=== PATIENT | female | born 1950 | race African-American/Black ===

== ENCOUNTER 2018-09-16 18:19 | Inpatient (IN) | payer MEDICAID ==
[~2018-09-16] VITALS: Ht 160 cm; Wt 99.8 kg
--- NOTE | 2018-09-16 18:30 | NUR ---
ED Nurse Note: pt walked in c/o sob x 1 day, pt reports she has hx asthma and it worsen yesterday. noted audible wheezing, ERMD notified regarding pt's condition, RT contacted. noted o2sat 94
[2018-09-16] MEDS ORDERED: ATENOLOL25 MG ORAL (18:34)
[2018-09-16] MEDS ORDERED: OXYBUTYNIN CHLO10 MG PO (18:34)
[2018-09-16] MEDS ORDERED: FOLIC ACID1 MG ORAL (18:34)
[2018-09-16] MEDS ORDERED: BANOPHEN25 M1 PO (18:34)
[2018-09-16] MEDS ORDERED: OYSCO-500500 M1 PO (18:34)
[2018-09-16] MEDS ORDERED: ADALAT10 MG ORAL (18:34)
[2018-09-16] MEDS ORDERED: HYDROCHLOROTHIA50 MG ORAL (18:34)
[2018-09-16] MEDS ORDERED: TREXALL5 MG PO (18:34)
[2018-09-16] MEDS ORDERED: PHENYTOIN SODI100 MG ORAL (18:34)
[2018-09-16] MEDS ORDERED: BENAZEPRIL HCL20 MG ORAL (18:34)
[2018-09-16] MEDS ORDERED: VENTOLIN HFA18 GM INH (18:34)
[2018-09-16] MEDS ORDERED: Albuterol/Ipratropium 3ml neb HHN ONE ×2 (18:45)
--- NOTE | 2018-09-16 19:00 | NUR ---
ED Nurse Note: Rt at the bedside, giving breathing tx. pt o2sat 98%.
[2018-09-16 19:08] VITALS: BP 128/59
[2018-09-16 19:09] LABS: ANION GAP 9 mmol/L (5-15); BLOOD UREA NITROGEN 14 mg/dL (7-18); CALCIUM 9.7 MG/DL (8.5-10.1); CARBON DIOXIDE 29 MMOL/L (21-32); CHLORIDE 98 MMOL/L (98-107); CREATININE 0.8 MG/DL (0.55-1.30); POTASSIUM 3.9 MMOL/L (3.5-5.1); SODIUM 136 MMOL/L (136-145)
[2018-09-16 19:16] LABS: BASOPHILS % (AUTO) 0.9 % (0.0-2.0); EOSINOPHILS % (AUTO) 5.4 % (0.0-3.0); HEMATOCRIT 41.3 % (37.0-47.0); HEMOGLOBIN 14.2 G/DL (12.0-16.0); MEAN CORPUSCULAR VOLUME 86 FL (80-99); MONOCYTES % (AUTO) 6.2 % (1.0-10.0); NEUTROPHILS % (AUTO) 65.5 % (45.0-75.0); PLATELET COUNT 332 K/UL (150-450); RED BLOOD COUNT 4.78 M/UL (4.20-5.40); RED CELL DISTRIBUTION WIDTH 13.1 % (11.6-14.8); WHITE BLOOD COUNT 17.4 K/UL (4.8-10.8)
[2018-09-16 19:22] LABS: ALANINE AMINOTRANSFERASE 33 U/L (12-78); ALBUMIN 3.4 G/DL (3.4-5.0); ALBUMIN/GLOBULIN RATIO 0.7 (1.0-2.7); ALKALINE PHOSPHATASE 165 U/L (46-116); ASPARTATE AMINO TRANSFERASE 33 U/L (15-37); BILIRUBIN,TOTAL 0.1 MG/DL (0.2-1.0); CKMB 1.7 NG/ML (0.0-3.6); CREATINE KINASE 254 U/L (26-308)
--- NOTE | 2018-09-16 19:22 | NUR ---
ED Nurse Note: report given to MELANIE Oleary and endorsed care, pt on residential monitor, vss, safety precautions in place. iv intact and patent.
--- NOTE | 2018-09-16 19:31 | Diagnostic Imaging Report ---
EXAM: XR Chest, 1 View CLINICAL HISTORY: SOB TECHNIQUE: Frontal view of the chest. COMPARISON: No relevant prior studies available. FINDINGS: Lungs: Accentuation of pulmonary markings. No confluent consolidation. Pleural space: Unremarkable. No pneumothorax. Heart: Unremarkable. No cardiomegaly. Mediastinum: Unremarkable. Bones/joints: No acute fracture. IMPRESSION: Accentuation of pulmonary markings. No confluent consolidation.
--- NOTE | 2018-09-16 19:33 | NUR ---
ED Nurse Note: urine collected; sent down to lab.
[2018-09-16 19:45] LABS: APPEARANCE,URINE CLEAR; BILIRUBIN, URINE NEGATIVE (NEGATIVE); COLOR,URINE PALE YELLOW; GLUCOSE, URINE (UA) NEGATIVE (NEGATIVE); KETONES,URINE NEGATIVE (NEGATIVE); LEUKOCYTE ESTERASE ,URINE NEGATIVE (NEGATIVE); NITRITE,URINE NEGATIVE (NEGATIVE); PH,URINE 6.5 (4.5-8.0); PROTEIN,URINE NEGATIVE (NEGATIVE); UROBILINOGEN,URINE NORMAL MG/DL (0.0-1.0)
[2018-09-16] MEDS ORDERED: Solu-MEDROL 125mg Inj IVP ONE (22:00)
--- NOTE | 2018-09-16 22:15 | NUR ---
TRANSFER TO FLOOR: Patient transferred to [facility] as ordered, per md adelia. Report given to skye felipe. patient in stable condition. ambulated from gurney to bed with cane. belongings list completed with receiving rn.
--- NOTE | 2018-09-16 22:15 | NUR ---
NURSE NOTES: Received pt from ED via gurney. Pt transferred to bed and unit without any incident. Family members are at bedside. Pt is A/O x4. [place] pt to unit, room, and hospital policies. Report received from Jared Oleary RN. Belongings list checked and accounted. monitor and storage bin tender is in placed, IV site intact, asymptomatic and patent. Bed is in the lowest position and locked. Call light within reach. No signs/symptoms of acute distress noted at this time. Will contact Dr. Morgan for admission orders.
--- NOTE | 2018-09-16 22:50 | NUR ---
NURSE NOTES: Contacted Dr. Morgan for admission orders. Awaiting call back.
--- NOTE | 2018-09-16 23:00 | Emergency Room Report ---
History of Present Illness General Chief Complaint: Dyspnea/Respdistress Source: Patient Present Illness HPI Patient is a 68-year-old female presented after increased difficulty with breathing. Patient reports of increased cough and trouble breathing. She had been previously followed by Dr. Rouse. She had been taking inhalers without any improvement. Patient reports having increased cough. She had not noticed increased swelling to her legs. She denies any fever but states that she has been having some increased cough with clear white sputum Allergies: Coded Allergies: No Known Allergies (Unverified , 09/16/18) Patient History Past Medical History: see triage record Reviewed Nursing Documentation: PMH: Agreed; PSxH: Agreed Nursing Documentation-PMH Hx Asthma: Yes Review of Systems All Other Systems: negative except mentioned in HPI Physical Exam Vital Signs Date Time Temp Pulse Resp B/P (MAP) Pulse Ox O2 Delivery O2 Flow Rate FiO2 09/16/18 18:24 100.6 101 16 168/83 (111) 95 Room Air 09/16/18 18:49 2.0 28 Sp02 EP Interpretation: reviewed, normal General Appearance: normal inspection, well appearing, no apparent distress, alert, GCS 15, obese Head: atraumatic ENT: normal ENT inspection, hearing grossly normal, normal voice Neck: normal inspection, full range of motion, supple, no bony tend Respiratory: normal inspection, no respiratory distress, no retraction, wheezing Cardiovascular #1: regular rate, rhythm Gastrointestinal: normal inspection, normal bowel sounds, non tender, soft, no guarding, no hernia Genitourinary: no CVA tenderness Musculoskeletal: normal inspection, back normal, normal range of motion Neurologic: normal inspection, alert, oriented x3, responsive, motor strength/ tone normal, speech normal Psychiatric: normal inspection, judgement/insight normal, mood/affect normal Skin: normal inspection, normal color, no rash Medical Decision Making Diagnostic Impression: Primary Impression: Respiratory distress Additional Impression: COPD exacerbation ER Course Patient present for shortness of breath. Differential diagnosis include was not limited to pneumonia, asthma exacerbation, deep venous thrombosis, pulmonary embolism among others. Because of complexity of patient's case laboratory testing and imaging studies were ordered. Patient was noted to have a normal BNP on laboratory testing. Patient had been given IV Lasix due to frothy sputum. Chest x-ray 1 view read by radiology showed increased pulmonary markings as well as normal cardiac size. Patient started on breathing treatments as well as IV fluids. Patient was noted to have some improvement after breathing treatments but continued to have difficulty with breathing. She was given IV Solu-Medrol. Dr. Mohinder Morgan was contacted for inpatient management due to covering physician for Dr. Rouse Labs Test 09/16/18 18:28 09/16/18 19:21 White Blood Count 17.4 K/UL (4.8-10.8) Red Blood Count 4.78 M/UL (4.20-5.40) Hemoglobin 14.2 G/DL (12.0-16.0) Hematocrit 41.3 % (37.0-47.0) Mean Corpuscular Volume 86 FL (80-99) Mean Corpuscular Hemoglobin 29.7 PG (27.0-31.0) Mean Corpuscular Hemoglobin Concent 34.5 G/DL (32.0-36.0) Red Cell Distribution Width 13.1 % (11.6-14.8) Platelet Count 332 K/UL (150-450) Mean Platelet Volume 6.5 FL (6.5-10.1) Neutrophils (%) (Auto) 65.5 % (45.0-75.0) Lymphocytes (%) (Auto) 22.0 % (20.0-45.0) Monocytes (%) (Auto) 6.2 % (1.0-10.0) Eosinophils (%) (Auto) 5.4 % (0.0-3.0) Basophils (%) (Auto) 0.9 % (0.0-2.0) Sodium Level 136 MMOL/L (136-145) Potassium Level 3.9 MMOL/L (3.5-5.1) Chloride Level 98 MMOL/L (98-107) Carbon Dioxide Level 29 MMOL/L (21-32) Anion Gap 9 mmol/L (5-15) Blood Urea Nitrogen 14 mg/dL (7-18) Creatinine 0.8 MG/DL (0.55-1.30) Estimat Glomerular Filtration Rate > 60 mL/min (>60) Glucose Level 141 MG/DL (74-106) Calcium Level 9.7 MG/DL (8.5-10.1) Total Bilirubin 0.1 MG/DL (0.2-1.0) Aspartate Amino Transf (AST/SGOT) 33 U/L (15-37) Alanine Aminotransferase (ALT/SGPT) 33 U/L (12-78) Alkaline Phosphatase 165 U/L (46-116) Total Creatine Kinase 254 U/L (26-308) Creatine Kinase MB 1.7 NG/ML (0.0-3.6) Creatine Kinase MB Relative Index 0.6 Troponin I 0.000 ng/mL (0.000-0.056) Pro-B-Type Natriuretic Peptide 11 pg/mL (0-125) Total Protein 8.1 G/DL (6.4-8.2) Albumin 3.4 G/DL (3.4-5.0) Globulin 4.7 g/dL Albumin/Globulin Ratio 0.7 (1.0-2.7) Lipase 105 U/L (73-393) Urine Color Pale yellow Urine Appearance Clear Urine pH 6.5 (4.5-8.0) Urine Specific [place] 1.005 (1.005-1.035) Urine Protein Negative (NEGATIVE) Urine Glucose (UA) Negative (NEGATIVE) Urine Ketones Negative (NEGATIVE) Urine Blood Negative (NEGATIVE) Urine Nitrite Negative (NEGATIVE) Urine Bilirubin Negative (NEGATIVE) Urine Urobilinogen Normal MG/DL (0.0-1.0) Urine Leukocyte Esterase Negative (NEGATIVE) Last Vital Signs Date Time Temp Pulse Resp B/P (MAP) Pulse Ox O2 Delivery O2 Flow Rate FiO2 09/16/18 22:15 98.9 96 22 128/59 98 Room Air 2.0 28 Status: improved Disposition: ADMITTED INPATIENT Condition: Stable Referrals: NON PHYSICIAN (PCP) Jesus Willams MD Sep 16, 2018 23:00
[2018-09-17] VITALS: BP 145/63
--- NOTE | 2018-09-17 01:02 | NUR ---
NURSE NOTES: Second attempt at contacting Dr. Morgan for admission orders. Awaiting call back.
--- NOTE | 2018-09-17 02:25 | NUR ---
NURSE NOTES: Received admission orders from Dr. Morgan. Will note and carry out.
[2018-09-17] MEDS: Albuterol/Ipratropium 3ml neb HHN SCH ×6 (02:37→22:33)
[2018-09-17 04:00] VITALS: BP 110/56
[2018-09-17] MEDS: Solu-MEDROL 125mg Inj IVP SCH ×3 (05:19→21:32)
[2018-09-17 07:22] LABS: BASOPHILS % (AUTO) 0.3 % (0.0-2.0); EOSINOPHILS % (AUTO) 2.9 % (0.0-3.0); HEMATOCRIT 40.4 % (37.0-47.0); HEMOGLOBIN 13.8 G/DL (12.0-16.0); LYMPHOCYTES % (AUTO) 16.1 % (20.0-45.0); MEAN CORPUSCULAR VOLUME 90 FL (80-99); MONOCYTES % (AUTO) 4.2 % (1.0-10.0); NEUTROPHILS % (AUTO) 76.5 % (45.0-75.0); PLATELET COUNT 342 K/UL (150-450); RED BLOOD COUNT 4.51 M/UL (4.20-5.40); RED CELL DISTRIBUTION WIDTH 13.7 % (11.6-14.8); WHITE BLOOD COUNT 16.9 K/UL (4.8-10.8)
--- NOTE | 2018-09-17 07:30 | NUR ---
NURSE NOTES: Received report from MELANIE Holley. Patient in bed resting, no active s/s cardiac, respiratory distress noticed at this time, denies pain at this time. Patient on 2L via NC, ST with HR 101, AOx4. IV on right wrist 20G, asymptomatic, patent, intact. Endorsed need of clarification for frequency of azithromycin, will call MD. Bed in lowest positions, side rails upx3, call light within reach, side rails padded. Will continue to monitor.
--- NOTE | 2018-09-17 07:32 | NUR ---
NURSE NOTES: Called Dr. Morgan regarding frequency of Azithromycin. Awaiting for callback. Will continue to monitor.
--- NOTE | 2018-09-17 07:39 | NUR ---
HAND-OFF: Report given to MELANIE Dasilva.
[2018-09-17 07:53] LABS: ALANINE AMINOTRANSFERASE 33 U/L (12-78); ALBUMIN 3.4 G/DL (3.4-5.0); ALBUMIN/GLOBULIN RATIO 0.7 (1.0-2.7); ALKALINE PHOSPHATASE 164 U/L (46-116); ANION GAP 10 mmol/L (5-15); ASPARTATE AMINO TRANSFERASE 21 U/L (15-37); BILIRUBIN,TOTAL 0.3 MG/DL (0.2-1.0); BLOOD UREA NITROGEN 13 mg/dL (7-18); CALCIUM 9.7 MG/DL (8.5-10.1); CARBON DIOXIDE 28 MMOL/L (21-32); CHLORIDE 98 MMOL/L (98-107); CREATININE 0.7 MG/DL (0.55-1.30); POTASSIUM 3.6 MMOL/L (3.5-5.1); SODIUM 136 MMOL/L (136-145)
[2018-09-17 08:00] VITALS: BP 158/74
[2018-09-17] MEDS: Phenytoin 100mg cap ORAL SCH ×3 (08:58→21:33)
[2018-09-17] MEDS: Tums 500mg ORAL SCH (08:58)
[2018-09-17] MEDS: Oxybutynin 5mg tab ORAL SCH ×3 (08:59→17:11)
[2018-09-17] MEDS: Benazepril 10mg tab ORAL SCH (08:59)
[2018-09-17] MEDS ORDERED: Azithromycin 500 MG in D5W 275 ML IVPB SCH (09:00)
--- NOTE | 2018-09-17 09:27 | Consultation ---
History of Present Illness General Date patient seen: Sep 17, 2018 Time patient seen: 11:52 Chief Complaint: Dyspnea/Respdistress Present Illness HPI pt walked in c/o sob x 1 day, pt reports she has hx asthma and it worsen yesterday She has a history of asthma vs COPD, former heavy tobacco use, HTN, seizure disorder, obesity with 3 days of increased shortness of breath, cough, wheezing. No fevers. She endorses chest pain as well. Allergies: Coded Allergies: No Known Allergies (Unverified , 09/16/18) Medication History Scheduled Albuterol Sulfate (Ventolin Hfa), 2 PUFFS INH EVERY 4 HOURS, (Reported) Atenolol* (Tenormin*), 25 MG ORAL DAILY, (Reported) Benazepril Hcl* (Benazepril Hcl*), 20 MG ORAL DAILY, (Reported) Calcium Carbonate (Oysco-500), 500 MG PO DAILY, (Reported) Diphenhydramine Hcl (Banophen), 25 MG PO DAILY, (Reported) Folic Acid* (Folic Acid*), 1 MG ORAL DAILY, (Reported) Hydrochlorothiazide* (Hydrochlorothiazide*), 50 MG ORAL DAILY, (Reported) Methotrexate Sodium (Trexall), 2.5 MG PO ONCE A WEEK, (Reported) Nifedipine (Nifedipine*), 90 MG ORAL DAILY, (Reported) Oxybutynin Chloride (Oxybutynin Chloride Er), 10 MG PO BID, (Reported) Phenytoin Sodium Extended* (Phenytoin Sodium Extended*), 200 MG ORAL THREE TIMES A DAY, (Reported) Patient History Healthcare decision maker Resuscitation status Full Code Advanced Directive on File Review of Systems Constitutional: Reports: no symptoms Eye: Reports: no symptoms ENT: Reports: no symptoms Respiratory: Reports: shortness of breath, wheezing Cardiovascular: Reports: chest pain Gastrointestinal: Reports: no symptoms Genitourinary: Reports: no symptoms Musculoskeletal: Reports: no symptoms Skin: Reports: no symptoms Psychiatric: Reports: no symptoms Neurological: Reports: no symptoms Endocrine: Reports: no symptoms Hematologic/Lymphatic: Reports: no symptoms Physical Exam General Appearance: no apparent distress, alert Lines, tubes and drains: peripheral HEENT: normocephalic, atraumatic Neck: non-tender, normal alignment Respiratory/Chest: chest wall non-tender, lungs clear Cardiovascular/Chest: normal peripheral pulses, normal rate, regular rhythm Abdomen: normal bowel sounds, non tender, soft Extremities: normal range of motion, non-tender, normal inspection, no calf tenderness Skin Exam: normal pigmentation, warm/dry 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, no motor/sensory deficits Last 24 Hour Vital Signs Date Time Temp Pulse Resp B/P (MAP) Pulse Ox O2 Delivery O2 Flow Rate FiO2 09/17/18 08:59 158/74 09/17/18 08:59 105 158/74 09/17/18 08:00 98.9 105 20 158/74 (102) 96 09/17/18 07:37 104 20 98 Nasal Cannula 2.0 28 09/17/18 07:21 101 20 96 Nasal Cannula 2.0 28 09/17/18 04:00 101 09/17/18 04:00 98.4 102 20 110/56 (74) 96 09/17/18 02:47 101 20 92 Nasal Cannula 2.0 28 09/17/18 02:37 105 20 94 Nasal Cannula 2.0 28 09/17/18 00:00 98.2 100 22 145/63 (90) 100 09/17/18 00:00 102 09/16/18 22:25 Nasal Cannula 2.0 09/16/18 22:15 98.9 96 22 128/59 98 Room Air 2.0 28 09/16/18 19:08 98.9 96 22 128/59 98 09/16/18 19:08 96 22 Room Air 09/16/18 19:02 96 20 99 Nasal Cannula 2.0 28 09/16/18 18:52 92 16 96 Nasal Cannula 2.0 28 09/16/18 18:49 92 15 96 Nasal Cannula 2.0 28 09/16/18 18:24 100.6 101 16 168/83 (111) 95 Room Air Intake and Output 09/16/18 09/17/18 18:59 06:59 Intake Total 10 ml Output Total 300 ml Balance -290 ml IV Total 10 ml Output Urine Total 300 ml # Voids 2 Laboratory Tests Test 09/16/18 18:28 09/16/18 19:21 09/17/18 05:10 White Blood Count 17.4 K/UL (4.8-10.8) H 16.9 K/UL (4.8-10.8) H Red Blood Count 4.78 M/UL (4.20-5.40) 4.51 M/UL (4.20-5.40) Hemoglobin 14.2 G/DL (12.0-16.0) 13.8 G/DL (12.0-16.0) Hematocrit 41.3 % (37.0-47.0) 40.4 % (37.0-47.0) Mean Corpuscular Volume 86 FL (80-99) 90 FL (80-99) Mean Corpuscular Hemoglobin 29.7 PG (27.0-31.0) 30.6 PG (27.0-31.0) Mean Corpuscular Hemoglobin Concent 34.5 G/DL (32.0-36.0) 34.1 G/DL (32.0-36.0) Red Cell Distribution Width 13.1 % (11.6-14.8) 13.7 % (11.6-14.8) Platelet Count 332 K/UL (150-450) 342 K/UL (150-450) Mean Platelet Volume 6.5 FL (6.5-10.1) 7.1 FL (6.5-10.1) Neutrophils (%) (Auto) 65.5 % (45.0-75.0) 76.5 % (45.0-75.0) H Lymphocytes (%) (Auto) 22.0 % (20.0-45.0) 16.1 % (20.0-45.0) L Monocytes (%) (Auto) 6.2 % (1.0-10.0) 4.2 % (1.0-10.0) Eosinophils (%) (Auto) 5.4 % (0.0-3.0) H 2.9 % (0.0-3.0) Basophils (%) (Auto) 0.9 % (0.0-2.0) 0.3 % (0.0-2.0) Sodium Level 136 MMOL/L (136-145) 136 MMOL/L (136-145) Potassium Level 3.9 MMOL/L (3.5-5.1) 3.6 MMOL/L (3.5-5.1) Chloride Level 98 MMOL/L (98-107) 98 MMOL/L (98-107) Carbon Dioxide Level 29 MMOL/L (21-32) 28 MMOL/L (21-32) Anion Gap 9 mmol/L (5-15) 10 mmol/L (5-15) Blood Urea Nitrogen 14 mg/dL (7-18) 13 mg/dL (7-18) Creatinine 0.8 MG/DL (0.55-1.30) 0.7 MG/DL (0.55-1.30) Estimat Glomerular Filtration Rate > 60 mL/min (>60) > 60 mL/min (>60) Glucose Level 141 MG/DL (74-106) H 136 MG/DL (74-106) H Calcium Level 9.7 MG/DL (8.5-10.1) 9.7 MG/DL (8.5-10.1) Total Bilirubin 0.1 MG/DL (0.2-1.0) L 0.3 MG/DL (0.2-1.0) Aspartate Amino Transf (AST/SGOT) 33 U/L (15-37) 21 U/L (15-37) Alanine Aminotransferase (ALT/SGPT) 33 U/L (12-78) 33 U/L (12-78) Alkaline Phosphatase 165 U/L (46-116) H 164 U/L (46-116) H Total Creatine Kinase 254 U/L (26-308) Creatine Kinase MB 1.7 NG/ML (0.0-3.6) Creatine Kinase MB Relative Index 0.6 Troponin I 0.000 ng/mL (0.000-0.056) Pro-B-Type Natriuretic Peptide 11 pg/mL (0-125) Total Protein 8.1 G/DL (6.4-8.2) 8.0 G/DL (6.4-8.2) Albumin 3.4 G/DL (3.4-5.0) 3.4 G/DL (3.4-5.0) Globulin 4.7 g/dL 4.6 g/dL Albumin/Globulin Ratio 0.7 (1.0-2.7) L 0.7 (1.0-2.7) L Lipase 105 U/L (73-393) Urine Color Pale yellow Urine Appearance Clear Urine pH 6.5 (4.5-8.0) Urine Specific [place] 1.005 (1.005-1.035) Urine Protein Negative (NEGATIVE) Urine Glucose (UA) Negative (NEGATIVE) Urine Ketones Negative (NEGATIVE) Urine Blood Negative (NEGATIVE) Urine Nitrite Negative (NEGATIVE) Urine Bilirubin Negative (NEGATIVE) Urine Urobilinogen Normal MG/DL (0.0-1.0) Urine Leukocyte Esterase Negative (NEGATIVE) Height (Feet): 5 Height (Inches): 3.00 Weight (Pounds): 214 Medications Current Medications Medications (Trade) Dose Ordered Sig/Jessica Route PRN Reason Start Time Stop Time Status Last Admin Dose Admin Acetaminophen (Tylenol) 650 mg Q6H PRN ORAL Mild Pain/Temp > 100.5 09/17/18 02:45 10/17/18 02:44 Albuterol/ Ipratropium (Albuterol/ Ipratropium) 3 ml Q4HRT HHN 09/17/18 03:00 09/22/18 02:59 09/17/18 07:20 Azithromycin 500 mg/Dextrose 275 ml @ 275 mls/hr Q8HR IVPB 09/17/18 09:00 09/19/18 06:59 UNV Benazepril HCl (Lotensin) 20 mg DAILY ORAL 09/17/18 09:00 10/17/18 08:59 09/17/18 08:59 Calcium Carbonate (Tums) 500 mg DAILY ORAL 09/17/18 09:00 10/17/18 08:59 09/17/18 08:58 Diphenhydramine HCl (Benadryl) 25 mg DAILY ORAL 09/17/18 09:00 10/17/18 08:59 09/17/18 08:58 Folic Acid (Folate) 1 mg DAILY ORAL 09/17/18 09:00 10/17/18 08:59 09/17/18 08:58 Methylprednisolone Sodium Succinate (Solu-MEDROL) 60 mg EVERY 6 HOURS IVP 09/17/18 06:00 10/17/18 05:59 09/17/18 05:19 Nifedipine (Procardia XL) 90 mg DAILY ORAL 09/17/18 09:00 10/17/18 08:59 09/17/18 08:59 Oxybutynin Chloride (Ditropan) 5 mg QID ORAL 09/17/18 09:00 10/17/18 08:59 09/17/18 08:59 Phenytoin (Dilantin) 200 mg THREE TIMES A DAY ORAL 09/17/18 09:00 10/17/18 08:59 09/17/18 08:58 Assessment/Plan Status: stable Assessment/Plan: Assessment/Plan Assessment/Plan: Problem List: 1. Respiratory insufficiency 2. Acute COPD exacerbation 3. Leukocytosis 4. Possible community acquired pneumonia 5. Seizure disorder 6. Obesity 7. HTN Plan: -ceftriaxone/azithro -solumedrol 125 in ED, cont 60q 12 for now -duonebs -monitor volumes -check TTE -Outpatient stress test Hari Vivas MD Sep 17, 2018 09:27
[2018-09-17 12:00] VITALS: BP 124/59
--- NOTE | 2018-09-17 13:57 | Consultation ---
History of Present Illness General Date patient seen: Sep 17, 2018 Chief Complaint: Dyspnea/Respdistress Referring physician: Dr. Mohinder Morgan Reason for Consultation: COPD exacerbation Present Illness HPI 68 y/o female w/ asthma vs COPD, former heavy tobacco use, HTN, seizure disorder , obesity with 3 days of increased shortness of breath, cough, wheezing. No fevers. No sick contacts. Seen in hospital and given steroids and azithromycin has been started. Main issue is wheezing. Noted leukocytosis on admission but no obvious infiltrate on CXR. Uses albuterol prn. Allergies: Coded Allergies: No Known Allergies (Unverified , 09/16/18) Medication History Scheduled Albuterol Sulfate (Ventolin Hfa), 2 PUFFS INH EVERY 4 HOURS, (Reported) Atenolol* (Tenormin*), 25 MG ORAL DAILY, (Reported) Benazepril Hcl* (Benazepril Hcl*), 20 MG ORAL DAILY, (Reported) Calcium Carbonate (Oysco-500), 500 MG PO DAILY, (Reported) Diphenhydramine Hcl (Banophen), 25 MG PO DAILY, (Reported) Folic Acid* (Folic Acid*), 1 MG ORAL DAILY, (Reported) Hydrochlorothiazide* (Hydrochlorothiazide*), 50 MG ORAL DAILY, (Reported) Methotrexate Sodium (Trexall), 2.5 MG PO ONCE A WEEK, (Reported) Nifedipine (Nifedipine*), 90 MG ORAL DAILY, (Reported) Oxybutynin Chloride (Oxybutynin Chloride Er), 10 MG PO BID, (Reported) Phenytoin Sodium Extended* (Phenytoin Sodium Extended*), 200 MG ORAL THREE TIMES A DAY, (Reported) Patient History History Provided By: Patient Healthcare decision maker Resuscitation status Full Code Advanced Directive on File Past Medical/Surgical History Past Medical/Surgical History: (1) COPD exacerbation Review of Systems Constitutional: Reports: other - hot flashes Eye: Reports: no symptoms ENT: Reports: no symptoms Respiratory: Reports: cough, shortness of breath, wheezing, sputum Cardiovascular: Reports: edema Gastrointestinal: Reports: no symptoms Genitourinary: Reports: no symptoms Musculoskeletal: Reports: no symptoms Neurological: Reports: no symptoms Physical Exam General Appearance: WD/WN, no apparent distress, alert HEENT: EOMI, supple, no JVD Neck: non-tender, normal alignment, supple, normal inspection Respiratory/Chest: crackles/rales, expiratory wheezing Cardiovascular/Chest: normal rate, regular rhythm Abdomen: normal bowel sounds, non tender, soft Extremities: trace edema Skin Exam: normal pigmentation 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 Last 24 Hour Vital Signs Date Time Temp Pulse Resp B/P (MAP) Pulse Ox O2 Delivery O2 Flow Rate FiO2 09/17/18 10:55 100 20 99 Nasal Cannula 2.0 28 09/17/18 10:44 99 20 96 Nasal Cannula 2.0 28 09/17/18 09:00 Nasal Cannula 2.0 09/17/18 08:59 158/74 09/17/18 08:59 105 158/74 09/17/18 08:00 98 09/17/18 08:00 98.9 105 20 158/74 (102) 96 09/17/18 07:37 104 20 98 Nasal Cannula 2.0 28 09/17/18 07:21 101 20 96 Nasal Cannula 2.0 28 09/17/18 04:00 101 09/17/18 04:00 98.4 102 20 110/56 (74) 96 09/17/18 02:47 101 20 92 Nasal Cannula 2.0 28 09/17/18 02:37 105 20 94 Nasal Cannula 2.0 28 09/17/18 00:00 98.2 100 22 145/63 (90) 100 09/17/18 00:00 102 09/16/18 22:25 Nasal Cannula 2.0 09/16/18 22:15 98.9 96 22 128/59 98 Room Air 2.0 28 09/16/18 19:08 98.9 96 22 128/59 98 09/16/18 19:08 96 22 Room Air 09/16/18 19:02 96 20 99 Nasal Cannula 2.0 28 09/16/18 18:52 92 16 96 Nasal Cannula 2.0 28 09/16/18 18:49 92 15 96 Nasal Cannula 2.0 28 09/16/18 18:24 100.6 101 16 168/83 (111) 95 Room Air Intake and Output 09/16/18 09/17/18 19:00 07:00 Intake Total 10 ml Output Total 300 ml Balance -290 ml IV Total 10 ml Output Urine Total 300 ml # Voids 2 Laboratory Tests Test 09/16/18 18:28 09/16/18 19:21 09/17/18 05:10 White Blood Count 17.4 K/UL (4.8-10.8) H 16.9 K/UL (4.8-10.8) H Red Blood Count 4.78 M/UL (4.20-5.40) 4.51 M/UL (4.20-5.40) Hemoglobin 14.2 G/DL (12.0-16.0) 13.8 G/DL (12.0-16.0) Hematocrit 41.3 % (37.0-47.0) 40.4 % (37.0-47.0) Mean Corpuscular Volume 86 FL (80-99) 90 FL (80-99) Mean Corpuscular Hemoglobin 29.7 PG (27.0-31.0) 30.6 PG (27.0-31.0) Mean Corpuscular Hemoglobin Concent 34.5 G/DL (32.0-36.0) 34.1 G/DL (32.0-36.0) Red Cell Distribution Width 13.1 % (11.6-14.8) 13.7 % (11.6-14.8) Platelet Count 332 K/UL (150-450) 342 K/UL (150-450) Mean Platelet Volume 6.5 FL (6.5-10.1) 7.1 FL (6.5-10.1) Neutrophils (%) (Auto) 65.5 % (45.0-75.0) 76.5 % (45.0-75.0) H Lymphocytes (%) (Auto) 22.0 % (20.0-45.0) 16.1 % (20.0-45.0) L Monocytes (%) (Auto) 6.2 % (1.0-10.0) 4.2 % (1.0-10.0) Eosinophils (%) (Auto) 5.4 % (0.0-3.0) H 2.9 % (0.0-3.0) Basophils (%) (Auto) 0.9 % (0.0-2.0) 0.3 % (0.0-2.0) Sodium Level 136 MMOL/L (136-145) 136 MMOL/L (136-145) Potassium Level 3.9 MMOL/L (3.5-5.1) 3.6 MMOL/L (3.5-5.1) Chloride Level 98 MMOL/L (98-107) 98 MMOL/L (98-107) Carbon Dioxide Level 29 MMOL/L (21-32) 28 MMOL/L (21-32) Anion Gap 9 mmol/L (5-15) 10 mmol/L (5-15) Blood Urea Nitrogen 14 mg/dL (7-18) 13 mg/dL (7-18) Creatinine 0.8 MG/DL (0.55-1.30) 0.7 MG/DL (0.55-1.30) Estimat Glomerular Filtration Rate > 60 mL/min (>60) > 60 mL/min (>60) Glucose Level 141 MG/DL (74-106) H 136 MG/DL (74-106) H Calcium Level 9.7 MG/DL (8.5-10.1) 9.7 MG/DL (8.5-10.1) Total Bilirubin 0.1 MG/DL (0.2-1.0) L 0.3 MG/DL (0.2-1.0) Aspartate Amino Transf (AST/SGOT) 33 U/L (15-37) 21 U/L (15-37) Alanine Aminotransferase (ALT/SGPT) 33 U/L (12-78) 33 U/L (12-78) Alkaline Phosphatase 165 U/L (46-116) H 164 U/L (46-116) H Total Creatine Kinase 254 U/L (26-308) Creatine Kinase MB 1.7 NG/ML (0.0-3.6) Creatine Kinase MB Relative Index 0.6 Troponin I 0.000 ng/mL (0.000-0.056) Pro-B-Type Natriuretic Peptide 11 pg/mL (0-125) Total Protein 8.1 G/DL (6.4-8.2) 8.0 G/DL (6.4-8.2) Albumin 3.4 G/DL (3.4-5.0) 3.4 G/DL (3.4-5.0) Globulin 4.7 g/dL 4.6 g/dL Albumin/Globulin Ratio 0.7 (1.0-2.7) L 0.7 (1.0-2.7) L Lipase 105 U/L (73-393) Urine Color Pale yellow Urine Appearance Clear Urine pH 6.5 (4.5-8.0) Urine Specific [place] 1.005 (1.005-1.035) Urine Protein Negative (NEGATIVE) Urine Glucose (UA) Negative (NEGATIVE) Urine Ketones Negative (NEGATIVE) Urine Blood Negative (NEGATIVE) Urine Nitrite Negative (NEGATIVE) Urine Bilirubin Negative (NEGATIVE) Urine Urobilinogen Normal MG/DL (0.0-1.0) Urine Leukocyte Esterase Negative (NEGATIVE) Height (Feet): 5 Height (Inches): 3.00 Weight (Pounds): 214 Medications Current Medications Medications (Trade) Dose Ordered Sig/Jessica Route PRN Reason Start Time Stop Time Status Last Admin Dose Admin Acetaminophen (Tylenol) 650 mg Q6H PRN ORAL Mild Pain/Temp > 100.5 09/17/18 02:45 10/17/18 02:44 Albuterol/ Ipratropium (Albuterol/ Ipratropium) 3 ml Q4HRT HHN 09/17/18 03:00 09/22/18 02:59 09/17/18 10:44 Azithromycin 500 mg/Dextrose 275 ml @ 275 mls/hr ONCE IV 09/17/18 14:00 09/17/18 16:00 Azithromycin 500 mg/Dextrose 275 ml @ 275 mls/hr Q24H IV 09/18/18 14:00 09/25/18 13:59 Benazepril HCl (Lotensin) 20 mg DAILY ORAL 09/17/18 09:00 10/17/18 08:59 09/17/18 08:59 Calcium Carbonate (Tums) 500 mg DAILY ORAL 09/17/18 09:00 10/17/18 08:59 09/17/18 08:58 Diphenhydramine HCl (Benadryl) 25 mg DAILY ORAL 09/17/18 09:00 10/17/18 08:59 09/17/18 08:58 Folic Acid (Folate) 1 mg DAILY ORAL 09/17/18 09:00 10/17/18 08:59 09/17/18 08:58 Methylprednisolone Sodium Succinate (Solu-MEDROL) 60 mg EVERY 6 HOURS IVP 09/17/18 06:00 10/17/18 05:59 09/17/18 12:06 Nifedipine (Procardia XL) 90 mg DAILY ORAL 09/17/18 09:00 10/17/18 08:59 09/17/18 08:59 Oxybutynin Chloride (Ditropan) 5 mg QID ORAL 09/17/18 09:00 10/17/18 08:59 09/17/18 12:06 Phenytoin (Dilantin) 200 mg THREE TIMES A DAY ORAL 09/17/18 09:00 10/17/18 08:59 09/17/18 08:58 Assessment/Plan Assessment/Plan: Problem List: 1. Respiratory insufficiency 2. Acute COPD exacerbation 3. Leukocytosis 4. Possible community acquired pneumonia 5. Seizure disorder 6. Obesity 7. HTN Plan: -ceftriaxone/azithro -solumedrol 125 in ED, cont 60q 12 for now -duonebs -monitor volumes -check TTE Yang Ramos MD Sep 17, 2018 13:57
[2018-09-17] MEDS ORDERED: Azithromycin 500mg/D5W 275ml IV SCH ×2 (14:00)
[2018-09-17 16:00] VITALS: BP 120/63
[2018-09-17] MEDS: cefTRIAXone 1 GM in D5W 55 ML IVPB SCH (16:11)
--- NOTE | 2018-09-17 18:51 | History & Physical ---
History of Present Illness General Date patient seen: Sep 17, 2018 Reason for Hospitalization: Dyspnea/Respdistress Present Illness HPI This is a 68 year old female with past medical history of COPD, former heavy tobacco use, HTN, seizure disorder, obesity with 4-5 days of days of increased shortness of breath and productive cough Denies fevers or chills no nausea or emesis S/p solumedrol in the ED Allergies: Coded Allergies: No Known Allergies (Unverified , 09/16/18) Medication History Scheduled Albuterol Sulfate (Ventolin Hfa), 2 PUFFS INH EVERY 4 HOURS, (Reported) Atenolol* (Tenormin*), 25 MG ORAL DAILY, (Reported) Benazepril Hcl* (Benazepril Hcl*), 20 MG ORAL DAILY, (Reported) Calcium Carbonate (Oysco-500), 500 MG PO DAILY, (Reported) Diphenhydramine Hcl (Banophen), 25 MG PO DAILY, (Reported) Folic Acid* (Folic Acid*), 1 MG ORAL DAILY, (Reported) Hydrochlorothiazide* (Hydrochlorothiazide*), 50 MG ORAL DAILY, (Reported) Methotrexate Sodium (Trexall), 2.5 MG PO ONCE A WEEK, (Reported) Nifedipine (Nifedipine*), 90 MG ORAL DAILY, (Reported) Oxybutynin Chloride (Oxybutynin Chloride Er), 10 MG PO BID, (Reported) Phenytoin Sodium Extended* (Phenytoin Sodium Extended*), 200 MG ORAL THREE TIMES A DAY, (Reported) Patient History History Provided By: Patient Healthcare decision maker Resuscitation status Full Code Advanced Directive on File Review of Systems Review of Symptoms General ROS: no weight loss or fever Psychological ROS: no depression or mood changes, no memory loss Ophthalmic ROS: no visual changes or eye irritation ENT ROS: no nasal congestion, hearing loss, dizziness Allergy and Immunology ROS: no allergic symptoms or urticaria Hematological and Lymphatic ROS: no swollen glands, unusual bleeding or bruising Endocrine ROS: no polyuria, polydipsia, weight changes, temperature intolerance Respiratory ROS: + SOB, + wheezing Cardiovascular ROS: no chest pain or dyspnea on exertion Gastrointestinal ROS: denies abdominal pain, bright red blood in stool. Musculoskeletal ROS: no myalgias or arthralgias Neurological ROS: no TIA or stroke symptoms Dermatological ROS: no new or changing skin lesions, rashes or pruritis Physical Exam Physical Exam General appearance: alert, cooperative, no distress, appears stated age Head: Normocephalic, without obvious abnormality, atraumatic Eyes: conjunctivae/corneas clear. PERRL, EOM's intact. Fundi benign Throat: Lips, mucosa, and tongue normal. Teeth and gums normal Neck: supple, symmetrical, trachea midline, no adenopathy, thyroid: not enlarged, symmetric, no tenderness/mass/nodules, no carotid bruit and no JVD Lungs: + wheezing bilaterally Heart: regular rate and rhythm, S1, S2 normal, no murmur, click, rub or gallop Abdomen: soft, non-tender. Bowel sounds normal. No masses, no organomegaly Extremities: extremities normal, atraumatic, no cyanosis or edema Pulses: 2+ and symmetric Skin: Skin color, texture, turgor normal. No rashes or lesions Neurologic: Grossly normal Last 24 Hour Vital Signs Date Time Temp Pulse Resp B/P (MAP) Pulse Ox O2 Delivery O2 Flow Rate FiO2 09/17/18 16:00 110 09/17/18 16:00 98.2 115 20 120/63 (82) 93 09/17/18 15:10 99 20 100 Nasal Cannula 2.0 28 09/17/18 14:59 98 20 97 Nasal Cannula 2.0 28 09/17/18 12:00 98.0 100 18 124/59 (80) 100 09/17/18 12:00 100 09/17/18 10:55 100 20 99 Nasal Cannula 2.0 09/17/18 10:44 99 20 96 Nasal Cannula 2.0 09/17/18 09:00 Nasal Cannula 2.0 09/17/18 08:59 158/74 09/17/18 08:59 105 158/74 09/17/18 08:00 98 09/17/18 08:00 98.9 105 20 158/74 (102) 96 09/17/18 07:37 104 20 98 Nasal Cannula 2.0 09/17/18 07:21 101 20 96 Nasal Cannula 2.0 28 09/17/18 04:00 101 09/17/18 04:00 98.4 102 20 110/56 (74) 96 09/17/18 02:47 101 20 92 Nasal Cannula 2.0 09/17/18 02:37 105 20 94 Nasal Cannula 2.0 28 09/17/18 00:00 98.2 100 22 145/63 (90) 100 09/17/18 00:00 102 09/16/18 22:25 Nasal Cannula 2.0 09/16/18 22:15 98.9 96 22 128/59 98 Room Air 2.0 28 09/16/18 19:08 98.9 96 22 128/59 98 09/16/18 19:08 96 22 Room Air 09/16/18 19:02 96 20 99 Nasal Cannula 2.0 28 09/16/18 18:52 92 16 96 Nasal Cannula 2.0 28 09/16/18 18:49 92 15 96 Nasal Cannula 2.0 28 Intake and Output 09/16/18 09/17/18 19:00 07:00 Intake Total 10 ml Output Total 300 ml Balance -290 ml IV Total 10 ml Output Urine Total 300 ml # Voids 2 Laboratory Tests Test 09/16/18 19:21 09/17/18 05:10 Urine Color Pale yellow Urine Appearance Clear Urine pH 6.5 (4.5-8.0) Urine Specific [place] 1.005 (1.005-1.035) Urine Protein Negative (NEGATIVE) Urine Glucose (UA) Negative (NEGATIVE) Urine Ketones Negative (NEGATIVE) Urine Blood Negative (NEGATIVE) Urine Nitrite Negative (NEGATIVE) Urine Bilirubin Negative (NEGATIVE) Urine Urobilinogen Normal MG/DL (0.0-1.0) Urine Leukocyte Esterase Negative (NEGATIVE) White Blood Count 16.9 K/UL (4.8-10.8) H Red Blood Count 4.51 M/UL (4.20-5.40) Hemoglobin 13.8 G/DL (12.0-16.0) Hematocrit 40.4 % (37.0-47.0) Mean Corpuscular Volume 90 FL (80-99) Mean Corpuscular Hemoglobin 30.6 PG (27.0-31.0) Mean Corpuscular Hemoglobin Concent 34.1 G/DL (32.0-36.0) Red Cell Distribution Width 13.7 % (11.6-14.8) Platelet Count 342 K/UL (150-450) Mean Platelet Volume 7.1 FL (6.5-10.1) Neutrophils (%) (Auto) 76.5 % (45.0-75.0) H Lymphocytes (%) (Auto) 16.1 % (20.0-45.0) L Monocytes (%) (Auto) 4.2 % (1.0-10.0) Eosinophils (%) (Auto) 2.9 % (0.0-3.0) Basophils (%) (Auto) 0.3 % (0.0-2.0) Sodium Level 136 MMOL/L (136-145) Potassium Level 3.6 MMOL/L (3.5-5.1) Chloride Level 98 MMOL/L (98-107) Carbon Dioxide Level 28 MMOL/L (21-32) Anion Gap 10 mmol/L (5-15) Blood Urea Nitrogen 13 mg/dL (7-18) Creatinine 0.7 MG/DL (0.55-1.30) Estimat Glomerular Filtration Rate > 60 mL/min (>60) Glucose Level 136 MG/DL (74-106) H Calcium Level 9.7 MG/DL (8.5-10.1) Total Bilirubin 0.3 MG/DL (0.2-1.0) Aspartate Amino Transf (AST/SGOT) 21 U/L (15-37) Alanine Aminotransferase (ALT/SGPT) 33 U/L (12-78) Alkaline Phosphatase 164 U/L (46-116) H Total Protein 8.0 G/DL (6.4-8.2) Albumin 3.4 G/DL (3.4-5.0) Globulin 4.6 g/dL Albumin/Globulin Ratio 0.7 (1.0-2.7) L Height (Feet): 5 Height (Inches): 3.00 Weight (Pounds): 214 Medications Current Medications Medications (Trade) Dose Ordered Sig/Jessica Route PRN Reason Start Time Stop Time Status Last Admin Dose Admin Acetaminophen (Tylenol) 650 mg Q6H PRN ORAL Mild Pain/Temp > 100.5 09/17/18 02:45 10/17/18 02:44 Albuterol/ Ipratropium (Albuterol/ Ipratropium) 3 ml Q4HRT HHN 09/17/18 03:00 09/22/18 02:59 09/17/18 14:59 Azithromycin 500 mg/Dextrose 275 ml @ 275 mls/hr Q24H IV 09/18/18 14:00 09/25/18 13:59 Benazepril HCl (Lotensin) 20 mg DAILY ORAL 09/17/18 09:00 10/17/18 08:59 09/17/18 08:59 Calcium Carbonate (Tums) 500 mg DAILY ORAL 09/17/18 09:00 10/17/18 08:59 09/17/18 08:58 Ceftriaxone Sodium 1 gm/ Dextrose 55 ml @ 110 mls/hr Q24H IVPB 09/17/18 15:00 09/24/18 14:59 09/17/18 16:11 Diphenhydramine HCl (Benadryl) 25 mg DAILY ORAL 09/17/18 09:00 10/17/18 08:59 09/17/18 08:58 Folic Acid (Folate) 1 mg DAILY ORAL 09/17/18 09:00 10/17/18 08:59 09/17/18 08:58 Methylprednisolone Sodium Succinate (Solu-MEDROL) 60 mg Q12HR IVP 09/17/18 21:00 10/17/18 05:59 Nifedipine (Procardia XL) 90 mg DAILY ORAL 09/17/18 09:00 10/17/18 08:59 09/17/18 08:59 Oxybutynin Chloride (Ditropan) 5 mg QID ORAL 09/17/18 09:00 10/17/18 08:59 09/17/18 17:11 Phenytoin (Dilantin) 200 mg Q12HR ORAL 09/17/18 21:00 10/17/18 20:59 Assessment/Plan Problem List: (1) COPD exacerbation ICD Codes: J44.1 - Chronic obstructive pulmonary disease with (acute) exacerbation SNOMED: 277132674 (2) Respiratory distress ICD Codes: R06.03 - Acute respiratory distress SNOMED: 552027664 Assessment/Plan: #COPD exacerbation #possible bronchitis #seizure d/o # tobacco use #obesity #HTN admit to tele [facility] pulm consult cardiology consult azithro and ceftriaxone D1 solumedrol 60 daily TTE resume home meds supplemental O2 bowel regimen Fullcode MIPS Hospital declaration INPATIENT level of care is warranted for this patient because patient is a 89 year old with who presents with suspicion of . I have a high level of concern because . Patient is at high risk for . Plan of care/treatment include . Patient care is expected to be greater than 2 midnights. OBSERVATION level of care is warranted for this patient. Patient is a 89 year old with who presents with . Patient will be admitted for 1 midnight, but if additional night(s) is/are necessary, patient will be converted to inpatient status for the entire hospitalization Disposition: Once the patient is stable to leave the hospital, I anticipate the patient will likely be discharged to the following environment: Estimated discharge date: I spent 70 minutes on this patient's case, and minutes was dedicated to counseling and/or care coordination. MIPS (Merit-based Incentive Payment System) Applicable CPT: 60168, 50689 CHECK ALL THAT ARE MET: Measure #5 (CHF): All ages. Prescribe KAUSHAL/ARB upon discharge for patients with left ventricular systolic dysfunction. If not, the reason is clearly documented in the medical chart. Measure #8 (CHF): All ages. Prescribe a beta reji upon discharge for patients with left ventricular systolic dysfunction. If not, the reason is clearly documented in the medical chart. Measure #47 Advance care plan or surrogate decision maker documented in the medical record. Measure #130 The provider has documented, updated, or reviewed the patients current medication list and has documented it in the patients note. Measure #374 (All): Send report to referring provider. Measure #407(Sepsis due to MSSA bacteremia): Age 18+ Patient treated with a beta-lactam antibiotic (Nafcillin, Oxacillin or Cefazolin) as definitive therapy. MEDICAL COMPLEXITY High complexity medical decision making (need 2/3 categories) Problem - need 4 points Acute/new problem with new plan for workup (4 points, 1 max) Acute/new problem without additional workup (3 points, 1 max) Unstable chronic problem actively being managed (2 point each, 2 max) Stable chronic problem actively being managed (1 point each, 2 max) Self-limited/transient process (constipation, muscle ache, etc) (1 point each , 2 max) Data - need 4 points Reviewed labs/imaging studies (1 points, 2 max) Independent review of imaging (EKG, xrays, etc) (2 points, 2 max) Discussed case with consult/other MD/RN (2 points, 2 max) High Risk - qualify if have one of the following: Severe exacerbation of acute problem, acute mental status change, IV narcotics , monitoring drug levels (vancomycin, INR, tacrolimus etc) Mohinder Morgan M.D. Sep 17, 2018 18:51
--- NOTE | 2018-09-17 19:20 | NUR ---
NURSE NOTES: Per Dr. Tellez change oxybutynin to daily at night, change Keppra to BID order noted, entered, carried out. Addendum: 09/17/18 at 1930 by REBECCA MATTHEWS RN Patient not on keppra but on phenytoin, and frequency changed to BID per Dr. Ramos.
--- NOTE | 2018-09-17 19:29 | NUR ---
HAND-OFF: Report given to MELANIE Holley.
--- NOTE | 2018-09-17 19:58 | NUR ---
NURSE NOTES: Received pt and report from MELANIE Dasilva. Observe pt resting in bed with family member at bedside. nuclear monitoring technician is in placed, IV site intact, asymptomatic and patent. Bed in the lowest position and locked. Call light within reach. No signs/symptoms of acute distress noted at this time. Will continue plan of care.
[2018-09-17 20:00] VITALS: BP 126/66
[2018-09-18] VITALS: BP 133/86
[2018-09-18] MEDS: Albuterol/Ipratropium 3ml neb HHN SCH ×6 (03:25→23:31)
[2018-09-18 04:00] VITALS: BP 135/77
[2018-09-18 06:58] LABS: HEMATOCRIT 36.6 % (37.0-47.0); HEMOGLOBIN 12.5 G/DL (12.0-16.0); MEAN CORPUSCULAR VOLUME 90 FL (80-99); PLATELET COUNT 318 K/UL (150-450); RED BLOOD COUNT 4.09 M/UL (4.20-5.40); RED CELL DISTRIBUTION WIDTH 13.4 % (11.6-14.8)
[2018-09-18 07:13] LABS: WHITE BLOOD COUNT 22.5 K/UL (4.8-10.8)
[2018-09-18 07:25] LABS: ALANINE AMINOTRANSFERASE 35 U/L (12-78); ALBUMIN/GLOBULIN RATIO 0.7 (1.0-2.7); ALKALINE PHOSPHATASE 138 U/L (46-116); ANION GAP 5 mmol/L (5-15); ASPARTATE AMINO TRANSFERASE 23 U/L (15-37); BILIRUBIN,TOTAL 0.3 MG/DL (0.2-1.0); BLOOD UREA NITROGEN 9 mg/dL (7-18); CARBON DIOXIDE 32 MMOL/L (21-32); CHLORIDE 103 MMOL/L (98-107); CREATININE 0.5 MG/DL (0.55-1.30); POTASSIUM 4.1 MMOL/L (3.5-5.1); SODIUM 140 MMOL/L (136-145)
--- NOTE | 2018-09-18 07:40 | NUR ---
HAND-OFF: Report given to MELANIE Dasilva.
--- NOTE | 2018-09-18 07:40 | NUR ---
NURSE NOTES: Received report from MELANIE Holley. Patient in bed resting, no active s/s cardiac, respiratory distress noticed at this time. Patient on 2L oxygen via NC, ST with HR 108, AOX4. IV on right FA 22G, asymptomatic, patent, intact. Bed in lowest position, side rails upx3, call light within reach. Will continue to monitor.
--- NOTE | 2018-09-18 07:52 | NUR ---
NURSE NOTES: Paged Dr. Morgan regarding WBC level 22.5 with no fever, already on abx. Awaiting for callback. Will continue to monitor.
[2018-09-18 08:00] VITALS: BP 137/69
[2018-09-18] MEDS: Solu-MEDROL 125mg Inj IVP SCH ×2 (09:12→21:18)
[2018-09-18] MEDS: Tums 500mg ORAL SCH (09:12)
[2018-09-18] MEDS: Phenytoin 100mg cap ORAL SCH ×2 (09:13→21:18)
[2018-09-18] MEDS: Benazepril 10mg tab ORAL SCH (09:14)
--- NOTE | 2018-09-18 09:44 | NUR ---
NURSE NOTES: Dr. Morgan at the nursing station made aware level of WBC, per Dr. Morgan, WBC may affected by medication, steroid, no order given at this time. Clarified with Dr. Morgan regarding Keppra, made aware patient not on Keppra but on phenytoin BID. Per Dr. Morgan phenytoin BID is the right order.
--- NOTE | 2018-09-18 09:45 | Internal Med Progress Note ---
Subjective Date of Service: Sep 18, 2018 Physician Name Mohinder Morgan Attending Physician Mohinder Morgan M.D. Current Medications Medications (Trade) Dose Ordered Sig/Jessica Route PRN Reason Start Time Stop Time Status Last Admin Dose Admin Acetaminophen (Tylenol) 650 mg Q6H PRN ORAL Mild Pain/Temp > 100.5 09/17/18 02:45 10/17/18 02:44 Albuterol/ Ipratropium (Albuterol/ Ipratropium) 3 ml Q4HRT HHN 09/17/18 03:00 09/22/18 02:59 09/18/18 07:46 Azithromycin 500 mg/Dextrose 275 ml @ 275 mls/hr Q24H IV 09/18/18 14:00 09/25/18 13:59 Benazepril HCl (Lotensin) 20 mg DAILY ORAL 09/17/18 09:00 10/17/18 08:59 09/18/18 09:14 Calcium Carbonate (Tums) 500 mg DAILY ORAL 09/17/18 09:00 10/17/18 08:59 09/18/18 09:12 Ceftriaxone Sodium 1 gm/ Dextrose 55 ml @ 110 mls/hr Q24H IVPB 09/17/18 15:00 09/24/18 14:59 09/17/18 16:11 Diphenhydramine HCl (Benadryl) 25 mg DAILY ORAL 09/17/18 09:00 10/17/18 08:59 09/18/18 09:13 Folic Acid (Folate) 1 mg DAILY ORAL 09/17/18 09:00 10/17/18 08:59 09/18/18 09:12 Methylprednisolone Sodium Succinate (Solu-MEDROL) 60 mg Q12HR IVP 09/17/18 21:00 10/17/18 05:59 09/18/18 09:12 Nifedipine (Procardia XL) 90 mg DAILY ORAL 09/17/18 09:00 10/17/18 08:59 09/18/18 09:14 Oxybutynin Chloride (Ditropan) 5 mg BEDTIME ORAL 09/18/18 21:00 10/17/18 08:59 Phenytoin (Dilantin) 200 mg Q12HR ORAL 09/17/18 21:00 10/17/18 20:59 09/18/18 09:13 Allergies: Coded Allergies: No Known Allergies (Unverified , 09/16/18) Constitutional: Denies: no symptoms, chills, diaphoresis, fever, malaise, weakness, other Cardiovascular: Denies: no symptoms, chest pain, edema, irregular heart rate, lightheadedness, palpitations, syncope, other Respiratory: Reports: shortness of breath, SOB with excertion Subjective breathing slightly improved continues to have significant cough no fevers or chills tolerating antibiotics Objective Last Vital Signs Date Time Temp Pulse Resp B/P (MAP) Pulse Ox O2 Delivery O2 Flow Rate FiO2 09/18/18 09:14 137/69 09/18/18 09:14 105 09/18/18 09:00 Nasal Cannula 2.0 09/18/18 08:00 98.8 20 97 09/18/18 07:52 32 General Appearance: WD/WN, no apparent distress EENT: PERRL/EOMI Neck: non-tender Cardiovascular: normal peripheral pulses, normal rate Respiratory/Chest: rhonchi - bilaterally Abdomen: normal bowel sounds, non tender, no organomegaly Edema: trace edema Neurologic: abnormal gait, alert, oriented x 3 Skin: no diaphoresis Laboratory Tests Test 09/18/18 06:30 White Blood Count 22.5 K/UL (4.8-10.8) *H Red Blood Count 4.09 M/UL (4.20-5.40) L Hemoglobin 12.5 G/DL (12.0-16.0) Hematocrit 36.6 % (37.0-47.0) L Mean Corpuscular Volume 90 FL (80-99) Mean Corpuscular Hemoglobin 30.5 PG (27.0-31.0) Mean Corpuscular Hemoglobin Concent 34.0 G/DL (32.0-36.0) Red Cell Distribution Width 13.4 % (11.6-14.8) Platelet Count 318 K/UL (150-450) Mean Platelet Volume 6.7 FL (6.5-10.1) Neutrophils (%) (Auto) % (45.0-75.0) Lymphocytes (%) (Auto) % (20.0-45.0) Monocytes (%) (Auto) % (1.0-10.0) Eosinophils (%) (Auto) % (0.0-3.0) Basophils (%) (Auto) % (0.0-2.0) Differential Total Cells Counted 100 Neutrophils % (Manual) 69 % (45-75) Lymphocytes % (Manual) 22 % (20-45) Monocytes % (Manual) 9 % (1-10) Eosinophils % (Manual) 0 % (0-3) Basophils % (Manual) 0 % (0-2) Band Neutrophils 0 % (0-8) Platelet Estimate Adequate Platelet Morphology Normal Hypochromasia 1+ Sodium Level 140 MMOL/L (136-145) Potassium Level 4.1 MMOL/L (3.5-5.1) Chloride Level 103 MMOL/L (98-107) Carbon Dioxide Level 32 MMOL/L (21-32) Anion Gap 5 mmol/L (5-15) Blood Urea Nitrogen 9 mg/dL (7-18) Creatinine 0.5 MG/DL (0.55-1.30) L Estimat Glomerular Filtration Rate > 60 mL/min (>60) Glucose Level 120 MG/DL (74-106) H Calcium Level 9.0 MG/DL (8.5-10.1) Total Bilirubin 0.3 MG/DL (0.2-1.0) Aspartate Amino Transf (AST/SGOT) 23 U/L (15-37) Alanine Aminotransferase (ALT/SGPT) 35 U/L (12-78) Alkaline Phosphatase 138 U/L (46-116) H Total Protein 7.3 G/DL (6.4-8.2) Albumin 3.0 G/DL (3.4-5.0) L Globulin 4.3 g/dL Albumin/Globulin Ratio 0.7 (1.0-2.7) L Microbiology Date/Time Source Procedure Growth Status 09/16/18 18:20 Arm Right Blood Culture - Preliminary NO GROWTH AFTER 24 HOURS Resulted 09/16/18 18:05 Arm Left Blood Culture - Preliminary NO GROWTH AFTER 24 HOURS Resulted Intake and Output 09/17/18 09/18/18 18:59 06:59 Intake Total 980 ml 350 ml Output Total 900 ml 450 ml Balance 80 ml -100 ml Intake Oral 980 ml 350 ml Output Urine Total 900 ml 450 ml # Voids 2 Assessment/Plan Problem List: (1) COPD exacerbation (2) Respiratory distress Assessment/Plan #COPD exacerbation #possible bronchitis #seizure d/o # tobacco use #obesity #HTN [facility] pulm consult cardiology consult azithro and ceftriaxone D2 solumedrol 60 IV daily TTE resume home meds continue phenytoin continue oxybutinin supplemental O2 bowel regimen Fullcode Mohinder Morgan M.D. Sep 18, 2018 09:45
--- NOTE | 2018-09-18 10:03 | NUR ---
NURSE NOTES: Per Dr. Morgan docusate 100mg PO BID, Miralax 17gm PO daily. Order noted, entered, carried out. Will continue to monitor.
--- NOTE | 2018-09-18 10:12 | NUR ---
*-* NO INSURANCE INFORMATION IN THE BAR UNABLE TO SEND CLINICALS OR REVIEWS *-*
[2018-09-18 12:00] VITALS: BP 121/81
--- NOTE | 2018-09-18 12:15 | Cardiac Electrophysiology PN ---
Assessment/Plan Assessment/Plan 1. Sinus tach due to respiratory failure and PNA. No Atrial fib EF 60% 2. HTN On Procardia 90 and Benazepril 20 daily 3. Respiratory insufficiency due to COPD exacerbation On Solumedrol, ceftriaxone/azithro 4. Possible community acquired pneumonia 5. Seizure disorder 6. Obesity DW RN Subjective Subjective Remains in sinus tach 110-120s. No CP but still SOB and coughing on Abx Objective Last 24 Hour Vital Signs Date Time Temp Pulse Resp B/P (MAP) Pulse Ox O2 Delivery O2 Flow Rate FiO2 09/18/18 11:08 101 16 98 Nasal Cannula 3.0 32 09/18/18 10:58 103 20 98 Nasal Cannula 2.0 28 09/18/18 09:14 137/69 09/18/18 09:14 105 137/69 09/18/18 09:00 Nasal Cannula 2.0 09/18/18 08:00 107 09/18/18 08:00 98.8 105 20 137/69 (91) 97 09/18/18 07:52 103 16 98 Nasal Cannula 3.0 32 09/18/18 07:43 96 Nasal Cannula 2.0 28 09/18/18 07:43 108 18 96 Nasal Cannula 2.0 28 09/18/18 04:00 108 09/18/18 04:00 97.5 106 20 135/77 (96) 96 09/18/18 03:35 106 20 98 Nasal Cannula 3.0 32 09/18/18 03:25 104 20 97 Nasal Cannula 3.0 32 09/18/18 00:00 114 09/18/18 00:00 97.7 112 18 133/86 (102) 98 09/17/18 22:42 120 20 97 Venturi Mask 6.0 30 09/17/18 22:32 115 22 93 Nasal Cannula 2.0 28 09/17/18 21:00 Nasal Cannula 2.0 09/17/18 20:00 110 09/17/18 20:00 98.6 101 18 126/66 (86) 96 09/17/18 19:52 118 20 97 Nasal Cannula 2.0 28 09/17/18 19:42 113 18 96 Nasal Cannula 2.0 28 09/17/18 19:42 96 Nasal Cannula 2.0 28 09/17/18 16:00 110 09/17/18 16:00 98.2 115 20 120/63 (82) 93 09/17/18 15:10 99 20 100 Nasal Cannula 2.0 28 09/17/18 14:59 98 20 97 Nasal Cannula 2.0 28 Intake and Output 09/17/18 09/18/18 18:59 06:59 Intake Total 980 ml 350 ml Output Total 900 ml 450 ml Balance 80 ml -100 ml Intake Oral 980 ml 350 ml Output Urine Total 900 ml 450 ml # Voids 2 Laboratory Tests Test 09/18/18 06:30 White Blood Count 22.5 K/UL (4.8-10.8) *H Red Blood Count 4.09 M/UL (4.20-5.40) L Hemoglobin 12.5 G/DL (12.0-16.0) Hematocrit 36.6 % (37.0-47.0) L Mean Corpuscular Volume 90 FL (80-99) Mean Corpuscular Hemoglobin 30.5 PG (27.0-31.0) Mean Corpuscular Hemoglobin Concent 34.0 G/DL (32.0-36.0) Red Cell Distribution Width 13.4 % (11.6-14.8) Platelet Count 318 K/UL (150-450) Mean Platelet Volume 6.7 FL (6.5-10.1) Neutrophils (%) (Auto) % (45.0-75.0) Lymphocytes (%) (Auto) % (20.0-45.0) Monocytes (%) (Auto) % (1.0-10.0) Eosinophils (%) (Auto) % (0.0-3.0) Basophils (%) (Auto) % (0.0-2.0) Differential Total Cells Counted 100 Neutrophils % (Manual) 69 % (45-75) Lymphocytes % (Manual) 22 % (20-45) Monocytes % (Manual) 9 % (1-10) Eosinophils % (Manual) 0 % (0-3) Basophils % (Manual) 0 % (0-2) Band Neutrophils 0 % (0-8) Platelet Estimate Adequate Platelet Morphology Normal Hypochromasia 1+ Sodium Level 140 MMOL/L (136-145) Potassium Level 4.1 MMOL/L (3.5-5.1) Chloride Level 103 MMOL/L (98-107) Carbon Dioxide Level 32 MMOL/L (21-32) Anion Gap 5 mmol/L (5-15) Blood Urea Nitrogen 9 mg/dL (7-18) Creatinine 0.5 MG/DL (0.55-1.30) L Estimat Glomerular Filtration Rate > 60 mL/min (>60) Glucose Level 120 MG/DL (74-106) H Calcium Level 9.0 MG/DL (8.5-10.1) Total Bilirubin 0.3 MG/DL (0.2-1.0) Aspartate Amino Transf (AST/SGOT) 23 U/L (15-37) Alanine Aminotransferase (ALT/SGPT) 35 U/L (12-78) Alkaline Phosphatase 138 U/L (46-116) H Total Protein 7.3 G/DL (6.4-8.2) Albumin 3.0 G/DL (3.4-5.0) L Globulin 4.3 g/dL Albumin/Globulin Ratio 0.7 (1.0-2.7) L Microbiology Date/Time Source Procedure Growth Status 09/16/18 18:20 Arm Right Blood Culture - Preliminary NO GROWTH AFTER 24 HOURS Resulted 09/16/18 18:05 Arm Left Blood Culture - Preliminary NO GROWTH AFTER 24 HOURS Resulted Objective General Appearance: WD/WN, no apparent distress, alert HEENT: EOMI, supple, no JVD Respiratory/Chest: crackles/rales, expiratory wheezing Cardiovascular/Chest: normal tachy rate, regular rhythm no G/R/M Abdomen: normal bowel sounds, non tender, soft Extremities: trace edema 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
--- NOTE | 2018-09-18 13:06 | Pulmonology Progress Note ---
Assessment/Plan Assessment/Plan Problem List: 1. Respiratory insufficiency 2. Acute COPD exacerbation 3. Leukocytosis 4. Possible community acquired pneumonia 5. Seizure disorder 6. Obesity 7. HTN Plan: -ceftriaxone/azithro -solumedrol 125 in ED, cont 60q 12 for now -duonebs -monitor volumes Subjective ROS Limited/Unobtainable: No Interval Events: Still coughing and short of breath. Continues to wheeze. Constitutional: Reports: no symptoms Respiratory: Reports: productive cough, shortness of breath, wheezing Cardiovascular: Reports: no symptoms Gastrointestinal/Abdominal: Reports: constipation Genitourinary: Reports: no symptoms Neurologic: Reports: no symptoms Allergies: Coded Allergies: No Known Allergies (Unverified , 09/16/18) Objective Last 24 Hour Vital Signs Date Time Temp Pulse Resp B/P (MAP) Pulse Ox O2 Delivery O2 Flow Rate FiO2 09/18/18 12:00 98.0 80 20 121/81 (94) 100 09/18/18 11:08 101 16 98 Nasal Cannula 3.0 32 09/18/18 10:58 103 20 98 Nasal Cannula 2.0 28 09/18/18 09:14 137/69 09/18/18 09:14 105 137/69 09/18/18 09:00 Nasal Cannula 2.0 09/18/18 08:00 107 09/18/18 08:00 98.8 105 20 137/69 (91) 97 09/18/18 07:52 103 16 98 Nasal Cannula 3.0 32 09/18/18 07:43 96 Nasal Cannula 2.0 28 09/18/18 07:43 108 18 96 Nasal Cannula 2.0 28 09/18/18 04:00 108 09/18/18 04:00 97.5 106 20 135/77 (96) 96 09/18/18 03:35 106 20 98 Nasal Cannula 3.0 32 09/18/18 03:25 104 20 97 Nasal Cannula 3.0 32 09/18/18 00:00 114 09/18/18 00:00 97.7 112 18 133/86 (102) 98 09/17/18 22:42 120 20 97 Venturi Mask 6.0 30 09/17/18 22:32 115 22 93 Nasal Cannula 2.0 28 09/17/18 21:00 Nasal Cannula 2.0 09/17/18 20:00 110 09/17/18 20:00 98.6 101 18 126/66 (86) 96 09/17/18 19:52 118 20 97 Nasal Cannula 2.0 28 09/17/18 19:42 113 18 96 Nasal Cannula 2.0 28 09/17/18 19:42 96 Nasal Cannula 2.0 28 09/17/18 16:00 110 09/17/18 16:00 98.2 115 20 120/63 (82) 93 09/17/18 15:10 99 20 100 Nasal Cannula 2.0 28 09/17/18 14:59 98 20 97 Nasal Cannula 2.0 28 Intake and Output 09/17/18 09/18/18 19:00 07:00 Intake Total 980 ml 470 ml Output Total 900 ml 450 ml Balance 80 ml 20 ml Intake Oral 980 ml 470 ml Output Urine Total 900 ml 450 ml # Voids 2 General Appearance: no acute distress HEENT: mucous membranes moist Respiratory/Chest: expiratory wheezing Cardiovascular: normal rate, regular rhythm Abdomen: soft, non tender Extremities: no edema 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: 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 Microbiology Date/Time Source Procedure Growth Status 09/16/18 18:20 Arm Right Blood Culture - Preliminary NO GROWTH AFTER 24 HOURS Resulted 09/16/18 18:05 Arm Left Blood Culture - Preliminary NO GROWTH AFTER 24 HOURS Resulted Laboratory Tests 09/18/18 06:30: White Blood Count 22.5*H, Red Blood Count 4.09L, Hemoglobin 12.5, Hematocrit 36.6L, Mean Corpuscular Volume 90, Mean Corpuscular Hemoglobin 30.5, Mean Corpuscular Hemoglobin Concent 34.0, Red Cell Distribution Width 13.4, Platelet Count 318, Mean Platelet Volume 6.7, Neutrophils (%) (Auto) , Lymphocytes (%) ( Auto) , Monocytes (%) (Auto) , Eosinophils (%) (Auto) , Basophils (%) (Auto) , Differential Total Cells Counted 100, Neutrophils % (Manual) 69, Lymphocytes % ( Manual) 22, Monocytes % (Manual) 9, Eosinophils % (Manual) 0, Basophils % ( Manual) 0, Band Neutrophils 0, Platelet Estimate Adequate, Platelet Morphology Normal, Hypochromasia 1+, Sodium Level 140, Potassium Level 4.1, Chloride Level 103, Carbon Dioxide Level 32, Anion Gap 5, Blood Urea Nitrogen 9, Creatinine 0.5L, Estimat Glomerular Filtration Rate > 60, Glucose Level 120H, Calcium Level 9.0, Total Bilirubin 0.3, Aspartate Amino Transf (AST/SGOT) 23, Alanine Aminotransferase (ALT/SGPT) 35, Alkaline Phosphatase 138H, Total Protein 7.3, Albumin 3.0L, Globulin 4.3, Albumin/Globulin Ratio 0.7L Current Medications Medications (Trade) Dose Ordered Sig/Jessica Route PRN Reason Start Time Stop Time Status Last Admin Dose Admin Acetaminophen (Tylenol) 650 mg Q6H PRN ORAL Mild Pain/Temp > 100.5 09/17/18 02:45 10/17/18 02:44 Albuterol/ Ipratropium (Albuterol/ Ipratropium) 3 ml Q4HRT HHN 09/17/18 03:00 09/22/18 02:59 09/18/18 11:00 Azithromycin 500 mg/Dextrose 275 ml @ 275 mls/hr Q24H IV 09/18/18 14:00 09/25/18 13:59 Benazepril HCl (Lotensin) 20 mg DAILY ORAL 09/17/18 09:00 10/17/18 08:59 09/18/18 09:14 Calcium Carbonate (Tums) 500 mg DAILY ORAL 09/17/18 09:00 10/17/18 08:59 09/18/18 09:12 Ceftriaxone Sodium 1 gm/ Dextrose 55 ml @ 110 mls/hr Q24H IVPB 09/17/18 15:00 09/24/18 14:59 09/17/18 16:11 Diphenhydramine HCl (Benadryl) 25 mg DAILY ORAL 09/17/18 09:00 10/17/18 08:59 09/18/18 09:13 Docusate Sodium (Colace) 100 mg TWICE A DAY ORAL 09/18/18 18:00 10/18/18 17:59 Folic Acid (Folate) 1 mg DAILY ORAL 09/17/18 09:00 10/17/18 08:59 09/18/18 09:12 Methylprednisolone Sodium Succinate (Solu-MEDROL) 60 mg Q12HR IVP 09/17/18 21:00 10/17/18 05:59 09/18/18 09:12 Nifedipine (Procardia XL) 90 mg DAILY ORAL 09/17/18 09:00 10/17/18 08:59 09/18/18 09:14 Oxybutynin Chloride (Ditropan) 5 mg BEDTIME ORAL 09/18/18 21:00 10/17/18 08:59 Phenytoin (Dilantin) 200 mg Q12HR ORAL 09/17/18 21:00 10/17/18 20:59 09/18/18 09:13 Polyethylene Glycol (Miralax) 17 gm QHS ORAL 09/18/18 21:00 10/18/18 20:59 Yang Ramos MD Sep 18, 2018 13:06
--- NOTE | 2018-09-18 13:13 | NUR ---
CASE MANAGEMENT: INITIAL REVIEW 68 YO F PRESENTED TO OUR ED FROM HOME CC: DYSPNEA PMHx: ASTHMA. CHF. SI:CHF EXACERBATION. T 100.6 HR 101 RR 16 B/P 168/83 SATS 95% ON RA WBC 17.4 GLU 141 TBILI 0.1 ALP 165 IS: CLARIBEL NEB HHN X1 LASIX IV X1 PATIENT ADMITTED TO TELE 09/16/2018 @ 8693 DCP: PATIENT TO BE DISCHARGED TO HOME ONCE MEDICALLY CLEARED. PLAN OF CARE: duonebs pulm consult cardiology consult azithro and ceftriaxone solumedrol 60 daily Addendum: 09/19/18 at 1356 by Susan Talamantes CM INTERQUAL MET FOR ACUTE
[2018-09-18] MEDS: Docusate 100mg cap ORAL SCH ×2 (13:38→17:17)
[2018-09-18] MEDS: Azithromycin 500 MG in D5W 275 ML IV SCH (14:20)
[2018-09-18] MEDS: cefTRIAXone 1 GM in D5W 55 ML IVPB SCH (15:27)
[2018-09-18 16:00] VITALS: BP 116/65
[2018-09-18] MEDS ORDERED: Docusate 100mg cap ORAL SCH (18:00)
--- NOTE | 2018-09-18 19:30 | NUR ---
NURSE NOTES: Report received from Hae/RN, Patient awake and alert, sitting on bed, no acute distress/SOB noted. IV on right forearm 22 gauge, Saline locked. Bed in low position and locked, Call light within reach. Will continue plan of care.
--- NOTE | 2018-09-18 19:33 | NUR ---
HAND-OFF: Report given to MELANIE Iqbal.
[2018-09-18 20:00] VITALS: BP 140/71
[2018-09-18] MEDS: Oxybutynin 5mg tab ORAL SCH (21:00)
[2018-09-18] MEDS: Miralax 17gm pkt ORAL SCH (21:00)
--- NOTE | 2018-09-18 21:27 | NUR ---
NURSE NOTES: patient refused Oxybutynin and Miralax.
--- NOTE | 2018-09-18 22:15 | NUR ---
HAND-OFF: Report given to Opal/RN, Patient awake and alert, No acute distress noted. Endorsed plan of care.
--- NOTE | 2018-09-18 22:16 | NUR ---
NURSE NOTES: Received pt from MELANIE Iqbal. Pt awake, alert, and talkative. Bed in lowest position. Call light within reach. Will continue to monitor.
[2018-09-19] VITALS (7 sets, daily range): BP systolic 124–139; BP diastolic 49–73
--- NOTE | 2018-09-19 00:34 | NUR ---
NURSE NOTES: Called and left a message with Dr. Morgan regarding pts request for a nasal rinse. Awaiting call back.
[2018-09-19] MEDS: Albuterol/Ipratropium 3ml neb HHN SCH ×6 (03:35→23:20)
[2018-09-19 06:24] LABS: HEMATOCRIT 35.1 % (37.0-47.0); MEAN CORPUSCULAR VOLUME 90 FL (80-99); PLATELET COUNT 327 K/UL (150-450); RED BLOOD COUNT 3.91 M/UL (4.20-5.40); RED CELL DISTRIBUTION WIDTH 13.5 % (11.6-14.8); WHITE BLOOD COUNT 20.3 K/UL (4.8-10.8)
[2018-09-19 06:44] LABS: ALANINE AMINOTRANSFERASE 34 U/L (12-78); ALBUMIN 2.7 G/DL (3.4-5.0); ALBUMIN/GLOBULIN RATIO 0.6 (1.0-2.7); ALKALINE PHOSPHATASE 116 U/L (46-116); ANION GAP 7 mmol/L (5-15); ASPARTATE AMINO TRANSFERASE 20 U/L (15-37); BILIRUBIN,TOTAL 0.2 MG/DL (0.2-1.0); BLOOD UREA NITROGEN 7 mg/dL (7-18); CALCIUM 8.9 MG/DL (8.5-10.1); CARBON DIOXIDE 30 MMOL/L (21-32); CHLORIDE 103 MMOL/L (98-107); CREATININE 0.5 MG/DL (0.55-1.30); POTASSIUM 3.9 MMOL/L (3.5-5.1); SODIUM 140 MMOL/L (136-145)
--- NOTE | 2018-09-19 07:07 | NUR ---
HAND-OFF: Report given to MELANIE Finnegan. Pt stable.
--- NOTE | 2018-09-19 07:18 | NUR ---
NURSE NOTES: Pt received from MELANIE Joseph alert and oriented x4, with no acute s/s of distress noted. IV site asymptomatic and patent on R fa 22g, on saline lock. On 2L NC, no s/s of SOB noted but pt did state that she was waiting for her breathing tx. RN stated that she will follow up with RT for breathing tx, pt verbalized understanding. Bed in lowest position, call light and belongings within reach. monitoring engineer on - SR (96).
[2018-09-19] MEDS: Benazepril 10mg tab ORAL SCH (08:38)
[2018-09-19] MEDS: Docusate 100mg cap ORAL SCH ×2 (08:39→18:02)
[2018-09-19] MEDS: Tums 500mg ORAL SCH (08:39)
[2018-09-19] MEDS: Solu-MEDROL 125mg Inj IVP SCH ×2 (08:40→21:01)
[2018-09-19] MEDS: Phenytoin 100mg cap ORAL SCH ×2 (08:40→21:01)
--- NOTE | 2018-09-19 11:54 | Pulmonology Progress Note ---
Assessment/Plan Assessment/Plan Pulmonary Progress Note Assessment/Plan Problem List: 1. Respiratory insufficiency 2. Acute COPD exacerbation 3. Leukocytosis 4. Possible community acquired pneumonia 5. Seizure disorder 6. Obesity 7. HTN Plan: -ceftriaxone/azithro -solumedrol 125 in ED, cont 60q 12 for now -duonebs -monitor volumes Subjective ROS Limited/Unobtainable: No Interval Events: Still coughing and short of breath. Continues to wheeze. 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 Microbiology Date/Time Source Procedure Growth Status 09/16/18 18:20 Arm Right Blood Culture - Preliminary NO GROWTH AFTER 24 HOURS Resulted 09/16/18 18:05 Arm Left Blood Culture - Preliminary NO GROWTH AFTER 24 HOURS Resulted Laboratory Tests 09/18/18 06:30: White Blood Count 22.5*H, Red Blood Count 4.09L, Hemoglobin 12.5, Hematocrit 36.6L, Mean Corpuscular Volume 90, Mean Corpuscular Hemoglobin 30.5, Mean Corpuscular Hemoglobin Concent 34.0, Red Cell Distribution Width 13.4, Platelet Count 318, Mean Platelet Volume 6.7, Neutrophils (%) (Auto) , Lymphocytes (%) ( Auto) , Monocytes (%) (Auto) , Eosinophils (%) (Auto) , Basophils (%) (Auto) , Differential Total Cells Counted 100, Neutrophils % (Manual) 69, Lymphocytes % ( Manual) 22, Monocytes % (Manual) 9, Eosinophils % (Manual) 0, Basophils % ( Manual) 0, Band Neutrophils 0, Platelet Estimate Adequate, Platelet Morphology Normal, Hypochromasia 1+, Sodium Level 140, Potassium Level 4.1, Chloride Level 103, Carbon Dioxide Level 32, Anion Gap 5, Blood Urea Nitrogen 9, Creatinine 0.5L, Estimat Glomerular Filtration Rate > 60, Glucose Level 120H, Calcium Level 9.0, Total Bilirubin 0.3, Aspartate Amino Transf (AST/SGOT) 23, Alanine Aminotransferase (ALT/SGPT) 35, Alkaline Phosphatase 138H, Total Protein 7.3, Albumin 3.0L, Globulin 4.3, Albumin/Globulin Ratio 0.7L Current Medications Medications (Trade) Dose Ordered Sig/Jessica Route PRN Reason Start Time Stop Time Status Last Admin Dose Admin Acetaminophen (Tylenol) 650 mg Q6H PRN ORAL Mild Pain/Temp > 100.5 09/17/18 02:45 10/17/18 02:44 Albuterol/ Ipratropium (Albuterol/ Ipratropium) 3 ml Q4HRT HHN 09/17/18 03:00 09/22/18 02:59 09/18/18 11:00 Azithromycin 500 mg/Dextrose 275 ml @ 275 mls/hr Q24H IV 09/18/18 14:00 09/25/18 13:59 Benazepril HCl (Lotensin) 20 mg DAILY ORAL 09/17/18 09:00 10/17/18 08:59 09/18/18 09:14 Calcium Carbonate (Tums) 500 mg DAILY ORAL 09/17/18 09:00 10/17/18 08:59 09/18/18 09:12 Ceftriaxone Sodium 1 gm/ Dextrose 55 ml @ 110 mls/hr Q24H IVPB 09/17/18 15:00 09/24/18 14:59 09/17/18 16:11 Diphenhydramine HCl (Benadryl) 25 mg DAILY ORAL 09/17/18 09:00 10/17/18 08:59 09/18/18 09:13 Docusate Sodium (Colace) 100 mg TWICE A DAY ORAL 09/18/18 18:00 10/18/18 17:59 Folic Acid (Folate) 1 mg DAILY ORAL 09/17/18 09:00 10/17/18 08:59 09/18/18 09:12 Methylprednisolone Sodium Succinate (Solu-MEDROL) 60 mg Q12HR IVP 09/17/18 21:00 10/17/18 05:59 09/18/18 09:12 Nifedipine (Procardia XL) 90 mg DAILY ORAL 09/17/18 09:00 10/17/18 08:59 09/18/18 09:14 Oxybutynin Chloride (Ditropan) 5 mg BEDTIME ORAL 09/18/18 21:00 10/17/18 08:59 Phenytoin (Dilantin) 200 mg Q12HR ORAL 09/17/18 21:00 10/17/18 20:59 09/18/18 09:13 Polyethylene Glycol (Miralax) 17 gm QHS ORAL 09/18/18 21:00 10/18/18 20:59 Subjective ROS Limited/Unobtainable: No Allergies: Coded Allergies: No Known Allergies (Unverified , 09/16/18) Objective Last 24 Hour Vital Signs Date Time Temp Pulse Resp B/P (MAP) Pulse Ox O2 Delivery O2 Flow Rate FiO2 09/19/18 11:20 103 20 97 Nasal Cannula 2.0 28 09/19/18 11:10 99 20 96 Nasal Cannula 2.0 28 09/19/18 10:43 98.4 120 22 139/58 (85) 94 09/19/18 09:00 Nasal Cannula 2.0 09/19/18 08:39 110 139/58 09/19/18 08:38 139/58 09/19/18 08:00 98.4 120 22 139/58 (85) 94 09/19/18 08:00 114 09/19/18 07:54 69 20 98 Nasal Cannula 2.0 28 09/19/18 07:50 95 Nasal Cannula 2.0 28 09/19/18 07:48 62 20 95 Room Air 09/19/18 04:00 98.1 100 20 124/49 (74) 98 09/19/18 04:00 106 09/19/18 03:37 99 20 100 Nasal Cannula 2.0 28 09/19/18 03:25 97 20 97 Nasal Cannula 2.0 28 09/19/18 00:00 108 09/19/18 00:00 98.0 112 20 129/73 (91) 97 09/18/18 23:32 111 20 97 Nasal Cannula 2.0 28 09/18/18 23:21 110 20 94 Nasal Cannula 2.0 28 09/18/18 21:00 Nasal Cannula 2.0 09/18/18 20:00 98.2 119 20 140/71 (94) 97 09/18/18 20:00 128 09/18/18 19:41 112 20 98 Nasal Cannula 2.0 28 09/18/18 19:40 95 Nasal Cannula 2.0 28 09/18/18 19:30 111 20 95 Nasal Cannula 2.0 28 09/18/18 16:00 99.9 105 20 116/65 (82) 95 09/18/18 16:00 103 09/18/18 14:56 106 16 98 Nasal Cannula 3.0 32 09/18/18 14:46 107 18 97 Nasal Cannula 2.0 28 09/18/18 12:00 98 09/18/18 12:00 98.0 80 20 121/81 (94) 100 Intake and Output 09/18/18 09/19/18 18:59 06:59 Intake Total 360 ml Balance 360 ml Intake Oral 360 ml # Voids 3 Microbiology Date/Time Source Procedure Growth Status 09/16/18 18:20 Arm Right Blood Culture - Preliminary NO GROWTH AFTER 48 HOURS Resulted 09/16/18 18:05 Arm Left Blood Culture - Preliminary NO GROWTH AFTER 48 HOURS Resulted Laboratory Tests 09/19/18 05:53: White Blood Count 20.3H, Red Blood Count 3.91L, Hemoglobin 12.0, Hematocrit 35.1L, Mean Corpuscular Volume 90, Mean Corpuscular Hemoglobin 30.7, Mean Corpuscular Hemoglobin Concent 34.2, Red Cell Distribution Width 13.5, Platelet Count 327, Mean Platelet Volume 6.6, Neutrophils (%) (Auto) , Lymphocytes (%) ( Auto) , Monocytes (%) (Auto) , Eosinophils (%) (Auto) , Basophils (%) (Auto) , Differential Total Cells Counted 100, Neutrophils % (Manual) 69, Lymphocytes % ( Manual) 23, Monocytes % (Manual) 7, Eosinophils % (Manual) 0, Basophils % ( Manual) 1, Band Neutrophils 0, Platelet Estimate Adequate, Platelet Morphology Normal, Red Blood Cell Morphology Normal, Sodium Level 140, Potassium Level 3.9 , Chloride Level 103, Carbon Dioxide Level 30, Anion Gap 7, Blood Urea Nitrogen 7, Creatinine 0.5L, Estimat Glomerular Filtration Rate > 60, Glucose Level 113H , Calcium Level 8.9, Total Bilirubin 0.2, Aspartate Amino Transf (AST/SGOT) 20, Alanine Aminotransferase (ALT/SGPT) 34, Alkaline Phosphatase 116, Total Protein 7.1, Albumin 2.7L, Globulin 4.4, Albumin/Globulin Ratio 0.6L Current Medications Medications (Trade) Dose Ordered Sig/Jessica Route PRN Reason Start Time Stop Time Status Last Admin Dose Admin Acetaminophen (Tylenol) 650 mg Q6H PRN ORAL Mild Pain/Temp > 100.5 09/17/18 02:45 10/17/18 02:44 Albuterol/ Ipratropium (Albuterol/ Ipratropium) 3 ml Q4HRT HHN 09/17/18 03:00 09/22/18 02:59 09/19/18 11:10 Azithromycin 500 mg/Dextrose 275 ml @ 275 mls/hr Q24H IV 09/18/18 14:00 09/25/18 13:59 09/18/18 14:20 Benazepril HCl (Lotensin) 20 mg DAILY ORAL 09/17/18 09:00 10/17/18 08:59 09/19/18 08:38 Calcium Carbonate (Tums) 500 mg DAILY ORAL 09/17/18 09:00 10/17/18 08:59 09/19/18 08:39 Ceftriaxone Sodium 1 gm/ Dextrose 55 ml @ 110 mls/hr Q24H IVPB 09/17/18 15:00 09/24/18 14:59 09/18/18 15:27 Diphenhydramine HCl (Benadryl) 25 mg DAILY ORAL 09/17/18 09:00 10/17/18 08:59 09/19/18 08:39 Docusate Sodium (Colace) 100 mg TWICE A DAY ORAL 09/18/18 13:15 10/18/18 13:14 09/19/18 08:39 Folic Acid (Folate) 1 mg DAILY ORAL 09/17/18 09:00 10/17/18 08:59 09/19/18 08:40 Methylprednisolone Sodium Succinate (Solu-MEDROL) 60 mg Q12HR IVP 09/17/18 21:00 10/17/18 05:59 09/19/18 08:40 Nifedipine (Procardia XL) 90 mg DAILY ORAL 09/17/18 09:00 10/17/18 08:59 09/19/18 08:39 Oxybutynin Chloride (Ditropan) 5 mg BEDTIME ORAL 09/18/18 21:00 10/17/18 08:59 Phenytoin (Dilantin) 200 mg Q12HR ORAL 09/17/18 21:00 10/17/18 20:59 09/19/18 08:40 Polyethylene Glycol (Miralax) 17 gm QHS ORAL 09/18/18 21:00 10/18/18 20:59 Hari Silva MD Sep 19, 2018 11:54
--- NOTE | 2018-09-19 12:31 | NUR ---
CASE MANAGEMENT:REVIEW 09/19/18 SI: COPD EXACERBATION POSSIBLE BRONCHITIS. OBESITY 98.4 120 22 139/58 97% ON 2L/NC WBC+20.3 IS: IV SOLUMEDROL 60MG Q12 IV AZITHROMYCIN Q24 IV ROCEPHIN Q24 DILANTIN PO Q12 PROCARDIA PO QD DUONEB HHN Q4HR RTC : TELEMETRY STATUS
--- NOTE | 2018-09-19 13:37 | Cardiac Electrophysiology PN ---
Assessment/Plan Assessment/Plan 1. Sinus tach due to respiratory failure and PNA. No Atrial fib EF 60% 2. HTN On Procardia 90 and Benazepril 20 daily 3. COPD exacerbation. On Solumedrol, ceftriaxone/azithro 4. Possible community acquired pneumonia 5. Seizure disorder 6. Obesity DW RN Subjective Subjective No CP but still SOB and coughing on Ab. In SR Objective Last 24 Hour Vital Signs Date Time Temp Pulse Resp B/P (MAP) Pulse Ox O2 Delivery O2 Flow Rate FiO2 09/19/18 12:00 98.5 109 20 127/61 (83) 93 09/19/18 12:00 111 09/19/18 11:20 103 20 97 Nasal Cannula 2.0 28 09/19/18 11:10 99 20 96 Nasal Cannula 2.0 28 09/19/18 10:43 98.4 120 22 139/58 (85) 94 09/19/18 09:00 Nasal Cannula 2.0 09/19/18 08:39 110 139/58 09/19/18 08:38 139/58 09/19/18 08:00 98.4 120 22 139/58 (85) 94 09/19/18 08:00 114 09/19/18 07:54 69 20 98 Nasal Cannula 2.0 28 09/19/18 07:50 95 Nasal Cannula 2.0 28 09/19/18 07:48 62 20 95 Room Air 21 09/19/18 04:00 98.1 100 20 124/49 (74) 98 09/19/18 04:00 106 09/19/18 03:37 99 20 100 Nasal Cannula 2.0 28 09/19/18 03:25 97 20 97 Nasal Cannula 2.0 28 09/19/18 00:00 108 09/19/18 00:00 98.0 112 20 129/73 (91) 97 09/18/18 23:32 111 20 97 Nasal Cannula 2.0 28 09/18/18 23:21 110 20 94 Nasal Cannula 2.0 28 09/18/18 21:00 Nasal Cannula 2.0 09/18/18 20:00 98.2 119 20 140/71 (94) 97 09/18/18 20:00 128 09/18/18 19:41 112 20 98 Nasal Cannula 2.0 28 09/18/18 19:40 95 Nasal Cannula 2.0 28 09/18/18 19:30 111 20 95 Nasal Cannula 2.0 28 09/18/18 16:00 99.9 105 20 116/65 (82) 95 09/18/18 16:00 103 09/18/18 14:56 106 16 98 Nasal Cannula 3.0 32 09/18/18 14:46 107 18 97 Nasal Cannula 2.0 28 Intake and Output 09/18/18 09/19/18 18:59 06:59 Intake Total 360 ml Balance 360 ml Intake Oral 360 ml # Voids 3 Laboratory Tests Test 09/19/18 05:53 White Blood Count 20.3 K/UL (4.8-10.8) H Red Blood Count 3.91 M/UL (4.20-5.40) L Hemoglobin 12.0 G/DL (12.0-16.0) Hematocrit 35.1 % (37.0-47.0) L Mean Corpuscular Volume 90 FL (80-99) Mean Corpuscular Hemoglobin 30.7 PG (27.0-31.0) Mean Corpuscular Hemoglobin Concent 34.2 G/DL (32.0-36.0) Red Cell Distribution Width 13.5 % (11.6-14.8) Platelet Count 327 K/UL (150-450) Mean Platelet Volume 6.6 FL (6.5-10.1) Neutrophils (%) (Auto) % (45.0-75.0) Lymphocytes (%) (Auto) % (20.0-45.0) Monocytes (%) (Auto) % (1.0-10.0) Eosinophils (%) (Auto) % (0.0-3.0) Basophils (%) (Auto) % (0.0-2.0) Differential Total Cells Counted 100 Neutrophils % (Manual) 69 % (45-75) Lymphocytes % (Manual) 23 % (20-45) Monocytes % (Manual) 7 % (1-10) Eosinophils % (Manual) 0 % (0-3) Basophils % (Manual) 1 % (0-2) Band Neutrophils 0 % (0-8) Platelet Estimate Adequate Platelet Morphology Normal Red Blood Cell Morphology Normal Sodium Level 140 MMOL/L (136-145) Potassium Level 3.9 MMOL/L (3.5-5.1) Chloride Level 103 MMOL/L (98-107) Carbon Dioxide Level 30 MMOL/L (21-32) Anion Gap 7 mmol/L (5-15) Blood Urea Nitrogen 7 mg/dL (7-18) Creatinine 0.5 MG/DL (0.55-1.30) L Estimat Glomerular Filtration Rate > 60 mL/min (>60) Glucose Level 113 MG/DL (74-106) H Calcium Level 8.9 MG/DL (8.5-10.1) Total Bilirubin 0.2 MG/DL (0.2-1.0) Aspartate Amino Transf (AST/SGOT) 20 U/L (15-37) Alanine Aminotransferase (ALT/SGPT) 34 U/L (12-78) Alkaline Phosphatase 116 U/L (46-116) Total Protein 7.1 G/DL (6.4-8.2) Albumin 2.7 G/DL (3.4-5.0) L Globulin 4.4 g/dL Albumin/Globulin Ratio 0.6 (1.0-2.7) L Microbiology Date/Time Source Procedure Growth Status 09/16/18 18:20 Arm Right Blood Culture - Preliminary NO GROWTH AFTER 48 HOURS Resulted 09/16/18 18:05 Arm Left Blood Culture - Preliminary NO GROWTH AFTER 48 HOURS Resulted Objective General Appearance: WD/WN, no apparent distress, alert HEENT: EOMI, supple, no JVD Respiratory/Chest: crackles/rales, expiratory wheezing Cardiovascular/Chest: normal tachy rate, regular rhythm no G/R/M Abdomen: normal bowel sounds, non tender, soft Extremities: trace edema 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
--- NOTE | 2018-09-19 13:38 | Cardiology Report ---
APPROVED REPORT EXAM: Two-dimensional and M-mode echocardiogram with Doppler and color Doppler. INDICATION Ejection Fraction M-Mode DIMENSIONS IVSd1.5 (0.7-1.1cm)Left Atrium (MM)3.0 (1.6-4.0cm) LVDd3.5 (3.5-5.6cm)Aortic Root3.1 (2.0-3.7cm) PWd1.4 (0.7-1.1cm)Aortic Cusp Exc.1.8 (1.5-2.0cm) LVDs1.3 (2.5-4.0cm) PWs2.0 cm Normal left ventricular chamber size, systolic function and wall motion. Left ventricular ejection fraction estimated to be 65-70 %. Mild left ventricular hypertrophy. Anterior Echo-free space, may be due to pericardial fat or effusion. All other cardiac chamber sizes are within normal limits. Focal aortic valve sclerosis with adequate cusp excursion. Thickened mitral valve leaflets with normal excursion. Mild mitral annulus and aortic root calcification. Pulmonic valve not well visualized. Normal tricuspid valve structure. IVC is normal in size with physiological collapse. A color flow and spectral Doppler study was performed and revealed: No aortic regurgitation. No mitral regurgitation. Mitral diastolic velocities suggest mild left ventricular diastolic dysfunction (Grade I). Mild tricuspid regurgitation. Tricuspid systolic velocities suggests peak right ventricular systolic pressure of 36 mmHg, consistent with mild pulmonary hypertension. Trace pulmonic regurgitation present.
[2018-09-19] MEDS: Azithromycin 500 MG in D5W 275 ML IV SCH (14:11)
--- NOTE | 2018-09-19 15:00 | NUR ---
*-* INSURANCE *-* ALL CLINICALS AND REVIEWS HAVE BEEN FAXED TO: [employer]# [id number] /PENDING NO HEALTH INFORMATION DIRECTOR ASSIGNED AT THIS TIME. P- [phone] F- [phone]....REVIEW/CLINICAL
--- NOTE | 2018-09-19 15:05 | Cardiology Report ---
APPROVED REPORT EKG Measurement Heart [id number] Normal sinus rhythm Left axis deviation Nonspecific T wave abnormality Abnormal ECG
--- NOTE | 2018-09-19 15:56 | Internal Med Progress Note ---
Subjective Date of Service: Sep 19, 2018 Physician Name Mohinder Morgan Attending Physician Mohinder Morgan M.D. Current Medications Medications (Trade) Dose Ordered Sig/Jessica Route PRN Reason Start Time Stop Time Status Last Admin Dose Admin Acetaminophen (Tylenol) 650 mg Q6H PRN ORAL Mild Pain/Temp > 100.5 09/17/18 02:45 10/17/18 02:44 Albuterol/ Ipratropium (Albuterol/ Ipratropium) 3 ml Q4HRT HHN 09/17/18 03:00 09/22/18 02:59 09/19/18 15:43 Azithromycin 500 mg/Dextrose 275 ml @ 275 mls/hr Q24H IV 09/18/18 14:00 09/25/18 13:59 09/19/18 14:11 Benazepril HCl (Lotensin) 20 mg DAILY ORAL 09/17/18 09:00 10/17/18 08:59 09/19/18 08:38 Calcium Carbonate (Tums) 500 mg DAILY ORAL 09/17/18 09:00 10/17/18 08:59 09/19/18 08:39 Ceftriaxone Sodium 1 gm/ Dextrose 55 ml @ 110 mls/hr Q24H IVPB 09/17/18 15:00 09/24/18 14:59 09/18/18 15:27 Diphenhydramine HCl (Benadryl) 25 mg DAILY ORAL 09/17/18 09:00 10/17/18 08:59 09/19/18 08:39 Docusate Sodium (Colace) 100 mg TWICE A DAY ORAL 09/18/18 13:15 10/18/18 13:14 09/19/18 08:39 Folic Acid (Folate) 1 mg DAILY ORAL 09/17/18 09:00 10/17/18 08:59 09/19/18 08:40 Methylprednisolone Sodium Succinate (Solu-MEDROL) 60 mg Q12HR IVP 09/17/18 21:00 10/17/18 05:59 09/19/18 08:40 Nifedipine (Procardia XL) 90 mg DAILY ORAL 09/17/18 09:00 10/17/18 08:59 09/19/18 08:39 Oxybutynin Chloride (Ditropan) 5 mg BEDTIME ORAL 09/18/18 21:00 10/17/18 08:59 Phenytoin (Dilantin) 200 mg Q12HR ORAL 09/17/18 21:00 10/17/18 20:59 09/19/18 08:40 Polyethylene Glycol (Miralax) 17 gm QHS ORAL 09/18/18 21:00 10/18/18 20:59 Allergies: Coded Allergies: No Known Allergies (Unverified , 09/16/18) Constitutional: Denies: no symptoms, chills, diaphoresis, fever, malaise, weakness, other HEENT: Denies: no symptoms, eye pain, blurred vision, tearing, double vision, ear pain, ear discharge, nose pain, nose congestion, throat pain, throat swelling, mouth pain, mouth swelling, other Cardiovascular: Denies: no symptoms, chest pain, edema, irregular heart rate, lightheadedness, palpitations, syncope, other Respiratory: Reports: shortness of breath; Denies: no symptoms, cough, orthopnea, SOB with excertion, SOB at rest, sputum, stridor, wheezing, other Gastrointestinal/Abdominal: Denies: no symptoms, abdomen distended, abdominal pain, black stools, tarry stools, blood in stool, constipated, diarrhea, difficulty swallowing, nausea, poor appetite, poor fluid intake, rectal bleeding , vomiting, other Genitourinary: Denies: no symptoms, burning, discharge, frequency, flank pain, hematuria, incontinence, pain, urgency, other 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: Denies: no symptoms, anxiety, depressed, emotional problems, headache, numbness, paresthesia, pre-existing deficit, seizure, tingling, tremors, weakness, other Subjective breathing slightly improved continues to have significant cough no fevers or chills tolerating antibiotics Objective Last Vital Signs Date Time Temp Pulse Resp B/P (MAP) Pulse Ox O2 Delivery O2 Flow Rate FiO2 09/19/18 12:00 98.5 109 20 127/61 (83) 93 09/19/18 11:20 Nasal Cannula 2.0 28 General Appearance: WD/WN, no apparent distress, alert EENT: PERRL/EOMI, normal ENT inspection Neck: non-tender Cardiovascular: normal rate, regular rhythm, regularly irregular, no gallop/ murmur Respiratory/Chest: expiratory wheezing Abdomen: normal bowel sounds, non tender, soft Extremities: normal range of motion, normal inspection Edema: mild edema Neurologic: no motor/sensory deficits, alert, oriented x 3, responsive Laboratory Tests Test 09/19/18 05:53 White Blood Count 20.3 K/UL (4.8-10.8) H Red Blood Count 3.91 M/UL (4.20-5.40) L Hemoglobin 12.0 G/DL (12.0-16.0) Hematocrit 35.1 % (37.0-47.0) L Mean Corpuscular Volume 90 FL (80-99) Mean Corpuscular Hemoglobin 30.7 PG (27.0-31.0) Mean Corpuscular Hemoglobin Concent 34.2 G/DL (32.0-36.0) Red Cell Distribution Width 13.5 % (11.6-14.8) Platelet Count 327 K/UL (150-450) Mean Platelet Volume 6.6 FL (6.5-10.1) Neutrophils (%) (Auto) % (45.0-75.0) Lymphocytes (%) (Auto) % (20.0-45.0) Monocytes (%) (Auto) % (1.0-10.0) Eosinophils (%) (Auto) % (0.0-3.0) Basophils (%) (Auto) % (0.0-2.0) Differential Total Cells Counted 100 Neutrophils % (Manual) 69 % (45-75) Lymphocytes % (Manual) 23 % (20-45) Monocytes % (Manual) 7 % (1-10) Eosinophils % (Manual) 0 % (0-3) Basophils % (Manual) 1 % (0-2) Band Neutrophils 0 % (0-8) Platelet Estimate Adequate Platelet Morphology Normal Red Blood Cell Morphology Normal Sodium Level 140 MMOL/L (136-145) Potassium Level 3.9 MMOL/L (3.5-5.1) Chloride Level 103 MMOL/L (98-107) Carbon Dioxide Level 30 MMOL/L (21-32) Anion Gap 7 mmol/L (5-15) Blood Urea Nitrogen 7 mg/dL (7-18) Creatinine 0.5 MG/DL (0.55-1.30) L Estimat Glomerular Filtration Rate > 60 mL/min (>60) Glucose Level 113 MG/DL (74-106) H Calcium Level 8.9 MG/DL (8.5-10.1) Total Bilirubin 0.2 MG/DL (0.2-1.0) Aspartate Amino Transf (AST/SGOT) 20 U/L (15-37) Alanine Aminotransferase (ALT/SGPT) 34 U/L (12-78) Alkaline Phosphatase 116 U/L (46-116) Total Protein 7.1 G/DL (6.4-8.2) Albumin 2.7 G/DL (3.4-5.0) L Globulin 4.4 g/dL Albumin/Globulin Ratio 0.6 (1.0-2.7) L Microbiology Date/Time Source Procedure Growth Status 09/16/18 18:20 Arm Right Blood Culture - Preliminary NO GROWTH AFTER 48 HOURS Resulted 09/16/18 18:05 Arm Left Blood Culture - Preliminary NO GROWTH AFTER 48 HOURS Resulted Intake and Output 09/18/18 09/19/18 18:59 06:59 Intake Total 360 ml Balance 360 ml Intake Oral 360 ml # Voids 3 Assessment/Plan Problem List: (1) COPD exacerbation (2) Respiratory distress Assessment/Plan #COPD exacerbation #possible bronchitis #seizure d/o # tobacco use #obesity #HTN duonebs pulm consult, appreciate recs cardiology consult azithro and ceftriaxone D3 solumedrol 60 IV daily TTE with EF 60% resume home meds procardia 90 daily, benazopril 20mg daily continue phenytoin continue oxybutinin supplemental O2 bowel regimen Fullcode Mohinder Morgan M.D. Sep 19, 2018 15:56
[2018-09-19] MEDS: cefTRIAXone 1 GM in D5W 55 ML IVPB SCH (18:02)
--- NOTE | 2018-09-19 19:35 | NUR ---
HAND-OFF: Report given to MELANIE Gomez.
--- NOTE | 2018-09-19 19:43 | NUR ---
NURSE NOTES: Report received from João Max RN. Pt is sitting up at bedside c/o shortness of breath. RT notified and at bedside to administer scheduled breathing treatment. Pt coached on taking slow, deep breaths and utilizing pursed lip breathing. Pt is AOx4, on 2L O2 via nasal cannula. IV site is R FA #22g and is asymptomatic, patent, and intact. Bed is in lowest position with brake engaged, side rails up x3, and bed alarm on. Call light and side table placed within reach. Will continue to monitor.
[2018-09-19] MEDS: Miralax 17gm pkt ORAL SCH (21:00)
[2018-09-19] MEDS: Oxybutynin 5mg tab ORAL SCH (21:01)
--- NOTE | 2018-09-19 22:18 | NUR ---
NURSE NOTES: Pt requesting cough syrup. Message left for MD Mrogan to request. Awaiting call back for further instructions. Will continue to monitor.
--- NOTE | 2018-09-19 22:53 | NUR ---
NURSE NOTES: Spoke with MD Silva regarding pt request for cough syrup. Per dixon MILTON to order guaifenesin cough syrup 100mg liquid PO Q6HR PRN for coughing. Orders noted and carried out.
[2018-09-19] MEDS: guaiFENesin 100mg/5ml Liq ud ORAL PRN (23:03)
[2018-09-20] VITALS: BP 105/59
[2018-09-20] MEDS: Albuterol/Ipratropium 3ml neb HHN SCH ×6 (03:12→23:47)
[2018-09-20 04:00] VITALS: BP 106/53
--- NOTE | 2018-09-20 06:31 | NUR ---
RD ASSESSMENT & RECOMMENDATIONS SEE CARE ACTIVITY FOR COMPLETE ASSESSMENT DAILY ESTIMATED NEEDS: Needs based on Cardiac, 62kg abw 25-30 kcals/kg 6220-5528 total kcals 1-1.3 g protein/kg 62-80 g total protein 22-30 mL/kg 2364-0852 total fluid mLs NUTRITION DIAGNOSIS: Possible chewing difficulty R/T respiratory insufficiency w/ h/o COPD and h/o seizure as evidenced by pt on mech soft finely chopped texture diet. CURRENT DIET:CARDIAC, mech soft finely chopped PO DIET RECOMMENDATIONS: CARDIAC/ texture as tolerated ADDITIONAL RECOMMENDATIONS: * Standing wt for accurate CBW * Monitor BGs closely while on Solumedrol
[2018-09-20] MEDS: guaiFENesin 100mg/5ml Liq ud ORAL PRN ×3 (07:21→23:55)
--- NOTE | 2018-09-20 07:28 | NUR ---
HAND-OFF: Report given to João Max RN. Pt is resting in bed in stable condition. No acute distress noted. Endorsed plan of care.
--- NOTE | 2018-09-20 07:30 | NUR ---
NURSE NOTES: Pt received from MELANIE Gomez alert and oriented x4 with no acute s/s of distress noted. IV site asymptomatic and patent on R fa 22g. On 2L NC, saturating at 93% with no s/s of resp distress. Pt complaining of coughing with yellow/green tinged sputum, RN administered cough syrup for relief, will continue to monitor.
[2018-09-20 08:00] VITALS: BP 138/67
[2018-09-20 08:34] LABS: HEMATOCRIT 36.8 % (37.0-47.0); HEMOGLOBIN 12.1 G/DL (12.0-16.0); MEAN CORPUSCULAR VOLUME 91 FL (80-99); PLATELET COUNT 349 K/UL (150-450); RED BLOOD COUNT 4.05 M/UL (4.20-5.40); RED CELL DISTRIBUTION WIDTH 13.4 % (11.6-14.8); WHITE BLOOD COUNT 20.1 K/UL (4.8-10.8)
[2018-09-20 08:52] LABS: ALANINE AMINOTRANSFERASE 39 U/L (12-78); ALBUMIN 2.9 G/DL (3.4-5.0); ALBUMIN/GLOBULIN RATIO 0.6 (1.0-2.7); ALKALINE PHOSPHATASE 120 U/L (46-116); ANION GAP 5 mmol/L (5-15); ASPARTATE AMINO TRANSFERASE 22 U/L (15-37); BILIRUBIN,TOTAL 0.2 MG/DL (0.2-1.0); BLOOD UREA NITROGEN 7 mg/dL (7-18); CALCIUM 9.5 MG/DL (8.5-10.1); CARBON DIOXIDE 32 MMOL/L (21-32); CHLORIDE 102 MMOL/L (98-107); CREATININE 0.5 MG/DL (0.55-1.30); SODIUM 139 MMOL/L (136-145)
[2018-09-20] MEDS: Phenytoin 100mg cap ORAL SCH ×2 (09:05→21:00)
[2018-09-20] MEDS: Tums 500mg ORAL SCH (09:05)
[2018-09-20] MEDS: Benazepril 10mg tab ORAL SCH (09:06)
[2018-09-20] MEDS: Docusate 100mg cap ORAL SCH ×2 (09:06→17:06)
[2018-09-20] MEDS: Solu-MEDROL 125mg Inj IVP SCH ×2 (09:07→21:00)
--- NOTE | 2018-09-20 10:46 | Pulmonology Progress Note ---
Assessment/Plan Assessment/Plan Pulmonary Progress Note Assessment/Plan Problem List: 1. Respiratory insufficiency 2. Acute COPD exacerbation 3. Leukocytosis 4. Possible community acquired pneumonia 5. Seizure disorder 6. Obesity 7. HTN Plan: -ceftriaxone/azithro -solumedrol 125 in ED, cont 60q 12 for now -duonebs -monitor volumes Subjective ROS Limited/Unobtainable: No Interval Events: Still coughing and short of breath. Continues to wheeze. 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 Microbiology Date/Time Source Procedure Growth Status 09/16/18 18:20 Arm Right Blood Culture - Preliminary NO GROWTH AFTER 24 HOURS Resulted 09/16/18 18:05 Arm Left Blood Culture - Preliminary NO GROWTH AFTER 24 HOURS Resulted Laboratory Tests 09/18/18 06:30: White Blood Count 22.5*H, Red Blood Count 4.09L, Hemoglobin 12.5, Hematocrit 36.6L, Mean Corpuscular Volume 90, Mean Corpuscular Hemoglobin 30.5, Mean Corpuscular Hemoglobin Concent 34.0, Red Cell Distribution Width 13.4, Platelet Count 318, Mean Platelet Volume 6.7, Neutrophils (%) (Auto) , Lymphocytes (%) ( Auto) , Monocytes (%) (Auto) , Eosinophils (%) (Auto) , Basophils (%) (Auto) , Differential Total Cells Counted 100, Neutrophils % (Manual) 69, Lymphocytes % ( Manual) 22, Monocytes % (Manual) 9, Eosinophils % (Manual) 0, Basophils % ( Manual) 0, Band Neutrophils 0, Platelet Estimate Adequate, Platelet Morphology Normal, Hypochromasia 1+, Sodium Level 140, Potassium Level 4.1, Chloride Level 103, Carbon Dioxide Level 32, Anion Gap 5, Blood Urea Nitrogen 9, Creatinine 0.5L, Estimat Glomerular Filtration Rate > 60, Glucose Level 120H, Calcium Level 9.0, Total Bilirubin 0.3, Aspartate Amino Transf (AST/SGOT) 23, Alanine Aminotransferase (ALT/SGPT) 35, Alkaline Phosphatase 138H, Total Protein 7.3, Albumin 3.0L, Globulin 4.3, Albumin/Globulin Ratio 0.7L Current Medications Medications (Trade) Dose Ordered Sig/Jessica Route PRN Reason Start Time Stop Time Status Last Admin Dose Admin Acetaminophen (Tylenol) 650 mg Q6H PRN ORAL Mild Pain/Temp > 100.5 09/17/18 02:45 10/17/18 02:44 Albuterol/ Ipratropium (Albuterol/ Ipratropium) 3 ml Q4HRT HHN 09/17/18 03:00 09/22/18 02:59 09/18/18 11:00 Azithromycin 500 mg/Dextrose 275 ml @ 275 mls/hr Q24H IV 09/18/18 14:00 09/25/18 13:59 Benazepril HCl (Lotensin) 20 mg DAILY ORAL 09/17/18 09:00 10/17/18 08:59 09/18/18 09:14 Calcium Carbonate (Tums) 500 mg DAILY ORAL 09/17/18 09:00 10/17/18 08:59 09/18/18 09:12 Ceftriaxone Sodium 1 gm/ Dextrose 55 ml @ 110 mls/hr Q24H IVPB 09/17/18 15:00 09/24/18 14:59 09/17/18 16:11 Diphenhydramine HCl (Benadryl) 25 mg DAILY ORAL 09/17/18 09:00 10/17/18 08:59 09/18/18 09:13 Docusate Sodium (Colace) 100 mg TWICE A DAY ORAL 09/18/18 18:00 10/18/18 17:59 Folic Acid (Folate) 1 mg DAILY ORAL 09/17/18 09:00 10/17/18 08:59 09/18/18 09:12 Methylprednisolone Sodium Succinate (Solu-MEDROL) 60 mg Q12HR IVP 09/17/18 21:00 10/17/18 05:59 09/18/18 09:12 Nifedipine (Procardia XL) 90 mg DAILY ORAL 09/17/18 09:00 10/17/18 08:59 09/18/18 09:14 Oxybutynin Chloride (Ditropan) 5 mg BEDTIME ORAL 09/18/18 21:00 10/17/18 08:59 Phenytoin (Dilantin) 200 mg Q12HR ORAL 09/17/18 21:00 10/17/18 20:59 09/18/18 09:13 Polyethylene Glycol (Miralax) 17 gm QHS ORAL 09/18/18 21:00 10/18/18 20:59 Subjective ROS Limited/Unobtainable: No Allergies: Coded Allergies: No Known Allergies (Unverified , 09/16/18) Objective Last 24 Hour Vital Signs Date Time Temp Pulse Resp B/P (MAP) Pulse Ox O2 Delivery O2 Flow Rate FiO2 09/20/18 09:06 138/67 09/20/18 09:06 106 138/67 09/20/18 07:43 107 20 99 Nasal Cannula 3.0 32 09/20/18 07:39 96 Nasal Cannula 3.0 32 09/20/18 07:38 102 20 96 Nasal Cannula 3.0 32 09/20/18 04:00 99.1 102 20 106/53 (70) 100 09/20/18 04:00 98 09/20/18 03:22 100 20 98 Nasal Cannula 3.0 32 09/20/18 03:12 101 20 97 Nasal Cannula 3.0 32 09/20/18 00:00 109 09/20/18 00:00 99.1 105 21 105/59 (74) 100 09/19/18 23:30 107 20 99 Nasal Cannula 3.0 32 09/19/18 23:20 106 20 97 Nasal Cannula 3.0 32 09/19/18 21:00 Nasal Cannula 2.0 09/19/18 20:00 118 09/19/18 20:00 99.0 112 24 128/56 (80) 95 09/19/18 19:59 118 20 99 Nasal Cannula 3.0 32 09/19/18 19:49 116 24 95 Nasal Cannula 3.0 32 09/19/18 19:47 95 Nasal Cannula 3.0 32 09/19/18 16:00 98.5 109 20 127/61 (83) 93 09/19/18 16:00 111 09/19/18 15:55 102 20 98 Nasal Cannula 2.0 28 09/19/18 15:43 98 20 96 Nasal Cannula 2.0 28 09/19/18 12:00 98.5 109 20 127/61 (83) 93 09/19/18 12:00 111 09/19/18 11:20 103 20 97 Nasal Cannula 2.0 28 09/19/18 11:10 99 20 96 Nasal Cannula 2.0 28 Intake and Output 09/19/18 09/20/18 19:00 07:00 Intake Total 360 ml Output Total 700 ml Balance -340 ml Intake Oral 360 ml Output Urine Total 700 ml # Voids 2 1 Laboratory Tests 09/20/18 07:15: White Blood Count 20.1H, Red Blood Count 4.05L, Hemoglobin 12.1, Hematocrit 36.8L, Mean Corpuscular Volume 91, Mean Corpuscular Hemoglobin 29.8, Mean Corpuscular Hemoglobin Concent 32.9, Red Cell Distribution Width 13.4, Platelet Count 349, Mean Platelet Volume 6.6, Neutrophils (%) (Auto) , Lymphocytes (%) ( Auto) , Monocytes (%) (Auto) , Eosinophils (%) (Auto) , Basophils (%) (Auto) , Neutrophils % (Manual) [Pending], Lymphocytes % (Manual) [Pending], Platelet Estimate [Pending], Platelet Morphology [Pending], Sodium Level 139, Potassium Level 4.0, Chloride Level 102, Carbon Dioxide Level 32, Anion Gap 5, Blood Urea Nitrogen 7, Creatinine 0.5L, Estimat Glomerular Filtration Rate > 60, Glucose Level 105, Calcium Level 9.5, Total Bilirubin 0.2, Aspartate Amino Transf (AST/ SGOT) 22, Alanine Aminotransferase (ALT/SGPT) 39, Alkaline Phosphatase 120H, Total Protein 7.7, Albumin 2.9L, Globulin 4.8, Albumin/Globulin Ratio 0.6L Current Medications Medications (Trade) Dose Ordered Sig/Jessica Route PRN Reason Start Time Stop Time Status Last Admin Dose Admin Acetaminophen (Tylenol) 650 mg Q6H PRN ORAL Mild Pain/Temp > 100.5 09/17/18 02:45 10/17/18 02:44 Albuterol/ Ipratropium (Albuterol/ Ipratropium) 3 ml Q4HRT HHN 09/17/18 03:00 09/22/18 02:59 09/20/18 07:36 Azithromycin 500 mg/Dextrose 275 ml @ 275 mls/hr Q24H IV 09/18/18 14:00 09/25/18 13:59 09/19/18 14:11 Benazepril HCl (Lotensin) 20 mg DAILY ORAL 09/17/18 09:00 10/17/18 08:59 09/20/18 09:06 Calcium Carbonate (Tums) 500 mg DAILY ORAL 09/17/18 09:00 10/17/18 08:59 09/20/18 09:05 Ceftriaxone Sodium 1 gm/ Dextrose 55 ml @ 110 mls/hr Q24H IVPB 09/17/18 15:00 09/24/18 14:59 09/19/18 18:02 Diphenhydramine HCl (Benadryl) 25 mg DAILY ORAL 09/17/18 09:00 10/17/18 08:59 09/20/18 09:06 Docusate Sodium (Colace) 100 mg TWICE A DAY ORAL 09/18/18 13:15 10/18/18 13:14 09/20/18 09:06 Folic Acid (Folate) 1 mg DAILY ORAL 09/17/18 09:00 10/17/18 08:59 09/20/18 09:06 Guaifenesin (Robitussin) 100 mg Q6H PRN ORAL For Cough 09/19/18 22:45 10/19/18 22:44 09/20/18 07:21 Methylprednisolone Sodium Succinate (Solu-MEDROL) 60 mg Q12HR IVP 09/17/18 21:00 10/17/18 05:59 09/20/18 09:07 Nifedipine (Procardia XL) 90 mg DAILY ORAL 09/17/18 09:00 10/17/18 08:59 09/20/18 09:06 Oxybutynin Chloride (Ditropan) 5 mg BEDTIME ORAL 09/18/18 21:00 10/17/18 08:59 09/19/18 21:01 Phenytoin (Dilantin) 200 mg Q12HR ORAL 09/17/18 21:00 10/17/18 20:59 09/20/18 09:05 Polyethylene Glycol (Miralax) 17 gm QHS ORAL 09/18/18 21:00 10/18/18 20:59 Hari Silva MD Sep 20, 2018 10:46
--- NOTE | 2018-09-20 11:57 | Cardiac Electrophysiology PN ---
Assessment/Plan Assessment/Plan 1. Sinus tach due to respiratory failure and PNA. No Atrial fib EF 60%. HR still 100s now 2. HTN On Procardia 90 and Benazepril 20 daily 3. COPD exacerbation. On Solumedrol and abx 4. Possible community acquired pneumonia 5. Seizure disorder 6. Obesity DW RN Subjective Subjective No CP but still coughing and wheezing on Ab. In SR Objective Last 24 Hour Vital Signs Date Time Temp Pulse Resp B/P (MAP) Pulse Ox O2 Delivery O2 Flow Rate FiO2 09/20/18 11:11 106 20 99 Nasal Cannula 3.0 32 09/20/18 11:06 104 20 97 Nasal Cannula 3.0 32 09/20/18 09:06 138/67 09/20/18 09:06 106 138/67 09/20/18 09:00 Nasal Cannula 2.0 09/20/18 08:00 98.4 106 20 138/67 (90) 95 09/20/18 08:00 105 09/20/18 07:43 107 20 99 Nasal Cannula 3.0 32 09/20/18 07:39 96 Nasal Cannula 3.0 32 09/20/18 07:38 102 20 96 Nasal Cannula 3.0 32 09/20/18 04:00 99.1 102 20 106/53 (70) 100 09/20/18 04:00 98 09/20/18 03:22 100 20 98 Nasal Cannula 3.0 32 09/20/18 03:12 101 20 97 Nasal Cannula 3.0 32 09/20/18 00:00 109 09/20/18 00:00 99.1 105 21 105/59 (74) 100 09/19/18 23:30 107 20 99 Nasal Cannula 3.0 32 09/19/18 23:20 106 20 97 Nasal Cannula 3.0 32 09/19/18 21:00 Nasal Cannula 2.0 09/19/18 20:00 118 09/19/18 20:00 99.0 112 24 128/56 (80) 95 09/19/18 19:59 118 20 99 Nasal Cannula 3.0 32 09/19/18 19:49 116 24 95 Nasal Cannula 3.0 32 09/19/18 19:47 95 Nasal Cannula 3.0 32 09/19/18 16:00 98.5 109 20 127/61 (83) 93 09/19/18 16:00 111 09/19/18 15:55 102 20 98 Nasal Cannula 2.0 28 09/19/18 15:43 98 20 96 Nasal Cannula 2.0 28 09/19/18 12:00 98.5 109 20 127/61 (83) 93 09/19/18 12:00 111 Intake and Output 09/19/18 09/20/18 19:00 07:00 Intake Total 360 ml Output Total 700 ml Balance -340 ml Intake Oral 360 ml Output Urine Total 700 ml # Voids 2 1 Laboratory Tests Test 09/20/18 07:15 White Blood Count 20.1 K/UL (4.8-10.8) H Red Blood Count 4.05 M/UL (4.20-5.40) L Hemoglobin 12.1 G/DL (12.0-16.0) Hematocrit 36.8 % (37.0-47.0) L Mean Corpuscular Volume 91 FL (80-99) Mean Corpuscular Hemoglobin 29.8 PG (27.0-31.0) Mean Corpuscular Hemoglobin Concent 32.9 G/DL (32.0-36.0) Red Cell Distribution Width 13.4 % (11.6-14.8) Platelet Count 349 K/UL (150-450) Mean Platelet Volume 6.6 FL (6.5-10.1) Neutrophils (%) (Auto) % (45.0-75.0) Lymphocytes (%) (Auto) % (20.0-45.0) Monocytes (%) (Auto) % (1.0-10.0) Eosinophils (%) (Auto) % (0.0-3.0) Basophils (%) (Auto) % (0.0-2.0) Differential Total Cells Counted 100 Neutrophils % (Manual) 67 % (45-75) Lymphocytes % (Manual) 28 % (20-45) Monocytes % (Manual) 2 % (1-10) Eosinophils % (Manual) 3 % (0-3) Basophils % (Manual) 0 % (0-2) Band Neutrophils 0 % (0-8) Platelet Estimate Adequate Platelet Morphology Normal Red Blood Cell Morphology Normal Sodium Level 139 MMOL/L (136-145) Potassium Level 4.0 MMOL/L (3.5-5.1) Chloride Level 102 MMOL/L (98-107) Carbon Dioxide Level 32 MMOL/L (21-32) Anion Gap 5 mmol/L (5-15) Blood Urea Nitrogen 7 mg/dL (7-18) Creatinine 0.5 MG/DL (0.55-1.30) L Estimat Glomerular Filtration Rate > 60 mL/min (>60) Glucose Level 105 MG/DL (74-106) Calcium Level 9.5 MG/DL (8.5-10.1) Total Bilirubin 0.2 MG/DL (0.2-1.0) Aspartate Amino Transf (AST/SGOT) 22 U/L (15-37) Alanine Aminotransferase (ALT/SGPT) 39 U/L (12-78) Alkaline Phosphatase 120 U/L (46-116) H Total Protein 7.7 G/DL (6.4-8.2) Albumin 2.9 G/DL (3.4-5.0) L Globulin 4.8 g/dL Albumin/Globulin Ratio 0.6 (1.0-2.7) L Objective General Appearance: WD/WN, no apparent distress, alert HEENT: EOMI, supple, no JVD Respiratory/Chest: crackles/rales, expiratory wheezing Cardiovascular/Chest: normal tachy rate, regular rhythm no G/R/M Abdomen: normal bowel sounds, non tender, soft Extremities: trace edema 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
--- NOTE | 2018-09-20 11:59 | NUR ---
*-* INSURANCE *-* ALL CLINICALS AND REVIEWS HAVE BEEN FAXED TO: [employer]# [id number] /PENDING NO SANITARIAN INSPECTOR ASSIGNED AT THIS TIME. P- [phone] F- [phone]....REVIEW/CLINICAL
[2018-09-20 12:00] VITALS: BP 108/65
--- NOTE | 2018-09-20 15:24 | NUR ---
CASE MANAGEMENT:REVIEW 09/20/18 SI: COPD EXACERBATION POSSIBLE BRONCHITIS. OBESITY 98.9 107 20 108/65 95% ON 3L/NC IS: IV SOLUMEDROL 60MG Q12 IV AZITHROMYCIN Q24 IV ROCEPHIN Q24 DILANTIN PO Q12 PROCARDIA PO QD DUONEB HHN Q4HR RTC : TELEMETRY STATUS DCP: PATIENT IS FROM HOME
[2018-09-20] MEDS: Azithromycin 500 MG in D5W 275 ML IV SCH (15:33)
[2018-09-20] MEDS: cefTRIAXone 1 GM in D5W 55 ML IVPB SCH (15:34)
[2018-09-20 16:00] VITALS: BP 106/53
[2018-09-20 20:00] VITALS: BP 131/60
[2018-09-20] MEDS: Oxybutynin 5mg tab ORAL SCH (20:59)
[2018-09-20] MEDS: Miralax 17gm pkt ORAL SCH (21:00)
--- NOTE | 2018-09-20 22:16 | Internal Med Progress Note ---
Subjective Physician Name Mohinder Morgan Attending Physician Mohinder Morgan M.D. Current Medications Medications (Trade) Dose Ordered Sig/Jessica Route PRN Reason Start Time Stop Time Status Last Admin Dose Admin Acetaminophen (Tylenol) 650 mg Q6H PRN ORAL Mild Pain/Temp > 100.5 09/17/18 02:45 10/17/18 02:44 Albuterol/ Ipratropium (Albuterol/ Ipratropium) 3 ml Q4HRT HHN 09/17/18 03:00 09/22/18 02:59 09/20/18 19:40 Azithromycin 500 mg/Dextrose 275 ml @ 275 mls/hr Q24H IV 09/18/18 14:00 09/25/18 13:59 09/20/18 15:33 Benazepril HCl (Lotensin) 20 mg DAILY ORAL 09/17/18 09:00 10/17/18 08:59 09/20/18 09:06 Calcium Carbonate (Tums) 500 mg DAILY ORAL 09/17/18 09:00 10/17/18 08:59 09/20/18 09:05 Ceftriaxone Sodium 1 gm/ Dextrose 55 ml @ 110 mls/hr Q24H IVPB 09/17/18 15:00 09/24/18 14:59 09/20/18 15:34 Diphenhydramine HCl (Benadryl) 25 mg DAILY ORAL 09/17/18 09:00 10/17/18 08:59 09/20/18 09:06 Docusate Sodium (Colace) 100 mg TWICE A DAY ORAL 09/18/18 13:15 10/18/18 13:14 09/20/18 17:06 Folic Acid (Folate) 1 mg DAILY ORAL 09/17/18 09:00 10/17/18 08:59 09/20/18 09:06 Guaifenesin (Robitussin) 100 mg Q6H PRN ORAL For Cough 09/19/18 22:45 10/19/18 22:44 09/20/18 17:06 Methylprednisolone Sodium Succinate (Solu-MEDROL) 60 mg Q12HR IVP 09/17/18 21:00 10/17/18 05:59 09/20/18 21:00 Nifedipine (Procardia XL) 90 mg DAILY ORAL 09/17/18 09:00 10/17/18 08:59 09/20/18 09:06 Oxybutynin Chloride (Ditropan) 5 mg BEDTIME ORAL 09/18/18 21:00 10/17/18 08:59 09/20/18 20:59 Phenytoin (Dilantin) 200 mg Q12HR ORAL 09/17/18 21:00 10/17/18 20:59 09/20/18 21:00 Polyethylene Glycol (Miralax) 17 gm QHS ORAL 09/18/18 21:00 10/18/18 20:59 09/20/18 21:00 Allergies: Coded Allergies: No Known Allergies (Unverified , 09/16/18) Subjective breathing slightly improved continues to have significant cough some chest heaviness no fevers or chills tolerating antibiotics Objective Last Vital Signs Date Time Temp Pulse Resp B/P (MAP) Pulse Ox O2 Delivery O2 Flow Rate FiO2 09/20/18 21:00 Nasal Cannula 2.0 09/20/18 20:00 98.1 116 18 131/60 (83) 98 09/20/18 19:50 32 Laboratory Tests Test 09/20/18 07:15 White Blood Count 20.1 K/UL (4.8-10.8) H Red Blood Count 4.05 M/UL (4.20-5.40) L Hemoglobin 12.1 G/DL (12.0-16.0) Hematocrit 36.8 % (37.0-47.0) L Mean Corpuscular Volume 91 FL (80-99) Mean Corpuscular Hemoglobin 29.8 PG (27.0-31.0) Mean Corpuscular Hemoglobin Concent 32.9 G/DL (32.0-36.0) Red Cell Distribution Width 13.4 % (11.6-14.8) Platelet Count 349 K/UL (150-450) Mean Platelet Volume 6.6 FL (6.5-10.1) Neutrophils (%) (Auto) % (45.0-75.0) Lymphocytes (%) (Auto) % (20.0-45.0) Monocytes (%) (Auto) % (1.0-10.0) Eosinophils (%) (Auto) % (0.0-3.0) Basophils (%) (Auto) % (0.0-2.0) Differential Total Cells Counted 100 Neutrophils % (Manual) 67 % (45-75) Lymphocytes % (Manual) 28 % (20-45) Monocytes % (Manual) 2 % (1-10) Eosinophils % (Manual) 3 % (0-3) Basophils % (Manual) 0 % (0-2) Band Neutrophils 0 % (0-8) Platelet Estimate Adequate Platelet Morphology Normal Red Blood Cell Morphology Normal Sodium Level 139 MMOL/L (136-145) Potassium Level 4.0 MMOL/L (3.5-5.1) Chloride Level 102 MMOL/L (98-107) Carbon Dioxide Level 32 MMOL/L (21-32) Anion Gap 5 mmol/L (5-15) Blood Urea Nitrogen 7 mg/dL (7-18) Creatinine 0.5 MG/DL (0.55-1.30) L Estimat Glomerular Filtration Rate > 60 mL/min (>60) Glucose Level 105 MG/DL (74-106) Calcium Level 9.5 MG/DL (8.5-10.1) Total Bilirubin 0.2 MG/DL (0.2-1.0) Aspartate Amino Transf (AST/SGOT) 22 U/L (15-37) Alanine Aminotransferase (ALT/SGPT) 39 U/L (12-78) Alkaline Phosphatase 120 U/L (46-116) H Total Protein 7.7 G/DL (6.4-8.2) Albumin 2.9 G/DL (3.4-5.0) L Globulin 4.8 g/dL Albumin/Globulin Ratio 0.6 (1.0-2.7) L Intake and Output 09/19/18 09/20/18 19:00 07:00 Intake Total 635 ml 110 ml Output Total 700 ml Balance -65 ml 110 ml Intake Oral 360 ml IV Total 275 ml 110 ml Output Urine Total 700 ml # Voids 2 1 Assessment/Plan Problem List: (1) COPD exacerbation (2) Respiratory distress Assessment/Plan #COPD exacerbation #possible bronchitis #seizure d/o # tobacco use #obesity #HTN duonebs pulm consult, appreciate recs cardiology consult azithro and ceftriaxone D3 solumedrol 60 IV daily TTE with EF 60% resume home meds procardia 90 daily, benazopril 20mg daily stress test per cardiology continue phenytoin continue oxybutinin supplemental O2 bowel regimen Fullcode Mohinder Morgan M.D. Sep 20, 2018 22:16
--- NOTE | 2018-09-20 22:30 | NUR ---
HAND-OFF: Report given to MELANIE Chavez. No acute s/s of distress noted.
--- NOTE | 2018-09-20 22:45 | NUR ---
NURSE NOTES: Received report from MELANIE Finnegan. Patient is awake sitting on the bed resting comfortably. No signs of acute distress noted; denies pain at this time. On 2L nasal cannula. AOx4; able to make needs known. Ambulates with minimal assist. Checked IV site; patent and flushed. No erythema, bleeding, or infiltration noted. Bedside commode easily accessible. Bed at lowest position, brakes on, siderails up x3. Call light within reach. Will continue to monitor.
[2018-09-21] VITALS: BP 127/68
[2018-09-21] MEDS: Albuterol/Ipratropium 3ml neb HHN SCH ×6 (03:32→23:34)
[2018-09-21 04:00] VITALS: BP 119/57
[2018-09-21 07:05] LABS: BASOPHILS % (AUTO) 0.5 % (0.0-2.0); HEMATOCRIT 33.8 % (37.0-47.0); HEMOGLOBIN 11.4 G/DL (12.0-16.0); LYMPHOCYTES % (AUTO) 27.1 % (20.0-45.0); MEAN CORPUSCULAR VOLUME 90 FL (80-99); MONOCYTES % (AUTO) 6.8 % (1.0-10.0); NEUTROPHILS % (AUTO) 61.6 % (45.0-75.0); PLATELET COUNT 341 K/UL (150-450); RED BLOOD COUNT 3.76 M/UL (4.20-5.40); RED CELL DISTRIBUTION WIDTH 13.1 % (11.6-14.8); WHITE BLOOD COUNT 17.1 K/UL (4.8-10.8)
[2018-09-21 07:46] VITALS: BP 127/61
--- NOTE | 2018-09-21 07:54 | NUR ---
HAND-OFF: Report given to MELANIE Adorno. Patient is on the bedside commode. On 2L nasal cannula. In stable condition.
[2018-09-21] MEDS: guaiFENesin 100mg/5ml Liq ud ORAL PRN ×2 (08:14→20:43)
[2018-09-21] MEDS: Tums 500mg ORAL SCH (08:14)
[2018-09-21] MEDS: Benazepril 10mg tab ORAL SCH (08:15)
[2018-09-21] MEDS: Phenytoin 100mg cap ORAL SCH ×2 (08:15→20:44)
[2018-09-21] MEDS: Solu-MEDROL 125mg Inj IVP SCH ×2 (08:15→20:43)
[2018-09-21] MEDS: Docusate 100mg cap ORAL SCH ×2 (08:16→17:51)
--- NOTE | 2018-09-21 10:15 | Cardiac Electrophysiology PN ---
Assessment/Plan Assessment/Plan 1. Sinus tach due to respiratory failure and PNA. No Atrial fib. EF 60%. 2. HTN On Procardia 90 and Benazepril 20 daily 3. COPD exacerbation and PNA. On Solumedrol and abx 4. Seizure disorder 5. Obesity DW RN Subjective Subjective No CP or SOB. Still coughing. In SR Objective Last 24 Hour Vital Signs Date Time Temp Pulse Resp B/P (MAP) Pulse Ox O2 Delivery O2 Flow Rate FiO2 09/21/18 09:49 Nasal Cannula 2.0 09/21/18 08:15 127/61 09/21/18 08:15 97 127/61 09/21/18 07:46 97.2 97 18 127/61 (83) 97 09/21/18 07:44 92 17 99 Nasal Cannula 3.0 32 09/21/18 07:34 96 Nasal Cannula 3.0 32 09/21/18 07:34 90 18 96 Nasal Cannula 3.0 32 09/21/18 04:00 99 09/21/18 04:00 98.5 102 16 119/57 (77) 96 09/21/18 03:40 104 20 99 Nasal Cannula 3.0 32 09/21/18 03:32 101 22 96 Nasal Cannula 3.0 32 09/21/18 00:00 98.9 105 18 127/68 (87) 96 09/21/18 00:00 106 09/20/18 23:56 106 20 98 Nasal Cannula 3.0 32 09/20/18 23:46 105 22 96 Nasal Cannula 3.0 32 09/20/18 21:00 Nasal Cannula 2.0 09/20/18 20:00 114 09/20/18 20:00 98.1 116 18 131/60 (83) 98 09/20/18 19:50 115 20 97 Nasal Cannula 3.0 32 09/20/18 19:40 110 20 96 Nasal Cannula 3.0 32 09/20/18 19:40 96 Nasal Cannula 3.0 32 09/20/18 16:00 99.1 102 18 106/53 (70) 100 09/20/18 16:00 112 09/20/18 15:13 102 20 98 Nasal Cannula 3.0 32 09/20/18 15:07 105 20 96 Nasal Cannula 3.0 32 09/20/18 12:00 103 09/20/18 12:00 98.9 107 20 108/65 (79) 95 09/20/18 11:11 106 20 99 Nasal Cannula 3.0 32 09/20/18 11:06 104 20 97 Nasal Cannula 3.0 32 Intake and Output 09/20/18 09/21/18 19:00 07:00 Intake Total 745 ml 240 ml Balance 745 ml 240 ml Intake Oral 360 ml 240 ml IV Total 385 ml # Voids 3 2 Laboratory Tests Test 09/21/18 06:10 White Blood Count 17.1 K/UL (4.8-10.8) H Red Blood Count 3.76 M/UL (4.20-5.40) L Hemoglobin 11.4 G/DL (12.0-16.0) L Hematocrit 33.8 % (37.0-47.0) L Mean Corpuscular Volume 90 FL (80-99) Mean Corpuscular Hemoglobin 30.3 PG (27.0-31.0) Mean Corpuscular Hemoglobin Concent 33.8 G/DL (32.0-36.0) Red Cell Distribution Width 13.1 % (11.6-14.8) Platelet Count 341 K/UL (150-450) Mean Platelet Volume 6.6 FL (6.5-10.1) Neutrophils (%) (Auto) 61.6 % (45.0-75.0) Lymphocytes (%) (Auto) 27.1 % (20.0-45.0) Monocytes (%) (Auto) 6.8 % (1.0-10.0) Eosinophils (%) (Auto) 4.0 % (0.0-3.0) H Basophils (%) (Auto) 0.5 % (0.0-2.0) Objective General Appearance: WD/WN, no apparent distress, alert HEENT: EOMI, supple, no JVD Respiratory/Chest: crackles/rales, expiratory wheezing Cardiovascular/Chest: normal tachy rate, regular rhythm no G/R/M Abdomen: normal bowel sounds, non tender, soft Extremities: trace edema Neurologic: duty officer II-XII grossly normal Jeffrey Means MD Sep 21, 2018 10:15
[2018-09-21 12:07] VITALS: BP 104/59
--- NOTE | 2018-09-21 12:37 | NUR ---
CASE MANAGEMENT:REVIEW 09/21/18 SI: COPD EXACERBATION POSSIBLE BRONCHITIS. OBESITY 97.2 103 18 104/59 96% ON 3L/NC WBC+17.1 H/H-11.4/33.8 IS: IV SOLUMEDROL 60MG Q12 IV ROCEPHIN Q24 IV AZITHROMYCIN DUONEB HHN Q4HR RTC : TELEMETRY STATUS DCP: PATIENT IS FROM HOME
--- NOTE | 2018-09-21 13:11 | NUR ---
NURSE NOTES: per patient request: please share patient information ONLY with Rachell Bond
--- NOTE | 2018-09-21 13:46 | Diagnostic Imaging Report ---
Indication: Cough Technique: One view of the chest Comparison: 09/16/2018 Findings: There is increasing interstitial congestion, with increasing cephalization of the vascular markings and possibly some airspace opacities in the bilateral suprahilar regions. The heart is borderline enlarged. The pleural spaces are clear Impression: Evidence of worsening interstitial congestion, over 5 days
--- NOTE | 2018-09-21 14:06 | NUR ---
*-* INSURANCE *-* UPDATED CLINICALS AND REVIEWS HAVE BEEN FAXED TO: [facility]# [id number] /PENDING NO WELDING PANTOGRAPH MACHINE OPERATOR ASSIGNED AT THIS TIME. P- [phone] F- [phone]....REVIEW/CLINICAL
[2018-09-21] MEDS: Azithromycin 500 MG in D5W 275 ML IV SCH (14:28)
--- NOTE | 2018-09-21 14:28 | NUR ---
RADIOLOGY DEPT., CHEST X-RAY DONE.-P.DYE
[2018-09-21] MEDS: cefTRIAXone 1 GM in D5W 55 ML IVPB SCH (15:29)
[2018-09-21 16:00] VITALS: BP 114/65
--- NOTE | 2018-09-21 19:42 | NUR ---
HAND-OFF: Report given to Levy NAVARRO.
--- NOTE | 2018-09-21 19:53 | NUR ---
NURSE NOTES: Received report from MELANIE Adorno. Patient is awake sitting on the edge of the bed; resting comfortably. No signs of acute distress noted; denies pain at this time. On 2L nasal cannula. AOX4; able to make needs known. Ambulates with some supervision. Checked IV site; patent and flushed. No erythema, bleeding, or infiltration noted. Bedside commode easily accessible. Bed at lowest position, brakes on, siderails up x3. Siderails padded following seizure precautions. Call light within reach. Will continue to monitor.
[2018-09-21 20:00] VITALS: BP 142/90
[2018-09-21] MEDS: Oxybutynin 5mg tab ORAL SCH (20:44)
[2018-09-21] MEDS: Miralax 17gm pkt ORAL SCH (20:45)
--- NOTE | 2018-09-21 23:08 | Pulmonology Progress Note ---
Assessment/Plan Assessment/Plan Pulmonary Progress Note Assessment/Plan Problem List: 1. Respiratory insufficiency 2. Acute COPD exacerbation 3. Leukocytosis 4. Possible community acquired pneumonia 5. Seizure disorder 6. Obesity 7. HTN Plan: -ceftriaxone/azithro -solumedrol 125 in ED, cont 60q 12 for now -duonebs -monitor volumes Subjective ROS Limited/Unobtainable: No Interval Events: Still coughing and short of breath. Continues to wheeze. Constitutional: Reports: no symptoms Respiratory: Reports: productive cough, shortness of breath, wheezing Cardiovascular: Reports: no symptoms Gastrointestinal/Abdominal: Reports: constipation Genitourinary: Reports: no symptoms Neurologic: Reports: no symptoms Allergies: Coded Allergies: No Known Allergies (Unverified , 09/16/18) Objective Vital Signs Noted General Appearance: no acute distress HEENT: mucous membranes moist Respiratory/Chest: expiratory wheezing Cardiovascular: normal rate, regular rhythm Abdomen: soft, non tender Extremities: no edema 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: manager adobe II-XII grossly normal Microbiology Date/Time Source Procedure Growth Status 09/16/18 18:20 Arm Right Blood Culture - Preliminary NO GROWTH AFTER 24 HOURS Resulted 09/16/18 18:05 Arm Left Blood Culture - Preliminary NO GROWTH AFTER 24 HOURS Resulted Laboratory Tests 09/18/18 06:30: White Blood Count 22.5*H, Red Blood Count 4.09L, Hemoglobin 12.5, Hematocrit 36.6L, Mean Corpuscular Volume 90, Mean Corpuscular Hemoglobin 30.5, Mean Corpuscular Hemoglobin Concent 34.0, Red Cell Distribution Width 13.4, Platelet Count 318, Mean Platelet Volume 6.7, Neutrophils (%) (Auto) , Lymphocytes (%) ( Auto) , Monocytes (%) (Auto) , Eosinophils (%) (Auto) , Basophils (%) (Auto) , Differential Total Cells Counted 100, Neutrophils % (Manual) 69, Lymphocytes % ( Manual) 22, Monocytes % (Manual) 9, Eosinophils % (Manual) 0, Basophils % ( Manual) 0, Band Neutrophils 0, Platelet Estimate Adequate, Platelet Morphology Normal, Hypochromasia 1+, Sodium Level 140, Potassium Level 4.1, Chloride Level 103, Carbon Dioxide Level 32, Anion Gap 5, Blood Urea Nitrogen 9, Creatinine 0.5L, Estimat Glomerular Filtration Rate > 60, Glucose Level 120H, Calcium Level 9.0, Total Bilirubin 0.3, Aspartate Amino Transf (AST/SGOT) 23, Alanine Aminotransferase (ALT/SGPT) 35, Alkaline Phosphatase 138H, Total Protein 7.3, Albumin 3.0L, Globulin 4.3, Albumin/Globulin Ratio 0.7L Current Medications Medications (Trade) Dose Ordered Sig/Jessica Route PRN Reason Start Time Stop Time Status Last Admin Dose Admin Acetaminophen (Tylenol) 650 mg Q6H PRN ORAL Mild Pain/Temp > 100.5 09/17/18 02:45 10/17/18 02:44 Albuterol/ Ipratropium (Albuterol/ Ipratropium) 3 ml Q4HRT HHN 09/17/18 03:00 09/22/18 02:59 09/18/18 11:00 Azithromycin 500 mg/Dextrose 275 ml @ 275 mls/hr Q24H IV 09/18/18 14:00 09/25/18 13:59 Benazepril HCl (Lotensin) 20 mg DAILY ORAL 09/17/18 09:00 10/17/18 08:59 09/18/18 09:14 Calcium Carbonate (Tums) 500 mg DAILY ORAL 09/17/18 09:00 10/17/18 08:59 09/18/18 09:12 Ceftriaxone Sodium 1 gm/ Dextrose 55 ml @ 110 mls/hr Q24H IVPB 09/17/18 15:00 09/24/18 14:59 09/17/18 16:11 Diphenhydramine HCl (Benadryl) 25 mg DAILY ORAL 09/17/18 09:00 10/17/18 08:59 09/18/18 09:13 Docusate Sodium (Colace) 100 mg TWICE A DAY ORAL 09/18/18 18:00 10/18/18 17:59 Folic Acid (Folate) 1 mg DAILY ORAL 09/17/18 09:00 10/17/18 08:59 09/18/18 09:12 Methylprednisolone Sodium Succinate (Solu-MEDROL) 60 mg Q12HR IVP 09/17/18 21:00 10/17/18 05:59 09/18/18 09:12 Nifedipine (Procardia XL) 90 mg DAILY ORAL 09/17/18 09:00 10/17/18 08:59 09/18/18 09:14 Oxybutynin Chloride (Ditropan) 5 mg BEDTIME ORAL 09/18/18 21:00 10/17/18 08:59 Phenytoin (Dilantin) 200 mg Q12HR ORAL 09/17/18 21:00 10/17/18 20:59 09/18/18 09:13 Polyethylene Glycol (Miralax) 17 gm QHS ORAL 09/18/18 21:00 10/18/18 20:59 Subjective ROS Limited/Unobtainable: No Allergies: Coded Allergies: No Known Allergies (Unverified , 09/16/18) Objective Last 24 Hour Vital Signs Date Time Temp Pulse Resp B/P (MAP) Pulse Ox O2 Delivery O2 Flow Rate FiO2 09/21/18 20:00 118 09/21/18 20:00 103 20 98 Nasal Cannula 3.0 32 09/21/18 19:48 102 20 96 Nasal Cannula 3.0 32 09/21/18 19:47 96 Nasal Cannula 3.0 32 09/21/18 19:46 102 20 96 Nasal Cannula 3.0 32 09/21/18 16:08 96 22 98 Nasal Cannula 3.0 32 09/21/18 16:00 100 09/21/18 16:00 97.9 97 18 114/65 (81) 100 09/21/18 15:54 97 19 96 Nasal Cannula 3.0 32 09/21/18 12:07 97.2 103 18 104/59 (74) 96 09/21/18 12:00 94 09/21/18 11:29 97 20 98 Nasal Cannula 3.0 32 09/21/18 11:14 95 21 95 Nasal Cannula 3.0 32 09/21/18 09:49 Nasal Cannula 2.0 09/21/18 08:15 127/61 09/21/18 08:15 97 127/61 09/21/18 08:00 95 09/21/18 07:46 97.2 97 18 127/61 (83) 97 09/21/18 07:44 92 17 99 Nasal Cannula 3.0 32 09/21/18 07:34 96 Nasal Cannula 3.0 32 09/21/18 07:34 90 18 96 Nasal Cannula 3.0 32 09/21/18 04:00 99 09/21/18 04:00 98.5 102 16 119/57 (77) 96 09/21/18 03:40 104 20 99 Nasal Cannula 3.0 32 09/21/18 03:32 101 22 96 Nasal Cannula 3.0 32 09/21/18 00:00 98.9 105 18 127/68 (87) 96 09/21/18 00:00 106 09/20/18 23:56 106 20 98 Nasal Cannula 3.0 32 09/20/18 23:46 105 22 96 Nasal Cannula 3.0 32 Intake and Output 09/20/18 09/21/18 19:00 07:00 Intake Total 745 ml 240 ml Balance 745 ml 240 ml Intake Oral 360 ml 240 ml IV Total 385 ml # Voids 3 2 Laboratory Tests 09/21/18 06:10: White Blood Count 17.1H, Red Blood Count 3.76L, Hemoglobin 11.4L, Hematocrit 33.8L, Mean Corpuscular Volume 90, Mean Corpuscular Hemoglobin 30.3, Mean Corpuscular Hemoglobin Concent 33.8, Red Cell Distribution Width 13.1, Platelet Count 341, Mean Platelet Volume 6.6, Neutrophils (%) (Auto) 61.6, Lymphocytes (% ) (Auto) 27.1, Monocytes (%) (Auto) 6.8, Eosinophils (%) (Auto) 4.0H, Basophils (%) (Auto) 0.5 Current Medications Medications (Trade) Dose Ordered Sig/Jessica Route PRN Reason Start Time Stop Time Status Last Admin Dose Admin Acetaminophen (Tylenol) 650 mg Q6H PRN ORAL Mild Pain/Temp > 100.5 09/17/18 02:45 10/17/18 02:44 Albuterol/ Ipratropium (Albuterol/ Ipratropium) 3 ml Q4HRT HHN 09/17/18 03:00 09/22/18 02:59 09/21/18 19:47 Azithromycin 500 mg/Dextrose 275 ml @ 275 mls/hr Q24H IV 09/18/18 14:00 09/25/18 13:59 09/21/18 14:28 Benazepril HCl (Lotensin) 20 mg DAILY ORAL 09/17/18 09:00 10/17/18 08:59 09/21/18 08:15 Calcium Carbonate (Tums) 500 mg DAILY ORAL 09/17/18 09:00 10/17/18 08:59 09/21/18 08:14 Ceftriaxone Sodium 1 gm/ Dextrose 55 ml @ 110 mls/hr Q24H IVPB 09/17/18 15:00 09/24/18 14:59 09/21/18 15:29 Diphenhydramine HCl (Benadryl) 25 mg DAILY ORAL 09/17/18 09:00 10/17/18 08:59 09/21/18 08:15 Docusate Sodium (Colace) 100 mg TWICE A DAY ORAL 09/18/18 13:15 10/18/18 13:14 09/21/18 17:51 Folic Acid (Folate) 1 mg DAILY ORAL 09/17/18 09:00 10/17/18 08:59 09/21/18 08:16 Guaifenesin (Robitussin) 100 mg Q6H PRN ORAL For Cough 09/19/18 22:45 10/19/18 22:44 09/21/18 20:43 Methylprednisolone Sodium Succinate (Solu-MEDROL) 60 mg Q12HR IVP 09/17/18 21:00 10/17/18 05:59 09/21/18 20:43 Nifedipine (Procardia XL) 90 mg DAILY ORAL 09/17/18 09:00 10/17/18 08:59 09/21/18 08:15 Oxybutynin Chloride (Ditropan) 5 mg BEDTIME ORAL 09/18/18 21:00 10/17/18 08:59 09/21/18 20:44 Phenytoin (Dilantin) 200 mg Q12HR ORAL 09/17/18 21:00 10/17/18 20:59 09/21/18 20:44 Polyethylene Glycol (Miralax) 17 gm QHS ORAL 09/18/18 21:00 10/18/18 20:59 09/20/18 21:00 Hari Silva MD Sep 21, 2018 23:07
[2018-09-22] VITALS: BP 139/56
[2018-09-22] MEDS: Albuterol/Ipratropium 3ml neb HHN SCH ×5 (03:15→19:43)
[2018-09-22 04:00] VITALS: BP 115/69
--- NOTE | 2018-09-22 04:21 | NUR ---
NURSE NOTES: Patient is asleep lying semi-johnson's; resting comfortably. No signs of acute distress or pain noted at this time.
--- NOTE | 2018-09-22 06:39 | NUR ---
NURSE NOTES: Called Dr. Silva for a chest percussion order per RT request to loosen up the patient's mucus. Received new order. Noted and carried out.
--- NOTE | 2018-09-22 07:34 | NUR ---
HAND-OFF: Report given to MELANIE Adorno. Patient is sitting on the edge of the bed; resting comfortably. In stable condition.
--- NOTE | 2018-09-22 07:43 | NUR ---
Received report from MELANIE Lockett. Patient is awake sitting on the edge of the bed; resting comfortably. No signs of acute distress noted; denies pain at this time. On 2L via n/c. AOX4; able to make needs known. Ambulates with some supervision. IV intact and patent.Bed at lowest position, brakes on, side rails up x3. Side rails padded per protocol. Call light and frequent used objects are within reach. Will continue to monitor.
[2018-09-22 08:00] VITALS: BP_SYST 101; BP_SYST 118; BP_DIAS 65; BP_DIAS 69
[2018-09-22 08:06] LABS: BASOPHILS % (AUTO) 0.6 % (0.0-2.0); EOSINOPHILS % (AUTO) 4.2 % (0.0-3.0); HEMATOCRIT 34.9 % (37.0-47.0); HEMOGLOBIN 11.7 G/DL (12.0-16.0); LYMPHOCYTES % (AUTO) 27.7 % (20.0-45.0); MEAN CORPUSCULAR VOLUME 90 FL (80-99); MONOCYTES % (AUTO) 5.9 % (1.0-10.0); NEUTROPHILS % (AUTO) 61.6 % (45.0-75.0); PLATELET COUNT 385 K/UL (150-450); RED BLOOD COUNT 3.88 M/UL (4.20-5.40); WHITE BLOOD COUNT 16.9 K/UL (4.8-10.8)
[2018-09-22] MEDS: Tums 500mg ORAL SCH (09:11)
[2018-09-22] MEDS: Phenytoin 100mg cap ORAL SCH ×2 (09:11→21:25)
[2018-09-22] MEDS: Solu-MEDROL 125mg Inj IVP SCH ×2 (09:11→21:25)
[2018-09-22] MEDS: Benazepril 10mg tab ORAL SCH (09:12)
[2018-09-22] MEDS: Docusate 100mg cap ORAL SCH ×2 (09:12→17:31)
[2018-09-22] MEDS: guaiFENesin 100mg/5ml Liq ud ORAL PRN ×3 (09:20→21:37)
--- NOTE | 2018-09-22 10:24 | NUR ---
*-* INSURANCE *-* UPDATED CLINICALS HAVE BEEN FAXED TO: [facility]# [id number] /PENDING NO WHITESMITH ASSIGNED AT THIS TIME. P- [phone] F- [phone]....REVIEW/CLINICAL
--- NOTE | 2018-09-22 11:56 | Cardiac Electrophysiology PN ---
Assessment/Plan Assessment/Plan 1. Sinus tach due to respiratory failure and PNA. No Atrial fib. EF 60%. 2. HTN On Procardia 90 and Benazepril 20 daily 3. COPD and PNA. On Solumedrol and abx 4. Seizure disorder 5. Obesity DW RN Subjective Subjective Still coughing with productive sputum. In SR Objective Last 24 Hour Vital Signs Date Time Temp Pulse Resp B/P (MAP) Pulse Ox O2 Delivery O2 Flow Rate FiO2 09/22/18 11:25 97 20 98 Nasal Cannula 3.0 32 09/22/18 11:18 96 20 98 Nasal Cannula 3.0 32 09/22/18 09:30 Nasal Cannula 2.0 Nasal Cannula 2.0 09/22/18 09:12 118/65 09/22/18 09:11 92 118/65 09/22/18 08:00 98.3 92 22 118/65 (82) 97 09/22/18 08:00 92 09/22/18 07:40 96 20 98 Nasal Cannula 3.0 32 09/22/18 07:33 96 Nasal Cannula 3.0 32 09/22/18 07:33 86 20 99 Nasal Cannula 3.0 32 09/22/18 04:00 97.4 91 18 115/69 (84) 100 09/22/18 04:00 99 09/22/18 03:24 Nasal Cannula 3.0 32 09/22/18 03:23 Nasal Cannula 3.0 32 09/22/18 00:00 99.2 74 18 139/56 (83) 98 09/22/18 00:00 108 09/21/18 23:39 104 20 98 Nasal Cannula 3.0 32 09/21/18 23:34 99 20 99 Nasal Cannula 3.0 32 09/21/18 21:00 Nasal Cannula 2.0 09/21/18 20:00 118 09/21/18 20:00 99.0 109 18 142/90 (107) 98 09/21/18 20:00 103 20 98 Nasal Cannula 3.0 32 09/21/18 19:48 102 20 96 Nasal Cannula 3.0 32 09/21/18 19:47 96 Nasal Cannula 3.0 32 09/21/18 19:46 102 20 96 Nasal Cannula 3.0 32 09/21/18 16:08 96 22 98 Nasal Cannula 3.0 32 09/21/18 16:00 100 09/21/18 16:00 97.9 97 18 114/65 (81) 100 09/21/18 15:54 97 19 96 Nasal Cannula 3.0 32 09/21/18 12:07 97.2 103 18 104/59 (74) 96 09/21/18 12:00 94 Intake and Output 09/21/18 09/22/18 19:00 07:00 Intake Total 740 ml 240 ml Output Total 1400 ml Balance -660 ml 240 ml Intake Oral 740 ml Other 240 ml Output Urine Total 1400 ml # Voids 3 Laboratory Tests Test 09/22/18 07:12 White Blood Count 16.9 K/UL (4.8-10.8) H Red Blood Count 3.88 M/UL (4.20-5.40) L Hemoglobin 11.7 G/DL (12.0-16.0) L Hematocrit 34.9 % (37.0-47.0) L Mean Corpuscular Volume 90 FL (80-99) Mean Corpuscular Hemoglobin 30.2 PG (27.0-31.0) Mean Corpuscular Hemoglobin Concent 33.6 G/DL (32.0-36.0) Red Cell Distribution Width 13.0 % (11.6-14.8) Platelet Count 385 K/UL (150-450) Mean Platelet Volume 6.4 FL (6.5-10.1) L Neutrophils (%) (Auto) 61.6 % (45.0-75.0) Lymphocytes (%) (Auto) 27.7 % (20.0-45.0) Monocytes (%) (Auto) 5.9 % (1.0-10.0) Eosinophils (%) (Auto) 4.2 % (0.0-3.0) H Basophils (%) (Auto) 0.6 % (0.0-2.0) Objective General Appearance: WD/WN HEENT: EOMI, supple, no JVD Respiratory/Chest: crackles/rales, expiratory wheezing Cardiovascular/Chest: normal tachy rate, regular rhythm no G/R/M Abdomen: normal bowel sounds, non tender, soft Extremities: trace edema Neurologic: aluminum container tester II-XII grossly normal Jeffrey Means MD Sep 22, 2018 11:56
[2018-09-22 12:00] VITALS: BP 121/66
--- NOTE | 2018-09-22 12:28 | NUR ---
CASE MANAGEMENT:REVIEW 09/22/18 SI: COPD EXACERBATION POSSIBLE BRONCHITIS. OBESITY 98.3 92 22 118/97 98% ON 2L/NC IS: IV SOLUMEDROL 60MG Q12 IV ROCEPHIN Q24 IV AZITHROMYCIN DUONEB HHN Q4HR RTC DILANTIN Q12 : TELEMETRY STATUS DCP: PATIENT IS FROM HOME
--- NOTE | 2018-09-22 13:15 | Pulmonology Progress Note ---
Assessment/Plan Assessment/Plan Pulmonary Progress Note Assessment/Plan Problem List: 1. Respiratory insufficiency 2. Acute COPD exacerbation 3. Leukocytosis 4. Possible community acquired pneumonia 5. Seizure disorder 6. Obesity 7. HTN Plan: -ceftriaxone/azithro -solumedrol 125 in ED, cont 60q 12 for now -duonebs -monitor volumes Subjective ROS Limited/Unobtainable: No Interval Events: Still coughing and short of breath. Continues to wheeze. 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 Microbiology Date/Time Source Procedure Growth Status 09/16/18 18:20 Arm Right Blood Culture - Preliminary NO GROWTH AFTER 24 HOURS Resulted 09/16/18 18:05 Arm Left Blood Culture - Preliminary NO GROWTH AFTER 24 HOURS Resulted Laboratory Tests 09/18/18 06:30: White Blood Count 22.5*H, Red Blood Count 4.09L, Hemoglobin 12.5, Hematocrit 36.6L, Mean Corpuscular Volume 90, Mean Corpuscular Hemoglobin 30.5, Mean Corpuscular Hemoglobin Concent 34.0, Red Cell Distribution Width 13.4, Platelet Count 318, Mean Platelet Volume 6.7, Neutrophils (%) (Auto) , Lymphocytes (%) ( Auto) , Monocytes (%) (Auto) , Eosinophils (%) (Auto) , Basophils (%) (Auto) , Differential Total Cells Counted 100, Neutrophils % (Manual) 69, Lymphocytes % ( Manual) 22, Monocytes % (Manual) 9, Eosinophils % (Manual) 0, Basophils % ( Manual) 0, Band Neutrophils 0, Platelet Estimate Adequate, Platelet Morphology Normal, Hypochromasia 1+, Sodium Level 140, Potassium Level 4.1, Chloride Level 103, Carbon Dioxide Level 32, Anion Gap 5, Blood Urea Nitrogen 9, Creatinine 0.5L, Estimat Glomerular Filtration Rate > 60, Glucose Level 120H, Calcium Level 9.0, Total Bilirubin 0.3, Aspartate Amino Transf (AST/SGOT) 23, Alanine Aminotransferase (ALT/SGPT) 35, Alkaline Phosphatase 138H, Total Protein 7.3, Albumin 3.0L, Globulin 4.3, Albumin/Globulin Ratio 0.7L Current Medications Medications (Trade) Dose Ordered Sig/Jessica Route PRN Reason Start Time Stop Time Status Last Admin Dose Admin Acetaminophen (Tylenol) 650 mg Q6H PRN ORAL Mild Pain/Temp > 100.5 09/17/18 02:45 10/17/18 02:44 Albuterol/ Ipratropium (Albuterol/ Ipratropium) 3 ml Q4HRT HHN 09/17/18 03:00 09/22/18 02:59 09/18/18 11:00 Azithromycin 500 mg/Dextrose 275 ml @ 275 mls/hr Q24H IV 09/18/18 14:00 09/25/18 13:59 Benazepril HCl (Lotensin) 20 mg DAILY ORAL 09/17/18 09:00 10/17/18 08:59 09/18/18 09:14 Calcium Carbonate (Tums) 500 mg DAILY ORAL 09/17/18 09:00 10/17/18 08:59 09/18/18 09:12 Ceftriaxone Sodium 1 gm/ Dextrose 55 ml @ 110 mls/hr Q24H IVPB 09/17/18 15:00 09/24/18 14:59 09/17/18 16:11 Diphenhydramine HCl (Benadryl) 25 mg DAILY ORAL 09/17/18 09:00 10/17/18 08:59 09/18/18 09:13 Docusate Sodium (Colace) 100 mg TWICE A DAY ORAL 09/18/18 18:00 10/18/18 17:59 Folic Acid (Folate) 1 mg DAILY ORAL 09/17/18 09:00 10/17/18 08:59 09/18/18 09:12 Methylprednisolone Sodium Succinate (Solu-MEDROL) 60 mg Q12HR IVP 09/17/18 21:00 10/17/18 05:59 09/18/18 09:12 Nifedipine (Procardia XL) 90 mg DAILY ORAL 09/17/18 09:00 10/17/18 08:59 09/18/18 09:14 Oxybutynin Chloride (Ditropan) 5 mg BEDTIME ORAL 09/18/18 21:00 10/17/18 08:59 Phenytoin (Dilantin) 200 mg Q12HR ORAL 09/17/18 21:00 10/17/18 20:59 09/18/18 09:13 Polyethylene Glycol (Miralax) 17 gm QHS ORAL 09/18/18 21:00 10/18/18 20:59 Subjective ROS Limited/Unobtainable: No Allergies: Coded Allergies: No Known Allergies (Unverified , 09/16/18) Objective Last 24 Hour Vital Signs Date Time Temp Pulse Resp B/P (MAP) Pulse Ox O2 Delivery O2 Flow Rate FiO2 09/22/18 12:00 98.7 95 20 121/66 (84) 96 09/22/18 11:25 97 20 98 Nasal Cannula 3.0 32 09/22/18 11:18 96 20 98 Nasal Cannula 3.0 32 09/22/18 09:30 Nasal Cannula 2.0 Nasal Cannula 2.0 09/22/18 09:12 118/65 09/22/18 09:11 92 118/65 09/22/18 08:00 98.3 92 22 118/65 (82) 97 09/22/18 08:00 92 09/22/18 07:40 96 20 98 Nasal Cannula 3.0 32 09/22/18 07:33 96 Nasal Cannula 3.0 32 09/22/18 07:33 86 20 99 Nasal Cannula 3.0 32 09/22/18 04:00 97.4 91 18 115/69 (84) 100 09/22/18 04:00 99 09/22/18 03:24 Nasal Cannula 3.0 32 09/22/18 03:23 Nasal Cannula 3.0 32 09/22/18 00:00 99.2 74 18 139/56 (83) 98 09/22/18 00:00 108 09/21/18 23:39 104 20 98 Nasal Cannula 3.0 32 09/21/18 23:34 99 20 99 Nasal Cannula 3.0 32 09/21/18 21:00 Nasal Cannula 2.0 09/21/18 20:00 118 09/21/18 20:00 99.0 109 18 142/90 (107) 98 09/21/18 20:00 103 20 98 Nasal Cannula 3.0 32 09/21/18 19:48 102 20 96 Nasal Cannula 3.0 32 09/21/18 19:47 96 Nasal Cannula 3.0 32 09/21/18 19:46 102 20 96 Nasal Cannula 3.0 32 09/21/18 16:08 96 22 98 Nasal Cannula 3.0 32 09/21/18 16:00 100 09/21/18 16:00 97.9 97 18 114/65 (81) 100 09/21/18 15:54 97 19 96 Nasal Cannula 3.0 32 Intake and Output 09/21/18 09/22/18 19:00 07:00 Intake Total 740 ml 240 ml Output Total 1400 ml Balance -660 ml 240 ml Intake Oral 740 ml Other 240 ml Output Urine Total 1400 ml # Voids 3 Laboratory Tests 09/22/18 07:12: White Blood Count 16.9H, Red Blood Count 3.88L, Hemoglobin 11.7L, Hematocrit 34.9L, Mean Corpuscular Volume 90, Mean Corpuscular Hemoglobin 30.2, Mean Corpuscular Hemoglobin Concent 33.6, Red Cell Distribution Width 13.0, Platelet Count 385, Mean Platelet Volume 6.4L, Neutrophils (%) (Auto) 61.6, Lymphocytes ( %) (Auto) 27.7, Monocytes (%) (Auto) 5.9, Eosinophils (%) (Auto) 4.2H, Basophils (%) (Auto) 0.6 Current Medications Medications (Trade) Dose Ordered Sig/Jessica Route PRN Reason Start Time Stop Time Status Last Admin Dose Admin Acetaminophen (Tylenol) 650 mg Q6H PRN ORAL Mild Pain/Temp > 100.5 09/17/18 02:45 10/17/18 02:44 Albuterol/ Ipratropium (Albuterol/ Ipratropium) 3 ml Q4HRT HHN 09/22/18 03:15 09/27/18 03:14 09/22/18 11:16 Azithromycin 500 mg/Dextrose 275 ml @ 275 mls/hr Q24H IV 09/18/18 14:00 09/25/18 13:59 09/21/18 14:28 Benazepril HCl (Lotensin) 20 mg DAILY ORAL 09/17/18 09:00 10/17/18 08:59 09/22/18 09:12 Calcium Carbonate (Tums) 500 mg DAILY ORAL 09/17/18 09:00 10/17/18 08:59 09/22/18 09:11 Ceftriaxone Sodium 1 gm/ Dextrose 55 ml @ 110 mls/hr Q24H IVPB 09/17/18 15:00 09/24/18 14:59 09/21/18 15:29 Diphenhydramine HCl (Benadryl) 25 mg DAILY ORAL 09/17/18 09:00 10/17/18 08:59 09/22/18 09:11 Docusate Sodium (Colace) 100 mg TWICE A DAY ORAL 09/18/18 13:15 10/18/18 13:14 09/22/18 09:12 Folic Acid (Folate) 1 mg DAILY ORAL 09/17/18 09:00 10/17/18 08:59 09/22/18 09:11 Guaifenesin (Robitussin) 100 mg Q6H PRN ORAL For Cough 09/19/18 22:45 10/19/18 22:44 09/22/18 09:20 Methylprednisolone Sodium Succinate (Solu-MEDROL) 60 mg Q12HR IVP 09/17/18 21:00 10/17/18 05:59 09/22/18 09:11 Nifedipine (Procardia XL) 90 mg DAILY ORAL 09/17/18 09:00 10/17/18 08:59 09/22/18 09:11 Oxybutynin Chloride (Ditropan) 5 mg BEDTIME ORAL 09/18/18 21:00 10/17/18 08:59 09/21/18 20:44 Phenytoin (Dilantin) 200 mg Q12HR ORAL 09/17/18 21:00 10/17/18 20:59 09/22/18 09:11 Polyethylene Glycol (Miralax) 17 gm QHS ORAL 09/18/18 21:00 10/18/18 20:59 09/20/18 21:00 Hari Silva MD Sep 22, 2018 13:15
--- NOTE | 2018-09-22 14:12 | NUR ---
SS note Chart reviewed; no Sw needs identified at this time. SW to follow as needed.
[2018-09-22] MEDS: Azithromycin 500 MG in D5W 275 ML IV SCH (14:27)
[2018-09-22 16:00] VITALS: BP 112/63
[2018-09-22] MEDS: cefTRIAXone 1 GM in D5W 55 ML IVPB SCH (16:03)
[2018-09-22] MEDS ORDERED: Tubing IV Secondary IV ONE (16:47)
[2018-09-22] MEDS ORDERED: NS 275ml ONE (16:47)
--- NOTE | 2018-09-22 18:22 | Internal Med Progress Note ---
Subjective Date of Service: Sep 21, 2018 Physician Name Mohinder Morgan Attending Physician Mohinder Morgan M.D. Current Medications Medications (Trade) Dose Ordered Sig/Jessica Route PRN Reason Start Time Stop Time Status Last Admin Dose Admin Acetaminophen (Tylenol) 650 mg Q6H PRN ORAL Mild Pain/Temp > 100.5 09/17/18 02:45 10/17/18 02:44 Albuterol/ Ipratropium (Albuterol/ Ipratropium) 3 ml Q4HRT HHN 09/22/18 03:15 09/27/18 03:14 09/22/18 15:20 Azithromycin 500 mg/Dextrose 275 ml @ 275 mls/hr Q24H IV 09/18/18 14:00 09/25/18 13:59 09/22/18 14:27 Benazepril HCl (Lotensin) 20 mg DAILY ORAL 09/17/18 09:00 10/17/18 08:59 09/22/18 09:12 Calcium Carbonate (Tums) 500 mg DAILY ORAL 09/17/18 09:00 10/17/18 08:59 09/22/18 09:11 Ceftriaxone Sodium 1 gm/ Dextrose 55 ml @ 110 mls/hr Q24H IVPB 09/17/18 15:00 09/24/18 14:59 09/22/18 16:03 Diphenhydramine HCl (Benadryl) 25 mg DAILY ORAL 09/17/18 09:00 10/17/18 08:59 09/22/18 09:11 Docusate Sodium (Colace) 100 mg TWICE A DAY ORAL 09/18/18 13:15 10/18/18 13:14 09/22/18 17:31 Folic Acid (Folate) 1 mg DAILY ORAL 09/17/18 09:00 10/17/18 08:59 09/22/18 09:11 Guaifenesin (Robitussin) 100 mg Q6H PRN ORAL For Cough 09/19/18 22:45 10/19/18 22:44 09/22/18 16:03 Methylprednisolone Sodium Succinate (Solu-MEDROL) 60 mg Q12HR IVP 09/17/18 21:00 10/17/18 05:59 09/22/18 09:11 Nifedipine (Procardia XL) 90 mg DAILY ORAL 09/17/18 09:00 10/17/18 08:59 09/22/18 09:11 Oxybutynin Chloride (Ditropan) 5 mg BEDTIME ORAL 09/18/18 21:00 10/17/18 08:59 09/21/18 20:44 Phenytoin (Dilantin) 200 mg Q12HR ORAL 09/17/18 21:00 10/17/18 20:59 09/22/18 09:11 Polyethylene Glycol (Miralax) 17 gm QHS ORAL 09/18/18 21:00 10/18/18 20:59 09/20/18 21:00 Allergies: Coded Allergies: No Known Allergies (Unverified , 09/16/18) Subjective breathing slightly improved continues to have significant cough some chest heaviness no fevers or chills tolerating antibiotics Objective Last Vital Signs Date Time Temp Pulse Resp B/P (MAP) Pulse Ox O2 Delivery O2 Flow Rate FiO2 09/22/18 16:00 104 09/22/18 16:00 98.6 20 112/63 (79) 97 09/22/18 15:30 Nasal Cannula 3.0 32 Laboratory Tests Test 09/22/18 07:12 White Blood Count 16.9 K/UL (4.8-10.8) H Red Blood Count 3.88 M/UL (4.20-5.40) L Hemoglobin 11.7 G/DL (12.0-16.0) L Hematocrit 34.9 % (37.0-47.0) L Mean Corpuscular Volume 90 FL (80-99) Mean Corpuscular Hemoglobin 30.2 PG (27.0-31.0) Mean Corpuscular Hemoglobin Concent 33.6 G/DL (32.0-36.0) Red Cell Distribution Width 13.0 % (11.6-14.8) Platelet Count 385 K/UL (150-450) Mean Platelet Volume 6.4 FL (6.5-10.1) L Neutrophils (%) (Auto) 61.6 % (45.0-75.0) Lymphocytes (%) (Auto) 27.7 % (20.0-45.0) Monocytes (%) (Auto) 5.9 % (1.0-10.0) Eosinophils (%) (Auto) 4.2 % (0.0-3.0) H Basophils (%) (Auto) 0.6 % (0.0-2.0) Intake and Output 09/21/18 09/22/18 19:00 07:00 Intake Total 740 ml 240 ml Output Total 1400 ml Balance -660 ml 240 ml Intake Oral 740 ml Other 240 ml Output Urine Total 1400 ml # Voids 3 Assessment/Plan Problem List: (1) COPD exacerbation (2) Respiratory distress Assessment/Plan #COPD exacerbation #possible bronchitis #seizure d/o # tobacco use #obesity #HTN duonebs pulm consult, appreciate recs cardiology consult azithro and ceftriaxone D3 solumedrol 60 IV daily TTE with EF 60% resume home meds procardia 90 daily, benazopril 20mg daily stress test per cardiology continue phenytoin continue oxybutinin supplemental O2 bowel regimen [place]acoMohinder Stanton M.D. Sep 22, 2018 18:22
--- NOTE | 2018-09-22 18:25 | Internal Med Progress Note ---
Subjective Date of Service: Sep 22, 2018 Physician Name Mohinder Morgan Attending Physician Mohinder Morgan M.D. Current Medications Medications (Trade) Dose Ordered Sig/Jessica Route PRN Reason Start Time Stop Time Status Last Admin Dose Admin Acetaminophen (Tylenol) 650 mg Q6H PRN ORAL Mild Pain/Temp > 100.5 09/17/18 02:45 10/17/18 02:44 Albuterol/ Ipratropium (Albuterol/ Ipratropium) 3 ml Q4HRT HHN 09/22/18 03:15 09/27/18 03:14 09/22/18 15:20 Azithromycin 500 mg/Dextrose 275 ml @ 275 mls/hr Q24H IV 09/18/18 14:00 09/25/18 13:59 09/22/18 14:27 Benazepril HCl (Lotensin) 20 mg DAILY ORAL 09/17/18 09:00 10/17/18 08:59 09/22/18 09:12 Calcium Carbonate (Tums) 500 mg DAILY ORAL 09/17/18 09:00 10/17/18 08:59 09/22/18 09:11 Ceftriaxone Sodium 1 gm/ Dextrose 55 ml @ 110 mls/hr Q24H IVPB 09/17/18 15:00 09/24/18 14:59 09/22/18 16:03 Diphenhydramine HCl (Benadryl) 25 mg DAILY ORAL 09/17/18 09:00 10/17/18 08:59 09/22/18 09:11 Docusate Sodium (Colace) 100 mg TWICE A DAY ORAL 09/18/18 13:15 10/18/18 13:14 09/22/18 17:31 Folic Acid (Folate) 1 mg DAILY ORAL 09/17/18 09:00 10/17/18 08:59 09/22/18 09:11 Guaifenesin (Robitussin) 100 mg Q6H PRN ORAL For Cough 09/19/18 22:45 10/19/18 22:44 09/22/18 16:03 Methylprednisolone Sodium Succinate (Solu-MEDROL) 60 mg Q12HR IVP 09/17/18 21:00 10/17/18 05:59 09/22/18 09:11 Nifedipine (Procardia XL) 90 mg DAILY ORAL 09/17/18 09:00 10/17/18 08:59 09/22/18 09:11 Oxybutynin Chloride (Ditropan) 5 mg BEDTIME ORAL 09/18/18 21:00 10/17/18 08:59 09/21/18 20:44 Phenytoin (Dilantin) 200 mg Q12HR ORAL 09/17/18 21:00 10/17/18 20:59 09/22/18 09:11 Polyethylene Glycol (Miralax) 17 gm QHS ORAL 09/18/18 21:00 10/18/18 20:59 09/20/18 21:00 Allergies: Coded Allergies: No Known Allergies (Unverified , 09/16/18) Subjective CHEST XRAY REVIEWED Impression: Evidence of worsening interstitial congestion, over 5 days continues to have significant cough some chest heaviness no fevers or chills tolerating antibiotics Objective Last Vital Signs Date Time Temp Pulse Resp B/P (MAP) Pulse Ox O2 Delivery O2 Flow Rate FiO2 09/22/18 16:00 104 09/22/18 16:00 98.6 20 112/63 (79) 97 09/22/18 15:30 Nasal Cannula 3.0 32 Laboratory Tests Test 09/22/18 07:12 White Blood Count 16.9 K/UL (4.8-10.8) H Red Blood Count 3.88 M/UL (4.20-5.40) L Hemoglobin 11.7 G/DL (12.0-16.0) L Hematocrit 34.9 % (37.0-47.0) L Mean Corpuscular Volume 90 FL (80-99) Mean Corpuscular Hemoglobin 30.2 PG (27.0-31.0) Mean Corpuscular Hemoglobin Concent 33.6 G/DL (32.0-36.0) Red Cell Distribution Width 13.0 % (11.6-14.8) Platelet Count 385 K/UL (150-450) Mean Platelet Volume 6.4 FL (6.5-10.1) L Neutrophils (%) (Auto) 61.6 % (45.0-75.0) Lymphocytes (%) (Auto) 27.7 % (20.0-45.0) Monocytes (%) (Auto) 5.9 % (1.0-10.0) Eosinophils (%) (Auto) 4.2 % (0.0-3.0) H Basophils (%) (Auto) 0.6 % (0.0-2.0) Intake and Output 09/21/18 09/22/18 19:00 07:00 Intake Total 740 ml 240 ml Output Total 1400 ml Balance -660 ml 240 ml Intake Oral 740 ml Other 240 ml Output Urine Total 1400 ml # Voids 3 Assessment/Plan Problem List: (1) COPD exacerbation (2) Respiratory distress Assessment/Plan #COPD exacerbation #possible bronchitis #seizure d/o # tobacco use #obesity #HTN duonebs pulm consult, appreciate recs cardiology consult azithro and ceftriaxone D5 solumedrol 60 IV daily TTE with EF 60% resume home meds procardia 90 daily, benazopril 20mg daily stress test per cardiology continue phenytoin continue oxybutinin supplemental O2 bowel regimen [employer] Mohinder Morgan M.D. Sep 22, 2018 18:25
--- NOTE | 2018-09-22 19:30 | NUR ---
NURSE NOTES: Received pt stable. no s/s of acute distress. no c/o pain. bed locked and lowest position. bedside rail up x2. call light within reach. will continue to monitor pt for change in condition.
--- NOTE | 2018-09-22 19:32 | NUR ---
HAND-OFF: Report given to Alessandro NAVARRO.
[2018-09-22 20:00] VITALS: BP 133/68
[2018-09-22] MEDS: Miralax 17gm pkt ORAL SCH (21:00)
[2018-09-22] MEDS: Oxybutynin 5mg tab ORAL SCH (21:25)
[2018-09-23] VITALS: BP 127/66
--- NOTE | 2018-09-23 | NUR ---
NURSE NOTES: pt sleeping, no acute distress noted. will continue to monitor for any change in condition.
[2018-09-23] MEDS: Albuterol/Ipratropium 3ml neb HHN SCH ×7 (01:48→23:43)
[2018-09-23 04:00] VITALS: BP 124/82
--- NOTE | 2018-09-23 04:00 | NUR ---
NURSE NOTES: no change in condition. no s/s of acute distress. will continue to monitor for any change in condition.
--- NOTE | 2018-09-23 06:42 | NUR ---
NURSE NOTES: pt remains stable, no acute distress, no change in condition. IV patent. all needs met during my shift. bed locked and lowest position, bedside rail up x2, call light within reach, will endorse plan of care to incoming nurse.
[2018-09-23 07:11] LABS: BASOPHILS % (AUTO) 0.7 % (0.0-2.0); EOSINOPHILS % (AUTO) 3.9 % (0.0-3.0); HEMATOCRIT 32.8 % (37.0-47.0); HEMOGLOBIN 11.2 G/DL (12.0-16.0); LYMPHOCYTES % (AUTO) 29.1 % (20.0-45.0); MEAN CORPUSCULAR VOLUME 89 FL (80-99); MONOCYTES % (AUTO) 6.1 % (1.0-10.0); NEUTROPHILS % (AUTO) 60.3 % (45.0-75.0); PLATELET COUNT 395 K/UL (150-450); RED BLOOD COUNT 3.68 M/UL (4.20-5.40); RED CELL DISTRIBUTION WIDTH 13.1 % (11.6-14.8); WHITE BLOOD COUNT 17.1 K/UL (4.8-10.8)
--- NOTE | 2018-09-23 07:35 | NUR ---
NURSE NOTES: Received report from Mary NAVARRO. Alert and oriented x4. Awake and sitting in bed. No signs of distress noted. IV on L wrist 22G SL and IV site intact and patent. Bed in lowest position and locked. 2 x side rails up. On 2LPM O2 via NC. Denied SOB. Will continue to monitor with current plan of care.
--- NOTE | 2018-09-23 07:35 | NUR ---
HAND-OFF: Report given to MELANIE Sims.
[2018-09-23 08:00] VITALS: BP 127/77
[2018-09-23] MEDS: Phenytoin 100mg cap ORAL SCH ×2 (08:51→21:37)
[2018-09-23] MEDS: Tums 500mg ORAL SCH (08:51)
[2018-09-23] MEDS: guaiFENesin 100mg/5ml Liq ud ORAL PRN ×2 (08:51→21:36)
[2018-09-23] MEDS: Docusate 100mg cap ORAL SCH ×2 (08:51→17:16)
[2018-09-23] MEDS: Benazepril 10mg tab ORAL SCH (08:52)
[2018-09-23] MEDS: Solu-MEDROL 125mg Inj IVP SCH ×2 (08:52→21:36)
[2018-09-23 12:00] VITALS: BP 130/70
[2018-09-23] MEDS ORDERED: Azithromycin 250mg tab ORAL SCH (14:00)
[2018-09-23] MEDS: cefTRIAXone 1 GM in D5W 55 ML IVPB SCH (14:18)
--- NOTE | 2018-09-23 15:50 | NUR ---
NURSE NOTES: Made Dr. Means aware about cardiology consult.
[2018-09-23 16:00] VITALS: BP 121/73
--- NOTE | 2018-09-23 19:15 | NUR ---
HAND-OFF: Report given to Mary NAVARRO. Pt remains stable. .
--- NOTE | 2018-09-23 19:30 | NUR ---
NURSE NOTES: received pt from MELANIE NORMAN. pt AOx4, no acute distress noted.pt updated on plan of care. verbalized understanding. bed locked and lowest position, side rail upx2, call light and belonging within reach. will continue to monitor for any change in condition.
--- NOTE | 2018-09-23 19:42 | Cardiac Electrophysiology PN ---
Assessment/Plan Assessment/Plan 1. Sinus tach due to PNA. No Atrial fib. EF 60%. 2. HTN On Procardia 90 and Benazepril 20 daily 3. COPD and PNA. On Solumedrol and abx 4. Seizure disorder 5. Obesity DW RN Subjective Subjective Still coughing but in SR Objective Last 24 Hour Vital Signs Date Time Temp Pulse Resp B/P (MAP) Pulse Ox O2 Delivery O2 Flow Rate FiO2 09/23/18 16:00 98.7 91 20 121/73 (89) 97 09/23/18 16:00 87 09/23/18 15:43 96 18 98 Nasal Cannula 3.0 32 09/23/18 15:33 98 18 95 Nasal Cannula 3.0 32 09/23/18 12:00 98.1 84 20 130/70 (90) 98 09/23/18 12:00 86 09/23/18 11:30 98 18 98 Nasal Cannula 3.0 32 09/23/18 11:22 97 18 91 Nasal Cannula 3.0 32 09/23/18 09:00 Nasal Cannula 2.0 Nasal Cannula 2.0 09/23/18 08:52 127/77 09/23/18 08:52 97 127/77 09/23/18 08:26 97 18 100 Nasal Cannula 3.0 32 09/23/18 08:19 99 18 100 Nasal Cannula 3.0 32 09/23/18 08:19 99 Nasal Cannula 3.0 32 09/23/18 08:00 92 09/23/18 08:00 98.3 97 22 127/77 (94) 98 09/23/18 04:01 105 18 100 Nasal Cannula 3.0 32 09/23/18 04:00 97.8 107 18 124/82 (96) 93 09/23/18 04:00 97 09/23/18 03:47 102 18 100 Nasal Cannula 3.0 32 09/23/18 01:54 98 18 98 Nasal Cannula 3.0 32 09/23/18 01:49 97 18 91 Nasal Cannula 3.0 32 09/23/18 00:00 110 09/23/18 00:00 98.4 104 20 127/66 (86) 93 09/22/18 21:00 Nasal Cannula 2.0 Nasal Cannula 2.0 09/22/18 20:02 92 18 96 Nasal Cannula 3.0 32 09/22/18 20:00 98.4 107 20 133/68 (89) 93 09/22/18 20:00 113 09/22/18 19:54 99 Nasal Cannula 3.0 32 09/22/18 19:44 100 18 94 Nasal Cannula 3.0 32 Intake and Output 09/22/18 09/23/18 19:00 07:00 Intake Total 720 ml Balance 720 ml Intake Oral 720 ml # Voids 3 3 Laboratory Tests Test 09/23/18 06:20 White Blood Count 17.1 K/UL (4.8-10.8) H Red Blood Count 3.68 M/UL (4.20-5.40) L Hemoglobin 11.2 G/DL (12.0-16.0) L Hematocrit 32.8 % (37.0-47.0) L Mean Corpuscular Volume 89 FL (80-99) Mean Corpuscular Hemoglobin 30.4 PG (27.0-31.0) Mean Corpuscular Hemoglobin Concent 34.1 G/DL (32.0-36.0) Red Cell Distribution Width 13.1 % (11.6-14.8) Platelet Count 395 K/UL (150-450) Mean Platelet Volume 6.3 FL (6.5-10.1) L Neutrophils (%) (Auto) 60.3 % (45.0-75.0) Lymphocytes (%) (Auto) 29.1 % (20.0-45.0) Monocytes (%) (Auto) 6.1 % (1.0-10.0) Eosinophils (%) (Auto) 3.9 % (0.0-3.0) H Basophils (%) (Auto) 0.7 % (0.0-2.0) Objective General Appearance: WD/WN HEENT: EOMI, supple, no JVD Respiratory/Chest: crackles/rales, expiratory wheezing Cardiovascular/Chest: normal tachy rate, regular rhythm no G/R/M Abdomen: normal bowel sounds, non tender, soft Extremities: trace edema Jeffrey Means MD Sep 23, 2018 19:42
[2018-09-23 20:00] VITALS: BP 129/53
[2018-09-23] MEDS: Miralax 17gm pkt ORAL SCH (21:36)
[2018-09-23] MEDS: Oxybutynin 5mg tab ORAL SCH (21:37)
--- NOTE | 2018-09-23 21:55 | Pulmonology Progress Note ---
Assessment/Plan Assessment/Plan Assessment/Plan Problem List: 1. Respiratory insufficiency 2. Acute COPD exacerbation 3. Leukocytosis 4. Possible community acquired pneumonia 5. Seizure disorder 6. Obesity 7. HTN Plan: -ceftriaxone/azithro -solumedrol 60q 12 and no change for now -duonebs -monitor volumes cxr tuesday supplemental o2 for now Subjective Constitutional: Reports: no symptoms Respiratory: Reports: productive cough, shortness of breath Cardiovascular: Reports: no symptoms Gastrointestinal/Abdominal: Reports: no symptoms Genitourinary: Reports: no symptoms Neurologic: Reports: no symptoms Allergies: Coded Allergies: No Known Allergies (Unverified , 09/16/18) Subjective still with shortness of breathand wheezing no cp nv or bledding toleraitng po no fever minimally oob Objective Last 24 Hour Vital Signs Date Time Temp Pulse Resp B/P (MAP) Pulse Ox O2 Delivery O2 Flow Rate FiO2 09/23/18 20:00 98.2 96 19 129/53 (78) 97 09/23/18 19:51 92 18 97 Nasal Cannula 3.0 32 09/23/18 19:45 92 18 96 Nasal Cannula 3.0 32 09/23/18 19:44 95 Nasal Cannula 3.0 32 09/23/18 16:00 98.7 91 20 121/73 (89) 97 09/23/18 16:00 87 09/23/18 15:43 96 18 98 Nasal Cannula 3.0 32 09/23/18 15:33 98 18 95 Nasal Cannula 3.0 32 09/23/18 12:00 98.1 84 20 130/70 (90) 98 09/23/18 12:00 86 09/23/18 11:30 98 18 98 Nasal Cannula 3.0 32 09/23/18 11:22 97 18 91 Nasal Cannula 3.0 32 09/23/18 09:00 Nasal Cannula 2.0 Nasal Cannula 2.0 09/23/18 08:52 127/77 09/23/18 08:52 97 127/77 09/23/18 08:26 97 18 100 Nasal Cannula 3.0 32 09/23/18 08:19 99 18 100 Nasal Cannula 3.0 32 09/23/18 08:19 99 Nasal Cannula 3.0 32 09/23/18 08:00 92 09/23/18 08:00 98.3 97 22 127/77 (94) 98 09/23/18 04:01 105 18 100 Nasal Cannula 3.0 32 09/23/18 04:00 97.8 107 18 124/82 (96) 93 09/23/18 04:00 97 09/23/18 03:47 102 18 100 Nasal Cannula 3.0 32 09/23/18 01:54 98 18 98 Nasal Cannula 3.0 32 09/23/18 01:49 97 18 91 Nasal Cannula 3.0 32 09/23/18 00:00 110 09/23/18 00:00 98.4 104 20 127/66 (86) 93 Intake and Output 09/22/18 09/23/18 19:00 07:00 Intake Total 720 ml Balance 720 ml Intake Oral 720 ml # Voids 3 3 General Appearance: WD/WN Respiratory/Chest: rhonchi, expiratory wheezing Cardiovascular: normal peripheral pulses, normal rate, regular rhythm Abdomen: normal bowel sounds, no organomegaly Genitourinary: normal external genitalia Extremities: no clubbing Skin: no lesions 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: alert, oriented x 3, responsive Current Medications Medications (Trade) Dose Ordered Sig/Jessica Route PRN Reason Start Time Stop Time Status Last Admin Dose Admin Acetaminophen (Tylenol) 650 mg Q6H PRN ORAL Mild Pain/Temp > 100.5 09/17/18 02:45 10/17/18 02:44 Albuterol/ Ipratropium (Albuterol/ Ipratropium) 3 ml Q4HRT HHN 09/22/18 03:15 09/27/18 03:14 09/23/18 19:43 Azithromycin (Zithromax) 500 mg Q24HRS ORAL 09/23/18 14:00 09/25/18 13:59 09/23/18 14:18 Benazepril HCl (Lotensin) 20 mg DAILY ORAL 09/17/18 09:00 10/17/18 08:59 09/23/18 08:52 Calcium Carbonate (Tums) 500 mg DAILY ORAL 09/17/18 09:00 10/17/18 08:59 09/23/18 08:51 Ceftriaxone Sodium 1 gm/ Dextrose 55 ml @ 110 mls/hr Q24H IVPB 09/17/18 15:00 09/24/18 14:59 09/23/18 14:18 Diphenhydramine HCl (Benadryl) 25 mg DAILY ORAL 09/17/18 09:00 10/17/18 08:59 09/23/18 08:52 Docusate Sodium (Colace) 100 mg TWICE A DAY ORAL 09/18/18 13:15 10/18/18 13:14 09/23/18 17:16 Folic Acid (Folate) 1 mg DAILY ORAL 09/17/18 09:00 10/17/18 08:59 09/23/18 08:52 Guaifenesin (Robitussin) 100 mg Q6H PRN ORAL For Cough 09/19/18 22:45 10/19/18 22:44 09/23/18 21:36 Methylprednisolone Sodium Succinate (Solu-MEDROL) 60 mg Q12HR IVP 09/17/18 21:00 10/17/18 05:59 09/23/18 21:36 Nifedipine (Procardia XL) 90 mg DAILY ORAL 09/17/18 09:00 10/17/18 08:59 09/23/18 08:52 Oxybutynin Chloride (Ditropan) 5 mg BEDTIME ORAL 09/18/18 21:00 10/17/18 08:59 09/23/18 21:37 Phenytoin (Dilantin) 200 mg Q12HR ORAL 09/17/18 21:00 10/17/18 20:59 09/23/18 21:37 Polyethylene Glycol (Miralax) 17 gm QHS ORAL 09/18/18 21:00 10/18/18 20:59 09/23/18 21:36 Laboratory Tests 09/23/18 06:20: White Blood Count 17.1H, Red Blood Count 3.68L, Hemoglobin 11.2L, Hematocrit 32.8L, Mean Corpuscular Volume 89, Mean Corpuscular Hemoglobin 30.4, Mean Corpuscular Hemoglobin Concent 34.1, Red Cell Distribution Width 13.1, Platelet Count 395, Mean Platelet Volume 6.3L, Neutrophils (%) (Auto) 60.3, Lymphocytes ( %) (Auto) 29.1, Monocytes (%) (Auto) 6.1, Eosinophils (%) (Auto) 3.9H, Basophils (%) (Auto) 0.7 Current Medications Medications (Trade) Dose Ordered Sig/Jessica Route PRN Reason Start Time Stop Time Status Last Admin Dose Admin Acetaminophen (Tylenol) 650 mg Q6H PRN ORAL Mild Pain/Temp > 100.5 09/17/18 02:45 10/17/18 02:44 Albuterol/ Ipratropium (Albuterol/ Ipratropium) 3 ml Q4HRT HHN 09/22/18 03:15 09/27/18 03:14 09/23/18 19:43 Azithromycin (Zithromax) 500 mg Q24HRS ORAL 09/23/18 14:00 09/25/18 13:59 09/23/18 14:18 Benazepril HCl (Lotensin) 20 mg DAILY ORAL 09/17/18 09:00 10/17/18 08:59 09/23/18 08:52 Calcium Carbonate (Tums) 500 mg DAILY ORAL 09/17/18 09:00 10/17/18 08:59 09/23/18 08:51 Ceftriaxone Sodium 1 gm/ Dextrose 55 ml @ 110 mls/hr Q24H IVPB 09/17/18 15:00 09/24/18 14:59 09/23/18 14:18 Diphenhydramine HCl (Benadryl) 25 mg DAILY ORAL 09/17/18 09:00 10/17/18 08:59 09/23/18 08:52 Docusate Sodium (Colace) 100 mg TWICE A DAY ORAL 09/18/18 13:15 10/18/18 13:14 09/23/18 17:16 Folic Acid (Folate) 1 mg DAILY ORAL 09/17/18 09:00 10/17/18 08:59 09/23/18 08:52 Guaifenesin (Robitussin) 100 mg Q6H PRN ORAL For Cough 09/19/18 22:45 10/19/18 22:44 09/23/18 21:36 Methylprednisolone Sodium Succinate (Solu-MEDROL) 60 mg Q12HR IVP 09/17/18 21:00 10/17/18 05:59 09/23/18 21:36 Nifedipine (Procardia XL) 90 mg DAILY ORAL 09/17/18 09:00 10/17/18 08:59 09/23/18 08:52 Oxybutynin Chloride (Ditropan) 5 mg BEDTIME ORAL 09/18/18 21:00 10/17/18 08:59 09/23/18 21:37 Phenytoin (Dilantin) 200 mg Q12HR ORAL 09/17/18 21:00 10/17/18 20:59 09/23/18 21:37 Polyethylene Glycol (Miralax) 17 gm QHS ORAL 09/18/18 21:00 10/18/18 20:59 09/23/18 21:36 Yasmine Dickinson DO Sep 23, 2018 21:55
--- NOTE | 2018-09-24 | NUR ---
NURSE NOTES: pt sleeping no change in condition. will continue to monitor for any change in condition.
[2018-09-24] MEDS: Albuterol/Ipratropium 3ml neb HHN SCH ×6 (03:24→23:34)
[2018-09-24 04:00] VITALS: BP 117/48
--- NOTE | 2018-09-24 04:00 | NUR ---
NURSE NOTES: pt sleeping. no acute distress noted. no s/s of pain. will continue to monitor for any change in condition.
--- NOTE | 2018-09-24 04:00 | NUR ---
NURSE NOTES: pt sleeping. no acute distress noted. no s/s of pain. will continue to monitor for any change in condition.
--- NOTE | 2018-09-24 06:36 | NUR ---
NURSE NOTES: Pt remains stable, no change in condition. pt AOx4, no acute distress noted. bed locked and lowest position, side rail upx2, call light and belonging within reach. all needs met during my shift. will endorse plan of care to incoming nurse.
--- NOTE | 2018-09-24 07:19 | NUR ---
HAND-OFF: Report given to MELANIE Sims.
--- NOTE | 2018-09-24 07:20 | NUR ---
NURSE NOTES: Received report from Mary NAVARRO. Alert and oriented x4. Awake and sitting in bed. No signs of distress noted. IV on L wrist 22G SL and IV site intact and patent. Bed in lowest position and locked. Side railsx2 up for safety. On O2 2LPM via NC. O2 saturating with 95%. Denied SOB. Will continue to monitor with current plan of care.
--- NOTE | 2018-09-24 07:33 | Pulmonology Progress Note ---
Assessment/Plan Assessment/Plan Assessment/Plan Problem List: 1. Respiratory insufficiency 2. Acute COPD exacerbation 3. Leukocytosis 4. Possible community acquired pneumonia 5. Seizure disorder 6. Obesity 7. HTN Plan: -ceftriaxone/azithro -solumedrol 60q 12 and no change for today but consider dcrdease to 40 mg q 12 in am if stable and wheezing resolved -duonebs -monitor volumes cxr tuesday supplemental o2 for now Subjective Constitutional: Reports: no symptoms HEENT: Repors: no symptoms Respiratory: Reports: productive cough, sputum, shortness of breath, wheezing Cardiovascular: Reports: no symptoms Genitourinary: Reports: no symptoms Psychiatric: Reports: no symptoms Skin: Reports: no symptoms Allergies: Coded Allergies: No Known Allergies (Unverified , 09/16/18) Subjective not wheezing this am less sob cough noted no cp nv or bledding toleraitng po no fever minimally oob Objective Last 24 Hour Vital Signs Date Time Temp Pulse Resp B/P (MAP) Pulse Ox O2 Delivery O2 Flow Rate FiO2 09/24/18 04:00 83 09/24/18 04:00 98.1 76 18 117/48 (71) 100 09/24/18 03:32 94 20 100 Nasal Cannula 3.0 32 09/24/18 03:20 80 18 94 Nasal Cannula 3.0 32 09/24/18 00:00 92 09/23/18 23:54 93 18 98 Nasal Cannula 3.0 32 09/23/18 23:43 93 18 95 Nasal Cannula 3.0 32 09/23/18 21:00 Nasal Cannula 2.0 Nasal Cannula 2.0 09/23/18 20:00 98.2 96 19 129/53 (78) 97 09/23/18 20:00 93 09/23/18 19:51 92 18 97 Nasal Cannula 3.0 32 09/23/18 19:45 92 18 96 Nasal Cannula 3.0 32 09/23/18 19:44 95 Nasal Cannula 3.0 32 09/23/18 16:00 98.7 91 20 121/73 (89) 97 09/23/18 16:00 87 09/23/18 15:43 96 18 98 Nasal Cannula 3.0 32 09/23/18 15:33 98 18 95 Nasal Cannula 3.0 32 09/23/18 12:00 98.1 84 20 130/70 (90) 98 09/23/18 12:00 86 09/23/18 11:30 98 18 98 Nasal Cannula 3.0 32 09/23/18 11:22 97 18 91 Nasal Cannula 3.0 32 09/23/18 09:00 Nasal Cannula 2.0 Nasal Cannula 2.0 09/23/18 08:52 127/77 09/23/18 08:52 97 127/77 09/23/18 08:26 97 18 100 Nasal Cannula 3.0 32 09/23/18 08:19 99 18 100 Nasal Cannula 3.0 32 09/23/18 08:19 99 Nasal Cannula 3.0 32 09/23/18 08:00 92 09/23/18 08:00 98.3 97 22 127/77 (94) 98 Intake and Output 09/23/18 09/24/18 19:00 07:00 Intake Total 360 ml 600 ml Output Total 250 ml Balance 110 ml 600 ml Intake Oral 360 ml 600 ml Output Urine Total 250 ml # Voids 2 2 General Appearance: WD/WN Respiratory/Chest: rhonchi Cardiovascular: normal rate, regular rhythm, regularly irregular Abdomen: normal bowel sounds, soft, non tender Skin: no rash, no lesions 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: alert, oriented x 3 Current Medications Medications (Trade) Dose Ordered Sig/Jessica Route PRN Reason Start Time Stop Time Status Last Admin Dose Admin Acetaminophen (Tylenol) 650 mg Q6H PRN ORAL Mild Pain/Temp > 100.5 09/17/18 02:45 10/17/18 02:44 Albuterol/ Ipratropium (Albuterol/ Ipratropium) 3 ml Q4HRT HHN 09/22/18 03:15 09/27/18 03:14 09/24/18 03:24 Azithromycin (Zithromax) 500 mg Q24HRS ORAL 09/23/18 14:00 09/25/18 13:59 09/23/18 14:18 Benazepril HCl (Lotensin) 20 mg DAILY ORAL 09/17/18 09:00 10/17/18 08:59 09/23/18 08:52 Calcium Carbonate (Tums) 500 mg DAILY ORAL 09/17/18 09:00 10/17/18 08:59 09/23/18 08:51 Ceftriaxone Sodium 1 gm/ Dextrose 55 ml @ 110 mls/hr Q24H IVPB 09/17/18 15:00 09/24/18 14:59 09/23/18 14:18 Diphenhydramine HCl (Benadryl) 25 mg DAILY ORAL 09/17/18 09:00 10/17/18 08:59 09/23/18 08:52 Docusate Sodium (Colace) 100 mg TWICE A DAY ORAL 09/18/18 13:15 10/18/18 13:14 09/23/18 17:16 Folic Acid (Folate) 1 mg DAILY ORAL 09/17/18 09:00 10/17/18 08:59 09/23/18 08:52 Guaifenesin (Robitussin) 100 mg Q6H PRN ORAL For Cough 09/19/18 22:45 10/19/18 22:44 09/23/18 21:36 Methylprednisolone Sodium Succinate (Solu-MEDROL) 60 mg Q12HR IVP 09/17/18 21:00 10/17/18 05:59 09/23/18 21:36 Nifedipine (Procardia XL) 90 mg DAILY ORAL 09/17/18 09:00 10/17/18 08:59 09/23/18 08:52 Oxybutynin Chloride (Ditropan) 5 mg BEDTIME ORAL 09/18/18 21:00 10/17/18 08:59 09/23/18 21:37 Phenytoin (Dilantin) 200 mg Q12HR ORAL 09/17/18 21:00 10/17/18 20:59 09/23/18 21:37 Polyethylene Glycol (Miralax) 17 gm QHS ORAL 09/18/18 21:00 10/18/18 20:59 09/23/18 21:36 Yasmine Dickinson DO Sep 24, 2018 07:33
[2018-09-24 08:00] VITALS: BP 138/61
[2018-09-24] MEDS: Phenytoin 100mg cap ORAL SCH ×2 (09:00→22:29)
[2018-09-24] MEDS: Benazepril 10mg tab ORAL SCH (09:00)
[2018-09-24] MEDS: Tums 500mg ORAL SCH (09:00)
[2018-09-24] MEDS: Solu-MEDROL 125mg Inj IVP SCH ×2 (09:00→22:29)
[2018-09-24] MEDS: Docusate 100mg cap ORAL SCH ×2 (09:01→17:54)
[2018-09-24] MEDS: guaiFENesin 100mg/5ml Liq ud ORAL PRN ×2 (09:25→22:29)
--- NOTE | 2018-09-24 11:22 | Internal Med Progress Note ---
Subjective Physician Name Mohinder Morgan Attending Physician Mohinder Morgan M.D. Current Medications Medications (Trade) Dose Ordered Sig/Jessica Route PRN Reason Start Time Stop Time Status Last Admin Dose Admin Acetaminophen (Tylenol) 650 mg Q6H PRN ORAL Mild Pain/Temp > 100.5 09/17/18 02:45 10/17/18 02:44 Albuterol/ Ipratropium (Albuterol/ Ipratropium) 3 ml Q4HRT HHN 09/22/18 03:15 09/27/18 03:14 09/24/18 11:15 Azithromycin (Zithromax) 500 mg Q24HRS ORAL 09/23/18 14:00 09/25/18 13:59 09/23/18 14:18 Benazepril HCl (Lotensin) 20 mg DAILY ORAL 09/17/18 09:00 10/17/18 08:59 09/24/18 09:00 Calcium Carbonate (Tums) 500 mg DAILY ORAL 09/17/18 09:00 10/17/18 08:59 09/24/18 09:00 Ceftriaxone Sodium 1 gm/ Dextrose 55 ml @ 110 mls/hr Q24H IVPB 09/17/18 15:00 09/24/18 14:59 09/23/18 14:18 Diphenhydramine HCl (Benadryl) 25 mg DAILY ORAL 09/17/18 09:00 10/17/18 08:59 09/24/18 09:00 Docusate Sodium (Colace) 100 mg TWICE A DAY ORAL 09/18/18 13:15 10/18/18 13:14 09/24/18 09:01 Folic Acid (Folate) 1 mg DAILY ORAL 09/17/18 09:00 10/17/18 08:59 09/24/18 09:00 Guaifenesin (Robitussin) 100 mg Q6H PRN ORAL For Cough 09/19/18 22:45 10/19/18 22:44 09/24/18 09:25 Methylprednisolone Sodium Succinate (Solu-MEDROL) 60 mg Q12HR IVP 09/17/18 21:00 10/17/18 05:59 09/24/18 09:00 Nifedipine (Procardia XL) 90 mg DAILY ORAL 09/17/18 09:00 10/17/18 08:59 09/24/18 08:59 Oxybutynin Chloride (Ditropan) 5 mg BEDTIME ORAL 09/18/18 21:00 10/17/18 08:59 09/23/18 21:37 Phenytoin (Dilantin) 200 mg Q12HR ORAL 09/17/18 21:00 10/17/18 20:59 09/24/18 09:00 Polyethylene Glycol (Miralax) 17 gm QHS ORAL 09/18/18 21:00 10/18/18 20:59 09/23/18 21:36 Allergies: Coded Allergies: No Known Allergies (Unverified , 09/16/18) Subjective CHEST XRAY REVIEWED Impression: Evidence of worsening interstitial congestion, over 5 days cough better some chest heaviness no fevers or chills tolerating antibiotics O2 sat stable on 3L NC Objective Last Vital Signs Date Time Temp Pulse Resp B/P (MAP) Pulse Ox O2 Delivery O2 Flow Rate FiO2 09/24/18 11:15 83 20 97 Nasal Cannula 3.0 32 09/24/18 09:00 138/61 09/24/18 08:00 97.5 Intake and Output 09/23/18 09/24/18 19:00 07:00 Intake Total 360 ml 600 ml Output Total 250 ml Balance 110 ml 600 ml Intake Oral 360 ml 600 ml Output Urine Total 250 ml # Voids 2 2 Assessment/Plan Problem List: (1) COPD exacerbation (2) Respiratory distress Assessment/Plan #COPD exacerbation #possible bronchitis #seizure d/o # tobacco use #obesity #HTN duonebs pulm consult, appreciate recs cardiology consult azithro and ceftriaxone IV solumedrol per pul TTE with EF 60% resume home meds procardia 90 daily, benazopril 20mg daily stress test per cardiology continue phenytoin continue oxybutinin supplemental O2 bowel regimen Fullcode DC planning likely tomorrow pending improvement in respiratory status Mohinder Morgan M.D. Sep 24, 2018 11:22
[2018-09-24 12:00] VITALS: BP 109/63
[2018-09-24 16:00] VITALS: BP 122/64
--- NOTE | 2018-09-24 16:32 | Cardiac Electrophysiology PN ---
Assessment/Plan Assessment/Plan 1. Sinus tach due to PNA. No Atrial fib. EF 60%. 2. HTN On Procardia 90 and Benazepril 20 daily 3. COPD and PNA. On Solumedrol and abx 4. Seizure disorder 5. Obesity DW RN Subjective Subjective Still coughing on Abx. In SR Objective Last 24 Hour Vital Signs Date Time Temp Pulse Resp B/P (MAP) Pulse Ox O2 Delivery O2 Flow Rate FiO2 09/24/18 16:00 98.6 81 20 122/64 (83) 99 09/24/18 15:21 98 20 100 Nasal Cannula 3.0 32 09/24/18 15:14 96 20 97 Nasal Cannula 3.0 32 09/24/18 12:00 102 09/24/18 12:00 97.3 78 18 109/63 (78) 99 09/24/18 11:30 84 20 100 Nasal Cannula 3.0 32 09/24/18 11:15 83 20 97 Nasal Cannula 3.0 32 09/24/18 09:00 Nasal Cannula 2.0 Nasal Cannula 2.0 09/24/18 09:00 138/61 09/24/18 08:59 86 138/61 09/24/18 08:00 97.5 86 20 138/61 (86) 98 09/24/18 08:00 89 09/24/18 07:49 97 20 99 Nasal Cannula 3.0 32 09/24/18 07:39 95 22 96 Nasal Cannula 3.0 32 09/24/18 07:39 96 Nasal Cannula 3.0 32 09/24/18 04:00 83 09/24/18 04:00 98.1 76 18 117/48 (71) 100 09/24/18 03:32 94 20 100 Nasal Cannula 3.0 32 09/24/18 03:20 80 18 94 Nasal Cannula 3.0 32 09/24/18 00:00 92 09/23/18 23:54 93 18 98 Nasal Cannula 3.0 32 09/23/18 23:43 93 18 95 Nasal Cannula 3.0 32 09/23/18 21:00 Nasal Cannula 2.0 Nasal Cannula 2.0 09/23/18 20:00 98.2 96 19 129/53 (78) 97 09/23/18 20:00 93 09/23/18 19:51 92 18 97 Nasal Cannula 3.0 32 09/23/18 19:45 92 18 96 Nasal Cannula 3.0 32 09/23/18 19:44 95 Nasal Cannula 3.0 32 Intake and Output 09/23/18 09/24/18 19:00 07:00 Intake Total 360 ml 600 ml Output Total 250 ml Balance 110 ml 600 ml Intake Oral 360 ml 600 ml Output Urine Total 250 ml # Voids 2 2 Objective General Appearance: WD/WN HEENT: EOMI, supple, no JVD Respiratory/Chest: crackles/rales, expiratory wheezing Cardiovascular/Chest: normal tachy rate, regular rhythm no G/R/M Abdomen: normal bowel sounds, non tender, soft Extremities: trace edema Jeffrey Means MD Sep 24, 2018 16:32
--- NOTE | 2018-09-24 17:18 | NUR ---
NURSE NOTES: Dr. Ramos([facility])paged regarding completed course of IV ABX. Awaiting for reply.
--- NOTE | 2018-09-24 17:22 | NUR ---
CASE MANAGEMENT:REVIEW 09/23/18 SI: COPD EXACERBATION POSSIBLE BRONCHITIS. OBESITY T 98.7 HR 91 RR 20 B/P 121/73 SATS 97% ON 3L/NC WBC 17.1 CR 0.5 GLU 120 IS: IV SOLU MEDROL 60MG Q12 IV ROCEPHIN Q24 IV AZITHROMYCIN DUONEB HHN Q4HR RTC DILANTIN Q12H : TELEMETRY STATUS DCP: PATIENT IS FROM HOME 09/24/2018 SI: COPD EXACERBATION POSSIBLE BRONCHITIS. OBESITY T 97.5 HR 86 RR 20 B/P 138/61 SATS 98% ON 2L/NC WBC 17.1 IS: IV SOLU MEDROL 60MG Q12 IV ROCEPHIN Q24 IV AZITHROMYCIN DUONEB HHN Q4HR RTC DILANTIN Q12H : TELEMETRY STATUS DCP: PATIENT IS FROM HOME
--- NOTE | 2018-09-24 19:33 | NUR ---
HAND-OFF: Report given to Mary NAVARRO. Pt remains stable..
[2018-09-24 20:00] VITALS: BP 112/65
[2018-09-24] MEDS: Miralax 17gm pkt ORAL SCH (22:29)
[2018-09-24] MEDS: Oxybutynin 5mg tab ORAL SCH (22:30)
[2018-09-25] VITALS: BP 117/48
--- NOTE | 2018-09-25 | NUR ---
NURSE NOTES: no acute distress noted. will continue to monitor for any change in condition.
[2018-09-25] MEDS: Albuterol/Ipratropium 3ml neb HHN SCH ×6 (03:24→23:05)
[2018-09-25 04:00] VITALS: BP 106/68
--- NOTE | 2018-09-25 04:50 | NUR ---
NURSE NOTES: Dr Means at bedside, no new orders given. will continue to monitor for any change in condition.
--- NOTE | 2018-09-25 05:11 | Cardiac Electrophysiology PN ---
Assessment/Plan Assessment/Plan 1. Sinus tach due to COPD/ PNA. No Atrial fib. EF 60%. 2. HTN On Procardia 90 and Benazepril 20 daily 3. COPD and PNA. On Solumedrol and abx 4. Seizure disorder 5. Obesity DW RN Subjective Subjective Less coughing . In SR. RN at bedside Objective Last 24 Hour Vital Signs Date Time Temp Pulse Resp B/P (MAP) Pulse Ox O2 Delivery O2 Flow Rate FiO2 09/25/18 04:00 75 09/25/18 04:00 98.1 86 20 106/68 (81) 98 09/25/18 03:24 94 18 95 Nasal Cannula 3.0 32 09/25/18 00:00 98.1 79 18 117/48 (71) 96 09/25/18 00:00 83 09/24/18 23:47 84 20 99 Nasal Cannula 3.0 32 09/24/18 23:36 94 20 99 Nasal Cannula 3.0 32 09/24/18 21:00 Nasal Cannula 2.0 Nasal Cannula 2.0 09/24/18 20:05 84 20 100 Nasal Cannula 3.0 32 09/24/18 20:00 84 09/24/18 20:00 98.3 81 18 112/65 (81) 100 09/24/18 19:55 98 Nasal Cannula 3.0 32 09/24/18 19:55 88 20 98 Nasal Cannula 3.0 32 09/24/18 16:00 98.6 81 20 122/64 (83) 99 09/24/18 16:00 80 09/24/18 15:21 98 20 100 Nasal Cannula 3.0 32 09/24/18 15:14 96 20 97 Nasal Cannula 3.0 32 09/24/18 12:00 102 09/24/18 12:00 97.3 78 18 109/63 (78) 99 09/24/18 11:30 84 20 100 Nasal Cannula 3.0 32 09/24/18 11:15 83 20 97 Nasal Cannula 3.0 32 09/24/18 09:00 Nasal Cannula 2.0 Nasal Cannula 2.0 09/24/18 09:00 138/61 09/24/18 08:59 86 138/61 09/24/18 08:00 97.5 86 20 138/61 (86) 98 09/24/18 08:00 89 09/24/18 07:49 97 20 99 Nasal Cannula 3.0 32 09/24/18 07:39 95 22 96 Nasal Cannula 3.0 32 09/24/18 07:39 96 Nasal Cannula 3.0 32 Intake and Output 09/24/18 09/25/18 18:59 06:59 Intake Total 480 ml Output Total 1100 ml Balance -620 ml Intake Oral 480 ml Output Urine Total 1100 ml # Bowel Movements 1 Objective General Appearance: WD/WN HEENT: EOMI, supple, no JVD Respiratory/Chest: expiratory wheezing Cardiovascular/Chest: normal tachy rate, regular rhythm no G/R/M Abdomen: normal bowel sounds, non tender, soft Extremities: trace edema Jeffrey Means MD Sep 25, 2018 05:11
--- NOTE | 2018-09-25 07:27 | NUR ---
HAND-OFF: Report given to MELANIE Dasilva.
--- NOTE | 2018-09-25 07:55 | NUR ---
NURSE NOTES: Received report from MELANIE Hernandez. Patient in bed resting, no active s/s cardiac, respiratory distress noticed at this time. Patient AOx4, on 2L oxygen via NC, denies pain at this time. Patient coughing out clear, white sputum. IV on left FA 22G, asymptomatic, patent, intact. Bed in lowest position, side rails padded and upx3, suction at bedside, call light within reach. Will continue to monitor.
[2018-09-25 08:00] VITALS: BP 121/57
--- NOTE | 2018-09-25 08:57 | NUR ---
RADIOLOGY: PCXR COMPLETED 0855 HRS. NF
[2018-09-25] MEDS: Solu-MEDROL 125mg Inj IVP SCH (09:02)
[2018-09-25] MEDS: Docusate 100mg cap ORAL SCH ×3 (09:02→18:52)
[2018-09-25] MEDS: Tums 500mg ORAL SCH (09:02)
[2018-09-25] MEDS: Phenytoin 100mg cap ORAL SCH ×2 (09:02→20:11)
[2018-09-25] MEDS: Benazepril 10mg tab ORAL SCH (09:02)
[2018-09-25 12:00] VITALS: BP 124/64
--- NOTE | 2018-09-25 12:56 | NUR ---
*-* INSURANCE *-* UPDATED CLINICALS HAVE BEEN FAXED TO: [employer]# [id number] /PENDING NO AUTOMOTIVE MANAGER ASSIGNED AT THIS TIME. P- [phone] F- [phone]....REVIEW/CLINICAL
--- NOTE | 2018-09-25 13:11 | Pulmonology Progress Note ---
Assessment/Plan Problems: (1) Respiratory distress (2) COPD exacerbation Assessment/Plan Problem List: 1. Respiratory insufficiency 2. Acute COPD exacerbation 3. Leukocytosis 4. Possible community acquired pneumonia 5. Seizure disorder 6. Obesity 7. HTN Plan: -Observe off Abx -Decrease solumedrol to 40q 12, likely transition to PO in am if stable -duonebs -monitor volumes -Monitor CXR -Titrate O2 Subjective Allergies: Coded Allergies: No Known Allergies (Unverified , 09/16/18) Subjective AFVSS O2 needs stable feels better less SOB no cough no wheezing no FC Objective Last 24 Hour Vital Signs Date Time Temp Pulse Resp B/P (MAP) Pulse Ox O2 Delivery O2 Flow Rate FiO2 09/25/18 12:00 97.2 75 20 124/64 (84) 100 09/25/18 11:00 90 22 97 Nasal Cannula 3.0 32 09/25/18 10:50 89 22 96 Nasal Cannula 3.0 32 09/25/18 09:46 76 121/57 09/25/18 09:02 121/57 09/25/18 09:00 Nasal Cannula 2.0 Nasal Cannula 2.0 09/25/18 08:00 88 09/25/18 08:00 98.4 76 20 121/57 (78) 98 09/25/18 07:20 88 20 98 Nasal Cannula 3.0 32 09/25/18 07:15 98 20 94 Nasal Cannula 3.0 32 09/25/18 07:15 97 Nasal Cannula 3.0 32 09/25/18 04:00 75 09/25/18 04:00 98.1 86 20 106/68 (81) 98 09/25/18 03:34 80 18 98 Nasal Cannula 3.0 32 09/25/18 03:24 94 18 95 Nasal Cannula 3.0 32 09/25/18 00:00 98.1 79 18 117/48 (71) 96 09/25/18 00:00 83 09/24/18 23:47 84 20 99 Nasal Cannula 3.0 32 09/24/18 23:36 94 20 99 Nasal Cannula 3.0 32 09/24/18 21:00 Nasal Cannula 2.0 Nasal Cannula 2.0 09/24/18 20:05 84 20 100 Nasal Cannula 3.0 32 09/24/18 20:00 84 09/24/18 20:00 98.3 81 18 112/65 (81) 100 09/24/18 19:55 98 Nasal Cannula 3.0 32 09/24/18 19:55 88 20 98 Nasal Cannula 3.0 32 09/24/18 16:00 98.6 81 20 122/64 (83) 99 09/24/18 16:00 80 09/24/18 15:21 98 20 100 Nasal Cannula 3.0 32 09/24/18 15:14 96 20 97 Nasal Cannula 3.0 32 Intake and Output 09/24/18 09/25/18 19:00 07:00 Intake Total 480 ml 300 ml Output Total 1100 ml Balance -620 ml 300 ml Intake Oral 480 ml 300 ml Output Urine Total 1100 ml # Voids 3 # Bowel Movements 1 General Appearance: WD/WN, no acute distress HEENT: normocephalic, atraumatic, anicteric, mucous membranes moist Respiratory/Chest: chest wall non-tender, lungs clear, normal breath sounds, rhonchi Cardiovascular: normal peripheral pulses, normal rate, regular rhythm Abdomen: normal bowel sounds, soft, non tender, no organomegaly, non distended , no mass Extremities: no cyanosis, no clubbing, no edema Current Medications Medications (Trade) Dose Ordered Sig/Jessica Route PRN Reason Start Time Stop Time Status Last Admin Dose Admin Acetaminophen (Tylenol) 650 mg Q6H PRN ORAL Mild Pain/Temp > 100.5 09/17/18 02:45 10/17/18 02:44 Albuterol/ Ipratropium (Albuterol/ Ipratropium) 3 ml Q4HRT HHN 09/22/18 03:15 09/27/18 03:14 09/25/18 10:52 Benazepril HCl (Lotensin) 20 mg DAILY ORAL 09/17/18 09:00 10/17/18 08:59 09/25/18 09:02 Calcium Carbonate (Tums) 500 mg DAILY ORAL 09/17/18 09:00 10/17/18 08:59 09/25/18 09:02 Diphenhydramine HCl (Benadryl) 25 mg DAILY ORAL 09/17/18 09:00 10/17/18 08:59 09/25/18 09:02 Docusate Sodium (Colace) 100 mg TWICE A DAY ORAL 09/18/18 13:15 10/18/18 13:14 09/25/18 09:02 Folic Acid (Folate) 1 mg DAILY ORAL 09/17/18 09:00 10/17/18 08:59 09/25/18 09:02 Guaifenesin (Robitussin) 100 mg Q6H PRN ORAL For Cough 09/19/18 22:45 10/19/18 22:44 09/24/18 22:29 Methylprednisolone Sodium Succinate (Solu-MEDROL) 60 mg Q12HR IVP 09/17/18 21:00 10/17/18 05:59 09/25/18 09:02 Nifedipine (Procardia XL) 90 mg DAILY ORAL 09/25/18 09:06 10/17/18 08:59 09/25/18 09:46 Oxybutynin Chloride (Ditropan) 5 mg BEDTIME ORAL 09/18/18 21:00 10/17/18 08:59 09/24/18 22:30 Phenytoin (Dilantin) 200 mg Q12HR ORAL 09/17/18 21:00 10/17/18 20:59 09/25/18 09:02 Polyethylene Glycol (Miralax) 17 gm QHS ORAL 09/18/18 21:00 10/18/18 20:59 09/24/18 22:29 Abraham Wooten MD Sep 25, 2018 13:11
--- NOTE | 2018-09-25 14:49 | NUR ---
CASE MANAGEMENT:REVIEW 09/25/18 SI: COPD EXACERBATION POSSIBLE BRONCHITIS. OBESITY 97.2 75 20 124/64 100% ON 3L/NC WBC+17.1 IS: IV SOLUMEDROL 40MG Q12 PROCARDIA XL PO QD DUONEB HHN Q4HR RTC DILANTIN PO Q12 LOTENSIN PO QD : TELEMETRY STATUS DCP: PATIENT IS FROM HOME PLAN: CHEST XRAY TAPER STEROIDS
[2018-09-25 16:00] VITALS: BP 125/82
--- NOTE | 2018-09-25 16:08 | Diagnostic Imaging Report ---
Indication: Cough Technique: One view of the chest Comparison: 09/21/2018 Findings: Lungs and pleural spaces are clear. The heart size is normal. No significant interim change Impression: No acute process
[2018-09-25] MEDS: guaiFENesin 100mg/5ml Liq ud ORAL PRN (18:56)
--- NOTE | 2018-09-25 19:39 | NUR ---
HAND-OFF: Report given to MELANIE Hernandez.
--- NOTE | 2018-09-25 19:40 | NUR ---
NURSE NOTES: received pt from MELANIE Dasilva. pt AOx4, no acute distress noted.pt updated on plan of care. verbalized understanding. bed locked and lowest position, side rail upx2, call light and belonging within reach. will continue to monitor for any change in condition.
[2018-09-25 20:00] VITALS: BP 136/70
[2018-09-25] MEDS: Oxybutynin 5mg tab ORAL SCH (20:11)
[2018-09-25] MEDS: Solu-MEDROL 40mg Inj IVP SCH (20:11)
[2018-09-25] MEDS: Miralax 17gm pkt ORAL SCH (20:11)
[2018-09-26] VITALS: BP 120/61
--- NOTE | 2018-09-26 | NUR ---
NURSE NOTES: no change in condition. will continue to monitor.
[2018-09-26] MEDS: Albuterol/Ipratropium 3ml neb HHN SCH ×6 (02:30→23:23)
[2018-09-26 04:00] VITALS: BP 131/70
--- NOTE | 2018-09-26 04:00 | NUR ---
NURSE NOTES: pt sleeping no change in condition. will continue to monitor for any change in condition.
[2018-09-26] MEDS: guaiFENesin 100mg/5ml Liq ud ORAL PRN (05:28)
--- NOTE | 2018-09-26 07:32 | NUR ---
HAND-OFF: Report given to Cheyenne Gayle .
--- NOTE | 2018-09-26 08:00 | NUR ---
NURSE NOTES: PT AWAKE ALERT, NO DISTRESS. NO SOB. NO C/O PAIN, AMBULATORY, BED IN LOWEST POSITION, LOCKED. WILL MONITOR.
[2018-09-26 08:22] VITALS: BP 146/70
[2018-09-26] MEDS: Solu-MEDROL 40mg Inj IVP SCH (08:38)
[2018-09-26] MEDS: Docusate 100mg cap ORAL SCH ×2 (08:52→17:11)
[2018-09-26] MEDS: Benazepril 10mg tab ORAL SCH (08:52)
[2018-09-26] MEDS: Phenytoin 100mg cap ORAL SCH ×2 (08:52→20:54)
[2018-09-26] MEDS: Tums 500mg ORAL SCH (08:53)
--- NOTE | 2018-09-26 11:27 | NUR ---
*-* INSURANCE *-* UPDATED CLINICALS HAVE BEEN FAXED TO: [facility]# [id number] /PENDING P- [phone] F- [phone]....REVIEW/CLINICAL
[2018-09-26 12:00] VITALS: BP 127/62
--- NOTE | 2018-09-26 12:32 | Internal Med Progress Note ---
Subjective Physician Name Mohinder Morgan Attending Physician Mohinder Morgan M.D. Current Medications Medications (Trade) Dose Ordered Sig/Jessica Route PRN Reason Start Time Stop Time Status Last Admin Dose Admin Acetaminophen (Tylenol) 650 mg Q6H PRN ORAL Mild Pain/Temp > 100.5 09/17/18 02:45 10/17/18 02:44 Albuterol/ Ipratropium (Albuterol/ Ipratropium) 3 ml Q4HRT HHN 09/22/18 03:15 09/27/18 03:14 09/26/18 11:14 Benazepril HCl (Lotensin) 20 mg DAILY ORAL 09/17/18 09:00 10/17/18 08:59 09/26/18 08:52 Calcium Carbonate (Tums) 500 mg DAILY ORAL 09/17/18 09:00 10/17/18 08:59 09/26/18 08:53 Diphenhydramine HCl (Benadryl) 25 mg DAILY ORAL 09/17/18 09:00 10/17/18 08:59 09/26/18 08:52 Docusate Sodium (Colace) 100 mg TWICE A DAY ORAL 09/18/18 13:15 10/18/18 13:14 09/26/18 08:52 Folic Acid (Folate) 1 mg DAILY ORAL 09/17/18 09:00 10/17/18 08:59 09/26/18 08:52 Guaifenesin (Robitussin) 100 mg Q6H PRN ORAL For Cough 09/19/18 22:45 10/19/18 22:44 09/26/18 05:28 Methylprednisolone Sodium Succinate (Solu-MEDROL) 40 mg Q12HR IVP 09/25/18 21:00 10/17/18 05:59 09/26/18 08:38 Nifedipine (Procardia XL) 90 mg DAILY ORAL 09/25/18 09:06 10/17/18 08:59 09/26/18 08:53 Oxybutynin Chloride (Ditropan) 5 mg BEDTIME ORAL 09/18/18 21:00 10/17/18 08:59 09/25/18 20:11 Phenytoin (Dilantin) 200 mg Q12HR ORAL 09/17/18 21:00 10/17/18 20:59 09/26/18 08:52 Polyethylene Glycol (Miralax) 17 gm QHS ORAL 09/18/18 21:00 10/18/18 20:59 09/25/18 20:11 Allergies: Coded Allergies: No Known Allergies (Unverified , 09/16/18) 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: Denies: no symptoms, anxiety, depressed, emotional problems, headache, numbness, paresthesia, pre-existing deficit, seizure, tingling, tremors, weakness, other Subjective CHEST XRAY REVIEWED Impression: Evidence of worsening interstitial congestion, over 5 days cough better no fevers or chillstolerating antibiotics O2 sat stable on 3L NC ordered home duonebs ome oxygen Objective Last Vital Signs Date Time Temp Pulse Resp B/P (MAP) Pulse Ox O2 Delivery O2 Flow Rate FiO2 09/26/18 11:24 79 18 98 Nasal Cannula 2.0 28 09/26/18 08:53 146/70 09/26/18 08:22 98.3 Intake and Output 09/25/18 09/26/18 19:00 07:00 Intake Total 890 ml Output Total 800 ml 1000 ml Balance 90 ml -1000 ml Intake Oral 890 ml Output Urine Total 800 ml 1000 ml Assessment/Plan Problem List: (1) COPD exacerbation (2) Respiratory distress Assessment/Plan #COPD exacerbation #possible bronchitis #seizure d/o # tobacco use #obesity #HTN duonebs pulm consult, appreciate recs cardiology consult s/p azithro and ceftriaxone IV solumedrol per pul TTE with EF 60% resume home meds procardia 90 daily, benazopril 20mg daily stress test per cardiology continue phenytoin continue oxybutinin supplemental O2 bowel regimen Fullcode DC planning in 1-2 days pending improvement in respiratory status Home nebulizer and home oxygen ordered Mohinder Morgan M.D. Sep 26, 2018 12:32
--- NOTE | 2018-09-26 12:59 | NUR ---
CASE MANAGEMENT:REVIEW 09/26/18 SI: COPD EXACERBATION POSSIBLE BRONCHITIS. OBESITY 98.4 73 20 127/62 98% ON 2L/NC IS: IV SOLUMEDROL 40MG Q12 PROCARDIA XL PO QD DUONEB HHN Q4HR RTC DILANTIN PO Q12 LOTENSIN PO QD : TELEMETRY STATUS DCP: PATIENT IS FROM HOME PLAN: DISCHARGE PLANNING~ NEEDS OXYGEN AND NEBULIZER FOR HOME USE ORDER FAXED TO [facility]
--- NOTE | 2018-09-26 13:05 | NUR ---
DISCHARGE PLANNING ORDER FOR OXYGEN AND NEBULIZER FAXED TO [facility] T: [phone] F: [phone] Addendum: 09/26/18 at 1558 by YANETH VEGA LVN LVN [facility] UNABLE TO PROVIDE OXYGEN DUE TO INSURANCE THIS [employer] HAS LEFT 2 MESSAGES FOR BRADLEY ZACARIAS [employer], MIKE WAITING FOR RESPONSE
--- NOTE | 2018-09-26 14:55 | Pulmonology Progress Note ---
Assessment/Plan Problems: (1) Respiratory distress (2) COPD exacerbation Assessment/Plan Problem List: 1. Respiratory insufficiency 2. Acute COPD exacerbation 3. Leukocytosis 4. Possible community acquired pneumonia 5. Seizure disorder 6. Obesity 7. HTN Plan: -Observe off Abx -PRN O2 - Home O2 oredered -D/C solumedrol, start Pred 40 BID and taper -duonebs - Home nebs ordered -monitor volumes -Monitor CXR -Can F/U with me in 2-3 weeks or earlier PRN Subjective Allergies: Coded Allergies: No Known Allergies (Unverified , 09/16/18) Subjective AFVSS O2 needs stable feels better less SOB no cough no wheezing no FC Objective Last 24 Hour Vital Signs Date Time Temp Pulse Resp B/P (MAP) Pulse Ox O2 Delivery O2 Flow Rate FiO2 09/26/18 12:00 98.4 73 20 127/62 (83) 98 09/26/18 11:34 74 09/26/18 11:24 79 18 98 Nasal Cannula 2.0 28 09/26/18 11:14 79 18 98 Nasal Cannula 2.0 28 09/26/18 09:00 Room Air 2.0 Nasal Cannula 09/26/18 08:53 86 146/70 09/26/18 08:52 146/70 09/26/18 08:22 98.3 86 20 146/70 (95) 98 09/26/18 07:41 82 18 100 Nasal Cannula 2.0 28 09/26/18 07:33 85 09/26/18 07:31 82 20 97 Nasal Cannula 2.0 28 09/26/18 07:23 98 Nasal Cannula 3.0 32 09/26/18 04:00 98.3 86 20 131/70 (90) 98 09/26/18 04:00 86 09/26/18 02:36 79 18 100 Nasal Cannula 2.0 28 09/26/18 02:29 76 18 96 Nasal Cannula 2.0 28 09/26/18 00:00 98.5 92 20 120/61 (80) 100 09/26/18 00:00 88 09/25/18 23:15 82 22 100 Nasal Cannula 3.0 32 09/25/18 23:00 72 16 96 Nasal Cannula 3.0 32 09/25/18 21:00 Nasal Cannula 2.0 Nasal Cannula 2.0 09/25/18 20:00 84 09/25/18 20:00 97.8 84 20 136/70 (92) 96 09/25/18 19:05 92 24 100 Nasal Cannula 2.0 28 09/25/18 18:58 88 18 97 Nasal Cannula 3.0 32 09/25/18 18:58 97 Nasal Cannula 3.0 32 09/25/18 16:00 97.2 78 20 125/82 (96) 100 09/25/18 16:00 80 09/25/18 15:15 84 20 100 Nasal Cannula 3.0 32 09/25/18 15:07 92 20 99 Nasal Cannula 3.0 32 Intake and Output 09/25/18 09/26/18 19:00 07:00 Intake Total 890 ml Output Total 800 ml 1000 ml Balance 90 ml -1000 ml Intake Oral 890 ml Output Urine Total 800 ml 1000 ml General Appearance: WD/WN, no acute distress HEENT: normocephalic, atraumatic, anicteric, mucous membranes moist Respiratory/Chest: chest wall non-tender, lungs clear, normal breath sounds, no respiratory distress, no accessory muscle use Breasts: no masses Cardiovascular: normal peripheral pulses, normal rate, regular rhythm Abdomen: normal bowel sounds, soft, non tender, no organomegaly, non distended , no mass Extremities: no cyanosis, no clubbing, no edema Current Medications Medications (Trade) Dose Ordered Sig/Jessica Route PRN Reason Start Time Stop Time Status Last Admin Dose Admin Acetaminophen (Tylenol) 650 mg Q6H PRN ORAL Mild Pain/Temp > 100.5 09/17/18 02:45 10/17/18 02:44 Albuterol/ Ipratropium (Albuterol/ Ipratropium) 3 ml Q4HRT HHN 09/22/18 03:15 09/27/18 03:14 09/26/18 11:14 Benazepril HCl (Lotensin) 20 mg DAILY ORAL 09/17/18 09:00 10/17/18 08:59 09/26/18 08:52 Calcium Carbonate (Tums) 500 mg DAILY ORAL 09/17/18 09:00 10/17/18 08:59 09/26/18 08:53 Diphenhydramine HCl (Benadryl) 25 mg DAILY ORAL 09/17/18 09:00 10/17/18 08:59 09/26/18 08:52 Docusate Sodium (Colace) 100 mg TWICE A DAY ORAL 09/18/18 13:15 10/18/18 13:14 09/26/18 08:52 Folic Acid (Folate) 1 mg DAILY ORAL 09/17/18 09:00 10/17/18 08:59 09/26/18 08:52 Guaifenesin (Robitussin) 100 mg Q6H PRN ORAL For Cough 09/19/18 22:45 10/19/18 22:44 09/26/18 05:28 Methylprednisolone Sodium Succinate (Solu-MEDROL) 40 mg Q12HR IVP 09/25/18 21:00 10/17/18 05:59 09/26/18 08:38 Nifedipine (Procardia XL) 90 mg DAILY ORAL 09/25/18 09:06 10/17/18 08:59 09/26/18 08:53 Oxybutynin Chloride (Ditropan) 5 mg BEDTIME ORAL 09/18/18 21:00 10/17/18 08:59 09/25/18 20:11 Phenytoin (Dilantin) 200 mg Q12HR ORAL 09/17/18 21:00 10/17/18 20:59 09/26/18 08:52 Polyethylene Glycol (Miralax) 17 gm QHS ORAL 09/18/18 21:00 10/18/18 20:59 09/25/18 20:11 Abraham Wooten MD Sep 26, 2018 14:55
[2018-09-26 16:00] VITALS: BP 125/62
--- NOTE | 2018-09-26 16:03 | NUR ---
NURSE NOTES: pt was off O2 for 10 mins, O2 Sat dropped to 87%
--- NOTE | 2018-09-26 16:33 | Cardiac Electrophysiology PN ---
Assessment/Plan Assessment/Plan 1. Sinus tach due to COPD/ PNA. No Atrial fib. EF 60%. 2. HTN On Procardia 90 and Benazepril 20 daily 3. COPD and PNA. On Solumedrol and abx 4. Seizure disorder 5. Obesity DW RN DC tele Subjective Subjective In SR. RN at bedside Objective Last 24 Hour Vital Signs Date Time Temp Pulse Resp B/P (MAP) Pulse Ox O2 Delivery O2 Flow Rate FiO2 09/26/18 16:00 98.4 70 20 125/62 (83) 98 09/26/18 12:00 98.4 73 20 127/62 (83) 98 09/26/18 11:34 74 09/26/18 11:24 79 18 98 Nasal Cannula 2.0 28 09/26/18 11:14 79 18 98 Nasal Cannula 2.0 28 09/26/18 09:00 Room Air 2.0 Nasal Cannula 09/26/18 08:53 86 146/70 09/26/18 08:52 146/70 09/26/18 08:22 98.3 86 20 146/70 (95) 98 09/26/18 07:41 82 18 100 Nasal Cannula 2.0 28 09/26/18 07:33 85 09/26/18 07:31 82 20 97 Nasal Cannula 2.0 28 09/26/18 07:23 98 Nasal Cannula 3.0 32 09/26/18 04:00 98.3 86 20 131/70 (90) 98 09/26/18 04:00 86 09/26/18 02:36 79 18 100 Nasal Cannula 2.0 28 09/26/18 02:29 76 18 96 Nasal Cannula 2.0 28 09/26/18 00:00 98.5 92 20 120/61 (80) 100 09/26/18 00:00 88 09/25/18 23:15 82 22 100 Nasal Cannula 3.0 32 09/25/18 23:00 72 16 96 Nasal Cannula 3.0 32 09/25/18 21:00 Nasal Cannula 2.0 Nasal Cannula 2.0 09/25/18 20:00 84 09/25/18 20:00 97.8 84 20 136/70 (92) 96 09/25/18 19:05 92 24 100 Nasal Cannula 2.0 28 09/25/18 18:58 88 18 97 Nasal Cannula 3.0 32 09/25/18 18:58 97 Nasal Cannula 3.0 32 Intake and Output 09/25/18 09/26/18 19:00 07:00 Intake Total 890 ml Output Total 800 ml 1000 ml Balance 90 ml -1000 ml Intake Oral 890 ml Output Urine Total 800 ml 1000 ml Objective General Appearance: WD/WN HEENT: EOMI, supple, no JVD Respiratory/Chest: expiratory wheezing Cardiovascular/Chest: normal tachy rate, regular rhythm no G/R/M Abdomen: normal bowel sounds, non tender, soft Extremities: trace edema Jeffrey Means MD Sep 26, 2018 16:33
--- NOTE | 2018-09-26 19:09 | NUR ---
HAND-OFF: Report given to DINORAH NAVARRO.
--- NOTE | 2018-09-26 19:10 | NUR ---
NURSE NOTES: Report received from Irwin NAVARRO. Patient in bed, alert and oriented x4, on 3L NC, no signs of respiratory distress. Bed in low position, locked, call light within reach.
[2018-09-26 20:00] VITALS: BP 116/67
[2018-09-26] MEDS ORDERED: Tums 500mg ORAL PRN (20:00)
--- NOTE | 2018-09-26 20:00 | NUR ---
NURSE NOTES: Patient c/o heartburn, notified Dr. Morgan's answering service. Received a call from Dr. Javed covering for Dr. Morgan and obtained order for TUMS 500mg PO Q6HR PRN heartburn.
[2018-09-26] MEDS: Miralax 17gm pkt ORAL SCH (20:53)
[2018-09-26] MEDS: Oxybutynin 5mg tab ORAL SCH (20:54)
[2018-09-27] VITALS: BP 120/69
[2018-09-27] MEDS: Albuterol/Ipratropium 3ml neb HHN SCH ×7 (03:00→23:35)
[2018-09-27 04:00] VITALS: BP 128/64
--- NOTE | 2018-09-27 07:19 | NUR ---
CASE MANAGEMENT:REVIEW 09/27/18 SI: COPD EXACERBATION. RENAL INSUFFICIENCY NOW OXYGEN DEPENDENT 98.3 82 18 128/64 98% ON 2L/NC IS: DUONEB HHN Q4HRS RTC PREDNISONE 40MG PO Q12 PROCARDIA XL PO QD DITROPAN PO QHS COLACE PO BID DILANTIN PO Q12 FOLATE PO QD BENADRYL PO QD LOTENSIN PO QD : TELEMETRY STATUS DCP: PATIENT IS FROM HOME PLAN: DISCHARGE PLANNING~ NEEDS OXYGEN AND NEBULIZER FOR HOME USE ORDER FAXED TO [facility]....THEY ARE UNABLE TO PROVIDE ORDER FOR OXYGEN AND NEBULIZER FAXED TO [facility]
--- NOTE | 2018-09-27 07:28 | NUR ---
HAND-OFF: Report given to Farida RN. Patient in stable condition, plan of care endorsed.
--- NOTE | 2018-09-27 07:30 | NUR ---
NURSE NOTES: Received report from Hamilton/RN, Patient is awake and alert, eating breakfast, on 3L nasal cannula, No sign of distress/SOB noted. IV on left forearm patent, no bleeding or infiltration noted. Denies any pain at this time. Bed in low position and locked, call light within reach. Will continue plan of care.
[2018-09-27 08:00] VITALS: BP 130/67
[2018-09-27] MEDS: Phenytoin 100mg cap ORAL SCH ×2 (08:41→20:12)
[2018-09-27] MEDS: Docusate 100mg cap ORAL SCH ×2 (08:41→18:05)
[2018-09-27] MEDS: Benazepril 10mg tab ORAL SCH (08:42)
[2018-09-27] MEDS: Tums 500mg ORAL SCH (08:42)
[2018-09-27] MEDS: guaiFENesin 100mg/5ml Liq ud ORAL PRN ×2 (08:56→20:22)
--- NOTE | 2018-09-27 10:58 | NUR ---
*-* INSURANCE *-* UPDATED CLINICALS HAVE BEEN FAXED TO: [facility]# [id number] /PENDING P- [phone] F- [phone]....REVIEW/CLINICAL
--- NOTE | 2018-09-27 11:25 | NUR ---
RD ASSESSMENT & RECOMMENDATIONS SEE CARE ACTIVITY FOR COMPLETE ASSESSMENT DAILY ESTIMATED NEEDS: Needs based on Cardiac, 62kg abw 25-30 kcals/kg [id number] total kcals 1-1.3 g protein/kg 62-80 g total protein 22-30 mL/kg 1990-2938 total fluid mLs NUTRITION DIAGNOSIS: Possible chewing difficulty R/T respiratory insufficiency w/ h/o COPD and h/o seizure as evidenced by pt on mech soft finely chopped texture diet. CURRENT DIET:CARDIAC, mech soft finely chopped PO DIET RECOMMENDATIONS: CARDIAC/ texture as tolerated ADDITIONAL RECOMMENDATIONS: * Standing wt for accurate CBW * Monitor BGs closely while on Prednisone * F/up CBC and BMP as able
[2018-09-27 12:00] VITALS: BP 139/62
--- NOTE | 2018-09-27 15:55 | NUR ---
DISCHARGE PLANNING PORTABLE OXYGEN AND NEBULIZER FOR HOME WILL BE DELIVERED IN THE NEXT 4HRS BY [facility] CONTACT: GEOVANY T: [phone] F: [phone] *ONCE PATIENT IS HOME SHE IS TO CALL [facility] AND THEY WILL DELIVER THE CONCENTRATOR
[2018-09-27 16:00] VITALS: BP 146/72
--- NOTE | 2018-09-27 16:39 | Cardiac Electrophysiology PN ---
Assessment/Plan Assessment/Plan 1. Sinus tach due to COPD/ PNA. No Atrial fib. EF 60%. 2. HTN On Procardia 90 and Benazepril 20 daily 3. COPD and PNA. On Solumedrol and abx 4. Seizure disorder 5. Obesity DW RN Subjective Subjective In SR in NAD. RN at bedside. DC planning for AM. Objective Last 24 Hour Vital Signs Date Time Temp Pulse Resp B/P (MAP) Pulse Ox O2 Delivery O2 Flow Rate FiO2 09/27/18 14:55 85 18 98 Nasal Cannula 2.0 28 09/27/18 14:45 81 18 97 Nasal Cannula 2.0 28 09/27/18 12:00 98.8 67 18 139/62 (87) 100 09/27/18 11:46 86 18 98 Nasal Cannula 2.0 28 09/27/18 11:37 78 18 97 Nasal Cannula 2.0 28 09/27/18 09:00 Nasal Cannula 3.0 Nasal Cannula 3.0 09/27/18 08:42 84 130/67 09/27/18 08:42 130/67 09/27/18 08:10 84 18 98 Nasal Cannula 2.0 28 09/27/18 08:00 82 18 97 Nasal Cannula 2.0 28 09/27/18 08:00 97.8 93 20 130/67 (88) 95 09/27/18 08:00 90 09/27/18 08:00 98 Nasal Cannula 3.0 32 09/27/18 04:38 Nasal Cannula 09/27/18 04:38 Nasal Cannula 09/27/18 04:00 79 09/27/18 04:00 98.3 82 18 128/64 (85) 98 09/27/18 03:31 79 09/27/18 00:00 98.6 81 19 120/69 (86) 100 09/26/18 23:37 87 18 98 Nasal Cannula 2.0 28 09/26/18 23:35 74 09/26/18 23:23 79 18 97 Nasal Cannula 2.0 28 09/26/18 21:00 Nasal Cannula 3.0 Nasal Cannula 3.0 09/26/18 20:20 80 09/26/18 20:00 98.4 83 19 116/67 (83) 100 09/26/18 19:41 87 18 98 Nasal Cannula 2.0 28 09/26/18 19:40 101 18 97 Nasal Cannula 3.0 32 09/26/18 19:39 96 Nasal Cannula 3.0 32 09/26/18 19:29 80 18 96 Nasal Cannula 2.0 28 Intake and Output 09/26/18 09/27/18 19:00 07:00 Intake Total 730 ml Output Total 1000 ml Balance -270 ml Intake Oral 730 ml Output Urine Total 1000 ml # Voids 4 # Bowel Movements 2 1 Objective HEENT: EOMI, supple, no JVD Respiratory/Chest: expiratory wheezing Cardiovascular/Chest: normal tachy rate, regular rhythm no G/R/M Abdomen: normal bowel sounds, non tender, soft Extremities: trace edema Jeffrey Means MD Sep 27, 2018 16:39
[2018-09-27] MEDS ORDERED: GUAIFENESIN AC473 ML ORAL (18:57)
[2018-09-27] MEDS ORDERED: PREDNISONE20 MG ORAL (18:59)
[2018-09-27] MEDS ORDERED: DUONEB 0.5-3(2.53 ML HHN (19:00)
--- NOTE | 2018-09-27 19:15 | NUR ---
HAND-OFF: Report given to Hamilton/RN, Patient is in stable condition. Endorsed plan of care.
--- NOTE | 2018-09-27 19:20 | NUR ---
NURSE NOTES: Received patient from Farida RN. Patient in bed, on 3L NC, no signs of respiratory distress. Alert and oriented x4. Bed in low position, locked, call light within reach.
[2018-09-27 20:00] VITALS: BP 129/64
[2018-09-27] MEDS: Oxybutynin 5mg tab ORAL SCH (20:12)
[2018-09-27] MEDS: Miralax 17gm pkt ORAL SCH (20:13)
--- NOTE | 2018-09-27 21:00 | Internal Med Progress Note ---
Subjective Physician Name Mohinder Morgan Attending Physician Mohinder Morgan M.D. Current Medications Medications (Trade) Dose Ordered Sig/Jessica Route PRN Reason Start Time Stop Time Status Last Admin Dose Admin Acetaminophen (Tylenol) 650 mg Q6H PRN ORAL Mild Pain/Temp > 100.5 09/17/18 02:45 10/17/18 02:44 Albuterol/ Ipratropium (Albuterol/ Ipratropium) 3 ml Q4HRT HHN 09/27/18 04:00 10/02/18 03:59 09/27/18 19:57 Benazepril HCl (Lotensin) 20 mg DAILY ORAL 09/17/18 09:00 10/17/18 08:59 09/27/18 08:42 Calcium Carbonate (Tums) 500 mg DAILY ORAL 09/17/18 09:00 10/17/18 08:59 09/27/18 08:42 Calcium Carbonate (Tums) 500 mg Q6H PRN ORAL heartburn 09/26/18 20:00 10/26/18 19:59 09/26/18 20:53 Diphenhydramine HCl (Benadryl) 25 mg DAILY ORAL 09/17/18 09:00 10/17/18 08:59 09/27/18 08:41 Docusate Sodium (Colace) 100 mg TWICE A DAY ORAL 09/18/18 13:15 10/18/18 13:14 09/27/18 18:05 Folic Acid (Folate) 1 mg DAILY ORAL 09/17/18 09:00 10/17/18 08:59 09/27/18 08:41 Guaifenesin (Robitussin) 100 mg Q6H PRN ORAL For Cough 09/19/18 22:45 10/19/18 22:44 09/27/18 20:22 Nifedipine (Procardia XL) 90 mg DAILY ORAL 09/25/18 09:06 10/17/18 08:59 09/27/18 08:42 Oxybutynin Chloride (Ditropan) 5 mg BEDTIME ORAL 09/18/18 21:00 10/17/18 08:59 09/27/18 20:12 Phenytoin (Dilantin) 200 mg Q12HR ORAL 09/17/18 21:00 10/17/18 20:59 09/27/18 20:12 Polyethylene Glycol (Miralax) 17 gm QHS ORAL 09/18/18 21:00 10/18/18 20:59 09/27/18 20:13 Prednisone (predniSONE) 40 mg Q12HR ORAL 09/26/18 21:00 10/26/18 20:59 09/27/18 20:12 Allergies: Coded Allergies: No Known Allergies (Unverified , 09/16/18) Subjective CHEST XRAY REVIEWED Impression: Evidence of worsening interstitial congestion, over 5 days cough better no fevers or chillstolerating antibiotics O2 sat stable on 3L NC ordered home duonebs ome oxygen Objective Last Vital Signs Date Time Temp Pulse Resp B/P (MAP) Pulse Ox O2 Delivery O2 Flow Rate FiO2 09/27/18 19:57 98 Nasal Cannula 3.0 32 09/27/18 19:57 87 18 09/27/18 16:00 97.6 146/72 (96) Intake and Output 09/26/18 09/27/18 19:00 07:00 Intake Total 730 ml Output Total 1000 ml Balance -270 ml Intake Oral 730 ml Output Urine Total 1000 ml # Voids 4 # Bowel Movements 2 1 Assessment/Plan Problem List: (1) COPD exacerbation (2) Respiratory distress Assessment/Plan #COPD exacerbation #possible bronchitis #seizure d/o # tobacco use #obesity #HTN duonebs pulm consult, appreciate recs cardiology consult s/p azithro and ceftriaxone IV solumedrol per pul TTE with EF 60% resume home meds procardia 90 daily, benazopril 20mg daily stress test per cardiology continue phenytoin continue oxybutinin supplemental O2 bowel regimen Fullcode DC planning in 1-2 days pending improvement in respiratory status Home nebulizer and home oxygen ordered Mohinder Morgan M.D. Sep 27, 2018 21:00
[2018-09-28] VITALS: BP 117/61
[2018-09-28] MEDS: Albuterol/Ipratropium 3ml neb HHN SCH ×3 (02:53→11:39)
[2018-09-28 04:00] VITALS: BP 137/64
--- NOTE | 2018-09-28 07:20 | NUR ---
HAND-OFF: Report given to Farida Rn. Plan of care endorsed.
[2018-09-28 08:00] VITALS: BP 133/64
--- NOTE | 2018-09-28 09:22 | NUR ---
CASE MANAGEMENT:REVIEW 09/28/18 SI: COPD. PNEUMONIA NOW OXYGEN DEPENDENT 97.5 89 20 133/64 100% ON 2L/NC IS: DUONEB HHN Q4HRS RTC PREDNISONE 40MG PO Q12 PROCARDIA XL PO QD DITROPAN PO QHS COLACE PO BID DILANTIN PO Q12 FOLATE PO QD BENADRYL PO QD LOTENSIN PO QD : TELEMETRY STATUS DCP: PATIENT IS FROM HOME PLAN: PLAN IS TO DISCHARGE HOME WITH OXYGEN AND NEBULIZER
[2018-09-28] MEDS: Tums 500mg ORAL SCH (09:28)
[2018-09-28] MEDS: Phenytoin 100mg cap ORAL SCH (09:28)
[2018-09-28] MEDS: Docusate 100mg cap ORAL SCH (09:29)
[2018-09-28] MEDS: Benazepril 10mg tab ORAL SCH (09:29)
--- NOTE | 2018-09-28 11:03 | NUR ---
*-* INSURANCE *-* UPDATED CLINICALS AND REVIEWS HAVE BEEN FAXED TO: [employer]# [id number] /PENDING P- [phone] F- [phone]....REVIEW/CLINICAL
[2018-09-28 12:00] VITALS: BP 135/67
--- NOTE | 2018-09-28 13:35 | NUR ---
DISCHARGE PLANNED DISCHARGE ORDER NOTED PATIENT WILL BE RETURNING HOME PORTABLE OXYGEN AND NEBULIZER PROVIDED BY [facility] IS AT BEDSIDE PRESCRIPTIONS SHOULD BE AVAILABLE FOR PATIENT NURSING IN CHARGE OF DISCHARGING THIS PATIENT TO HOME
--- NOTE | 2018-09-28 14:31 | Pulmonology Progress Note ---
Assessment/Plan Problems: (1) Respiratory distress (2) COPD exacerbation Assessment/Plan Problem List: 1. Respiratory insufficiency 2. Acute COPD exacerbation 3. Leukocytosis 4. Possible community acquired pneumonia 5. Seizure disorder 6. Obesity 7. HTN Plan: -Observe off Abx -PRN O2 - Home O2 set up -D/C home on Pred taper -duonebs - Home nebs set up -monitor volumes -Monitor CXR -Can F/U with me in 2-3 weeks or earlier PRN Subjective Allergies: Coded Allergies: No Known Allergies (Unverified , 09/16/18) Subjective AFVSS O2 needs stable feels better denies sig SOB no cough no wheezing no FC Home O2 and nebs delivered Objective Last 24 Hour Vital Signs Date Time Temp Pulse Resp B/P (MAP) Pulse Ox O2 Delivery O2 Flow Rate FiO2 09/28/18 12:00 98.8 75 18 135/67 (89) 99 09/28/18 12:00 81 09/28/18 11:49 67 20 99 Nasal Cannula 2.0 28 09/28/18 11:37 77 20 98 Nasal Cannula 2.0 28 09/28/18 09:29 82 133/64 09/28/18 09:29 133/64 09/28/18 09:00 Nasal Cannula 3.0 Nasal Cannula 3.0 09/28/18 08:37 82 20 98 Nasal Cannula 2.0 28 09/28/18 08:00 97.5 89 20 133/64 (87) 100 09/28/18 08:00 77 09/28/18 07:59 86 20 98 Nasal Cannula 2.0 28 09/28/18 07:58 98 Nasal Cannula 3.0 32 09/28/18 04:00 97.5 73 20 137/64 (88) 99 09/28/18 03:20 72 09/28/18 02:54 Nasal Cannula 2.0 28 09/28/18 02:54 Nasal Cannula 2.0 28 09/28/18 00:00 98.4 70 20 117/61 (79) 100 09/27/18 23:35 Nasal Cannula 2.0 28 09/27/18 23:35 Nasal Cannula 2.0 28 09/27/18 23:33 71 09/27/18 21:00 Nasal Cannula 3.0 Nasal Cannula 3.0 09/27/18 20:00 98.7 77 20 129/64 (85) 99 09/27/18 19:57 87 18 98 Nasal Cannula 2.0 28 09/27/18 19:57 98 Nasal Cannula 3.0 32 09/27/18 19:57 87 18 98 Nasal Cannula 2.0 28 09/27/18 19:47 75 09/27/18 16:00 97.6 69 20 146/72 (96) 100 09/27/18 16:00 69 09/27/18 14:55 85 18 98 Nasal Cannula 2.0 28 09/27/18 14:45 81 18 97 Nasal Cannula 2.0 28 Intake and Output 09/27/18 09/28/18 18:59 06:59 Intake Total 360 ml 300 ml Output Total 500 ml Balance -140 ml 300 ml Intake Oral 360 ml 300 ml Output Urine Total 500 ml # Voids 4 # Bowel Movements 1 General Appearance: WD/WN, no acute distress, other - obese male HEENT: normocephalic, atraumatic, anicteric, mucous membranes moist Respiratory/Chest: chest wall non-tender, lungs clear, normal breath sounds, no respiratory distress, no accessory muscle use Cardiovascular: normal peripheral pulses, normal rate, regular rhythm Abdomen: normal bowel sounds, soft, non tender, no organomegaly, non distended , no mass Extremities: no cyanosis, no clubbing, other - trace ERMELINDA Current Medications Medications (Trade) Dose Ordered Sig/Jessica Route PRN Reason Start Time Stop Time Status Last Admin Dose Admin Acetaminophen (Tylenol) 650 mg Q6H PRN ORAL Mild Pain/Temp > 100.5 09/17/18 02:45 10/17/18 02:44 Albuterol/ Ipratropium (Albuterol/ Ipratropium) 3 ml Q4HRT HHN 09/27/18 04:00 10/02/18 03:59 09/28/18 11:39 Benazepril HCl (Lotensin) 20 mg DAILY ORAL 09/17/18 09:00 10/17/18 08:59 09/28/18 09:29 Calcium Carbonate (Tums) 500 mg DAILY ORAL 09/17/18 09:00 10/17/18 08:59 09/28/18 09:28 Calcium Carbonate (Tums) 500 mg Q6H PRN ORAL heartburn 09/26/18 20:00 10/26/18 19:59 09/26/18 20:53 Diphenhydramine HCl (Benadryl) 25 mg DAILY ORAL 09/17/18 09:00 10/17/18 08:59 09/28/18 09:29 Docusate Sodium (Colace) 100 mg TWICE A DAY ORAL 09/18/18 13:15 10/18/18 13:14 09/28/18 09:29 Folic Acid (Folate) 1 mg DAILY ORAL 09/17/18 09:00 10/17/18 08:59 09/28/18 09:29 Guaifenesin (Robitussin) 100 mg Q6H PRN ORAL For Cough 09/19/18 22:45 10/19/18 22:44 09/27/18 20:22 Nifedipine (Procardia XL) 90 mg DAILY ORAL 09/25/18 09:06 10/17/18 08:59 09/28/18 09:29 Oxybutynin Chloride (Ditropan) 5 mg BEDTIME ORAL 09/18/18 21:00 10/17/18 08:59 09/27/18 20:12 Phenytoin (Dilantin) 200 mg Q12HR ORAL 09/17/18 21:00 10/17/18 20:59 09/28/18 09:28 Polyethylene Glycol (Miralax) 17 gm QHS ORAL 09/18/18 21:00 10/18/18 20:59 09/27/18 20:13 Prednisone (predniSONE) 40 mg Q12HR ORAL 09/26/18 21:00 10/26/18 20:59 09/28/18 09:29 Abraham Wooten MD Sep 28, 2018 14:31
--- NOTE | 2018-09-28 14:42 | NUR ---
NURSE NOTES: Discharge instruction given and patient verbalized understanding. No acute distress/SOB noted, patient in stable condition. Heart monitor and IV removed, site is patent, no bleeding noted. Belonging check done and signed by patient. Escorted to down stairs with the granddaughter and left via private vehicle
--- NOTE | 2018-09-28 14:54 | Cardiac Electrophysiology PN ---
Assessment/Plan Assessment/Plan 1. Sinus tach due to COPD/ PNA. No Atrial fib. EF 60%. 2. HTN On Procardia 90 and Benazepril 20 daily 3. COPD and PNA. On Solumedrol and abx 4. Seizure disorder 5. Obesity DW Dr Wooten DC today Subjective Subjective In SR in NAD. DC in progress. Objective Last 24 Hour Vital Signs Date Time Temp Pulse Resp B/P (MAP) Pulse Ox O2 Delivery O2 Flow Rate FiO2 09/28/18 12:00 98.8 75 18 135/67 (89) 99 09/28/18 12:00 81 09/28/18 11:49 67 20 99 Nasal Cannula 2.0 28 09/28/18 11:37 77 20 98 Nasal Cannula 2.0 28 09/28/18 09:29 82 133/64 09/28/18 09:29 133/64 09/28/18 09:00 Nasal Cannula 3.0 Nasal Cannula 3.0 09/28/18 08:37 82 20 98 Nasal Cannula 2.0 28 09/28/18 08:00 97.5 89 20 133/64 (87) 100 09/28/18 08:00 77 09/28/18 07:59 86 20 98 Nasal Cannula 2.0 28 09/28/18 07:58 98 Nasal Cannula 3.0 32 09/28/18 04:00 97.5 73 20 137/64 (88) 99 09/28/18 03:20 72 09/28/18 02:54 Nasal Cannula 2.0 28 09/28/18 02:54 Nasal Cannula 2.0 28 09/28/18 00:00 98.4 70 20 117/61 (79) 100 09/27/18 23:35 Nasal Cannula 2.0 28 09/27/18 23:35 Nasal Cannula 2.0 28 09/27/18 23:33 71 09/27/18 21:00 Nasal Cannula 3.0 Nasal Cannula 3.0 09/27/18 20:00 98.7 77 20 129/64 (85) 99 09/27/18 19:57 87 18 98 Nasal Cannula 2.0 28 09/27/18 19:57 98 Nasal Cannula 3.0 32 09/27/18 19:57 87 18 98 Nasal Cannula 2.0 28 09/27/18 19:47 75 09/27/18 16:00 97.6 69 20 146/72 (96) 100 09/27/18 16:00 69 09/27/18 14:55 85 18 98 Nasal Cannula 2.0 28 Intake and Output 09/27/18 09/28/18 18:59 06:59 Intake Total 360 ml 300 ml Output Total 500 ml Balance -140 ml 300 ml Intake Oral 360 ml 300 ml Output Urine Total 500 ml # Voids 4 # Bowel Movements 1 Objective HEENT: EOMI, supple, no JVD Respiratory/Chest: expiratory wheezing Cardiovascular/Chest: normal tachy rate, regular rhythm no G/R/M Abdomen: normal bowel sounds, non tender, soft Extremities: trace edema Jeffrey Means MD Sep 28, 2018 14:54
--- NOTE | 2018-09-29 12:06 | Discharge Summary ---
Discharge Summary Discharge Summary _ DATE OF ADMISSION: 09/16/2018 DATE OF DISCHARGE: 09/28/2018 DISCHARGED BY: Dr. Mohinder Morgan CONSULTANTS: Dr. Jeffrey Wooten BRIEF HOSPITAL COURSE: Patient is a 68-year-old female, has medical history of COPD, former heavy tobacco use, hypertension, seizure disorder, and obesity, presented with 4 to 5 days of increased shortness of breath and productive cough. She had been taking inhalers without any improvement. She denied fever or chills. There was no nausea or emesis. On evaluation at ED, patient was febrile, temperature was 100.6 F. Blood pressure was elevated to 168/83, pulse rate 101. She was saturating 95% on room air. Blood work showed WBC elevated to 17. Hemoglobin and hematocrit were stable. Electrolytes were normal. Troponin was negative. proBNP 11. Urinalysis was essentially negative. Chest x-ray read by radiologist showed increased pulmonary markings as well as normal cardiac size. She was given breathing treatment as well as IV fluids. She was noted to have some improvement after nebulizer treatment but continued to have difficulty with breathing. She was started on IV Solu-Medrol. She was then admitted for COPD exacerbation. She was admitted to telemetry. Medications were resumed. She was continued on DuoNeb. Bow Maker and pin chaser were consulted. She was given azithromycin and ceftriaxone. Continued on Solu-Medrol 60 mg daily. She was continued on antiseizure medications. She was given bowel regimen. She was sinus tach on the monitor. Per block placer, sinus tach was attributed to respiratory symptoms. There was no atrial fibrillation. Transthoracic echocardiogram showed EF of 60%. She was given Procardia and benazepril for blood pressure support. She had slow improvement. She completed antibiotic treatment. IV Solu-Medrol was tapered and was transitioned to prednisone. Patient had less O2 requirement. There was no cough, no wheezing. She was eventually discharged home. To continue tapering doses of prednisone, portable oxygen and nebulizer were provided prior to discharge. FINAL DIAGNOSES: Acute COPD exacerbation Respiratory distress/ insufficiency Leukocytosis Possible bronchitis Possible community-acquired pneumonia Tobacco use Seizure disorder Obesity Hypertension Sinus tachycardia due to COPD and pneumonia DISPOSITION: Patient was discharged home. DISCHARGE INSTRUCTIONS: Follow-up in a week. I have been assigned to complete a discharge summary on this account, I was not involved with the patient's management.--DENYS Bright Jacqueline Robles NP Sep 29, 2018 12:06
== END 2018-09-28 14:45 | disposition home or self-care (01) | DRG 140 ==
LOC: EDBD 18:19 → EMR 19:40 → 2E 20:48 → EDBEDREQ 21:00
DX: J44.0 Chronic obstructive pulmonary disease with (acute) lower respiratory infection (principal); J18.9 Pneumonia, unspecified organism; J20.9 Acute bronchitis, unspecified; J44.1 Chronic obstructive pulmonary disease with (acute) exacerbation; E66.9 Obesity, unspecified; Z68.39 Body mass index [BMI] 39.0-39.9, adult; R00.0 Tachycardia, unspecified; G40.909 Epilepsy, unspecified, not intractable, without status epilepticus; Z72.0 Tobacco use; R06.03 Acute respiratory distress; I10 Essential (primary) hypertension
CPT/HCPCS: 36415; 71045; 80053; 81003; 82550; 82553; 83690; 83880; 84484; 85007; 85025; 87040; 87324; 93005; 93306; 94640; 94664; 96361; 96374; 96375; 99285; J7620

== ENCOUNTER 2018-10-22 17:17 | Inpatient (IN) | payer MEDICAID ==
[~2018-10-22] VITALS: Ht 160 cm; Wt 95.2 kg
[~2018-10-22 17:17] MED LIST: ADALAT10 MG ORAL; ATENOLOL25 MG ORAL; BANOPHEN25 M1 PO; BENAZEPRIL HCL20 MG ORAL; DUONEB 0.5-3(2.53 ML HHN; FOLIC ACID1 MG ORAL; GUAIFENESIN AC473 ML ORAL; HYDROCHLOROTHIA50 MG ORAL; OXYBUTYNIN CHLO10 MG PO; OYSCO-500500 M1 PO; PHENYTOIN SODI100 MG ORAL; PREDNISONE20 MG ORAL; TREXALL5 MG PO; VENTOLIN HFA18 GM INH
[2018-10-22] MEDS ORDERED: Solu-MEDROL 125mg Inj IVP ONE (17:45)
[2018-10-22] MEDS ORDERED: Ipratropium 0.02% Inh Soln 2.5ml UD HHN ONE (17:45)
--- NOTE | 2018-10-22 17:48 | NUR ---
ED Nurse Note: Pt came in from home due to coughing with brownish phlegm x 3 days with wheezing. Pt has hx of Asthma and use HHN at home. No complaint of CP. SAT 97% RA long. AOx4, VSS long. Will cont to monitor.
[2018-10-22 17:49] VITALS: BP 137/106
--- NOTE | 2018-10-22 17:54 | Emergency Room Report ---
History of Present Illness General Chief Complaint: Asthma Source: Patient, Medical Record Present Illness HPI The patient presents with dyspnea and wheezing. She has been using a nebulizer and inhalers. She still has minimal exertional capacity at this time. She denies any chest pain per se. She does complain about chest pressure when she is trying to walk about. She denies fevers or chills. She has some phlegm that has a beige color to it without any blood. She claims that she started to get worse 3 or 4 days ago when she tried to use a steroid inhaler. This caused her to feel sick. She then used albuterol and it seemed to help but then she heard herself wheezing more. The patient was recently admitted in discharged on the . She says she had pneumonia at that time. See below. She complains of tremulousness. History of seizures. She is on Dilantin. No recent seizure activity. 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 She has numbness it is unchanged on that side. She has rheumatoid arthritis and is on methotrexate. He complains about nerve damage and pain along her left shoulder. No palpitations, nausea, vomiting, diarrhea, dysuria, abdominal pain, depression , visual changes, headache. She was discharged September 28 with these discharge diagnoses: Acute COPD exacerbation Respiratory distress/ insufficiency Leukocytosis Possible bronchitis Possible community-acquired pneumonia Tobacco use Seizure disorder Obesity Hypertension Sinus tachycardia due to COPD and pneumonia Allergies: Coded Allergies: No Known Allergies (Unverified , 09/16/18) Patient History Past Medical History: see triage record, old chart reviewed Social History: Denies: smoking - Distant -although her chart lists recent tobacco abuse Social History Narrative Lives with 2 children Last Menstrual Period: menopause Now: No Reviewed Nursing Documentation: PMH: Agreed; PSxH: Agreed Nursing Documentation-PMH Hx Cardiac Problems: Yes Hx Hypertension: Yes Hx Asthma: Yes Hx Cancer: No Hx Gastrointestinal Problems: No Hx Neurological Problems: No Review of Systems All Other Systems: negative except mentioned in HPI Physical Exam Vital Signs Date Time Temp Pulse Resp B/P (MAP) Pulse Ox O2 Delivery O2 Flow Rate FiO2 10/22/18 17:29 98.1 95 16 142/63 (89) 93 Room Air Sp02 EP Interpretation: reviewed, abnormal - Interpreted as low by me General Appearance: well appearing, GCS 15, mild distress Head: normocephalic, atraumatic Eyes: bilateral eye normal inspection, bilateral eye PERRL, bilateral eye EOMI ENT: normal pharynx, no angioedema, moist mucus membranes Neck: supple Respiratory: wheezing - Can hear wheezing from bedside, expiration, inspiration Cardiovascular #1: regular rate, rhythm, no JVD, edema - Trace Cardiovascular #2: 2+ radial (R) Gastrointestinal: normal inspection, non tender, no mass, non-distended, decreased bowel sounds Genitourinary: no CVA tenderness Musculoskeletal: normal range of motion, no calf tenderness, swelling - MCPs Neurologic: alert, oriented x3, sensory deficit - Peroneal nerve left leg able to lift her big toe, grossly normal - Slightly tremulous Psychiatric: anxious Skin: no rash Procedures Critical Care Time Critical Care Time Total Critical Care Time: 60 min bedside evaluation and treatment excludes procedures (EKG). Reason for critical care: Status asthmaticus Possible complications: hypotension, hypertension, MS, shock, arrhythmias, metabolic acidosis, end organ damage, respiratory failure. Interventions: Repeated breathing treatments, epinephrine IM, Solu-Medrol, magnesium, Ativan repeated evaluations Course: Patient presented with respiratory distress. Aggressive treatment with breathing treatments and Solu-Medrol. Still with significant wheezing. Anxiety treated with Ativan. Some deterioration necessitating IM epinephrine. Repeat breathing treatments. Some improvement. IV magnesium administered. Discussion with family and patient Consultations: nursing staff, EMS, family, admitting physician, respiratory therapy Performed by: Dr. Grey Tolerated well condition = critical Medical Decision Making Diagnostic Impression: Primary Impression: Status asthmaticus Qualified Codes: J45.52 - Severe persistent asthma with status asthmaticus Additional Impressions: COPD exacerbation Elevated lactic acid level Presumptive pneumonia Elevated Dilantin level ER Course Patient presents with wheezing and dyspnea on exertion. Differential includes acute myocardial infarctions, asthma exacerbation, bronchitis, pneumonia amongst others. Evaluation with EKG, chest x-ray and labs. Treatment with methylprednisolone, breathing treatments. EKG without injury. Chest x-ray with COPD no infiltrates. Leukocytosis. Improved somewhat with breathing treatments. Due to like leukocytosis antibiotics will be started. Patient still with expiratory wheezes and needing admission to the hospital for continued treatment. Admit telemetry Dr. Morgan (patient's PMD). Lactic acid called elevated. Starting fluid bolus. 19:05 Some worsening again. 21:10. Epi and repeat treatments. Somewhat better after epi and albuterol. Magnesium ordered IV. Second lactic acid level elevated however drawn prior to full bolus being administered. Patient improved with treatment however still with bronchospasm. BiPAP is not indicated at this time nor is intubation. Dilantin level added and is elevated. Laboratory Tests Test 10/22/18 17:55 10/22/18 21:10 White Blood Count 13.1 K/UL (4.8-10.8) H Red Blood Count 4.17 M/UL (4.20-5.40) L Hemoglobin 12.8 G/DL (12.0-16.0) Hematocrit 37.9 % (37.0-47.0) Mean Corpuscular Volume 91 FL (80-99) Mean Corpuscular Hemoglobin 30.6 PG (27.0-31.0) Mean Corpuscular Hemoglobin Concent 33.7 G/DL (32.0-36.0) Red Cell Distribution Width 14.0 % (11.6-14.8) Platelet Count 383 K/UL (150-450) Mean Platelet Volume 6.2 FL (6.5-10.1) L Neutrophils (%) (Auto) 49.9 % (45.0-75.0) Lymphocytes (%) (Auto) 36.4 % (20.0-45.0) Monocytes (%) (Auto) 4.5 % (1.0-10.0) Eosinophils (%) (Auto) 7.5 % (0.0-3.0) H Basophils (%) (Auto) 1.7 % (0.0-2.0) Prothrombin Time 9.9 SEC (9.30-11.50) Prothrombin Time INR 0.9 (0.9-1.1) PTT 26 SEC (23-33) Sodium Level 144 MMOL/L (136-145) Potassium Level 3.5 MMOL/L (3.5-5.1) Chloride Level 107 MMOL/L (98-107) Carbon Dioxide Level 30 MMOL/L (21-32) Anion Gap 7 mmol/L (5-15) Blood Urea Nitrogen 6 mg/dL (7-18) L Creatinine 0.7 MG/DL (0.55-1.30) Estimate Glomerular Filtration Rate > 60 mL/min (>60) Glucose Level 137 MG/DL (74-106) H Lactic Acid Level 3.10 mmol/L (0.4-2.0) H 4.70 mmol/L (0.66-2.22) H Calcium Level 9.2 MG/DL (8.5-10.1) Magnesium Level 2.0 MG/DL (1.8-2.4) Total Bilirubin 0.1 MG/DL (0.2-1.0) L Aspartate Amino Transferase (AST) 18 U/L (15-37) Alanine Aminotransferase (ALT) 29 U/L (12-78) Alkaline Phosphatase 162 U/L (46-116) H Total Creatine Kinase 118 U/L (26-308) Troponin I 0.000 ng/mL (0.000-0.056) Pro-B-Type Natriuretic Peptide 14 pg/mL (0-125) Total Protein 7.6 G/DL (6.4-8.2) Albumin 3.2 G/DL (3.4-5.0) L Globulin 4.4 g/dL Albumin/Globulin Ratio 0.7 (1.0-2.7) L Phenytoin (Dilantin) Level 21.0 ug/mL (10-20) H EKG Diagnostic Results Rate: normal Rhythm: NSR ST Segments: no acute changes - Left axis deviation Rhythm Strip Diag. Results EP Interpretation: yes Rhythm: NSR, no PVC's, no ectopy Chest X-Ray Diagnostic Results Chest X-Ray Diagnostic Results : Chest X-Ray Ordered: Yes # of Views/Limited/Complete: 1 View Indication: Shortness of Breath EP Interpretation: Yes Interpretation: no consolidation, no effusion, no pneumothorax, other - COPD Impression: Other Electronically Signed by: Electronically signed by Hari Grey MD Last Vital Signs Date Time Temp Pulse Resp B/P (MAP) Pulse Ox O2 Delivery O2 Flow Rate FiO2 10/23/18 00:50 Room Air 10/23/18 00:40 110 10/23/18 00:35 21 10/23/18 00:00 97.7 20 128/62 (84) 97 Status: improved Disposition: ADMITTED INPATIENT Condition: Critical Hari Grey MD Oct 22, 2018 17:54
[2018-10-22] MEDS: Albuterol ud Inhalation HHN SCH ×7 (17:57→22:19)
[2018-10-22] MEDS: Sodium Chloride 550 ML IV SCH ×2 (18:05→20:47)
[2018-10-22 18:29] LABS: BASOPHILS % (AUTO) 1.7 % (0.0-2.0); EOSINOPHILS % (AUTO) 7.5 % (0.0-3.0); HEMATOCRIT 37.9 % (37.0-47.0); HEMOGLOBIN 12.8 G/DL (12.0-16.0); LYMPHOCYTES % (AUTO) 36.4 % (20.0-45.0); MEAN CORPUSCULAR VOLUME 91 FL (80-99); MONOCYTES % (AUTO) 4.5 % (1.0-10.0); NEUTROPHILS % (AUTO) 49.9 % (45.0-75.0); PLATELET COUNT 383 K/UL (150-450); RED BLOOD COUNT 4.17 M/UL (4.20-5.40); WHITE BLOOD COUNT 13.1 K/UL (4.8-10.8)
[2018-10-22 18:39] LABS: INR 0.9 (0.9-1.1)
[2018-10-22 18:49] LABS: ANION GAP 7 mmol/L (5-15); BLOOD UREA NITROGEN 6 mg/dL (7-18); CALCIUM 9.2 MG/DL (8.5-10.1); CARBON DIOXIDE 30 MMOL/L (21-32); CHLORIDE 107 MMOL/L (98-107); CREATININE 0.7 MG/DL (0.55-1.30); POTASSIUM 3.5 MMOL/L (3.5-5.1); SODIUM 144 MMOL/L (136-145)
[2018-10-22 19:00] LABS: ALANINE AMINOTRANSFERASE 29 U/L (12-78); ALBUMIN 3.2 G/DL (3.4-5.0); ALBUMIN/GLOBULIN RATIO 0.7 (1.0-2.7); ALKALINE PHOSPHATASE 162 U/L (46-116); ASPARTATE AMINO TRANSFERASE 18 U/L (15-37); BILIRUBIN,TOTAL 0.1 MG/DL (0.2-1.0); CREATINE KINASE 118 U/L (26-308)
[2018-10-22] MEDS ORDERED: Piperacillin/Tazobactam 3.375 GM in NS 110 ML IVPB ONE (19:00)
--- NOTE | 2018-10-22 19:16 | NUR ---
HAND-OFF: Report given to MELANIE Velasquez.
--- NOTE | 2018-10-22 19:30 | NUR ---
ED Nurse Note: Patient IV fluids and antibiotics initiated due to elevated lactic acid.
[2018-10-22] MEDS ORDERED: LORazepam Inj 2mg/ml 1ml IV ONE (20:00)
--- NOTE | 2018-10-22 21:00 | NUR ---
ED Nurse Note: Patient states that when she coughs she feels like she can not breath. O2sat at 99% but ERMd informed.
[2018-10-22] MEDS ORDERED: EPINEPHrine 1mg/1ml Amp IM ONE (21:15)
--- NOTE | 2018-10-22 21:45 | NUR ---
ED Nurse Note: Patietn reflex lactic drawn prior to fluid completion due to time period specification.
--- NOTE | 2018-10-22 23:45 | NUR ---
ED Nurse Note: Belongings sheet completed.
--- NOTE | 2018-10-22 23:55 | NUR ---
NURSE NOTES: Received a phone report from MELANIE Velasquez.Patient stable,tolerated r/air well,A&O x4 ST on alarm security or surveillance monitor,breathing treatment done,skin intact,IV asymptomatic,intact on R wrist 20G SL,waiting for a patient to bring on a floor.
--- NOTE | 2018-10-22 23:57 | NUR ---
ED Nurse Note: REport called in and given to Mariama.
[2018-10-23] VITALS: BP 128/62
--- NOTE | 2018-10-23 00:08 | NUR ---
ED Nurse Note: Patient transported to floor without incident by Pavan and RN.
--- NOTE | 2018-10-23 00:18 | NUR ---
NURSE NOTES: Received pt on a floor,stable,A&O x4,acting manager applied,ST on acting manager,wheezing sound on auscultation bilateral,BS active in all quadrants,belongings list signed,bed secured in a low safety position call light within a reach.Will continue to monitor
--- NOTE | 2018-10-23 00:25 | NUR ---
NURSE NOTES: Called and left massage for admission orders,waiting for doctor respond,charge nurse aware.
--- NOTE | 2018-10-23 00:30 | NUR ---
NURSE NOTES: Called and left a massage for admission orders,waiting for ,charge nurse aware.
--- NOTE | 2018-10-23 03:10 | NUR ---
NURSE NOTES: call back and gave admission orders,charge nurse aware
[2018-10-23] MEDS ORDERED: Albuterol/Ipratropium 3ml neb HHN PRN (03:15)
[2018-10-23 04:00] VITALS: BP 119/67
[2018-10-23] MEDS ORDERED: Azithromycin 500 MG in D5W 275 ML IV SCH (04:00)
[2018-10-23] MEDS: Guaifenesin/DM 10ml syrup ORAL PRN (04:02)
--- NOTE | 2018-10-23 07:10 | NUR ---
HAND-OFF: Report given to MELANIE Means.Patient stable,no c/o pain,no respiratory distress at this moment.
[2018-10-23 07:28] LABS: BASOPHILS % (AUTO) 0.6 % (0.0-2.0); EOSINOPHILS % (AUTO) 2.3 % (0.0-3.0); HEMOGLOBIN 11.3 G/DL (12.0-16.0); MEAN CORPUSCULAR VOLUME 92 FL (80-99); MONOCYTES % (AUTO) 8.1 % (1.0-10.0); PLATELET COUNT 341 K/UL (150-450); RED BLOOD COUNT 3.71 M/UL (4.20-5.40); RED CELL DISTRIBUTION WIDTH 14.2 % (11.6-14.8); WHITE BLOOD COUNT 16.4 K/UL (4.8-10.8)
[2018-10-23 07:37] LABS: ANION GAP 8 mmol/L (5-15); BLOOD UREA NITROGEN 8 mg/dL (7-18); CALCIUM 8.4 MG/DL (8.5-10.1); CARBON DIOXIDE 26 MMOL/L (21-32); CHLORIDE 108 MMOL/L (98-107); CREATININE 0.7 MG/DL (0.55-1.30); POTASSIUM 3.3 MMOL/L (3.5-5.1); SODIUM 142 MMOL/L (136-145)
[2018-10-23 08:00] VITALS: BP 137/79
--- NOTE | 2018-10-23 08:15 | NUR ---
NURSE NOTES: received pt in the bed, awake, alert, oriented, vital signs stable, no SOB, no co pain, skin warm and dry to touch, intact, tolerate diet well, bed in low position, call light within reach.
[2018-10-23] MEDS: Oxybutynin 5mg tab ORAL SCH ×2 (08:35→17:52)
[2018-10-23] MEDS: Phenytoin 100mg cap ORAL SCH ×4 (08:35→21:06)
[2018-10-23] MEDS: Heparin 5000 units/ml inj SUBQ SCH ×2 (08:35→21:07)
[2018-10-23] MEDS: Benazepril 10mg tab ORAL SCH (08:36)
[2018-10-23] MEDS ORDERED: Solu-MEDROL 125mg Inj IVP SCH (09:00)
--- NOTE | 2018-10-23 11:01 | History & Physical ---
History of Present Illness General Date patient seen: Oct 23, 2018 Reason for Hospitalization: Asthma Present Illness HPI This is a 68 yealr old female with past medical history signfiicant for COPD, former smoker, hypertension and RA on methotrexate presents with 2-3 days of worsening dyspnea and wheezing. She has been using a nebulizer and inhalers. She still has minimal exertional capacity at this time. She denies any chest pain . She does complain about chest pressure when she is trying to walk about. She denies fevers or chills. She has some phlegm that has a beige color to it without any blood. She claims that she started to get worse 3 or 4 days ago when she tried to use a steroid inhaler. This caused her to feel sick. She then used albuterol and it seemed to help but then she heard herself wheezing more. Allergies: Coded Allergies: No Known Allergies (Unverified , 09/16/18) Medication History Scheduled Albuterol Sulfate (Ventolin Hfa), 2 PUFFS INH EVERY 4 HOURS, (Reported) Atenolol* (Tenormin*), 25 MG ORAL DAILY, (Reported) Benazepril Hcl* (Benazepril Hcl*), 20 MG ORAL DAILY, (Reported) Calcium Carbonate (Oysco-500), 500 MG PO DAILY, (Reported) Diphenhydramine Hcl (Banophen), 25 MG PO DAILY, (Reported) Folic Acid* (Folic Acid*), 1 MG ORAL DAILY, (Reported) Hydrochlorothiazide* (Hydrochlorothiazide*), 50 MG ORAL DAILY, (Reported) Methotrexate Sodium (Trexall), 2.5 MG PO ONCE A WEEK, (Reported) Nifedipine (Nifedipine*), 90 MG ORAL DAILY, (Reported) Oxybutynin Chloride (Oxybutynin Chloride Er), 10 MG PO BID, (Reported) Phenytoin Sodium Extended* (Phenytoin Sodium Extended*), 200 MG ORAL THREE TIMES A DAY, (Reported) Prednisone* (Prednisone*), 40 MG ORAL DAILY, (Reported) Scheduled PRN Guaifenesin/Codeine Phosphate (Guaifenesin Ac Cough Syrup), 1 TSP ORAL Q6H PRN for For Cough, (Reported) Miscellaneous Medications Ipratropium/Albuterol Sulfate (DuoNeb 0.5-3(2.5)mg/3ml), 3 ML HHN, (Reported) Ipratropium/Albuterol Sulfate (DuoNeb 0.5-3(2.5)mg/3ml), 3 ML HHN, (Reported) Patient History Healthcare decision maker Resuscitation status Full Code Advanced Directive on File No Review of Systems Review of Symptoms General ROS: no weight loss or fever Psychological ROS: no depression or mood changes, no memory loss Ophthalmic ROS: no visual changes or eye irritation ENT ROS: no nasal congestion, hearing loss, dizziness Allergy and Immunology ROS: no allergic symptoms or urticaria Hematological and Lymphatic ROS: no swollen glands, unusual bleeding or bruising Endocrine ROS: no polyuria, polydipsia, weight changes, temperature intolerance Respiratory ROS: + cough, + shortness of breath, + dyspnea, + wheezing Cardiovascular ROS: no chest pain or dyspnea on exertion Gastrointestinal ROS: denies abdominal pain, bright red blood in stool. Musculoskeletal ROS: no myalgias or arthralgias Neurological ROS: no TIA or stroke symptoms Dermatological ROS: no new or changing skin lesions, rashes or pruritis Physical Exam Physical Exam General appearance: alert, cooperative, no distress, appears stated age Head: Normocephalic, without obvious abnormality, atraumatic Eyes: conjunctivae/corneas clear. PERRL, EOM's intact. Throat: Lips, mucosa, and tongue normal. Teeth and gums normal Neck: supple, symmetrical, trachea midline, no adenopathy, thyroid: not enlarged, symmetric, no tenderness/mass/nodules, no carotid bruit and no JVD Lungs: + expiratory wheezing bilaterally Heart: regular rate and rhythm, S1, S2 normal, no murmur, click, rub or gallop Abdomen: soft, non-tender. Bowel sounds normal. No masses, no organomegaly Extremities: extremities normal, atraumatic, no cyanosis or edema Pulses: 2+ and symmetric Skin: Skin color, texture, turgor normal. No rashes or lesions Neurologic: Grossly normal Last 24 Hour Vital Signs Date Time Temp Pulse Resp B/P (MAP) Pulse Ox O2 Delivery O2 Flow Rate FiO2 10/23/18 08:36 101 137/79 10/23/18 08:36 137/79 10/23/18 08:00 Room Air 10/23/18 08:00 98.5 101 22 137/79 (98) 97 10/23/18 08:00 99 10/23/18 04:00 Room Air 10/23/18 04:00 98.7 103 20 119/67 (84) 99 10/23/18 00:50 Room Air 10/23/18 00:40 110 10/23/18 00:35 21 10/23/18 00:35 Room Air 10/23/18 00:00 97.7 113 20 128/62 (84) 97 10/22/18 23:57 98.1 84 24 137/106 100 Room Air 10/22/18 22:22 118 24 100 10/22/18 21:55 112 22 100 10/22/18 21:55 112 23 100 10/22/18 21:50 109 16 100 Room Air 10/22/18 21:17 109 21 100 21 10/22/18 19:27 101 16 100 Room Air 10/22/18 19:17 84 21 Room Air 10/22/18 18:35 84 21 100 21 10/22/18 18:14 81 17 100 Room Air 10/22/18 18:14 81 17 100 Room Air 10/22/18 17:58 86 30 98 Room Air 10/22/18 17:55 85 30 95 Room Air 10/22/18 17:49 98.1 84 15 137/106 98 Room Air 10/22/18 17:29 98.1 95 16 142/63 (89) 93 Room Air Intake and Output 10/22/18 10/23/18 19:00 07:00 Intake Total 275 ml Balance 275 ml Intake IV Total 275 ml # Voids 1 2 Laboratory Tests Test 10/22/18 17:55 10/22/18 21:10 10/23/18 07:00 10/23/18 09:00 White Blood Count 13.1 K/UL (4.8-10.8) H 16.4 K/UL (4.8-10.8) H Red Blood Count 4.17 M/UL (4.20-5.40) L 3.71 M/UL (4.20-5.40) L Hemoglobin 12.8 G/DL (12.0-16.0) 11.3 G/DL (12.0-16.0) L Hematocrit 37.9 % (37.0-47.0) 34.0 % (37.0-47.0) L Mean Corpuscular Volume 91 FL (80-99) 92 FL (80-99) Mean Corpuscular Hemoglobin 30.6 PG (27.0-31.0) 30.4 PG (27.0-31.0) Mean Corpuscular Hemoglobin Concent 33.7 G/DL (32.0-36.0) 33.1 G/DL (32.0-36.0) Red Cell Distribution Width 14.0 % (11.6-14.8) 14.2 % (11.6-14.8) Platelet Count 383 K/UL (150-450) 341 K/UL (150-450) Mean Platelet Volume 6.2 FL (6.5-10.1) L 6.2 FL (6.5-10.1) L Neutrophils (%) (Auto) 49.9 % (45.0-75.0) 59.0 % (45.0-75.0) Lymphocytes (%) (Auto) 36.4 % (20.0-45.0) 30.0 % (20.0-45.0) Monocytes (%) (Auto) 4.5 % (1.0-10.0) 8.1 % (1.0-10.0) Eosinophils (%) (Auto) 7.5 % (0.0-3.0) H 2.3 % (0.0-3.0) Basophils (%) (Auto) 1.7 % (0.0-2.0) 0.6 % (0.0-2.0) Prothrombin Time 9.9 SEC (9.30-11.50) Prothromb Time International Ratio 0.9 (0.9-1.1) Activated Partial Thromboplast Time 26 SEC (23-33) Sodium Level 144 MMOL/L (136-145) 142 MMOL/L (136-145) Potassium Level 3.5 MMOL/L (3.5-5.1) 3.3 MMOL/L (3.5-5.1) L Chloride Level 107 MMOL/L (98-107) 108 MMOL/L (98-107) H Carbon Dioxide Level 30 MMOL/L (21-32) 26 MMOL/L (21-32) Anion Gap 7 mmol/L (5-15) 8 mmol/L (5-15) Blood Urea Nitrogen 6 mg/dL (7-18) L 8 mg/dL (7-18) Creatinine 0.7 MG/DL (0.55-1.30) 0.7 MG/DL (0.55-1.30) Estimat Glomerular Filtration Rate > 60 mL/min (>60) > 60 mL/min (>60) Glucose Level 137 MG/DL (74-106) H 142 MG/DL (74-106) H Lactic Acid Level 3.10 mmol/L (0.4-2.0) H 4.70 mmol/L (0.66-2.22) H 2.50 mmol/L (0.4-2.0) H 2.60 mmol/L (0.66-2.22) H Calcium Level 9.2 MG/DL (8.5-10.1) 8.4 MG/DL (8.5-10.1) L Magnesium Level 2.0 MG/DL (1.8-2.4) Total Bilirubin 0.1 MG/DL (0.2-1.0) L Aspartate Amino Transf (AST/SGOT) 18 U/L (15-37) Alanine Aminotransferase (ALT/SGPT) 29 U/L (12-78) Alkaline Phosphatase 162 U/L (46-116) H Total Creatine Kinase 118 U/L (26-308) Troponin I 0.000 ng/mL (0.000-0.056) Pro-B-Type Natriuretic Peptide 14 pg/mL (0-125) Total Protein 7.6 G/DL (6.4-8.2) Albumin 3.2 G/DL (3.4-5.0) L Globulin 4.4 g/dL Albumin/Globulin Ratio 0.7 (1.0-2.7) L Phenytoin (Dilantin) Level 21.0 ug/mL (10-20) H Height (Feet): 5 Height (Inches): 3.00 Weight (Pounds): 209 Medications Current Medications Medications (Trade) Dose Ordered Sig/Jessica Route PRN Reason Start Time Stop Time Status Last Admin Dose Admin Albuterol/ Ipratropium (Albuterol/ Ipratropium) 3 ml Q4H PRN HHN Shortness of Breath 10/23/18 03:15 10/28/18 03:14 Azithromycin 500 mg/Dextrose 275 ml @ 275 mls/hr Q24HRS IV 10/23/18 04:00 10/29/18 04:59 10/23/18 04:03 Benazepril HCl (Lotensin) 20 mg DAILY ORAL 10/23/18 09:00 11/22/18 08:59 10/23/18 08:36 Folic Acid (Folate) 1 mg DAILY ORAL 10/23/18 09:00 11/22/18 08:59 10/23/18 08:36 Guaifenesin/ Dextromethorphan (Robitussin DM Syrup) 10 ml Q6H PRN ORAL For Cough 10/23/18 03:45 11/22/18 03:44 10/23/18 04:02 Heparin Sodium (Porcine) (Heparin 5000 units/ml) 5,000 units EVERY 12 HOURS SUBQ 10/23/18 09:00 11/22/18 08:59 10/23/18 08:35 Methylprednisolone Sodium Succinate (Solu-MEDROL) 60 mg EVERY 12 HOURS IVP 10/23/18 09:00 11/22/18 08:59 10/23/18 08:33 Nifedipine (Procardia XL) 90 mg DAILY ORAL 10/23/18 09:00 11/22/18 08:59 10/23/18 08:36 Oxybutynin Chloride (Ditropan) 10 mg BID ORAL 10/23/18 09:00 11/22/18 08:59 10/23/18 08:35 Phenytoin (Dilantin) 200 mg TID ORAL 10/23/18 09:00 11/22/18 08:59 10/23/18 08:35 Assessment/Plan Problem List: (1) Elevated lactic acid level ICD Codes: R79.89 - Other specified abnormal findings of blood chemistry SNOMED: 3466397 (2) Status asthmaticus ICD Codes: J45.902 - Unspecified asthma with status asthmaticus SNOMED: 350103988 Qualifiers: Qualified Codes: J45.52 - Severe persistent asthma with status asthmaticus (3) COPD exacerbation ICD Codes: J44.1 - Chronic obstructive pulmonary disease with (acute) exacerbation SNOMED: 782673280 (4) Respiratory distress ICD Codes: R06.03 - Acute respiratory distress SNOMED: 251705219 Diagnosis [place] I: #COPD exacerbation - admit inpatient - duonebs - pulm consulted -Continue Advair, add Spiriva -Change Azithro to PO (D2) -F/U Duplex and D-dimer -If D-dimer + will check a CT-A, if D-dimer - will check a non-contrast CT chest -TTE #HTN - resume home meds- nifedripine #RA - on weekly methotrexate #seizure d/o - resume home dilantin #hypokalemia, - repleted [facility] Hospital declaration INPATIENT level of care is warranted for this patient because patient is a 89 year old with who presents with suspicion of . I have a high level of concern because . Patient is at high risk for . Plan of care/treatment include . Patient care is expected to be greater than 2 midnights. OBSERVATION level of care is warranted for this patient. Patient is a 89 year old with who presents with . Patient will be admitted for 1 midnight, but if additional night(s) is/are necessary, patient will be converted to inpatient status for the entire hospitalization Disposition: Once the patient is stable to leave the hospital, I anticipate the patient will likely be discharged to the following environment: Estimated discharge date: I spent 70 minutes on this patient's case, and minutes was dedicated to counseling and/or care coordination. MIPS (Merit-based Incentive Payment System) Applicable CPT: 35464, 52035 CHECK ALL THAT ARE MET: Measure #5 (CHF): All ages. Prescribe KAUSHAL/ARB upon discharge for patients with left ventricular systolic dysfunction. If not, the reason is clearly documented in the medical chart. Measure #8 (CHF): All ages. Prescribe a beta reji upon discharge for patients with left ventricular systolic dysfunction. If not, the reason is clearly documented in the medical chart. Measure #47 Advance care plan or surrogate decision maker documented in the medical record. Measure #130 The provider has documented, updated, or reviewed the patients current medication list and has documented it in the patients note. Measure #374 (All): Send report to referring provider. Measure #407(Sepsis due to MSSA bacteremia): Age 18+ Patient treated with a beta-lactam antibiotic (Nafcillin, Oxacillin or Cefazolin) as definitive therapy. MEDICAL COMPLEXITY High complexity medical decision making (need 2/3 categories) Problem - need 4 points Acute/new problem with new plan for workup (4 points, 1 max) Acute/new problem without additional workup (3 points, 1 max) Unstable chronic problem actively being managed (2 point each, 2 max) Stable chronic problem actively being managed (1 point each, 2 max) Self-limited/transient process (constipation, muscle ache, etc) (1 point each , 2 max) Data - need 4 points Reviewed labs/imaging studies (1 points, 2 max) Independent review of imaging (EKG, xrays, etc) (2 points, 2 max) Discussed case with consult/other MD/RN (2 points, 2 max) High Risk - qualify if have one of the following: Severe exacerbation of acute problem, acute mental status change, IV narcotics , monitoring drug levels (vancomycin, INR, tacrolimus etc) Mohinder Morgan M.D. Oct 23, 2018 11:01
[2018-10-23 12:00] VITALS: BP 132/71
--- NOTE | 2018-10-23 12:00 | NUR ---
NURSE NOTES: pt resting, vital signs stable, K 3.3, dr. Morgan aware, ordered 40meq of KCL, continue monitoring.
--- NOTE | 2018-10-23 12:26 | Consultation ---
History of Present Illness General Date patient seen: Oct 23, 2018 Time patient seen: 12:19 Chief Complaint: Asthma Referring physician: Dr. Morgan Reason for Consultation: COPD exacerbation Present Illness HPI 68 F h/o COPD, former smoker, Sz DO recently a/w a COPD exacerbation and D/C'd on a Pred taper p/w recurrent cough and SOB, had an elevated LA, CXR NAD, was using Symbicort and HHN's without relief. Was supposed to F/U with me for PFT' s but did not. No F/C/CP, no NVDC. Allergies: Coded Allergies: No Known Allergies (Unverified , 09/16/18) Medication History Scheduled Albuterol Sulfate (Ventolin Hfa), 2 PUFFS INH EVERY 4 HOURS, (Reported) Atenolol* (Tenormin*), 25 MG ORAL DAILY, (Reported) Benazepril Hcl* (Benazepril Hcl*), 20 MG ORAL DAILY, (Reported) Calcium Carbonate (Oysco-500), 500 MG PO DAILY, (Reported) Diphenhydramine Hcl (Banophen), 25 MG PO DAILY, (Reported) Folic Acid* (Folic Acid*), 1 MG ORAL DAILY, (Reported) Hydrochlorothiazide* (Hydrochlorothiazide*), 50 MG ORAL DAILY, (Reported) Methotrexate Sodium (Trexall), 2.5 MG PO ONCE A WEEK, (Reported) Nifedipine (Nifedipine*), 90 MG ORAL DAILY, (Reported) Oxybutynin Chloride (Oxybutynin Chloride Er), 10 MG PO BID, (Reported) Phenytoin Sodium Extended* (Phenytoin Sodium Extended*), 200 MG ORAL THREE TIMES A DAY, (Reported) Prednisone* (Prednisone*), 40 MG ORAL DAILY, (Reported) Scheduled PRN Guaifenesin/Codeine Phosphate (Guaifenesin Ac Cough Syrup), 1 TSP ORAL Q6H PRN for For Cough, (Reported) Miscellaneous Medications Ipratropium/Albuterol Sulfate (DuoNeb 0.5-3(2.5)mg/3ml), 3 ML HHN, (Reported) Ipratropium/Albuterol Sulfate (DuoNeb 0.5-3(2.5)mg/3ml), 3 ML HHN, (Reported) Patient History Healthcare decision maker Resuscitation status Full Code Advanced Directive on File No Past Medical/Surgical History Past Medical/Surgical History: (1) Seizure disorder (2) COPD exacerbation Social History Social History: (1) Former smoker Review of Systems All Other Systems: negative except mentioned in HPI Physical Exam General Appearance: WD/WN, no apparent distress Lines, tubes and drains: peripheral HEENT: normocephalic, atraumatic, anicteric, mucous membranes moist Neck: non-tender, normal alignment, supple, normal inspection Respiratory/Chest: chest wall non-tender, lungs clear, normal breath sounds, no respiratory distress, no accessory muscle use Cardiovascular/Chest: normal peripheral pulses, normal rate, regular rhythm Extremities: other - no CCE Last 24 Hour Vital Signs Date Time Temp Pulse Resp B/P (MAP) Pulse Ox O2 Delivery O2 Flow Rate FiO2 10/23/18 08:36 101 137/79 10/23/18 08:36 137/79 10/23/18 08:00 Room Air 10/23/18 08:00 98.5 101 22 137/79 (98) 97 10/23/18 08:00 99 10/23/18 04:00 Room Air 10/23/18 04:00 98.7 103 20 119/67 (84) 99 10/23/18 00:50 Room Air 10/23/18 00:40 110 10/23/18 00:35 21 10/23/18 00:35 Room Air 10/23/18 00:00 97.7 113 20 128/62 (84) 97 10/22/18 23:57 98.1 84 24 137/106 100 Room Air 10/22/18 22:22 118 24 100 10/22/18 21:55 112 22 100 10/22/18 21:55 112 23 100 10/22/18 21:50 109 16 100 Room Air 10/22/18 21:17 109 21 100 10/22/18 19:27 101 16 100 Room Air 10/22/18 19:17 84 21 Room Air 10/22/18 18:35 84 21 100 21 10/22/18 18:14 81 17 100 Room Air 10/22/18 18:14 81 17 100 Room Air 10/22/18 17:58 86 30 98 Room Air 10/22/18 17:55 85 30 95 Room Air 10/22/18 17:49 98.1 84 15 137/106 98 Room Air 10/22/18 17:29 98.1 95 16 142/63 (89) 93 Room Air Intake and Output 10/22/18 10/23/18 18:59 06:59 Intake Total 275 ml Balance 275 ml Intake IV Total 275 ml # Voids 1 2 Laboratory Tests Test 10/22/18 17:55 10/22/18 21:10 10/23/18 07:00 10/23/18 09:00 White Blood Count 13.1 K/UL (4.8-10.8) H 16.4 K/UL (4.8-10.8) H Red Blood Count 4.17 M/UL (4.20-5.40) L 3.71 M/UL (4.20-5.40) L Hemoglobin 12.8 G/DL (12.0-16.0) 11.3 G/DL (12.0-16.0) L Hematocrit 37.9 % (37.0-47.0) 34.0 % (37.0-47.0) L Mean Corpuscular Volume 91 FL (80-99) 92 FL (80-99) Mean Corpuscular Hemoglobin 30.6 PG (27.0-31.0) 30.4 PG (27.0-31.0) Mean Corpuscular Hemoglobin Concent 33.7 G/DL (32.0-36.0) 33.1 G/DL (32.0-36.0) Red Cell Distribution Width 14.0 % (11.6-14.8) 14.2 % (11.6-14.8) Platelet Count 383 K/UL (150-450) 341 K/UL (150-450) Mean Platelet Volume 6.2 FL (6.5-10.1) L 6.2 FL (6.5-10.1) L Neutrophils (%) (Auto) 49.9 % (45.0-75.0) 59.0 % (45.0-75.0) Lymphocytes (%) (Auto) 36.4 % (20.0-45.0) 30.0 % (20.0-45.0) Monocytes (%) (Auto) 4.5 % (1.0-10.0) 8.1 % (1.0-10.0) Eosinophils (%) (Auto) 7.5 % (0.0-3.0) H 2.3 % (0.0-3.0) Basophils (%) (Auto) 1.7 % (0.0-2.0) 0.6 % (0.0-2.0) Prothrombin Time 9.9 SEC (9.30-11.50) Prothromb Time International Ratio 0.9 (0.9-1.1) Activated Partial Thromboplast Time 26 SEC (23-33) Sodium Level 144 MMOL/L (136-145) 142 MMOL/L (136-145) Potassium Level 3.5 MMOL/L (3.5-5.1) 3.3 MMOL/L (3.5-5.1) L Chloride Level 107 MMOL/L (98-107) 108 MMOL/L (98-107) H Carbon Dioxide Level 30 MMOL/L (21-32) 26 MMOL/L (21-32) Anion Gap 7 mmol/L (5-15) 8 mmol/L (5-15) Blood Urea Nitrogen 6 mg/dL (7-18) L 8 mg/dL (7-18) Creatinine 0.7 MG/DL (0.55-1.30) 0.7 MG/DL (0.55-1.30) Estimat Glomerular Filtration Rate > 60 mL/min (>60) > 60 mL/min (>60) Glucose Level 137 MG/DL (74-106) H 142 MG/DL (74-106) H Lactic Acid Level 3.10 mmol/L (0.4-2.0) H 4.70 mmol/L (0.66-2.22) H 2.50 mmol/L (0.4-2.0) H 2.60 mmol/L (0.66-2.22) H Calcium Level 9.2 MG/DL (8.5-10.1) 8.4 MG/DL (8.5-10.1) L Magnesium Level 2.0 MG/DL (1.8-2.4) Total Bilirubin 0.1 MG/DL (0.2-1.0) L Aspartate Amino Transf (AST/SGOT) 18 U/L (15-37) Alanine Aminotransferase (ALT/SGPT) 29 U/L (12-78) Alkaline Phosphatase 162 U/L (46-116) H Total Creatine Kinase 118 U/L (26-308) Troponin I 0.000 ng/mL (0.000-0.056) Pro-B-Type Natriuretic Peptide 14 pg/mL (0-125) Total Protein 7.6 G/DL (6.4-8.2) Albumin 3.2 G/DL (3.4-5.0) L Globulin 4.4 g/dL Albumin/Globulin Ratio 0.7 (1.0-2.7) L Phenytoin (Dilantin) Level 21.0 ug/mL (10-20) H Height (Feet): 5 Height (Inches): 3.00 Weight (Pounds): 209 Medications Current Medications Medications (Trade) Dose Ordered Sig/Jessica Route PRN Reason Start Time Stop Time Status Last Admin Dose Admin Albuterol/ Ipratropium (Albuterol/ Ipratropium) 3 ml Q4H PRN HHN Shortness of Breath 10/23/18 03:15 10/28/18 03:14 Azithromycin 500 mg/Dextrose 275 ml @ 275 mls/hr Q24HRS IV 10/23/18 04:00 10/29/18 04:59 10/23/18 04:03 Benazepril HCl (Lotensin) 20 mg DAILY ORAL 10/23/18 09:00 11/22/18 08:59 10/23/18 08:36 Folic Acid (Folate) 1 mg DAILY ORAL 10/23/18 09:00 11/22/18 08:59 10/23/18 08:36 Guaifenesin/ Dextromethorphan (Robitussin DM Syrup) 10 ml Q6H PRN ORAL For Cough 10/23/18 03:45 11/22/18 03:44 10/23/18 04:02 Heparin Sodium (Porcine) (Heparin 5000 units/ml) 5,000 units EVERY 12 HOURS SUBQ 10/23/18 09:00 11/22/18 08:59 10/23/18 08:35 Methylprednisolone Sodium Succinate (Solu-MEDROL) 60 mg EVERY 12 HOURS IVP 10/23/18 09:00 11/22/18 08:59 10/23/18 08:33 Nifedipine (Procardia XL) 90 mg DAILY ORAL 10/23/18 09:00 11/22/18 08:59 10/23/18 08:36 Oxybutynin Chloride (Ditropan) 10 mg BID ORAL 10/23/18 09:00 11/22/18 08:59 10/23/18 08:35 Phenytoin (Dilantin) 200 mg TID ORAL 10/23/18 09:00 11/22/18 08:59 10/23/18 08:35 Potassium Chloride (K-Dur) 40 meq ONCE ORAL 10/23/18 12:00 10/23/18 14:00 Assessment/Plan Problem List: (1) COPD exacerbation ICD Codes: J44.1 - Chronic obstructive pulmonary disease with (acute) exacerbation SNOMED: 327560528 (2) Seizure disorder ICD Codes: G40.909 - Epilepsy, unspecified, not intractable, without status epilepticus SNOMED: 393956792 (3) Former smoker ICD Codes: Z87.891 - Personal history of nicotine dependence SNOMED: 8822901 Diagnosis [place] I: Problem List: 1. Respiratory insufficiency 2. Acute COPD exacerbation 3. Leukocytosis 4. Lactic acidosis 5. Seizure disorder 6. Obesity 7. HTN Plan: -Optimize pulmonary hygiene/mobilize as toleratd -PRN O2 -D/C SM, start Pred 40 (D2) -HHN's -Continue Advair, add Spiriva -Change Azithro to PO (D2) -F/U Duplex and D-dimer -If D-dimer + will check a CT-A, if D-dimer - will check a non-contrast CT chest -TTE -monitor volumes and renal function, mIVF, trend LA -DVT Px: Hep SQ -Continue to abstain from smoking Abraham Wooten MD Oct 23, 2018 12:26
--- NOTE | 2018-10-23 12:37 | Diagnostic Imaging Report ---
Indication: Shortness of breath Technique: One view of the chest Comparison: 09/25/2018 Findings: The heart is borderline enlarged. The lungs and pleural spaces are clear. The bones are unremarkable. No significant interim change Impression: No acute process
[2018-10-23] MEDS: Albuterol/Ipratropium 3ml neb HHN SCH ×2 (13:17→19:18)
--- NOTE | 2018-10-23 13:40 | NUR ---
CASE MANAGEMENT: INITIAL REVIEW 68 YO F PRESENTED TO OUR ED FROM HOME CC: ASTHMA PMHx: ASTHMA SI:COPD EXACERBATION. T 98.1 HR 95 RR 16 B/P 142/63 SATS 93% ON RA WBC 13.1 BUN 6 GLU 137 LACTIC ACID 3.1 TBILI ALP 162 IS: DUO NEB HHN X1 SOLU MEDROL IV X1 NS BOLUS X1 PATIENT ADMITTED TO SDU 10/22/2018 @ 5042 DCP: PATIENT TO BE DISCHARGED TO HOME ONCE MEDICALLY CLEARED. 10/23/2018 SI:COPD EXACERBATION. T 98.5 HR 101 RR 22 B/P 137/79 SATS 97% ON RA WBC 16.4 K 3.3 CL 108 GLU 142 CA 8.4 LACTIC ACID 2.5 IS:DITROPAN PO BID LOTENSIN PO QD FOLATE PO QD PROCARDIA PO QD PREDNISONE PO QD AZITHROMYCIN POQD K DUR PO X1 DUO NEB HHN Q6HRT SDU PLAN OF CARE: VENOUS DUPLEX 2DE MAKEDA PULMO CONSULT Addendum: 10/23/18 at 1349 by Susan Talamantes CM INTERQUAL MET
[2018-10-23 16:00] VITALS: BP 139/71
--- NOTE | 2018-10-23 16:50 | NUR ---
Social Service Note SW met with patient to address Medicare benefits. Patient is alert, oriented and verbally responsive. KELLE explained to patient that SW could not contact [employer] on patient's behalf to determine if she qualifies for medicare benefits. KELLE provided patient the phone number to both [employer] [phone] and Medicare [phone]. Patient states she has spoken to Medicare in the past and was told that she may need to pay a penalty for not signing up for Medicare prior to her 67 birthday. Patient will discuss with her dgt [facility] Patient also indicated that she will require a rotator upon discharge. KELLE explained once MD enters an order for DME case management will contact health plan for authorization. Will continue to be available as needed.
--- NOTE | 2018-10-23 19:21 | NUR ---
HAND-OFF: Report given to PASCUAL NAVARRO.
--- NOTE | 2018-10-23 19:22 | NUR ---
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
[2018-10-23 20:00] VITALS: BP 128/56
[2018-10-24] VITALS: BP 137/75
[2018-10-24] MEDS: Albuterol/Ipratropium 3ml neb HHN SCH ×5 (00:24→22:51)
[2018-10-24] MEDS: Guaifenesin/DM 10ml syrup ORAL PRN ×3 (03:48→21:00)
[2018-10-24 04:00] VITALS: BP 138/71
[2018-10-24] MEDS: Phenytoin 100mg cap ORAL SCH ×3 (06:00→21:00)
--- NOTE | 2018-10-24 07:21 | NUR ---
HAND-OFF: Report given to MELANIE Means.Patient stable,sleeping.
[2018-10-24 08:00] VITALS: BP 147/64
--- NOTE | 2018-10-24 08:20 | NUR ---
NURSE NOTES: received pt in the bed, awake, alert, oriented, vital signs stable, no co pain, no SOB, skin warm and dry to touch, intact, tolerate diet well, ambulate, bed in low position, call light within reach.
[2018-10-24] MEDS: Oxybutynin 5mg tab ORAL SCH ×2 (09:09→17:24)
[2018-10-24] MEDS: Benazepril 10mg tab ORAL SCH (09:10)
[2018-10-24] MEDS: Heparin 5000 units/ml inj SUBQ SCH ×2 (09:12→20:04)
[2018-10-24] MEDS: Azithromycin 250mg tab ORAL SCH (09:13)
[2018-10-24 12:00] VITALS: BP 137/72
--- NOTE | 2018-10-24 12:20 | Pulmonology Progress Note ---
Assessment/Plan Problems: (1) COPD exacerbation (2) Seizure disorder (3) Former smoker Assessment/Plan Problem List: 1. Respiratory insufficiency 2. Acute COPD exacerbation 3. Leukocytosis 4. Lactic acidosis 5. Seizure disorder 6. Obesity 7. HTN Plan: -Optimize pulmonary hygiene/mobilize as toleratd -PRN O2 -Continue Pred 40 (D3) -HHN's -Continue Advair & Spiriva -PO Azithro (D3) -F/Ufinal duplex -F/U non-contrast CT chest -F/U TTE -monitor volumes and renal function, mIVF, trend LA -DVT Px: Hep SQ -Continue to abstain from smoking Subjective Allergies: Coded Allergies: No Known Allergies (Unverified , 09/16/18) Subjective AFVSS x for elevated BP on RA Less cough less SOB no CP no FC D-dimer negative Objective Last 24 Hour Vital Signs Date Time Temp Pulse Resp B/P (MAP) Pulse Ox O2 Delivery O2 Flow Rate FiO2 10/24/18 12:15 108 18 97 Nasal Cannula 2.0 28 10/24/18 09:11 110 147/64 10/24/18 09:10 147/64 10/24/18 08:00 104 10/24/18 08:00 Room Air 10/24/18 08:00 98.0 110 23 147/64 (91) 95 10/24/18 07:01 110 20 99 Room Air 10/24/18 06:51 110 20 92 Room Air 10/24/18 04:00 98.8 98 20 138/71 (93) 94 10/24/18 04:00 Room Air 10/24/18 03:34 101 10/24/18 00:29 97 16 99 Room Air 10/24/18 00:21 100 20 97 Room Air 10/24/18 00:00 Room Air 10/24/18 00:00 98.7 94 20 137/75 (95) 96 10/23/18 23:28 94 10/23/18 20:00 Room Air 10/23/18 20:00 98.1 103 20 128/56 (80) 96 10/23/18 19:48 106 10/23/18 19:28 104 18 97 Room Air 10/23/18 19:17 100 20 94 Room Air 10/23/18 16:00 Room Air 10/23/18 16:00 99 10/23/18 16:00 98.6 93 22 139/71 (93) 96 10/23/18 13:27 98 18 99 Room Air 21 10/23/18 13:17 96 18 96 Room Air 21 Intake and Output 10/23/18 10/24/18 19:00 07:00 Intake Total 350 ml 240 ml Balance 350 ml 240 ml Intake Oral 350 ml 240 ml # Voids 5 # Bowel Movements 1 General Appearance: WD/WN, no acute distress HEENT: normocephalic, atraumatic, anicteric, mucous membranes moist Respiratory/Chest: chest wall non-tender, lungs clear - but distnat, no respiratory distress, no accessory muscle use Cardiovascular: normal peripheral pulses, normal rate, regular rhythm Abdomen: normal bowel sounds, soft, non tender, no organomegaly, non distended , no mass Extremities: no cyanosis, no clubbing, no edema Laboratory Tests 10/23/18 12:25: Arterial Blood pH 7.403, Arterial Blood Partial Pressure CO2 39.1, Arterial Blood Partial Pressure O2 81.6, Arterial Blood HCO3 23.8, Arterial Blood Oxygen Saturation 95.8, Arterial Blood Base Excess -0.7, Arron Test Positive 10/23/18 15:40: D-Dimer < 0.19 10/24/18 03:30: Phenytoin (Dilantin) Level 13.9 Current Medications Medications (Trade) Dose Ordered Sig/Jessica Route PRN Reason Start Time Stop Time Status Last Admin Dose Admin Albuterol/ Ipratropium (Albuterol/ Ipratropium) 3 ml Q4H PRN N Shortness of Breath 10/23/18 03:15 10/28/18 03:14 Albuterol/ Ipratropium (Albuterol/ Ipratropium) 3 ml Q6HRT HHN 10/23/18 13:00 10/28/18 12:59 10/24/18 12:15 Azithromycin (Zithromax) 250 mg DAILY ORAL 10/24/18 09:00 10/31/18 08:59 10/24/18 09:13 Benazepril HCl (Lotensin) 20 mg DAILY ORAL 10/23/18 09:00 11/22/18 08:59 10/24/18 09:10 Folic Acid (Folate) 1 mg DAILY ORAL 10/23/18 09:00 11/22/18 08:59 10/24/18 09:13 Guaifenesin/ Dextromethorphan (Robitussin DM Syrup) 10 ml Q6H PRN ORAL For Cough 10/23/18 03:45 11/22/18 03:44 10/24/18 09:25 Heparin Sodium (Porcine) (Heparin 5000 units/ml) 5,000 units EVERY 12 HOURS SUBQ 10/23/18 09:00 11/22/18 08:59 10/24/18 09:12 Nifedipine (Procardia XL) 90 mg DAILY ORAL 10/23/18 09:00 11/22/18 08:59 10/24/18 09:11 Oxybutynin Chloride (Ditropan) 10 mg BID ORAL 10/23/18 09:00 11/22/18 08:59 10/24/18 09:09 Phenytoin (Dilantin) 200 mg Q8HR ORAL 10/23/18 16:00 11/22/18 08:59 Prednisone (predniSONE) 40 mg DAILY ORAL 10/24/18 09:00 11/23/18 08:59 10/24/18 09:11 Abraham Wooten MD Oct 24, 2018 12:20
--- NOTE | 2018-10-24 13:22 | NUR ---
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 SEIZURE DISORDER VS: BP 147/64, P 110, T 98.0, RR 23, SpO2 95 on 2.0 NC IS:ALBUTEROL 3ml HHN ZITHROMAX 250mg HEPARIN SUBQ NIFEDIPINE 90mg LOTENSIN 20mg PLAN: CONT. ADVAIR & SPIRIVA CHEST CT OPTIMIZE PULMONARY HYGIENE SDU STATUS
--- NOTE | 2018-10-24 14:56 | NUR ---
INSURANCE UPDATED CLINICALS and REVIEW HAVE BEEN FAXED TO: [facility] @ [phone] NO ETHNOLOGY TEACHER AT THIS TIME PLEASE FAX THE REVIEW/CLINICAL P- [phone] F- [phone]...REVIEW/CLINICAL
--- NOTE | 2018-10-24 15:00 | NUR ---
NURSE NOTES: pt resting, CT chest done, vital signs stable, continue monitoring.
[2018-10-24 16:00] VITALS: BP 134/73
--- NOTE | 2018-10-24 16:12 | Diagnostic Imaging Report ---
Clinical Indication: Shortness of breath Technique: Spiral acquisitions obtained through the chest. No IV contrast utilized, referring physician request. Multiplanar reconstructions generated. Total dose length product 1036.42 mGycm. CTDIvol(s) 28.94 mGy. Dose reduction achieved using automated exposure control Comparison: none Findings:Lungs demonstrate minimal atelectatic changes at the bases. The lungs are otherwise clear. No infiltrates, effusions, congestion, masses, or nodules are demonstrated. The heart size is normal. No pericardial effusion. There are a few prominent but not frankly enlarged pericardial lymph nodes. Included thyroid demonstrates multiple nodules, incompletely included. No mediastinal or hilar adenopathy. No axillary or chest wall mass or adenopathy demonstrated. Unremarkable esophagus The bones are unremarkable except for degenerative proliferative changes of the thoracic spine. Included upper abdominal anatomy demonstrates diffuse thickening of the left adrenal. There is also suggestion of a 16 mm nodule at the lower pole of the left adrenal. This demonstrates nonspecific attenuation Impression: No acute abnormality. Essentially clear lungs Multiple thyroid nodules, incompletely included and therefore unable to assess for size. Consider thyroid sonography for better characterization is clinically indicated 16 mm left adrenal nodule. Consider adrenal protocol CT or MRI for further evaluation. Incidental finding of degenerative spondylosis The CT scanner at [facility] is accredited by the [employer] and the scans are performed using protocols designed to limit radiation exposure to as low as reasonably achievable to attain images of sufficient resolution adequate for diagnostic evaluation.
[2018-10-24] MEDS ORDERED: NS 275ml ONE (17:26)
[2018-10-24] MEDS ORDERED: D5W 275ml ONE (17:26)
[2018-10-24] MEDS ORDERED: Tubing IV Secondary IV ONE (17:26)
--- NOTE | 2018-10-24 19:10 | NUR ---
NURSE NOTES: Received report from Clary RN, pt. 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 appears to be comfortable in bed watching television, bed in lowest position and call light within easy reach, side rails up x's2 and safety brakes engaged, pt. appears to be sating well on 2L NC - no distress noted, pt. ambulates with steady gait per endorsement- but pt. aware to ask for assist. pt. appears to be clean and dry, rt. wrist 20G IV intact and patent, safety measures continued, will continue with plan of care.
--- NOTE | 2018-10-24 19:21 | NUR ---
HAND-OFF: Report given to EMILIE NAVARRO.
[2018-10-24 20:00] VITALS: BP 136/67
--- NOTE | 2018-10-24 21:09 | NUR ---
NURSE NOTES: side rails padded for seizure precautions- no seizure activity noted upon assessment.
--- NOTE | 2018-10-24 21:58 | NUR ---
NURSE NOTES: per DR. Morgan to change DuoNeb from Q6hrs to Q4hrs- orders carried out.
--- NOTE | 2018-10-24 22:51 | Internal Med Progress Note ---
Subjective Physician Name Mohinder Morgan Attending Physician Mohinder Morgan M.D. Current Medications Medications (Trade) Dose Ordered Sig/Jessica Route PRN Reason Start Time Stop Time Status Last Admin Dose Admin Albuterol/ Ipratropium (Albuterol/ Ipratropium) 3 ml Q4H PRN HHN Shortness of Breath 10/23/18 03:15 10/28/18 03:14 Albuterol/ Ipratropium (Albuterol/ Ipratropium) 3 ml Q4HRT HHN 10/24/18 23:00 10/28/18 12:59 Azithromycin (Zithromax) 250 mg DAILY ORAL 10/24/18 09:00 10/31/18 08:59 10/24/18 09:13 Benazepril HCl (Lotensin) 20 mg DAILY ORAL 10/23/18 09:00 11/22/18 08:59 10/24/18 09:10 Folic Acid (Folate) 1 mg DAILY ORAL 10/23/18 09:00 11/22/18 08:59 10/24/18 09:13 Guaifenesin/ Dextromethorphan (Robitussin DM Syrup) 10 ml Q6H PRN ORAL For Cough 10/23/18 03:45 11/22/18 03:44 10/24/18 21:00 Heparin Sodium (Porcine) (Heparin 5000 units/ml) 5,000 units EVERY 12 HOURS SUBQ 10/23/18 09:00 11/22/18 08:59 10/24/18 20:04 Nifedipine (Procardia XL) 90 mg DAILY ORAL 10/23/18 09:00 11/22/18 08:59 10/24/18 09:11 Oxybutynin Chloride (Ditropan) 10 mg BID ORAL 10/23/18 09:00 11/22/18 08:59 10/24/18 17:24 Phenytoin (Dilantin) 200 mg Q8HR ORAL 10/23/18 16:00 11/22/18 08:59 10/24/18 21:00 Prednisone (predniSONE) 40 mg DAILY ORAL 10/24/18 09:00 11/23/18 08:59 10/24/18 09:11 Allergies: Coded Allergies: No Known Allergies (Unverified , 09/16/18) Constitutional: Denies: no symptoms, chills, diaphoresis, fever, malaise, weakness, other HEENT: Denies: no symptoms, eye pain, blurred vision, tearing, double vision, ear pain, ear discharge, nose pain, nose congestion, throat pain, throat swelling, mouth pain, mouth swelling, other Respiratory: Reports: cough, shortness of breath, SOB with excertion Subjective continues to have cough, shortness of breath and dyspnea with exertion Objective Last Vital Signs Date Time Temp Pulse Resp B/P (MAP) Pulse Ox O2 Delivery O2 Flow Rate FiO2 10/24/18 20:42 94 18 100 Room Air 21 10/24/18 20:00 98.6 136/67 (90) 10/24/18 20:00 2.0 General Appearance: WD/WN, no apparent distress EENT: PERRL/EOMI, normal ENT inspection Neck: supple Cardiovascular: normal peripheral pulses, normal rate, regular rhythm Respiratory/Chest: chest wall non-tender, accessory muscle use, crackles/rales , rhonchi - bilaterally Abdomen: normal bowel sounds, non tender, soft Extremities: non-tender Edema: trace edema Neurologic: alert, oriented x 3, responsive, normal mood/affect Laboratory Tests Test 10/24/18 03:30 Phenytoin (Dilantin) Level 13.9 ug/mL (10-20) Intake and Output 10/23/18 10/24/18 19:00 07:00 Intake Total 350 ml 240 ml Balance 350 ml 240 ml Intake Oral 350 ml 240 ml # Voids 5 # Bowel Movements 1 Assessment/Plan Problem List: (1) Elevated lactic acid level (2) Status asthmaticus (3) COPD exacerbation (4) Respiratory distress Assessment/Plan [place] I: #COPD exacerbation - duonebs - pulm consulted -Continue Advair, add Spiriva -Change Azithro to PO (D3) -F/U Duplex and D-dimer -TTE #HTN - resume home meds- nifedripine #RA - on weekly methotrexate #seizure d/o - resume home dilantin #hypokalemia, - repleted Mohinder Morgan M.D. Oct 24, 2018 22:51
[2018-10-25] VITALS: BP 134/70
[2018-10-25] MEDS: Albuterol/Ipratropium 3ml neb HHN SCH ×6 (03:13→23:25)
[2018-10-25 04:00] VITALS: BP 135/70
[2018-10-25] MEDS: Phenytoin 100mg cap ORAL SCH ×2 (05:04→20:12)
[2018-10-25] MEDS ORDERED: Gadavist 7.5mMol/7.5ml vial IV PRN (06:00)
--- NOTE | 2018-10-25 07:01 | NUR ---
HAND-OFF: Report given to Lorna NAVARRO, pt. remains stable and no signs of distress noted.
--- NOTE | 2018-10-25 07:19 | NUR ---
NURSE NOTES: received patient report and update from freddie cheung. patient is on bed asleep. not in acute distress. comfortable. bed is low and locked for safety. will follow plan of care.
[2018-10-25 08:00] VITALS: BP 146/74
[2018-10-25] MEDS: Azithromycin 250mg tab ORAL SCH (08:22)
[2018-10-25] MEDS: Guaifenesin/DM 10ml syrup ORAL PRN (08:22)
[2018-10-25] MEDS: Oxybutynin 5mg tab ORAL SCH ×2 (08:23→17:13)
[2018-10-25] MEDS: Benazepril 10mg tab ORAL SCH (08:24)
[2018-10-25] MEDS: Heparin 5000 units/ml inj SUBQ SCH ×2 (08:25→20:13)
[2018-10-25 09:11] LABS: BASOPHILS % (AUTO) 0.9 % (0.0-2.0); EOSINOPHILS % (AUTO) 8.4 % (0.0-3.0); HEMATOCRIT 34.7 % (37.0-47.0); HEMOGLOBIN 11.3 G/DL (12.0-16.0); LYMPHOCYTES % (AUTO) 32.8 % (20.0-45.0); MEAN CORPUSCULAR VOLUME 94 FL (80-99); MONOCYTES % (AUTO) 4.4 % (1.0-10.0); NEUTROPHILS % (AUTO) 53.5 % (45.0-75.0); PLATELET COUNT 335 K/UL (150-450); RED BLOOD COUNT 3.71 M/UL (4.20-5.40); RED CELL DISTRIBUTION WIDTH 14.9 % (11.6-14.8)
[2018-10-25 09:20] LABS: ANION GAP 9 mmol/L (5-15); BLOOD UREA NITROGEN 10 mg/dL (7-18); CALCIUM 8.8 MG/DL (8.5-10.1); CARBON DIOXIDE 28 MMOL/L (21-32); CHLORIDE 104 MMOL/L (98-107); CREATININE 0.7 MG/DL (0.55-1.30); POTASSIUM 3.7 MMOL/L (3.5-5.1); SODIUM 141 MMOL/L (136-145)
--- NOTE | 2018-10-25 10:12 | NUR ---
*-*INSURANCE *-* ALL CLINICALS AND REVIEWS HAVE BEEN FAXED TO: [facility] [employer]: MIKE F:[phone]
--- NOTE | 2018-10-25 11:36 | Diagnostic Imaging Report ---
Indication: Thyroid nodule. Mass Technique: Grayscale and duplex Doppler imaging of the thyroid gland performed. Comparison: None Findings: The thyroid gland is normal in size but diffusely heterogeneous with multiple nodules and cystic foci varying size. The right lobe 4.7 x 1.4 x 2.3 cm. The left lobe 4.2 x 1.8 x 2.1 cm. The most prominent solid nodule is in the lower pole the right thyroid lobe measures about 2 cm. There are multiple additional nodules of smaller size in both lobes. IMPRESSION: Multiple heterogeneous nodules, nonspecific in nature within both thyroid lobes.
[2018-10-25 12:00] VITALS: BP 128/69
[2018-10-25] MEDS ORDERED: LORazepam Inj 2mg/ml 1ml IV SCH ×2 (12:00→13:15)
--- NOTE | 2018-10-25 13:21 | Pulmonology Progress Note ---
Assessment/Plan Problems: (1) COPD exacerbation (2) Seizure disorder (3) Former smoker Assessment/Plan Problem List: 1. Respiratory insufficiency 2. Acute COPD exacerbation 3. Leukocytosis 4. Lactic acidosis 5. Seizure disorder 6. Obesity 7. HTN 8. Thyroid nodules incidentally found on chest CT 9. Adrenal nodule incidentally found on chest CT Plan: -Optimize pulmonary hygiene/mobilize as toleratd -PRN O2 -Continue Pred 40 (D4) -HHN's -Continue Advair & Spiriva -PO Azithro (D4) -F/U final duplex -CT AP pending to evaluate adrenal nodule -Consider ENDO eval -monitor volumes and renal function -DVT Px: Hep SQ -Continue to abstain from smoking Subjective Allergies: Coded Allergies: No Known Allergies (Unverified , 09/16/18) Subjective AFVSS O2 needs stable CT with stable parenchyma + thyroid nodules and adrenal nodule Less cough less SOB no CP no FC Vague abd discomfort Objective Last 24 Hour Vital Signs Date Time Temp Pulse Resp B/P (MAP) Pulse Ox O2 Delivery O2 Flow Rate FiO2 10/25/18 12:00 Room Air 10/25/18 12:00 97.7 93 23 128/69 (88) 99 10/25/18 11:47 98 18 99 Nasal Cannula 2.0 28 10/25/18 11:36 97 18 98 Nasal Cannula 2.0 28 10/25/18 09:00 Room Air 10/25/18 08:24 146/74 10/25/18 08:23 103 146/74 10/25/18 08:00 98.4 103 22 146/74 (98) 99 10/25/18 07:50 96 18 99 Nasal Cannula 2.0 28 10/25/18 07:40 97 18 98 Nasal Cannula 2.0 28 10/25/18 07:33 105 10/25/18 04:00 97.5 98 20 135/70 (91) 99 10/25/18 04:00 Room Air 10/25/18 04:00 100 10/25/18 03:23 103 18 99 Nasal Cannula 2.0 28 10/25/18 03:13 97 18 98 Nasal Cannula 2.0 28 10/25/18 00:00 98.1 100 20 134/70 (91) 98 10/25/18 00:00 Room Air 10/25/18 00:00 2.0 10/24/18 23:20 100 10/24/18 23:02 97 18 100 Room Air 21 10/24/18 22:51 96 20 98 Nasal Cannula 2.0 28 10/24/18 20:42 94 18 100 Room Air 21 10/24/18 20:32 92 20 98 Room Air 21 10/24/18 20:00 92 10/24/18 20:00 98.6 98 20 136/67 (90) 98 10/24/18 20:00 Room Air 10/24/18 20:00 2.0 10/24/18 16:00 Room Air 10/24/18 16:00 97.9 90 22 134/73 (93) 98 10/24/18 16:00 103 Intake and Output 10/24/18 10/25/18 19:00 07:00 Intake Total 350 ml Balance 350 ml Intake Oral 350 ml # Voids 3 1 # Bowel Movements 1 General Appearance: WD/WN, no acute distress HEENT: normocephalic, atraumatic, anicteric, mucous membranes moist Respiratory/Chest: chest wall non-tender, lungs clear, no respiratory distress , no accessory muscle use, expiratory wheezing Cardiovascular: normal peripheral pulses, normal rate, regular rhythm Abdomen: normal bowel sounds, soft, non tender, no organomegaly, non distended , no mass Extremities: no cyanosis, no clubbing, no edema Laboratory Tests 10/25/18 08:55: White Blood Count 15.0H, Red Blood Count 3.71L, Hemoglobin 11.3L, Hematocrit 34.7L, Mean Corpuscular Volume 94, Mean Corpuscular Hemoglobin 30.4, Mean Corpuscular Hemoglobin Concent 32.5, Red Cell Distribution Width 14.9H, Platelet Count 335, Mean Platelet Volume 5.1L, Neutrophils (%) (Auto) 53.5, Lymphocytes (%) (Auto) 32.8, Monocytes (%) (Auto) 4.4, Eosinophils (%) (Auto) 8.4H, Basophils (%) (Auto) 0.9, Sodium Level 141, Potassium Level 3.7, Chloride Level 104, Carbon Dioxide Level 28, Anion Gap 9, Blood Urea Nitrogen 10, Creatinine 0.7, Estimat Glomerular Filtration Rate > 60, Glucose Level 222H, Calcium Level 8.8 Current Medications Medications (Trade) Dose Ordered Sig/Jessica Route PRN Reason Start Time Stop Time Status Last Admin Dose Admin Albuterol/ Ipratropium (Albuterol/ Ipratropium) 3 ml Q4H PRN HHN Shortness of Breath 10/23/18 03:15 10/28/18 03:14 Albuterol/ Ipratropium (Albuterol/ Ipratropium) 3 ml Q4HRT HHN 10/24/18 23:00 10/28/18 12:59 10/25/18 11:36 Azithromycin (Zithromax) 250 mg DAILY ORAL 10/24/18 09:00 10/31/18 08:59 10/25/18 08:22 Barium Sulfate (Readi-Cat 2) 450 ml NOW PRN ORAL Radiology Procedure 10/25/18 13:30 10/27/18 13:16 UNV Benazepril HCl (Lotensin) 20 mg DAILY ORAL 10/23/18 09:00 11/22/18 08:59 10/25/18 08:24 Folic Acid (Folate) 1 mg DAILY ORAL 10/23/18 09:00 11/22/18 08:59 10/25/18 08:22 Gadobutrol (Gadavist) 7.5 mmol ONCE PRN IV radiology 10/25/18 06:00 10/26/18 23:59 Guaifenesin/ Dextromethorphan (Robitussin DM Syrup) 10 ml Q6H PRN ORAL For Cough 10/23/18 03:45 11/22/18 03:44 10/25/18 08:22 Heparin Sodium (Porcine) (Heparin 5000 units/ml) 5,000 units EVERY 12 HOURS SUBQ 10/23/18 09:00 11/22/18 08:59 10/25/18 08:25 Iopamidol (Isovue-300 100ml) 100 ml NOW PRN INJ Radiology Procedure 10/25/18 13:30 10/26/18 13:29 Lorazepam (Ativan 2mg/ml 1ml) 1 mg ONCE IV 10/25/18 12:00 10/25/18 17:00 10/25/18 12:54 Lorazepam (Ativan 2mg/ml 1ml) 1 mg ONCE IV 10/25/18 13:15 10/25/18 17:00 Nifedipine (Procardia XL) 90 mg DAILY ORAL 10/23/18 09:00 11/22/18 08:59 10/25/18 08:23 Oxybutynin Chloride (Ditropan) 10 mg BID ORAL 10/23/18 09:00 11/22/18 08:59 10/25/18 08:23 Phenytoin (Dilantin) 200 mg Q12HR ORAL 10/25/18 21:00 11/24/18 20:59 Prednisone (predniSONE) 40 mg DAILY ORAL 10/24/18 09:00 11/23/18 08:59 10/25/18 08:22 Abraham Wooten MD Oct 25, 2018 13:21
--- NOTE | 2018-10-25 13:22 | Internal Med Progress Note ---
Subjective Physician Name Mohinder Morgan Attending Physician Mohinder Morgan M.D. Current Medications Medications (Trade) Dose Ordered Sig/Jessica Route PRN Reason Start Time Stop Time Status Last Admin Dose Admin Albuterol/ Ipratropium (Albuterol/ Ipratropium) 3 ml Q4H PRN HHN Shortness of Breath 10/23/18 03:15 10/28/18 03:14 Albuterol/ Ipratropium (Albuterol/ Ipratropium) 3 ml Q4HRT HHN 10/24/18 23:00 10/28/18 12:59 10/25/18 11:36 Azithromycin (Zithromax) 250 mg DAILY ORAL 10/24/18 09:00 10/31/18 08:59 10/25/18 08:22 Barium Sulfate (Readi-Cat 2) 450 ml NOW PRN ORAL Radiology Procedure 10/25/18 13:30 10/27/18 13:16 Benazepril HCl (Lotensin) 20 mg DAILY ORAL 10/23/18 09:00 11/22/18 08:59 10/25/18 08:24 Folic Acid (Folate) 1 mg DAILY ORAL 10/23/18 09:00 11/22/18 08:59 10/25/18 08:22 Gadobutrol (Gadavist) 7.5 mmol ONCE PRN IV radiology 10/25/18 06:00 10/26/18 23:59 Guaifenesin/ Dextromethorphan (Robitussin DM Syrup) 10 ml Q6H PRN ORAL For Cough 10/23/18 03:45 11/22/18 03:44 10/25/18 08:22 Heparin Sodium (Porcine) (Heparin 5000 units/ml) 5,000 units EVERY 12 HOURS SUBQ 10/23/18 09:00 11/22/18 08:59 10/25/18 08:25 Iopamidol (Isovue-300 100ml) 100 ml NOW PRN INJ Radiology Procedure 10/25/18 13:30 10/26/18 13:29 Lorazepam (Ativan 2mg/ml 1ml) 1 mg ONCE IV 10/25/18 12:00 10/25/18 17:00 10/25/18 12:54 Lorazepam (Ativan 2mg/ml 1ml) 1 mg ONCE IV 10/25/18 13:15 10/25/18 17:00 Nifedipine (Procardia XL) 90 mg DAILY ORAL 10/23/18 09:00 11/22/18 08:59 10/25/18 08:23 Oxybutynin Chloride (Ditropan) 10 mg BID ORAL 10/23/18 09:00 11/22/18 08:59 10/25/18 08:23 Phenytoin (Dilantin) 200 mg Q12HR ORAL 10/25/18 21:00 11/24/18 20:59 Prednisone (predniSONE) 40 mg DAILY ORAL 10/24/18 09:00 11/23/18 08:59 10/25/18 08:22 Allergies: Coded Allergies: No Known Allergies (Unverified , 09/16/18) Subjective continues to have cough, shortness of breath and dyspnea with exertion going for abdominal MRI today Objective Last Vital Signs Date Time Temp Pulse Resp B/P (MAP) Pulse Ox O2 Delivery O2 Flow Rate FiO2 10/25/18 12:00 Room Air 10/25/18 12:00 97.7 93 23 128/69 (88) 99 10/25/18 11:47 2.0 28 Laboratory Tests Test 10/25/18 08:55 White Blood Count 15.0 K/UL (4.8-10.8) H Red Blood Count 3.71 M/UL (4.20-5.40) L Hemoglobin 11.3 G/DL (12.0-16.0) L Hematocrit 34.7 % (37.0-47.0) L Mean Corpuscular Volume 94 FL (80-99) Mean Corpuscular Hemoglobin 30.4 PG (27.0-31.0) Mean Corpuscular Hemoglobin Concent 32.5 G/DL (32.0-36.0) Red Cell Distribution Width 14.9 % (11.6-14.8) H Platelet Count 335 K/UL (150-450) Mean Platelet Volume 5.1 FL (6.5-10.1) L Neutrophils (%) (Auto) 53.5 % (45.0-75.0) Lymphocytes (%) (Auto) 32.8 % (20.0-45.0) Monocytes (%) (Auto) 4.4 % (1.0-10.0) Eosinophils (%) (Auto) 8.4 % (0.0-3.0) H Basophils (%) (Auto) 0.9 % (0.0-2.0) Sodium Level 141 MMOL/L (136-145) Potassium Level 3.7 MMOL/L (3.5-5.1) Chloride Level 104 MMOL/L (98-107) Carbon Dioxide Level 28 MMOL/L (21-32) Anion Gap 9 mmol/L (5-15) Blood Urea Nitrogen 10 mg/dL (7-18) Creatinine 0.7 MG/DL (0.55-1.30) Estimat Glomerular Filtration Rate > 60 mL/min (>60) Glucose Level 222 MG/DL (74-106) H Calcium Level 8.8 MG/DL (8.5-10.1) Intake and Output 10/24/18 10/25/18 19:00 07:00 Intake Total 350 ml Balance 350 ml Intake Oral 350 ml # Voids 3 1 # Bowel Movements 1 Assessment/Plan Problem List: (1) Elevated lactic acid level (2) Status asthmaticus (3) COPD exacerbation (4) Respiratory distress Assessment/Plan [place] I: #COPD exacerbation - duonebs - pulm consulted -Continue Advair, add Spiriva -Change Azithro to PO (D4) - CT chest noted - LE duplex # Adreal nodule - abd MRI #thyroid nodule - thyroid US-> Multiple heterogeneous nodules, nonspecific in nature within both thyroid lobes - outpatient endocrine referral #HTN - resume home meds- nifedripine #RA - on weekly methotrexate #seizure d/o - resume home dilantin #hypokalemia, - repleted Mohinder Morgan M.D. Oct 25, 2018 13:22
[2018-10-25] MEDS ORDERED: Isovue-300 100ml vial INJ PRN (13:30)
--- NOTE | 2018-10-25 14:48 | NUR ---
MRI ABDOMEN W/WO COMPLETED
--- NOTE | 2018-10-25 14:51 | NUR ---
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 STATUS ASTHMATICUS VS: BP 146/74, P 103, T 97.7, RR 23, SpO2 99 On 2.0L O2 NC WBC 15.0, RBC 3.71, H&h 11.3/34.7, Glucose 222 IS:LORAZEPAM 1mg IV ALBUTEROL 3ml HHN HEPARIN SUBQ LOTENSIN 20mg NIFEDIPINE 90mg DITROPAN 10mg ZITHROMAX 250mg PREDNISONE 40mg PLAN: MRI 10/25 CONT. ADVAIR ADD SPIRIVA TRANSFER TO TELE SDU STATUS
[2018-10-25 16:00] VITALS: BP 129/73
--- NOTE | 2018-10-25 16:05 | Diagnostic Imaging Report ---
Indication: Abdominal pain Technique: MRI of the abdomen was performed in a 1.5 Abby magnet. Pulse sequences obtained include coronal and axial T2 single shot fast spin echo breathhold, Axial T1 FSPGR in/out phase, Axial T2 FSE w/ fat saturation, Axial 2-D FIESTA, pre and post dynamic gadolinium-enhanced Ax/Cor T1 LAVA. Comparison: None Findings: Study is significantly degraded by breathing motion particularly the post gadolinium sequences. In and out of phase sequences were diagnostic. The left adrenal mass does not exhibit chemical shift and therefore cannot rule in micro lipid within the adrenal gland and therefore unfortunately cannot definitively make the diagnosis of a benign adrenal adenoma on this exam. There is no biliary ductal dilatation identified. There is no imaging evidence of acute pancreatitis on this examination. There are multiple tiny bilateral renal cysts. There is no ascites, pseudocysts or abnormal fluid collections. The gallbladder is unremarkable. IMPRESSION: Limited evaluation due to motion Left adrenal mass is indeterminate. Cannot rule in benign adenoma diagnosis. This could still be a lipid poor adenoma, but other possibilities such as malignancy are not excluded. No biliary ductal dilatation. Unremarkable gallbladder. Multiple tiny bilateral renal cysts. No imaging evidence for acute pancreatitis. Correlate with lipase
--- NOTE | 2018-10-25 17:01 | NUR ---
NURSE NOTES: left a message to dr delvalle that duplex of bilateral Le was done already yesterday and result was normal.
--- NOTE | 2018-10-25 18:40 | Diagnostic Imaging Report ---
APPROVED REPORT CPT Code: 62571 Present Symptoms Shortness of breath BILATERAL: Imaging reveals a patent deep venous system bilaterally. There is no evidence of thrombus within the femoral, popliteal or tibial segments. The greater saphenous veins are also within normal limits. Doppler indicates normal spontaneous flow within these segments.
--- NOTE | 2018-10-25 19:00 | NUR ---
HAND-OFF: Report given to ayaz cheung.
--- NOTE | 2018-10-25 19:01 | NUR ---
NURSE NOTES: Patient received from MELANIE Rothman in stable condition with no signs of acute distress. Patient is A&O X4 and on NC 2L saturating at 98% O2. Patient is ST at 104 bpm on cardiac catheterization technologist. Patients skin is intact with a RT wrist 20g IV saline lock. Patient walks and is stable. Fall predations observed and patient was educated on fall predations. Bed at its lowest position, call light is in reach, and X3 bed rails up.
[2018-10-25 20:00] VITALS: BP 120/61
[2018-10-26] VITALS: BP 124/68
[2018-10-26] MEDS: Albuterol/Ipratropium 3ml neb HHN SCH ×6 (03:27→23:09)
[2018-10-26 04:00] VITALS: BP 122/73
[2018-10-26 05:14] LABS: ANION GAP 8 mmol/L (5-15); BLOOD UREA NITROGEN 12 mg/dL (7-18); CARBON DIOXIDE 30 MMOL/L (21-32); CHLORIDE 105 MMOL/L (98-107); CREATININE 0.6 MG/DL (0.55-1.30); SODIUM 143 MMOL/L (136-145)
[2018-10-26 05:36] LABS: HEMATOCRIT 34.1 % (37.0-47.0); HEMOGLOBIN 11.3 G/DL (12.0-16.0); MEAN CORPUSCULAR VOLUME 94 FL (80-99); PLATELET COUNT 337 K/UL (150-450); RED BLOOD COUNT 3.65 M/UL (4.20-5.40); RED CELL DISTRIBUTION WIDTH 14.9 % (11.6-14.8)
--- NOTE | 2018-10-26 06:45 | NUR ---
NURSE NOTES: PT experienced profuse coughing with clear sputum upon waking in the AM. Processing her back helped alleviate her congestion.
--- NOTE | 2018-10-26 07:16 | NUR ---
HAND-OFF: Report given to MELANIE Kirk.
--- NOTE | 2018-10-26 07:17 | NUR ---
NURSE NOTES: Received report from MELANIE Morales. Observed patient in bed, awake, alert, able to make needs known. Patient on O2 2L via NC c/o cough last night; RT at bedside for breathing treatment, otherwise no acute respiratory distress noted. Right wrist 20g saline lock intact and patent. Safety precautions in place, bed locked, alarmed, and in lowest position, side rails up x3, call light left within reach. Instructed patient to call for assistance before getting out of bed, verbalized understanding. Will continue plan of care.
[2018-10-26 08:00] VITALS: BP 140/72
[2018-10-26] MEDS: Oxybutynin 5mg tab ORAL SCH ×2 (08:46→17:19)
[2018-10-26] MEDS: Azithromycin 250mg tab ORAL SCH (08:47)
[2018-10-26] MEDS: Benazepril 10mg tab ORAL SCH (08:47)
[2018-10-26] MEDS: Phenytoin 100mg cap ORAL SCH ×2 (08:47→21:39)
[2018-10-26] MEDS: Heparin 5000 units/ml inj SUBQ SCH ×2 (08:54→21:39)
[2018-10-26] MEDS: Guaifenesin/DM 10ml syrup ORAL PRN ×2 (08:54→23:19)
--- NOTE | 2018-10-26 10:03 | NUR ---
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
--- NOTE | 2018-10-26 10:51 | Internal Med Progress Note ---
Subjective Physician Name Mohinder Morgan Attending Physician Mohinder Morgan M.D. Current Medications Medications (Trade) Dose Ordered Sig/Jessica Route PRN Reason Start Time Stop Time Status Last Admin Dose Admin Albuterol/ Ipratropium (Albuterol/ Ipratropium) 3 ml Q4H PRN HHN Shortness of Breath 10/23/18 03:15 10/28/18 03:14 Albuterol/ Ipratropium (Albuterol/ Ipratropium) 3 ml Q4HRT HHN 10/24/18 23:00 10/28/18 12:59 10/26/18 07:11 Azithromycin (Zithromax) 250 mg DAILY ORAL 10/24/18 09:00 10/31/18 08:59 10/26/18 08:47 Barium Sulfate (Readi-Cat 2) 450 ml NOW PRN ORAL Radiology Procedure 10/25/18 13:30 10/27/18 13:16 Benazepril HCl (Lotensin) 20 mg DAILY ORAL 10/23/18 09:00 11/22/18 08:59 10/26/18 08:47 Folic Acid (Folate) 1 mg DAILY ORAL 10/23/18 09:00 11/22/18 08:59 10/26/18 08:47 Gadobutrol (Gadavist) 7.5 mmol ONCE PRN IV radiology 10/25/18 06:00 10/26/18 23:59 Guaifenesin/ Dextromethorphan (Robitussin DM Syrup) 10 ml Q6H PRN ORAL For Cough 10/23/18 03:45 11/22/18 03:44 10/26/18 08:54 Heparin Sodium (Porcine) (Heparin 5000 units/ml) 5,000 units EVERY 12 HOURS SUBQ 10/23/18 09:00 11/22/18 08:59 10/26/18 08:54 Iopamidol (Isovue-300 100ml) 100 ml NOW PRN INJ Radiology Procedure 10/25/18 13:30 10/26/18 13:29 Nifedipine (Procardia XL) 90 mg DAILY ORAL 10/23/18 09:00 11/22/18 08:59 10/26/18 08:46 Oxybutynin Chloride (Ditropan) 10 mg BID ORAL 10/23/18 09:00 11/22/18 08:59 10/26/18 08:46 Phenytoin (Dilantin) 200 mg Q12HR ORAL 10/25/18 21:00 11/24/18 20:59 10/26/18 08:47 Prednisone (predniSONE) 40 mg DAILY ORAL 10/24/18 09:00 11/23/18 08:59 10/26/18 08:47 Allergies: Coded Allergies: No Known Allergies (Unverified , 09/16/18) Subjective continues to have cough, shortness of breath and dyspnea with exertion s/p abdominal MRI -> adrenal nodule indeterminta Objective Last Vital Signs Date Time Temp Pulse Resp B/P (MAP) Pulse Ox O2 Delivery O2 Flow Rate FiO2 10/26/18 08:47 140/72 10/26/18 08:46 99 10/26/18 08:00 99.1 22 99 10/26/18 07:26 Nasal Cannula 2.0 28 Laboratory Tests Test 10/26/18 03:00 White Blood Count 18.0 K/UL (4.8-10.8) H Red Blood Count 3.65 M/UL (4.20-5.40) L Hemoglobin 11.3 G/DL (12.0-16.0) L Hematocrit 34.1 % (37.0-47.0) L Mean Corpuscular Volume 94 FL (80-99) Mean Corpuscular Hemoglobin 30.9 PG (27.0-31.0) Mean Corpuscular Hemoglobin Concent 33.0 G/DL (32.0-36.0) Red Cell Distribution Width 14.9 % (11.6-14.8) H Platelet Count 337 K/UL (150-450) Mean Platelet Volume 6.2 FL (6.5-10.1) L Neutrophils (%) (Auto) % (45.0-75.0) Lymphocytes (%) (Auto) % (20.0-45.0) Monocytes (%) (Auto) % (1.0-10.0) Eosinophils (%) (Auto) % (0.0-3.0) Basophils (%) (Auto) % (0.0-2.0) Differential Total Cells Counted 100 Neutrophils % (Manual) 59 % (45-75) Lymphocytes % (Manual) 31 % (20-45) Monocytes % (Manual) 2 % (1-10) Eosinophils % (Manual) 7 % (0-3) H Basophils % (Manual) 1 % (0-2) Band Neutrophils 0 % (0-8) Platelet Estimate Adequate Platelet Morphology Normal Hypochromasia 1+ Sodium Level 143 MMOL/L (136-145) Potassium Level 4.0 MMOL/L (3.5-5.1) Chloride Level 105 MMOL/L (98-107) Carbon Dioxide Level 30 MMOL/L (21-32) Anion Gap 8 mmol/L (5-15) Blood Urea Nitrogen 12 mg/dL (7-18) Creatinine 0.6 MG/DL (0.55-1.30) Estimat Glomerular Filtration Rate > 60 mL/min (>60) Glucose Level 117 MG/DL (74-106) #H Calcium Level 9.0 MG/DL (8.5-10.1) Intake and Output 10/25/18 10/26/18 19:00 07:00 Intake Total 450 ml Balance 450 ml Intake Oral 450 ml # Voids 3 1 # Bowel Movements 3 1 Assessment/Plan Problem List: (1) Elevated lactic acid level (2) Status asthmaticus (3) COPD exacerbation (4) Respiratory distress Assessment/Plan [place] I: #COPD exacerbation - duonebs - pulm consulted -Continue Advair, add Spiriva -Change Azithro to PO (D5) - CT chest noted - LE duplex neg # Adreal nodule - abd MRI shows indeterminate adrenal nodule - kalli consider CT #thyroid nodule - thyroid US-> Multiple heterogeneous nodules, nonspecific in nature within both thyroid lobes - outpatient endocrine referral #HTN - resume home meds- nifedipine #RA - on weekly methotrexate #seizure d/o - resume home dilantin BID #hypokalemia, - repleted Mohinder Morgan M.D. Oct 26, 2018 10:51
--- NOTE | 2018-10-26 11:45 | Pulmonology Progress Note ---
Assessment/Plan Problems: (1) COPD exacerbation (2) Seizure disorder (3) Former smoker Assessment/Plan Problem List: 1. Respiratory insufficiency 2. Acute COPD exacerbation 3. Leukocytosis 4. Lactic acidosis 5. Seizure disorder 6. Obesity 7. HTN 8. Thyroid nodules incidentally found on chest CT 9. Adrenal nodule incidentally found on chest CT, indeterminate on MRI Plan: -Optimize pulmonary hygiene/mobilize as toleratd -PRN O2 -Continue Pred 40 (D5) -HHN's -Add CPT -Continue Advair & Spiriva -D/C PO Azithro (D5) -Defer further w/u of adrenal nodule to PMD -Consider ENDO eval -monitor volumes and renal function -DVT Px: Hep SQ -Continue to abstain from smoking Subjective Allergies: Coded Allergies: No Known Allergies (Unverified , 09/16/18) Subjective AFVSS O2 needs stable MRI with indeterminant adrenal nodule Less cough less SOB no CP no FC Havign a hard time mobilizing Objective Last 24 Hour Vital Signs Date Time Temp Pulse Resp B/P (MAP) Pulse Ox O2 Delivery O2 Flow Rate FiO2 10/26/18 11:36 88 18 99 Nasal Cannula 2.0 28 10/26/18 11:29 87 18 98 Nasal Cannula 2.0 28 10/26/18 08:47 140/72 10/26/18 08:46 99 140/72 10/26/18 08:00 99.1 99 22 140/72 (94) 99 10/26/18 07:43 107 10/26/18 07:26 104 18 99 Nasal Cannula 2.0 28 10/26/18 07:11 99 18 98 Nasal Cannula 2.0 28 10/26/18 04:00 98.2 90 20 122/73 (89) 98 10/26/18 03:44 96 10/26/18 03:37 91 18 99 Nasal Cannula 2.0 28 10/26/18 03:27 90 18 98 Nasal Cannula 2.0 28 10/26/18 00:00 97.6 99 18 124/68 (86) 99 10/25/18 23:35 94 18 99 Nasal Cannula 2.0 28 10/25/18 23:25 97 18 98 Nasal Cannula 2.0 28 10/25/18 23:19 100 10/25/18 21:29 2.0 10/25/18 20:00 98.7 102 20 120/61 (80) 98 10/25/18 20:00 104 10/25/18 19:49 98 18 99 Nasal Cannula 2.0 28 10/25/18 19:39 95 18 97 Nasal Cannula 2.0 28 10/25/18 16:00 Room Air 10/25/18 16:00 97.7 97 20 129/73 (91) 98 10/25/18 15:40 92 18 99 Nasal Cannula 2.0 28 10/25/18 15:30 92 16 98 Nasal Cannula 2.0 28 10/25/18 15:10 96 10/25/18 12:00 Room Air 10/25/18 12:00 97.7 93 23 128/69 (88) 99 10/25/18 11:47 98 18 99 Nasal Cannula 2.0 28 Intake and Output 10/25/18 10/26/18 19:00 07:00 Intake Total 450 ml Balance 450 ml Intake Oral 450 ml # Voids 3 1 # Bowel Movements 3 1 General Appearance: WD/WN, no acute distress HEENT: normocephalic, atraumatic, anicteric, mucous membranes moist Respiratory/Chest: chest wall non-tender, lungs clear - but distant, no respiratory distress, no accessory muscle use Cardiovascular: normal peripheral pulses, normal rate, regular rhythm Abdomen: normal bowel sounds, soft, non tender, no organomegaly, non distended , no mass Extremities: no cyanosis, no clubbing, no edema Laboratory Tests 10/26/18 03:00: White Blood Count 18.0H, Red Blood Count 3.65L, Hemoglobin 11.3L, Hematocrit 34.1L, Mean Corpuscular Volume 94, Mean Corpuscular Hemoglobin 30.9, Mean Corpuscular Hemoglobin Concent 33.0, Red Cell Distribution Width 14.9H, Platelet Count 337, Mean Platelet Volume 6.2L, Neutrophils (%) (Auto) , Lymphocytes (%) (Auto) , Monocytes (%) (Auto) , Eosinophils (%) (Auto) , Basophils (%) (Auto) , Differential Total Cells Counted 100, Neutrophils % ( Manual) 59, Lymphocytes % (Manual) 31, Monocytes % (Manual) 2, Eosinophils % ( Manual) 7H, Basophils % (Manual) 1, Band Neutrophils 0, Platelet Estimate Adequate, Platelet Morphology Normal, Hypochromasia 1+, Sodium Level 143, Potassium Level 4.0, Chloride Level 105, Carbon Dioxide Level 30, Anion Gap 8, Blood Urea Nitrogen 12, Creatinine 0.6, Estimat Glomerular Filtration Rate > 60 , Glucose Level 117#H, Calcium Level 9.0 Current Medications Medications (Trade) Dose Ordered Sig/Jessica Route PRN Reason Start Time Stop Time Status Last Admin Dose Admin Albuterol/ Ipratropium (Albuterol/ Ipratropium) 3 ml Q4H PRN HHN Shortness of Breath 10/23/18 03:15 10/28/18 03:14 Albuterol/ Ipratropium (Albuterol/ Ipratropium) 3 ml Q4HRT HHN 10/24/18 23:00 10/28/18 12:59 10/26/18 11:27 Azithromycin (Zithromax) 250 mg DAILY ORAL 10/24/18 09:00 10/31/18 08:59 10/26/18 08:47 Barium Sulfate (Readi-Cat 2) 450 ml NOW PRN ORAL Radiology Procedure 10/25/18 13:30 10/27/18 13:16 Benazepril HCl (Lotensin) 20 mg DAILY ORAL 10/23/18 09:00 11/22/18 08:59 10/26/18 08:47 Folic Acid (Folate) 1 mg DAILY ORAL 10/23/18 09:00 11/22/18 08:59 10/26/18 08:47 Gadobutrol (Gadavist) 7.5 mmol ONCE PRN IV radiology 10/25/18 06:00 10/26/18 23:59 Guaifenesin/ Dextromethorphan (Robitussin DM Syrup) 10 ml Q6H PRN ORAL For Cough 10/23/18 03:45 11/22/18 03:44 10/26/18 08:54 Heparin Sodium (Porcine) (Heparin 5000 units/ml) 5,000 units EVERY 12 HOURS SUBQ 10/23/18 09:00 11/22/18 08:59 10/26/18 08:54 Iopamidol (Isovue-300 100ml) 100 ml NOW PRN INJ Radiology Procedure 10/25/18 13:30 10/26/18 13:29 Nifedipine (Procardia XL) 90 mg DAILY ORAL 10/23/18 09:00 11/22/18 08:59 10/26/18 08:46 Oxybutynin Chloride (Ditropan) 10 mg BID ORAL 10/23/18 09:00 11/22/18 08:59 10/26/18 08:46 Phenytoin (Dilantin) 200 mg Q12HR ORAL 10/25/18 21:00 11/24/18 20:59 10/26/18 08:47 Prednisone (predniSONE) 40 mg DAILY ORAL 10/24/18 09:00 11/23/18 08:59 10/26/18 08:47 Abraham Wooten MD Oct 26, 2018 11:45
[2018-10-26 12:00] VITALS: BP 129/73
--- NOTE | 2018-10-26 14:57 | NUR ---
*-*INSURANCE *-* UPDATED CLINICALS AND REVIEWS HAVE BEEN FAXED TO: [facility]: MIKE F:[phone]
[2018-10-26 16:00] VITALS: BP 125/58
--- NOTE | 2018-10-26 18:55 | NUR ---
HAND-OFF: Report given to MELANIE Jeffery. Patient in stable condition.
--- NOTE | 2018-10-26 19:00 | NUR ---
NURSE NOTES: RECEIVED PT FROM MELANIE DUBOSE. PT IS X4, NSR ON THE MONITOR. 2L NC, SATING WELL, RECEIVING CHEST PT CURRENTLY FROM RT. SKIN IS CLEAN, DRY, INTACT. RW 20 SL, ASYMPTOMATIC. ORDER TO TX TO TELE 201-2 TO [facility], WILL CARRY OUT. BED IS LOCKED IN LOWEST POSITION, SR X3, CALL [place] W/ IN REACH, SZ PRECAUTIONS CONTINUED. WILL CONTINUE TO MONITOR AND FOLLOW W/ PLAN OF CARE.
--- NOTE | 2018-10-26 19:45 | NUR ---
TRANSFER TO FLOOR: Patient transferred to [facility], per DR. WALKER. Report given to MELANIE LAZCANO. Belongings and medications given to MELANIE LAZCANO. Family and or S/O informed of transfer.
[2018-10-26 20:00] VITALS: BP 143/78
[2018-10-26] MEDS ORDERED: Gadavist 7.5mMol/7.5ml vial IV ONE (20:00)
--- NOTE | 2018-10-26 20:15 | NUR ---
NURSE NOTES: Pt observed in bed, awake, alert, able to make needs known. Patient on 2L O2 via NC c/o cough, RT at bedside for breathing treatment, otherwise no acute respiratory distress noted. Right wrist 20g saline lock intact and patent. Safety precautions in place, bed locked, in lowest position, side rails up x3, call light left within reach. Instructed patient to call for assistance before getting out of bed, verbalized understanding. Will continue plan of care.
[2018-10-27] VITALS: BP 138/62
[2018-10-27] MEDS: Albuterol/Ipratropium 3ml neb HHN SCH ×6 (02:59→23:35)
[2018-10-27 04:07] VITALS: BP 120/61
--- NOTE | 2018-10-27 07:25 | NUR ---
HAND-OFF: Report given to .MELANIE Swanson
--- NOTE | 2018-10-27 07:38 | NUR ---
NURSE NOTES: Pt, having breakfast. Pt AOx4. Pt has no IV access at this time. Pt on monitoring manager no signs of cardiac or respiratory distress at this time. Bed in lowest position and locked. Call light is within reach. Will continue plan of care.
[2018-10-27 08:00] VITALS: BP 123/77
--- NOTE | 2018-10-27 09:12 | NUR ---
PACKAGERLIGHT COIL WINDER SI:COPD EXACERBATION VS: BP 120/61, P 97, T 98.2, RR 20, SpO2 98 on 2.0 NC WBC 18.0, RBC 3.65, H&H 11.3/34.1, A1c 6.8 IS:ALBUTEROL 3ml HHN HEPARIN SUBQ DILANTIN 200mg PLAN: CONT. PREDNISONE HHN's TELE STATUS
[2018-10-27] MEDS: Oxybutynin 5mg tab ORAL SCH ×2 (09:22→17:41)
[2018-10-27] MEDS: Phenytoin 100mg cap ORAL SCH ×2 (09:22→20:55)
[2018-10-27] MEDS: Benazepril 10mg tab ORAL SCH (09:24)
[2018-10-27] MEDS: Heparin 5000 units/ml inj SUBQ SCH ×2 (09:25→21:00)
--- NOTE | 2018-10-27 10:02 | NUR ---
*-*INSURANCE *-* UPDATED CLINICALS AND REVIEWS HAVE BEEN FAXED TO: [facility]: MIKE F:[phone]
[2018-10-27] MEDS: Guaifenesin/DM 10ml syrup ORAL PRN (10:40)
[2018-10-27 12:00] VITALS: BP 116/58
[2018-10-27 16:00] VITALS: BP 135/67
--- NOTE | 2018-10-27 16:40 | Internal Med Progress Note ---
Subjective Physician Name Mohinder Morgan Attending Physician Mohinder Morgan M.D. Current Medications Medications (Trade) Dose Ordered Sig/Jessica Route PRN Reason Start Time Stop Time Status Last Admin Dose Admin Albuterol/ Ipratropium (Albuterol/ Ipratropium) 3 ml Q4H PRN HHN Shortness of Breath 10/26/18 20:30 10/28/18 20:29 Albuterol/ Ipratropium (Albuterol/ Ipratropium) 3 ml Q4HRT HHN 10/26/18 23:00 10/28/18 12:59 10/27/18 14:46 Barium Sulfate (Readi-Cat 2) 450 ml NOW PRN ORAL Radiology Procedure 10/26/18 20:00 10/27/18 19:59 Benazepril HCl (Lotensin) 20 mg DAILY ORAL 10/27/18 09:00 11/22/18 08:59 10/27/18 09:24 Folic Acid (Folate) 1 mg DAILY ORAL 10/27/18 09:00 11/22/18 08:59 10/27/18 09:24 Guaifenesin/ Dextromethorphan (Robitussin DM Syrup) 10 ml Q6H PRN ORAL For Cough 10/26/18 20:30 11/22/18 20:29 10/27/18 10:40 Heparin Sodium (Porcine) (Heparin 5000 units/ml) 5,000 units EVERY 12 HOURS SUBQ 10/26/18 21:00 11/22/18 08:59 10/27/18 09:25 Nifedipine (Procardia XL) 90 mg DAILY ORAL 10/27/18 09:00 11/22/18 08:59 10/27/18 09:23 Oxybutynin Chloride (Ditropan) 10 mg BID ORAL 10/27/18 09:00 11/22/18 08:59 10/27/18 09:22 Phenytoin (Dilantin) 200 mg Q12HR ORAL 10/26/18 21:00 11/24/18 20:59 10/27/18 09:22 Prednisone (predniSONE) 40 mg DAILY ORAL 10/27/18 09:00 11/23/18 08:59 10/27/18 09:23 Allergies: Coded Allergies: No Known Allergies (Unverified , 09/16/18) Subjective continues to have cough, shortness of breath and dyspnea with exertion s/p abdominal MRI -> adrenal nodule indeterminta Objective Last Vital Signs Date Time Temp Pulse Resp B/P (MAP) Pulse Ox O2 Delivery O2 Flow Rate FiO2 10/27/18 15:12 89 20 100 Nasal Cannula 2.0 28 10/27/18 12:00 98.3 116/58 (77) Laboratory Tests Test 10/27/18 04:45 Hemoglobin A1c 6.8 % (4.3-6.0) H Intake and Output 10/26/18 10/27/18 19:00 07:00 # Voids 2 2 # Bowel Movements 1 Assessment/Plan Problem List: (1) Elevated lactic acid level (2) Status asthmaticus (3) COPD exacerbation (4) Respiratory distress Assessment/Plan [place] I: #COPD exacerbation - duonebs - pulm consulted -Continue Advair, add Spiriva -Change Azithro to PO (D5) - CT chest noted - LE duplex neg # Adreal nodule - abd MRI shows indeterminate adrenal nodule - kalli consider CT #thyroid nodule - thyroid US-> Multiple heterogeneous nodules, nonspecific in nature within both thyroid lobes - outpatient endocrine referral #HTN - resume home meds- nifedipine #RA - on weekly methotrexate #seizure d/o - resume home dilantin BID #hypokalemia, - repleted Mohinder Morgan M.D. Oct 27, 2018 16:40
--- NOTE | 2018-10-27 17:08 | NUR ---
TO order confirmed with Dr. Morgan, he wants chest phisiotherapy qid.
[2018-10-27] MEDS: HYDROcodone/Acetamin 5/325 tab ORAL PRN (17:47)
--- NOTE | 2018-10-27 18:43 | Pulmonology Progress Note ---
Assessment/Plan Problems: (1) COPD exacerbation (2) Seizure disorder (3) Former smoker Assessment/Plan Problem List: 1. Respiratory insufficiency 2. Acute COPD exacerbation 3. Leukocytosis 4. Lactic acidosis 5. Seizure disorder 6. Obesity 7. HTN 8. Thyroid nodules incidentally found on chest CT 9. Adrenal nodule incidentally found on chest CT, indeterminate on MRI Plan: -Optimize pulmonary hygiene/mobilize as toleratd -PRN O2 -Dec Pred to 20 (D5) and taper -HHN's -Add CPT -Continue Advair & Spiriva -Completed 5 days of PO Azithro -Defer further w/u of adrenal nodule to PMD -monitor volumes and renal function -DVT Px: Hep SQ -Continue to abstain from smoking Subjective Allergies: Coded Allergies: No Known Allergies (Unverified , 09/16/18) Subjective AFVSS O2 needs stable Less cough less SOB no CP no FC Starting to mobilize Objective Last 24 Hour Vital Signs Date Time Temp Pulse Resp B/P (MAP) Pulse Ox O2 Delivery O2 Flow Rate FiO2 10/27/18 16:00 98.3 89 18 135/67 (89) 99 10/27/18 16:00 89 10/27/18 15:12 89 20 100 Nasal Cannula 2.0 10/27/18 14:46 87 20 99 Nasal Cannula 2.0 10/27/18 12:00 95 10/27/18 12:00 98.3 94 18 116/58 (77) 100 10/27/18 11:15 91 20 100 Nasal Cannula 2.0 10/27/18 11:04 88 20 98 Nasal Cannula 2.0 10/27/18 09:24 123/77 10/27/18 09:23 81 123/77 10/27/18 08:01 81 20 100 Nasal Cannula 2.0 28 10/27/18 08:01 84 20 98 Nasal Cannula 2.0 10/27/18 08:00 98.4 86 20 123/77 (92) 100 10/27/18 08:00 96 10/27/18 07:54 98 Nasal Cannula 2.0 28 10/27/18 04:07 98.2 97 18 120/61 (80) 98 10/27/18 04:00 97 10/27/18 03:09 83 20 99 Nasal Cannula 2.0 10/27/18 02:59 78 20 97 Nasal Cannula 2.0 28 10/27/18 00:00 98.3 100 20 138/62 (87) 98 10/27/18 00:00 98 10/26/18 23:19 96 20 99 Nasal Cannula 2.0 28 10/26/18 23:09 93 20 98 Nasal Cannula 2.0 28 10/26/18 21:00 Room Air 10/26/18 21:00 2.0 28 10/26/18 20:00 121 10/26/18 20:00 98.9 97 20 143/78 (99) 98 10/26/18 19:13 93 22 99 Nasal Cannula 2.0 28 10/26/18 19:03 88 20 97 Nasal Cannula 2.0 28 10/26/18 19:02 97 Nasal Cannula 2.0 28 Intake and Output 10/26/18 10/27/18 19:00 07:00 # Voids 2 2 # Bowel Movements 1 General Appearance: WD/WN, no acute distress, other - obese female HEENT: normocephalic, atraumatic, anicteric, mucous membranes moist Respiratory/Chest: chest wall non-tender, lungs clear, normal breath sounds, no respiratory distress, no accessory muscle use Cardiovascular: normal peripheral pulses, normal rate, regular rhythm Abdomen: normal bowel sounds, soft, non tender, no organomegaly, non distended Extremities: no cyanosis, no clubbing, no edema Laboratory Tests 10/27/18 04:45: Hemoglobin A1c 6.8H Current Medications Medications (Trade) Dose Ordered Sig/Jessica Route PRN Reason Start Time Stop Time Status Last Admin Dose Admin Acetaminophen/ Hydrocodone Bitart ([place] 5/325) 1 tab Q6H PRN ORAL For Pain 10/27/18 17:00 11/03/18 16:59 10/27/18 17:47 Albuterol/ Ipratropium (Albuterol/ Ipratropium) 3 ml Q4H PRN HHN Shortness of Breath 10/26/18 20:30 10/28/18 20:29 Albuterol/ Ipratropium (Albuterol/ Ipratropium) 3 ml Q4HRT HHN 10/26/18 23:00 10/28/18 12:59 10/27/18 14:46 Barium Sulfate (Readi-Cat 2) 450 ml NOW PRN ORAL Radiology Procedure 10/26/18 20:00 10/27/18 19:59 Benazepril HCl (Lotensin) 20 mg DAILY ORAL 10/27/18 09:00 11/22/18 08:59 10/27/18 09:24 Folic Acid (Folate) 1 mg DAILY ORAL 10/27/18 09:00 11/22/18 08:59 10/27/18 09:24 Guaifenesin/ Dextromethorphan (Robitussin DM Syrup) 10 ml Q6H PRN ORAL For Cough 10/26/18 20:30 11/22/18 20:29 10/27/18 10:40 Heparin Sodium (Porcine) (Heparin 5000 units/ml) 5,000 units EVERY 12 HOURS SUBQ 10/26/18 21:00 11/22/18 08:59 10/27/18 09:25 Nifedipine (Procardia XL) 90 mg DAILY ORAL 10/27/18 09:00 11/22/18 08:59 10/27/18 09:23 Oxybutynin Chloride (Ditropan) 10 mg BID ORAL 10/27/18 09:00 11/22/18 08:59 10/27/18 17:41 Phenytoin (Dilantin) 200 mg Q12HR ORAL 10/26/18 21:00 11/24/18 20:59 10/27/18 09:22 Prednisone (predniSONE) 40 mg DAILY ORAL 10/27/18 09:00 11/23/18 08:59 10/27/18 09:23 Abraham Wooten MD Oct 27, 2018 18:43
--- NOTE | 2018-10-27 19:30 | NUR ---
NURSE NOTES: RECEIVED PATIENT LYING IN BED, AWAKE, ALERT/ORIENTED X4, VERBALLY RESPONSIVE, DENIES PAIN. NO SIGNS AND SYMPTOMS OF ACUTE CARDIO RESPIRATORY DISTRESS/SHORTNESS OF BREATH, DENIES CHEST PAIN, TOLERATING 02 2L VIA NASAL CANULA, SPO2 96%. CONTINENT OF B/B, BATHROOM PRIVILEGES, NO COMPLAINTS OF PAINFUL URINATION, BOWEL MOVEMENT X2, DENIES DIARRHEA. IV INTACT TO RIGHT FOREARM/GAUGE 22, NO REDNESS/SWELLING NOTED. SIDE RAILS UP X2 FOR MOBILITY, BED IN LOWEST POSITION FOR SAFETY. ENCOURAGED PATIENT TO UTILIZE CALL LIGHT FOR ASSISTANCE, VERBALIZED UNDERSTANDING. FREQUENT ROUNDING FOR SAFETY/NEEDS. NAD.
--- NOTE | 2018-10-27 19:48 | NUR ---
HAND-OFF: Report given to Carlita NAVARRO. Pt in stable condition.
[2018-10-27 20:00] VITALS: BP 110/57
[2018-10-28] VITALS: BP 106/66
[2018-10-28] MEDS: Guaifenesin/DM 10ml syrup ORAL PRN ×2 (00:32→22:07)
[2018-10-28] MEDS: Albuterol/Ipratropium 3ml neb HHN SCH ×4 (02:59→23:31)
[2018-10-28 04:00] VITALS: BP 127/69
--- NOTE | 2018-10-28 06:34 | NUR ---
NURSE NOTES: RESTED WELL, NO SIGNIFICANT CHANGE OF CONDITION NOTED THROUGHOUT THE NIGHT. SAFETY MAINTAINED. NAD.
--- NOTE | 2018-10-28 07:08 | NUR ---
HAND-OFF: Report given to MELANIE DE ANDA.
--- NOTE | 2018-10-28 07:10 | NUR ---
NURSE NOTES: Received report from MELANIE Marshall. Patient is resting in bed, sitting in stable condition with no signs and symptoms of acute distress at this time. Breathing is unlabored with 2 liter Nasal cannula. Bed is in lowest position with two side rails up, brakes engaged . Call light and bed side table are within reach. Will continue plan of care.
[2018-10-28 08:00] VITALS: BP 142/68
[2018-10-28] MEDS: Phenytoin 100mg cap ORAL SCH ×2 (08:50→21:07)
[2018-10-28] MEDS: Benazepril 10mg tab ORAL SCH (08:51)
[2018-10-28] MEDS: Oxybutynin 5mg tab ORAL SCH ×2 (08:52→17:29)
[2018-10-28] MEDS: Heparin 5000 units/ml inj SUBQ SCH ×2 (08:59→21:08)
[2018-10-28 12:00] VITALS: BP 119/65
--- NOTE | 2018-10-28 12:49 | NUR ---
RENDERERFLAKE DRIER SI:COPD EXACERBATION VS: BP 142/68, P 102, T 98..3, RR 24, SpO2 97 on 2.0 NC IS: ALBUTEROL 3ml HHN [place] 1tab DITROPAN 10mg NIFEDIPINE 90mg LOTENSIN 20mg DILANTIN 200mg HEPARIN SUBQ TELL STATUS
[2018-10-28] MEDS: Albuterol/Ipratropium 3ml neb HHN PRN ×2 (15:34→19:23)
[2018-10-28 16:00] VITALS: BP 124/66
--- NOTE | 2018-10-28 17:54 | Pulmonolgy Critical Care Note ---
Critical Care - Asmt/Plan Assessment/Plan: (1) COPD exacerbation (2) Seizure disorder (3) Former smoker Assessment/Plan Problem List: 1. Respiratory insufficiency 2. Acute COPD exacerbation 3. Leukocytosis 4. Lactic acidosis 5. Seizure disorder 6. Obesity 7. HTN 8. Thyroid nodules incidentally found on chest CT 9. Adrenal nodule incidentally found on chest CT, indeterminate on MRI Plan: -Optimize pulmonary hygiene/mobilize as tolerated -PRN O2 -Dec Pred to 20 (D5) and taper -HHN's no change in steroids nmay need to increase if continues to be wheezing -continue CPT -Continue Advair & Spiriva -Completed 5 days of PO Azithro -Defer further w/u of adrenal nodule to PMD -monitor volumes and renal function -DVT Px: Hep SQ -Continue to abstain from smoking Critical Care - Objective Last 24 Hour Vital Signs Date Time Temp Pulse Resp B/P (MAP) Pulse Ox O2 Delivery O2 Flow Rate FiO2 10/28/18 16:00 87 10/28/18 16:00 98.0 86 18 124/66 (85) 99 10/28/18 15:36 78 20 99 Nasal Cannula 2.0 28 10/28/18 15:25 78 22 96 Nasal Cannula 2.0 28 10/28/18 12:00 98.4 87 18 119/65 (83) 98 10/28/18 12:00 99 10/28/18 11:06 102 24 98 Nasal Cannula 2.0 10/28/18 10:56 74 20 97 Nasal Cannula 2.0 10/28/18 08:51 85 142/68 10/28/18 08:51 142/68 10/28/18 08:00 73 10/28/18 08:00 98.3 85 18 142/68 (92) 100 10/28/18 06:34 90 22 97 Nasal Cannula 2.0 28 10/28/18 06:24 68 18 96 Nasal Cannula 2.0 28 10/28/18 06:24 96 Nasal Cannula 2.0 28 10/28/18 04:00 84 10/28/18 04:00 98.5 84 18 127/69 (88) 99 10/28/18 03:00 Nasal Cannula 2.0 28 10/28/18 02:59 Nasal Cannula 2.0 28 10/28/18 00:00 97.3 87 16 106/66 (79) 99 10/28/18 00:00 87 10/27/18 23:47 86 20 99 Nasal Cannula 2.0 28 10/27/18 23:35 82 20 98 Nasal Cannula 2.0 28 10/27/18 21:00 2.0 28 10/27/18 21:00 Room Air 10/27/18 20:00 98.9 112 18 110/57 (74) 96 10/27/18 20:00 112 10/27/18 19:34 95 20 99 Nasal Cannula 2.0 28 10/27/18 19:24 97 Nasal Cannula 2.0 28 10/27/18 19:23 91 20 97 Nasal Cannula 2.0 28 Status: awake Condition: improving Lungs: rhonchi, wheezing Heart: HR/BP stable Abdomen: soft, non-tender Extremities: no C/C/E Critical Care - Subjective ROS Limited/Unobtainable: Yes Condition: stable, unchanged EKG Rhythm: Sinus Rhythm FI02: 28 Sputum Amount: Moderate I&O: Intake and Output 10/27/18 10/28/18 19:00 07:00 Intake Total 550 ml 180 ml Balance 550 ml 180 ml Intake Oral 550 ml 180 ml # Voids 3 4 # Bowel Movements 1 Subjective: awake complains of wheezing and sob breathing treatments helpful no cp nv or bleeding on o2 tolearting po Labs: Current Medications Medications (Trade) Dose Ordered Sig/Jessica Route PRN Reason Start Time Stop Time Status Last Admin Dose Admin Acetaminophen/ Hydrocodone Bitart ([place] 5/325) 1 tab Q6H PRN ORAL For Pain 10/27/18 17:00 11/03/18 16:59 10/27/18 17:47 Albuterol/ Ipratropium (Albuterol/ Ipratropium) 3 ml Q4H PRN HHN Shortness of Breath 10/26/18 20:30 10/28/18 20:29 10/28/18 15:34 Benazepril HCl (Lotensin) 20 mg DAILY ORAL 10/27/18 09:00 11/22/18 08:59 10/28/18 08:51 Folic Acid (Folate) 1 mg DAILY ORAL 10/27/18 09:00 11/22/18 08:59 10/28/18 08:50 Guaifenesin/ Dextromethorphan (Robitussin DM Syrup) 10 ml Q6H PRN ORAL For Cough 10/26/18 20:30 11/22/18 20:29 10/28/18 00:32 Heparin Sodium (Porcine) (Heparin 5000 units/ml) 5,000 units EVERY 12 HOURS SUBQ 10/26/18 21:00 11/22/18 08:59 10/28/18 08:59 Nifedipine (Procardia XL) 90 mg DAILY ORAL 10/27/18 09:00 11/22/18 08:59 10/28/18 08:51 Oxybutynin Chloride (Ditropan) 10 mg BID ORAL 10/27/18 09:00 11/22/18 08:59 10/28/18 17:29 Phenytoin (Dilantin) 200 mg Q12HR ORAL 10/26/18 21:00 11/24/18 20:59 10/28/18 08:50 Prednisone (predniSONE) 20 mg DAILY ORAL 10/28/18 09:00 11/23/18 08:59 10/28/18 08:50 Yasmine Dickinson DO Oct 28, 2018 17:54
--- NOTE | 2018-10-28 19:30 | NUR ---
NURSE NOTES: Received report from MELANIE Lubin, patient in stable condition, AOx4 ,denies pain at this time, IV site on right forearm,patent,asymptomatic,intact,bed lowest position,brakes on, siderails up x3,will continue to monitor and reassess.
--- NOTE | 2018-10-28 19:30 | NUR ---
HAND-OFF: Report given to MELANIE Chavez.
[2018-10-28 20:00] VITALS: BP 146/79
[2018-10-28] MEDS: HYDROcodone/Acetamin 5/325 tab ORAL PRN (22:06)
[2018-10-28] MEDS ORDERED: Albuterol/Ipratropium 3ml neb HHN PRN (23:15)
--- NOTE | 2018-10-28 23:21 | Internal Med Progress Note ---
Subjective Physician Name Mohinder Morgan Attending Physician Mohinder Morgan M.D. Current Medications Medications (Trade) Dose Ordered Sig/Jessica Route PRN Reason Start Time Stop Time Status Last Admin Dose Admin Acetaminophen/ Hydrocodone Bitart ([place] 5/325) 1 tab Q6H PRN ORAL For Pain 10/27/18 17:00 11/03/18 16:59 10/28/18 22:06 Albuterol/ Ipratropium (Albuterol/ Ipratropium) 3 ml Q4H PRN HHN Shortness of Breath 10/28/18 23:15 11/02/18 23:14 UNV Albuterol/ Ipratropium (Albuterol/ Ipratropium) 3 ml Q4HRT HHN 10/29/18 03:00 11/03/18 02:59 UNV Benazepril HCl (Lotensin) 20 mg DAILY ORAL 10/27/18 09:00 11/22/18 08:59 10/28/18 08:51 Folic Acid (Folate) 1 mg DAILY ORAL 10/27/18 09:00 11/22/18 08:59 10/28/18 08:50 Guaifenesin/ Dextromethorphan (Robitussin DM Syrup) 10 ml Q6H PRN ORAL For Cough 10/26/18 20:30 11/22/18 20:29 10/28/18 22:07 Heparin Sodium (Porcine) (Heparin 5000 units/ml) 5,000 units EVERY 12 HOURS SUBQ 10/26/18 21:00 11/22/18 08:59 10/28/18 21:08 Nifedipine (Procardia XL) 90 mg DAILY ORAL 10/27/18 09:00 11/22/18 08:59 10/28/18 08:51 Oxybutynin Chloride (Ditropan) 10 mg BID ORAL 10/27/18 09:00 11/22/18 08:59 10/28/18 17:29 Phenytoin (Dilantin) 200 mg Q12HR ORAL 10/26/18 21:00 11/24/18 20:59 10/28/18 21:07 Prednisone (predniSONE) 20 mg DAILY ORAL 10/28/18 09:00 11/23/18 08:59 10/28/18 08:50 Allergies: Coded Allergies: No Known Allergies (Unverified , 09/16/18) Subjective improving shortness of breath some dyspnea with exertion s/p abdominal MRI -> adrenal nodule indeterminte notes some right leg numbness Objective Last Vital Signs Date Time Temp Pulse Resp B/P (MAP) Pulse Ox O2 Delivery O2 Flow Rate FiO2 10/28/18 21:00 Room Air 10/28/18 20:00 125 10/28/18 20:00 99.2 18 146/79 (101) 96 10/28/18 19:33 2.0 28 Intake and Output 10/27/18 10/28/18 19:00 07:00 Intake Total 550 ml 180 ml Balance 550 ml 180 ml Intake Oral 550 ml 180 ml # Voids 3 4 # Bowel Movements 1 Assessment/Plan Problem List: (1) Elevated lactic acid level (2) Status asthmaticus (3) COPD exacerbation (4) Respiratory distress Assessment/Plan [place] I: #COPD exacerbation - duonebs - pulm consulted -Continue Advair, add Spiriva -s/p Azithro x5 days - pred 20mg po daily - CT chest noted - LE duplex neg # Adreal nodule - abd MRI shows indeterminate adrenal nodule - kalli consider CT #thyroid nodule - thyroid US-> Multiple heterogeneous nodules, nonspecific in nature within both thyroid lobes - outpatient endocrine referral #HTN - resume home meds- nifedipine #RA - on weekly methotrexate #seizure d/o - resume home dilantin BID #hypokalemia, - repleted Mohinder Morgan M.D. Oct 28, 2018 23:21
[2018-10-29] VITALS: BP 124/76
[2018-10-29] MEDS: Albuterol/Ipratropium 3ml neb HHN SCH ×5 (03:07→23:13)
[2018-10-29 04:00] VITALS: BP 129/73
--- NOTE | 2018-10-29 07:20 | NUR ---
HAND-OFF: Report given to MELANIE Lubin, patient in stable condition,plan of care endorsed.
--- NOTE | 2018-10-29 07:21 | NUR ---
NURSE NOTES: Received report from Kathy/ MELANIE Kirk. Patient is resting in bed, sleeping in stable condition with no signs and symptoms of acute distress at this time. Breathing unlabored with 2 liter Nasal Cannula. Bed is in lowest position with two side rails up, brakes engaged . Call light and bed side table are within reach. Will continue plan of care.
[2018-10-29 08:00] VITALS: BP 128/68
[2018-10-29] MEDS: Benazepril 10mg tab ORAL SCH (08:33)
[2018-10-29] MEDS: Phenytoin 100mg cap ORAL SCH ×2 (08:33→21:30)
[2018-10-29] MEDS: Oxybutynin 5mg tab ORAL SCH ×2 (08:33→17:42)
[2018-10-29] MEDS: Heparin 5000 units/ml inj SUBQ SCH ×2 (08:37→21:31)
--- NOTE | 2018-10-29 10:32 | Pulmonology Progress Note ---
Assessment/Plan Assessment/Plan (1) COPD exacerbation (2) Seizure disorder (3) Former smoker Assessment/Plan Problem List: 1. Respiratory insufficiency 2. Acute COPD exacerbation 3. Leukocytosis 4. Lactic acidosis 5. Seizure disorder 6. Obesity 7. HTN 8. Thyroid nodules incidentally found on chest CT 9. Adrenal nodule incidentally found on chest CT, indeterminate on MRI Plan: -Optimize pulmonary hygiene/mobilize as toleratd -PRN O2 -increase steroids to 40 bid, still really tight -HHN's q 4 -Add CPT -Continue Advair & Spiriva -Completed 5 days of PO Azithro -Defer further w/u of adrenal nodule to PMD -monitor volumes and renal function -DVT Px: Hep SQ -Continue to abstain from smoking Subjective Constitutional: Reports: no symptoms Respiratory: Reports: dry cough, shortness of breath, dyspnea at rest, dyspnea on exertion, wheezing Allergies: Coded Allergies: No Known Allergies (Unverified , 09/16/18) Subjective STILL WTIH wheezing did not get neb tx at 3 am and 7 am cough intense a ttimes no cp nv or bleeding tolerating po on o2 Objective Last 24 Hour Vital Signs Date Time Temp Pulse Resp B/P (MAP) Pulse Ox O2 Delivery O2 Flow Rate FiO2 10/29/18 08:33 128/68 10/29/18 08:32 91 128/68 10/29/18 08:00 98.6 91 20 128/68 (88) 96 10/29/18 08:00 90 10/29/18 06:38 97 Nasal Cannula 2.0 28 10/29/18 04:00 89 10/29/18 04:00 98.4 88 18 129/73 (91) 99 10/29/18 03:07 Nasal Cannula 2.0 28 10/29/18 03:07 Nasal Cannula 2.0 28 10/29/18 00:00 84 10/29/18 00:00 99.1 90 18 124/76 (92) 96 10/28/18 23:41 87 20 99 Nasal Cannula 2.0 28 10/28/18 23:31 86 18 99 Nasal Cannula 2.0 28 10/28/18 21:00 Room Air 10/28/18 20:00 125 10/28/18 20:00 99.2 90 18 146/79 (101) 96 10/28/18 19:33 89 20 99 Nasal Cannula 2.0 28 10/28/18 19:23 98 Nasal Cannula 2.0 28 10/28/18 19:23 89 18 98 Nasal Cannula 2.0 28 10/28/18 16:00 87 10/28/18 16:00 98.0 86 18 124/66 (85) 99 10/28/18 15:36 78 20 99 Nasal Cannula 2.0 28 10/28/18 15:25 78 22 96 Nasal Cannula 2.0 28 10/28/18 12:00 98.4 87 18 119/65 (83) 98 10/28/18 12:00 99 10/28/18 11:06 102 24 98 Nasal Cannula 2.0 28 10/28/18 10:56 74 20 97 Nasal Cannula 2.0 28 Intake and Output 10/28/18 10/29/18 18:59 06:59 Intake Total 1440 ml 350 ml Balance 1440 ml 350 ml Intake Oral 1440 ml 350 ml # Voids 5 3 General Appearance: WD/WN Respiratory/Chest: expiratory wheezing, inspiratory wheezing Cardiovascular: normal rate, regular rhythm Abdomen: no organomegaly, non distended 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: alert, oriented x 3 Current Medications Medications (Trade) Dose Ordered Sig/Jessica Route PRN Reason Start Time Stop Time Status Last Admin Dose Admin Acetaminophen/ Hydrocodone Bitart ([place] 5/325) 1 tab Q6H PRN ORAL For Pain 10/27/18 17:00 11/03/18 16:59 10/28/18 22:06 Albuterol/ Ipratropium (Albuterol/ Ipratropium) 3 ml Q4H PRN HHN Shortness of Breath 10/28/18 23:15 11/02/18 23:14 Albuterol/ Ipratropium (Albuterol/ Ipratropium) 3 ml Q4HRT HHN 10/29/18 03:00 11/03/18 02:59 10/28/18 23:31 Benazepril HCl (Lotensin) 20 mg DAILY ORAL 10/27/18 09:00 11/22/18 08:59 10/29/18 08:33 Folic Acid (Folate) 1 mg DAILY ORAL 10/27/18 09:00 11/22/18 08:59 10/29/18 08:32 Guaifenesin/ Dextromethorphan (Robitussin DM Syrup) 10 ml Q6H PRN ORAL For Cough 10/26/18 20:30 11/22/18 20:29 10/28/18 22:07 Heparin Sodium (Porcine) (Heparin 5000 units/ml) 5,000 units EVERY 12 HOURS SUBQ 10/26/18 21:00 11/22/18 08:59 10/29/18 08:37 Nifedipine (Procardia XL) 90 mg DAILY ORAL 10/27/18 09:00 11/22/18 08:59 10/29/18 08:32 Oxybutynin Chloride (Ditropan) 10 mg BID ORAL 10/27/18 09:00 11/22/18 08:59 10/29/18 08:33 Phenytoin (Dilantin) 200 mg Q12HR ORAL 10/26/18 21:00 11/24/18 20:59 10/29/18 08:33 Prednisone (predniSONE) 20 mg DAILY ORAL 10/28/18 09:00 11/23/18 08:59 10/29/18 08:33 Yasmine Dickinson DO Oct 29, 2018 10:32
[2018-10-29] MEDS: Solu-MEDROL 40mg Inj IVP SCH ×2 (10:50→21:30)
[2018-10-29 12:00] VITALS: BP 121/55
--- NOTE | 2018-10-29 12:29 | Cardiology Report ---
APPROVED REPORT EXAM: Two-dimensional and M-mode echocardiogram with Doppler and color Doppler. INDICATION Congestive Heart Failure M-Mode DIMENSIONS IVSd1.4 (0.7-1.1cm)Left Atrium (MM)3.2 (1.6-4.0cm) LVDd5.6 (3.5-5.6cm)Aortic Root3.0 (2.0-3.7cm) PWd1.0 (0.7-1.1cm)Aortic Cusp Exc.1.6 (1.5-2.0cm) IVSs2.2 cm LVDs3.6 (2.5-4.0cm) PWs1.2 cm Technically difficult study due to poor acoustic windows. Study quality precludes accurate assessment of regional wall motion. Normal left ventricular chamber size, systolic function and wall motion. Left ventricular ejection fraction estimated to be 65 %. Mild left ventricular hypertrophy. Anterior Echo-free space, may be due to pericardial fat or effusion. All other cardiac chamber sizes are within normal limits. Focal aortic valve sclerosis with adequate cusp excursion. Thickened mitral valve leaflets with normal excursion. Mitral annulus and aortic root calcification. Pulmonic valve not well visualized. Normal tricuspid valve structure. IVC dilated at 2.2 cm without physiological collapse, suggestive of increased RA pressure. A color flow and spectral Doppler study was performed and revealed: No aortic regurgitation. Trace mitral regurgitation. Mitral diastolic velocities suggest mild left ventricular diastolic dysfunction (Grade I). Mild tricuspid regurgitation. Tricuspid systolic velocities suggests peak right ventricular systolic pressure of 49 mmHg, consistent with moderate pulmonary hypertension. No pulmonic regurgitation present.
--- NOTE | 2018-10-29 14:25 | Internal Med Progress Note ---
Subjective Physician Name Mohinder Morgan Attending Physician Mohinder Morgan M.D. Current Medications Medications (Trade) Dose Ordered Sig/Jessica Route PRN Reason Start Time Stop Time Status Last Admin Dose Admin Acetaminophen/ Hydrocodone Bitart ([place] 5/325) 1 tab Q6H PRN ORAL For Pain 10/27/18 17:00 11/03/18 16:59 10/28/18 22:06 Albuterol/ Ipratropium (Albuterol/ Ipratropium) 3 ml Q4H PRN HHN Shortness of Breath 10/28/18 23:15 11/02/18 23:14 Albuterol/ Ipratropium (Albuterol/ Ipratropium) 3 ml Q4HRT HHN 10/29/18 03:00 11/03/18 02:59 10/29/18 10:33 Benazepril HCl (Lotensin) 20 mg DAILY ORAL 10/27/18 09:00 11/22/18 08:59 10/29/18 08:33 Folic Acid (Folate) 1 mg DAILY ORAL 10/27/18 09:00 11/22/18 08:59 10/29/18 08:32 Guaifenesin/ Dextromethorphan (Robitussin DM Syrup) 10 ml Q6H PRN ORAL For Cough 10/26/18 20:30 11/22/18 20:29 10/28/18 22:07 Heparin Sodium (Porcine) (Heparin 5000 units/ml) 5,000 units EVERY 12 HOURS SUBQ 10/26/18 21:00 11/22/18 08:59 10/29/18 08:37 Methylprednisolone Sodium Succinate (Solu-MEDROL) 40 mg EVERY 12 HOURS IVP 10/29/18 10:45 11/28/18 10:44 10/29/18 10:50 Nifedipine (Procardia XL) 90 mg DAILY ORAL 10/27/18 09:00 11/22/18 08:59 10/29/18 08:32 Oxybutynin Chloride (Ditropan) 10 mg BID ORAL 10/27/18 09:00 11/22/18 08:59 10/29/18 08:33 Phenytoin (Dilantin) 200 mg Q12HR ORAL 10/26/18 21:00 11/24/18 20:59 10/29/18 08:33 Allergies: Coded Allergies: No Known Allergies (Unverified , 09/16/18) Subjective improving shortness of breath continues to have some dyspnea with exertion notes some right leg numbness s/p abdominal MRI -> adrenal nodule indeterminte Objective Last Vital Signs Date Time Temp Pulse Resp B/P (MAP) Pulse Ox O2 Delivery O2 Flow Rate FiO2 10/29/18 12:00 98.5 81 20 121/55 (77) 97 10/29/18 10:52 Nasal Cannula 2.0 28 Intake and Output 10/28/18 10/29/18 19:00 07:00 Intake Total 1440 ml 350 ml Balance 1440 ml 350 ml Intake Oral 1440 ml 350 ml # Voids 5 3 Assessment/Plan Problem List: (1) Elevated lactic acid level (2) Status asthmaticus (3) COPD exacerbation (4) Respiratory distress Assessment/Plan [place] I: #COPD exacerbation - duonebs - pulm consulted -Continue Advair, add Spiriva -s/p Azithro x5 days - pred 20mg po daily - CT chest noted - LE duplex neg # Adreal nodule - abd MRI shows indeterminate adrenal nodule - kalli consider CT #thyroid nodule - thyroid US-> Multiple heterogeneous nodules, nonspecific in nature within both thyroid lobes - outpatient endocrine referral #HTN - resume home meds- nifedipine #RA - on weekly methotrexate #seizure d/o - resume home dilantin BID #hypokalemia, - repleted Mohinder Morgan M.D. Oct 29, 2018 14:25
[2018-10-29 15:11] LABS: BASOPHILS % (AUTO) 0.9 % (0.0-2.0); EOSINOPHILS % (AUTO) 1.8 % (0.0-3.0); HEMATOCRIT 34.8 % (37.0-47.0); HEMOGLOBIN 11.8 G/DL (12.0-16.0); LYMPHOCYTES % (AUTO) 11.4 % (20.0-45.0); MEAN CORPUSCULAR VOLUME 90 FL (80-99); MONOCYTES % (AUTO) 2.7 % (1.0-10.0); NEUTROPHILS % (AUTO) 83.2 % (45.0-75.0); PLATELET COUNT 365 K/UL (150-450); RED BLOOD COUNT 3.85 M/UL (4.20-5.40); WHITE BLOOD COUNT 13.3 K/UL (4.8-10.8)
[2018-10-29 16:00] VITALS: BP 141/65
--- NOTE | 2018-10-29 19:10 | NUR ---
NURSE NOTES: Received report from MELANIE Lubin, patient in stable condition, AOx4,able to make needs known, denies pain at this time, IV site on right forearm, asymptomatic,intact,patent. Family at bedside. Bed lowest position, brakes on, call light within reach, will continue to monitor and reassess.
--- NOTE | 2018-10-29 19:27 | NUR ---
HAND-OFF: Report given to Kathy/ MELANIE Kirk.
[2018-10-29] MEDS: Wixela 250/50 Inhaler - 60 dose INH SCH (19:49)
[2018-10-29 20:00] VITALS: BP 135/65
[2018-10-29] MEDS: Guaifenesin/DM 10ml syrup ORAL PRN (23:05)
[2018-10-29] MEDS: HYDROcodone/Acetamin 5/325 tab ORAL PRN (23:10)
[2018-10-30] VITALS: BP 134/74
[2018-10-30] MEDS: Albuterol/Ipratropium 3ml neb HHN SCH ×6 (03:29→23:09)
[2018-10-30 04:00] VITALS: BP 126/70
--- NOTE | 2018-10-30 07:20 | NUR ---
NURSE NOTES: Received report from MELANIE Velez, Patient AAOx4 and able to make needs known. Patient on 2L NC. Patient was eating breakfast in bed. Denies pain at this time. Patient on laboratory monitor. IV site on right forearm: asymptomatic,intact, and patent. Bed lowest position, brakes on, call light within reach, and will continue to monitor and reassess.
--- NOTE | 2018-10-30 07:29 | NUR ---
HAND-OFF: Report given to MELANIE Sheehan,patient in stable condition, plan of care endorsed.
[2018-10-30 08:00] VITALS: BP 115/76
[2018-10-30] MEDS: Oxybutynin 5mg tab ORAL SCH ×3 (08:33→18:12)
[2018-10-30] MEDS: Benazepril 10mg tab ORAL SCH (08:35)
[2018-10-30] MEDS: Solu-MEDROL 40mg Inj IVP SCH (08:36)
[2018-10-30] MEDS: Phenytoin 100mg cap ORAL SCH ×2 (08:37→21:35)
[2018-10-30] MEDS: Heparin 5000 units/ml inj SUBQ SCH ×2 (08:44→21:38)
[2018-10-30] MEDS: Wixela 250/50 Inhaler - 60 dose INH SCH ×2 (09:18→19:36)
[2018-10-30 12:00] VITALS: BP 131/66
--- NOTE | 2018-10-30 12:09 | Pulmonology Progress Note ---
Assessment/Plan Problems: (1) COPD exacerbation (2) Seizure disorder (3) Former smoker Assessment/Plan Problem List: 1. Respiratory insufficiency 2. Acute COPD exacerbation 3. Leukocytosis 4. Lactic acidosis 5. Seizure disorder 6. Obesity 7. HTN 8. Thyroid nodules incidentally found on chest CT 9. Adrenal nodule incidentally found on chest CT, indeterminate on MRI Plan: -Optimize pulmonary hygiene/mobilize as toleratd -PRN O2 -Inc SM to 60 IV BID (D8) and taper -HHN's -CPT -Continue Advair & Spiriva -S/P 5 days of PO Azithro -Defer further w/u of adrenal nodule to PMD -monitor volumes and renal function -DVT Px: Hep SQ -Continue to abstain from smoking Subjective Allergies: Coded Allergies: No Known Allergies (Unverified , 09/16/18) Subjective AFVSS O2 needs stable Inc wheezing stable cough less SOB no CP no FC Objective Last 24 Hour Vital Signs Date Time Temp Pulse Resp B/P (MAP) Pulse Ox O2 Delivery O2 Flow Rate FiO2 10/30/18 11:12 91 20 99 Nasal Cannula 2.0 10/30/18 10:55 87 20 97 Nasal Cannula 2.0 28 10/30/18 09:18 Nasal Cannula 2.0 10/30/18 09:18 87 20 97 Nasal Cannula 2.0 10/30/18 08:35 115/76 10/30/18 08:33 86 115/76 10/30/18 08:07 87 10/30/18 08:00 98.4 86 18 115/76 (89) 100 10/30/18 07:48 88 22 99 Nasal Cannula 2.0 10/30/18 07:43 97 Nasal Cannula 2.0 10/30/18 07:42 84 20 97 Nasal Cannula 2.0 10/30/18 04:00 94 10/30/18 04:00 98.7 90 18 126/70 (88) 98 10/30/18 03:29 Nasal Cannula 2.0 10/30/18 03:29 Nasal Cannula 2.0 28 10/30/18 00:00 92 10/30/18 00:00 98.7 60 17 134/74 (94) 98 10/29/18 23:23 103 22 97 Nasal Cannula 2.0 10/29/18 23:13 100 20 98 Nasal Cannula 2.0 28 10/29/18 21:00 Room Air 10/29/18 20:00 89 10/29/18 20:00 97.7 89 20 135/65 (88) 98 10/29/18 19:59 90 18 97 Nasal Cannula 2.0 28 10/29/18 19:49 97 Nasal Cannula 2.0 28 10/29/18 19:49 85 16 95 Nasal Cannula 2.0 28 10/29/18 19:49 85 16 95 Nasal Cannula 2.0 28 10/29/18 16:00 100 10/29/18 16:00 98.4 80 22 141/65 (90) 98 10/29/18 15:59 104 24 99 Nasal Cannula 2.0 28 10/29/18 15:47 80 20 97 Nasal Cannula 2.0 28 Intake and Output 10/29/18 10/30/18 19:00 07:00 # Voids 6 3 # Bowel Movements 1 General Appearance: WD/WN, no acute distress, other - ob female HEENT: normocephalic, atraumatic, anicteric, mucous membranes moist Respiratory/Chest: rhonchi, expiratory wheezing Cardiovascular: normal peripheral pulses, normal rate, regular rhythm Abdomen: normal bowel sounds, soft, non tender, no organomegaly, non distended Extremities: no cyanosis, no clubbing, no edema Laboratory Tests 10/29/18 14:50: White Blood Count 13.3H, Red Blood Count 3.85L, Hemoglobin 11.8L, Hematocrit 34.8L, Mean Corpuscular Volume 90, Mean Corpuscular Hemoglobin 30.6, Mean Corpuscular Hemoglobin Concent 33.9, Red Cell Distribution Width 14.0, Platelet Count 365, Mean Platelet Volume 5.8L, Neutrophils (%) (Auto) 83.2H, Lymphocytes (%) (Auto) 11.4L, Monocytes (%) (Auto) 2.7, Eosinophils (%) (Auto) 1.8, Basophils (%) (Auto) 0.9 Current Medications Medications (Trade) Dose Ordered Sig/Jessica Route PRN Reason Start Time Stop Time Status Last Admin Dose Admin Acetaminophen/ Hydrocodone Bitart ([place] 5/325) 1 tab Q6H PRN ORAL For Pain 10/27/18 17:00 11/03/18 16:59 10/29/18 23:10 Albuterol/ Ipratropium (Albuterol/ Ipratropium) 3 ml Q4H PRN HHN Shortness of Breath 10/28/18 23:15 11/02/18 23:14 Albuterol/ Ipratropium (Albuterol/ Ipratropium) 3 ml Q4HRT HHN 10/29/18 03:00 11/03/18 02:59 10/30/18 10:54 Benazepril HCl (Lotensin) 20 mg DAILY ORAL 10/27/18 09:00 11/22/18 08:59 10/30/18 08:35 Folic Acid (Folate) 1 mg DAILY ORAL 10/27/18 09:00 11/22/18 08:59 10/30/18 08:36 Guaifenesin/ Dextromethorphan (Robitussin DM Syrup) 10 ml Q6H PRN ORAL For Cough 10/26/18 20:30 11/22/18 20:29 10/29/18 23:05 Heparin Sodium (Porcine) (Heparin 5000 units/ml) 5,000 units EVERY 12 HOURS SUBQ 10/26/18 21:00 11/22/18 08:59 10/30/18 08:44 Methylprednisolone Sodium Succinate (Solu-MEDROL) 40 mg EVERY 12 HOURS IVP 10/29/18 10:45 11/28/18 10:44 10/30/18 08:36 Nifedipine (Procardia XL) 90 mg DAILY ORAL 10/27/18 09:00 11/22/18 08:59 10/30/18 08:33 Oxybutynin Chloride (Ditropan) 10 mg BID ORAL 10/27/18 09:00 11/22/18 08:59 10/30/18 08:33 Phenytoin (Dilantin) 200 mg Q12HR ORAL 10/26/18 21:00 11/24/18 20:59 10/30/18 08:37 Salmeterol Xinafoate/ Fluticasone (Advair 250/50 Diskus) 1 puffs BID INH 10/29/18 18:00 11/28/18 17:59 Abraham Wooten MD Oct 30, 2018 12:09
--- NOTE | 2018-10-30 12:53 | NUR ---
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
--- NOTE | 2018-10-30 12:56 | NUR ---
PLANT MAINTENANCE WORKERCOTTON TIER SI:COPD EXACERBATION VS: BP 115/76, P 91, T 98.4, RR 20, SpO2 99 on 2.0 NC IS:ALBUTEROL 3ml HHN HEPARIN SUBQ DILANTIN 200mg FOLATE 1mg SOLU-MEDROL 40mg IVP LOTENSIN 20mg TELE STATUS
--- NOTE | 2018-10-30 13:02 | Internal Med Progress Note ---
Subjective Physician Name Mohinder Morgan Attending Physician Mohinder Morgan M.D. Current Medications Medications (Trade) Dose Ordered Sig/Jessica Route PRN Reason Start Time Stop Time Status Last Admin Dose Admin Acetaminophen/ Hydrocodone Bitart ([place] 5/325) 1 tab Q6H PRN ORAL For Pain 10/27/18 17:00 11/03/18 16:59 10/29/18 23:10 Albuterol/ Ipratropium (Albuterol/ Ipratropium) 3 ml Q4H PRN HHN Shortness of Breath 10/28/18 23:15 11/02/18 23:14 Albuterol/ Ipratropium (Albuterol/ Ipratropium) 3 ml Q4HRT HHN 10/29/18 03:00 11/03/18 02:59 10/30/18 10:54 Benazepril HCl (Lotensin) 20 mg DAILY ORAL 10/27/18 09:00 11/22/18 08:59 10/30/18 08:35 Folic Acid (Folate) 1 mg DAILY ORAL 10/27/18 09:00 11/22/18 08:59 10/30/18 08:36 Gabapentin (Neurontin) 100 mg QHS ORAL 10/30/18 21:00 11/29/18 20:59 Guaifenesin/ Dextromethorphan (Robitussin DM Syrup) 10 ml Q6H PRN ORAL For Cough 10/26/18 20:30 11/22/18 20:29 10/29/18 23:05 Heparin Sodium (Porcine) (Heparin 5000 units/ml) 5,000 units EVERY 12 HOURS SUBQ 10/26/18 21:00 11/22/18 08:59 10/30/18 08:44 Methylprednisolone Sodium Succinate (Solu-MEDROL) 60 mg EVERY 12 HOURS IVP 10/30/18 21:00 11/28/18 10:44 Nifedipine (Procardia XL) 90 mg DAILY ORAL 10/27/18 09:00 11/22/18 08:59 10/30/18 08:33 Oxybutynin Chloride (Ditropan) 10 mg BID ORAL 10/27/18 09:00 11/22/18 08:59 10/30/18 08:33 Phenytoin (Dilantin) 200 mg Q12HR ORAL 10/26/18 21:00 8/16/19 20:59 10/30/18 08:37 Salmeterol Xinafoate/ Fluticasone (Advair 250/50 Diskus) 1 puffs BID INH 10/29/18 18:00 11/28/18 17:59 Tiotropium [place] (Spiriva Inhaler) 1 puff DAILY INH 10/31/18 09:00 11/30/18 08:59 Allergies: Coded Allergies: No Known Allergies (Unverified , 09/16/18) Subjective + wheezing and chest tightness resumed on IV solumdrol notes some right leg numbness s/p abdominal MRI -> adrenal nodule indeterminte Objective Last Vital Signs Date Time Temp Pulse Resp B/P (MAP) Pulse Ox O2 Delivery O2 Flow Rate FiO2 10/30/18 11:12 91 20 99 Nasal Cannula 2.0 28 10/30/18 08:35 115/76 10/30/18 08:00 98.4 Laboratory Tests Test 10/29/18 14:50 White Blood Count 13.3 K/UL (4.8-10.8) H Red Blood Count 3.85 M/UL (4.20-5.40) L Hemoglobin 11.8 G/DL (12.0-16.0) L Hematocrit 34.8 % (37.0-47.0) L Mean Corpuscular Volume 90 FL (80-99) Mean Corpuscular Hemoglobin 30.6 PG (27.0-31.0) Mean Corpuscular Hemoglobin Concent 33.9 G/DL (32.0-36.0) Red Cell Distribution Width 14.0 % (11.6-14.8) Platelet Count 365 K/UL (150-450) Mean Platelet Volume 5.8 FL (6.5-10.1) L Neutrophils (%) (Auto) 83.2 % (45.0-75.0) H Lymphocytes (%) (Auto) 11.4 % (20.0-45.0) L Monocytes (%) (Auto) 2.7 % (1.0-10.0) Eosinophils (%) (Auto) 1.8 % (0.0-3.0) Basophils (%) (Auto) 0.9 % (0.0-2.0) Intake and Output 10/29/18 10/30/18 19:00 07:00 # Voids 6 3 # Bowel Movements 1 Assessment/Plan Problem List: (1) Elevated lactic acid level (2) Status asthmaticus (3) COPD exacerbation (4) Respiratory distress Assessment/Plan [place] I: #COPD exacerbation - duonebs - pulm consulted - refused advair -s/p Azithro x5 days - solumedrol 60 IV BID - CT chest noted - LE duplex neg # Adreal nodule - abd MRI shows indeterminate adrenal nodule - kalli consider CT #thyroid nodule - thyroid US-> Multiple heterogeneous nodules, nonspecific in nature within both thyroid lobes - outpatient endocrine referral #HTN - resume home meds- nifedipine #RA - on weekly methotrexate #seizure d/o - resume home dilantin BID #hypokalemia, - repleted Mohinder Morgan M.D. Oct 30, 2018 13:02
--- NOTE | 2018-10-30 13:04 | NUR ---
*-*INSURANCE *-* UPDATED CLINICALS AND REVIEWS HAVE BEEN FAXED TO: [facility] PRICE: MIKE F:[phone]
--- NOTE | 2018-10-30 13:40 | NUR ---
RD ASSESSMENT & RECOMMENDATIONS SEE CARE ACTIVITY FOR COMPLETE ASSESSMENT DAILY ESTIMATED NEEDS: Needs based on Cardiac, pulmonary 63kg abw 25-30 kcals/kg 6716-8419 total kcals 1-1.5 g protein/kg 63-95 g total protein 25-30 mL/kg 1409-6973 total fluid mLs NUTRITION DIAGNOSIS: Chewing difficulty R/T edentulism as evidenced by pt requesting soft easy chew texture. Altered nutrition related lab values r/t diabetes as evidenced by A1C 6.8, elev BG, pt noted to be on solumedrol. (CURRENT DIET: CARDIAC) DIET RECOMMENDATIONS-->> CARDIAC/ CCHO LOW/ SOFT EASY CHEW ADDITIONAL RECOMMENDATIONS: * Standing wt for accurate CBW--> 211.5 lbs obtained on 10/30 * Monitor BGs closely while on solumedrol, rec niss * Diet texture change to soft easy chew
[2018-10-30] MEDS: HYDROcodone/Acetamin 5/325 tab ORAL PRN ×2 (13:47→22:38)
[2018-10-30] MEDS: Guaifenesin/DM 10ml syrup ORAL PRN ×2 (13:47→22:38)
[2018-10-30 16:00] VITALS: BP 128/65
--- NOTE | 2018-10-30 16:08 | Diagnostic Imaging Report ---
Indication: Shortness of breath Technique: One view of the chest Comparison: 10/22/2018 Findings: The heart is enlarged. The lungs and pleural spaces are clear. There is no significant interim change Impression: Cardiomegaly No acute process
--- NOTE | 2018-10-30 19:05 | NUR ---
HAND-OFF: Report given to MELANIE Velez.
--- NOTE | 2018-10-30 19:15 | NUR ---
NURSE NOTES: Received report MELANIE Sheehan, patient in stable condition, lying in bed, AOx4 able to make needs known, denies pain at this time, IV on R forearm, G 22, asymptomatic, intact, patent, bed lowest position, brakes on, call light within reach, will continue to monitor and reassess.
[2018-10-30 20:00] VITALS: BP 125/66
--- NOTE | 2018-10-30 20:53 | Cardiology Report ---
APPROVED REPORT EKG Measurement Heart [id number] Normal sinus rhythm Left axis deviation Abnormal ECG
[2018-10-30] MEDS: Solu-MEDROL 125mg Inj IVP SCH (21:36)
[2018-10-31] VITALS: BP 127/69
--- NOTE | 2018-10-31 02:33 | NUR ---
NURSE NOTES: Patient in bed asleep with no S/S of distress. Will continue to monitor.
[2018-10-31] MEDS: Albuterol/Ipratropium 3ml neb HHN SCH ×6 (03:00→22:59)
--- NOTE | 2018-10-31 07:10 | NUR ---
HAND-OFF: Report given to MELANIE Mejia, patient in stable condition, plan of care endorsed..
--- NOTE | 2018-10-31 07:20 | NUR ---
NURSE NOTES: Report received from MELANIE Kirk. Pt shows no signs of distress, A+Ox4, denies pain/SOB. Respirations are even and unlabored on room air. IV site is intact and saline locked. Bed is at lowest position, brakes engaged, siderails x2, bed alarm on, and call light within reach. Pt is in stable condition; will continue to monitor.
[2018-10-31 08:00] VITALS: BP 123/68
--- NOTE | 2018-10-31 08:16 | NUR ---
NURSE NOTES: Pt hasn't had bowl movement for four days and is asking for laxative. Left message with Dr. Morgan; awaiting response.
[2018-10-31] MEDS: Phenytoin 100mg cap ORAL SCH ×2 (09:02→21:14)
[2018-10-31] MEDS: Solu-MEDROL 125mg Inj IVP SCH (09:02)
[2018-10-31] MEDS: Benazepril 10mg tab ORAL SCH (09:03)
[2018-10-31] MEDS: Oxybutynin 5mg tab ORAL SCH ×2 (09:03→17:17)
[2018-10-31] MEDS: Heparin 5000 units/ml inj SUBQ SCH ×2 (09:07→21:19)
[2018-10-31] MEDS: Wixela 250/50 Inhaler - 60 dose INH SCH ×2 (09:30→19:31)
[2018-10-31 12:00] VITALS: BP 123/62
--- NOTE | 2018-10-31 13:43 | NUR ---
*-*INSURANCE *-* UPDATED CLINICALS HAVE BEEN FAXED TO: [facility] PRICE: MIKE F:[phone]
--- NOTE | 2018-10-31 13:50 | NUR ---
NURSE NOTES: Left second message with Dr. Morgan regarding laxative for patient.
--- NOTE | 2018-10-31 14:58 | NUR ---
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 COPD EXACERBATION VS: BP 123/68, P 114, T 98.5, RR 22, SpO2 95 on 2.0 NC IS:ALBUTEROL 3ml HHN FLUTICASONE 1puff INH SPIRIVA INH FOLATE 1mg HEPARIN SUBQ LOTENSIN 20mg NIFEDIPINE 90mg DILANTIN 200mg SOLU-MEDROL 60mg IVP PLAN OXYGEN THERAPY LAXATIVE FOR CONSTIPATION TELE STATUS
--- NOTE | 2018-10-31 15:05 | NUR ---
NURSE NOTES: Per Dr. Morgan, [place] PRN and colace BID
[2018-10-31] MEDS ORDERED: Miralax 17gm pkt ORAL PRN (15:15)
--- NOTE | 2018-10-31 15:33 | Pulmonology Progress Note ---
Assessment/Plan Problems: (1) COPD exacerbation (2) Seizure disorder (3) Former smoker Assessment/Plan Problem List: 1. Respiratory insufficiency 2. Acute COPD exacerbation 3. Leukocytosis 4. Lactic acidosis 5. Seizure disorder 6. Obesity 7. HTN 8. Thyroid nodules incidentally found on chest CT 9. Adrenal nodule incidentally found on chest CT, indeterminate on MRI Plan: -Optimize pulmonary hygiene/mobilize as toleratd -PRN O2 -Dec SM to 40 IV BID (D9) and taper -HHN's -CPT -Continue Spiriva, Declines Advair -S/P 5 days of PO Azithro -Defer further w/u of adrenal nodule to PMD -monitor volumes and renal function -DVT Px: Hep SQ -Continue to abstain from smoking Subjective Allergies: Coded Allergies: No Known Allergies (Unverified , 09/16/18) Subjective AFVSS O2 needs stable Better overall, starting to mobilize, less cough, less wheezing, less SOB, no FC Objective Last 24 Hour Vital Signs Date Time Temp Pulse Resp B/P (MAP) Pulse Ox O2 Delivery O2 Flow Rate FiO2 10/31/18 15:24 88 18 100 Nasal Cannula 2.0 10/31/18 15:17 89 20 100 Nasal Cannula 2.0 10/31/18 12:00 98.5 81 18 123/62 (82) 96 10/31/18 12:00 78 10/31/18 11:21 90 20 100 Nasal Cannula 2.0 10/31/18 11:15 97 22 96 Nasal Cannula 2.0 10/31/18 09:30 98 18 95 Nasal Cannula 2.0 10/31/18 09:30 114 22 95 Nasal Cannula 2.0 10/31/18 09:03 74 123/68 10/31/18 09:03 123/68 10/31/18 09:00 Room Air 10/31/18 08:00 74 10/31/18 08:00 98.4 74 18 123/68 (86) 100 10/31/18 07:35 97 Nasal Cannula 2.0 10/31/18 07:34 Nasal Cannula 2.0 10/31/18 07:34 Nasal Cannula 2.0 28 10/31/18 04:00 92 10/31/18 03:02 Nasal Cannula 2.0 10/31/18 03:01 Nasal Cannula 2.0 28 10/31/18 00:00 84 10/31/18 00:00 98.1 84 19 127/69 (88) 100 10/30/18 23:19 86 20 100 Nasal Cannula 2.0 28 10/30/18 23:09 85 20 100 Nasal Cannula 2.0 28 10/30/18 21:00 Room Air 10/30/18 20:03 83 20 99 Nasal Cannula 2.0 28 10/30/18 20:00 83 10/30/18 20:00 98.6 85 19 125/66 (85) 100 10/30/18 19:53 98 Nasal Cannula 2.0 28 10/30/18 19:53 82 20 98 Nasal Cannula 2.0 28 10/30/18 19:37 Nasal Cannula 2.0 28 10/30/18 19:36 Nasal Cannula 2.0 28 10/30/18 16:00 98.3 87 20 128/65 (86) 100 10/30/18 15:43 87 Intake and Output 10/30/18 10/31/18 19:00 07:00 Intake Total 380 ml Balance 380 ml Intake Oral 380 ml # Voids 3 5 General Appearance: WD/WN, no acute distress HEENT: normocephalic, atraumatic, anicteric, mucous membranes moist Respiratory/Chest: rhonchi, expiratory wheezing Cardiovascular: normal peripheral pulses, normal rate, regular rhythm Abdomen: normal bowel sounds, soft, non tender, no organomegaly, non distended , no mass Extremities: no cyanosis, no clubbing, no edema Current Medications Medications (Trade) Dose Ordered Sig/Jessica Route PRN Reason Start Time Stop Time Status Last Admin Dose Admin Acetaminophen/ Hydrocodone Bitart ([place] 5/325) 1 tab Q6H PRN ORAL For Pain 10/27/18 17:00 11/03/18 16:59 10/30/18 22:38 Albuterol/ Ipratropium (Albuterol/ Ipratropium) 3 ml Q4H PRN HHN Shortness of Breath 10/28/18 23:15 11/02/18 23:14 Albuterol/ Ipratropium (Albuterol/ Ipratropium) 3 ml Q4HRT HHN 10/29/18 03:00 11/03/18 02:59 10/31/18 15:25 Benazepril HCl (Lotensin) 20 mg DAILY ORAL 10/27/18 09:00 11/22/18 08:59 10/31/18 09:03 Docusate Sodium (Colace) 100 mg TWICE A DAY ORAL 10/31/18 18:00 11/30/18 17:59 Folic Acid (Folate) 1 mg DAILY ORAL 10/27/18 09:00 11/22/18 08:59 10/31/18 09:09 Gabapentin (Neurontin) 100 mg QHS ORAL 10/30/18 21:00 11/29/18 20:59 10/30/18 21:36 Guaifenesin/ Dextromethorphan (Robitussin DM Syrup) 10 ml Q6H PRN ORAL For Cough 10/26/18 20:30 11/22/18 20:29 10/30/18 22:38 Heparin Sodium (Porcine) (Heparin 5000 units/ml) 5,000 units EVERY 12 HOURS SUBQ 10/26/18 21:00 11/22/18 08:59 10/31/18 09:07 Methylprednisolone Sodium Succinate (Solu-MEDROL) 60 mg EVERY 12 HOURS IVP 10/30/18 21:00 11/28/18 10:44 10/31/18 09:02 Nifedipine (Procardia XL) 90 mg DAILY ORAL 10/27/18 09:00 11/22/18 08:59 10/31/18 09:03 Oxybutynin Chloride (Ditropan) 10 mg BID ORAL 10/27/18 09:00 11/22/18 08:59 10/31/18 09:03 Phenytoin (Dilantin) 200 mg Q12HR ORAL 10/26/18 21:00 11/24/18 20:59 10/31/18 09:02 Polyethylene Glycol (Miralax) 17 gm DAILYPRN PRN ORAL Constipation 10/31/18 15:15 11/30/18 15:14 10/31/18 15:13 Salmeterol Xinafoate/ Fluticasone (Advair 250/50 Diskus) 1 puffs BID INH 10/29/18 18:00 11/28/18 17:59 10/31/18 09:30 Tiotropium [place] (Spiriva Inhaler) 1 puff DAILY INH 10/31/18 09:00 11/30/18 08:59 10/31/18 09:30 Abraham Wooten MD Oct 31, 2018 15:32
[2018-10-31 15:59] VITALS: BP 136/69
[2018-10-31] MEDS ORDERED: Lactulose 20gm/30ml UDC ORAL SCH (17:15)
[2018-10-31] MEDS: Docusate 100mg cap ORAL SCH (17:17)
--- NOTE | 2018-10-31 17:28 | Internal Med Progress Note ---
Subjective Physician Name Mohinder Morgan Attending Physician Mohinder Morgan M.D. Current Medications Medications (Trade) Dose Ordered Sig/Jessica Route PRN Reason Start Time Stop Time Status Last Admin Dose Admin Acetaminophen/ Hydrocodone Bitart ([place] 5/325) 1 tab Q6H PRN ORAL For Pain 10/27/18 17:00 11/03/18 16:59 10/30/18 22:38 Albuterol/ Ipratropium (Albuterol/ Ipratropium) 3 ml Q4H PRN HHN Shortness of Breath 10/28/18 23:15 11/02/18 23:14 Albuterol/ Ipratropium (Albuterol/ Ipratropium) 3 ml Q4HRT HHN 10/29/18 03:00 11/03/18 02:59 10/31/18 15:25 Benazepril HCl (Lotensin) 20 mg DAILY ORAL 10/27/18 09:00 11/22/18 08:59 10/31/18 09:03 Docusate Sodium (Colace) 100 mg TWICE A DAY ORAL 10/31/18 18:00 11/30/18 17:59 10/31/18 17:17 Folic Acid (Folate) 1 mg DAILY ORAL 10/27/18 09:00 11/22/18 08:59 10/31/18 09:09 Gabapentin (Neurontin) 300 mg QHS ORAL 10/31/18 21:00 11/29/18 20:59 Guaifenesin/ Dextromethorphan (Robitussin DM Syrup) 10 ml Q6H PRN ORAL For Cough 10/26/18 20:30 11/22/18 20:29 10/30/18 22:38 Heparin Sodium (Porcine) (Heparin 5000 units/ml) 5,000 units EVERY 12 HOURS SUBQ 10/26/18 21:00 11/22/18 08:59 10/31/18 09:07 Lactulose (Cephulac) 30 gm ONCE ORAL 10/31/18 17:15 10/31/18 19:00 10/31/18 17:17 Methylprednisolone Sodium Succinate (Solu-MEDROL) 40 mg EVERY 12 HOURS IVP 10/31/18 21:00 11/28/18 10:44 Nifedipine (Procardia XL) 90 mg DAILY ORAL 10/27/18 09:00 11/22/18 08:59 10/31/18 09:03 Oxybutynin Chloride (Ditropan) 10 mg BID ORAL 10/27/18 09:00 11/22/18 08:59 10/31/18 17:17 Phenytoin (Dilantin) 200 mg Q12HR ORAL 10/26/18 21:00 11/24/18 20:59 10/31/18 09:02 Polyethylene Glycol (Miralax) 17 gm DAILYPRN PRN ORAL Constipation 10/31/18 15:15 11/30/18 15:14 10/31/18 15:13 Salmeterol Xinafoate/ Fluticasone (Advair 250/50 Diskus) 1 puffs BID INH 10/29/18 18:00 11/28/18 17:59 10/31/18 09:30 Tiotropium [place] (Spiriva Inhaler) 1 puff DAILY INH 10/31/18 09:00 11/30/18 08:59 10/31/18 09:30 Allergies: Coded Allergies: No Known Allergies (Unverified , 09/16/18) Subjective Breathing slightly better today solumedrol decreased to 40 BID notes some right leg numbness- started on gabapentin last night s/p abdominal MRI -> adrenal nodule indeterminte Objective Last Vital Signs Date Time Temp Pulse Resp B/P (MAP) Pulse Ox O2 Delivery O2 Flow Rate FiO2 10/31/18 16:00 80 10/31/18 15:59 98.3 18 136/69 (91) 100 10/31/18 15:24 Nasal Cannula 2.0 28 Intake and Output 10/30/18 10/31/18 19:00 07:00 Intake Total 380 ml Balance 380 ml Intake Oral 380 ml # Voids 3 5 Assessment/Plan Problem List: (1) Elevated lactic acid level (2) Status asthmaticus (3) COPD exacerbation (4) Respiratory distress Assessment/Plan [place] I: #COPD exacerbation - duonebs - pulm consulted - refused advair - continue spiriva -s/p Azithro x5 days - solumedrol 40 IV BID - CT chest noted - LE duplex neg # Adrenal nodule - abd MRI shows indeterminate adrenal nodule - further work up/follow up as outpatient #thyroid nodule - thyroid US-> Multiple heterogeneous nodules, nonspecific in nature within both thyroid lobes - outpatient endocrine referral #HTN - resume home meds- nifedipine #RA - on weekly methotrexate #seizure d/o - resume home dilantin BID #hypokalemia, - repleted Mohinder Morgan M.D. Oct 31, 2018 17:27
--- NOTE | 2018-10-31 19:10 | NUR ---
NURSE NOTES: Received patient from Jackie NAVARRO. Patient in bed, awake, alert and oriented x 4. Bed in low position, locked. Patient is ambulatory. On 2L NC, no s/s of respiratory distress. Call light within reach.
--- NOTE | 2018-10-31 19:11 | NUR ---
HAND-OFF: Report given to MELANIE Villasenor. Pt is in stable condition; plan of care endorsed.
[2018-10-31 20:00] VITALS: BP 136/79
[2018-10-31] MEDS: Solu-MEDROL 40mg Inj IVP SCH (21:14)
[2018-10-31] MEDS: Guaifenesin/DM 10ml syrup ORAL PRN (22:46)
[2018-10-31] MEDS: HYDROcodone/Acetamin 5/325 tab ORAL PRN (22:46)
[2018-11-01] VITALS: BP 130/66
[2018-11-01] MEDS: Albuterol/Ipratropium 3ml neb HHN SCH ×6 (03:15→22:05)
[2018-11-01 08:00] VITALS: BP 132/73
--- NOTE | 2018-11-01 08:07 | NUR ---
NURSE NOTES: Received report from MELANIE Villasenor. Patient in bed resting, received breathing treatment. No active s/s cardiac, respiratory distress noticed at this time, denies pain at this time. Patient on 2L oxygen via NC, AOx4. IV on right FA 22G, asymptomatic, patent, intact. Bed in lowest position, side rails upx3, side rails padded, call light within reach. Will continue to monitor.
--- NOTE | 2018-11-01 09:09 | NUR ---
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
[2018-11-01] MEDS: Wixela 250/50 Inhaler - 60 dose INH SCH ×2 (09:10→22:02)
[2018-11-01] MEDS: Docusate 100mg cap ORAL SCH ×2 (09:17→18:03)
[2018-11-01] MEDS: Solu-MEDROL 40mg Inj IVP SCH (09:17)
[2018-11-01] MEDS: Benazepril 10mg tab ORAL SCH (09:18)
[2018-11-01] MEDS: Phenytoin 100mg cap ORAL SCH ×2 (09:18→20:40)
[2018-11-01] MEDS: Oxybutynin 5mg tab ORAL SCH ×2 (09:18→18:03)
[2018-11-01] MEDS: Heparin 5000 units/ml inj SUBQ SCH ×2 (09:22→20:47)
--- NOTE | 2018-11-01 11:44 | Pulmonology Progress Note ---
Assessment/Plan Problems: (1) COPD exacerbation (2) Seizure disorder (3) Former smoker Assessment/Plan Problem List: 1. Respiratory insufficiency 2. Acute COPD exacerbation 3. Leukocytosis 4. Lactic acidosis 5. Seizure disorder 6. Obesity 7. HTN 8. Thyroid nodules incidentally found on chest CT 9. Adrenal nodule incidentally found on chest CT, indeterminate on MRI Plan: -Optimize pulmonary hygiene/mobilize as toleratd -PRN O2 -D/C SM, start Pred 40 and taper (D 10) -HHN's -CPT -Continue Spiriva & Advair -S/P 5 days of PO Azithro -Defer further w/u of adrenal nodule to PMD -monitor volumes and renal function -DVT Px: Hep SQ -Continue to abstain from smoking Subjective Allergies: Coded Allergies: No Known Allergies (Unverified , 09/16/18) Subjective AFVSS on RA Less SOB no cough no wheezing no FC Objective Last 24 Hour Vital Signs Date Time Temp Pulse Resp B/P (MAP) Pulse Ox O2 Delivery O2 Flow Rate FiO2 11/01/18 11:02 76 20 100 Nasal Cannula 2.0 11/01/18 10:56 75 20 99 Room Air 11/01/18 09:18 98 20 95 Room Air 11/01/18 09:18 97 132/73 11/01/18 09:18 132/73 11/01/18 09:16 97 20 95 Room Air 11/01/18 09:16 96 20 95 Room Air 11/01/18 09:14 97 20 95 Room Air 11/01/18 09:00 Room Air 11/01/18 08:00 82 11/01/18 08:00 98.3 86 22 132/73 (92) 92 11/01/18 07:28 78 20 99 Nasal Cannula 2.0 11/01/18 07:23 98 Nasal Cannula 2.0 11/01/18 07:21 79 20 98 Nasal Cannula 2.0 11/01/18 04:00 80 11/01/18 03:15 Nasal Cannula 2.0 11/01/18 03:15 Nasal Cannula 2.0 11/01/18 00:00 98.1 91 18 130/66 (87) 100 11/01/18 00:00 102 10/31/18 23:10 105 18 99 Nasal Cannula 2.0 19 23:00 94 18 98 Nasal Cannula 2.0 28 10/31/18 21:00 Room Air 10/31/18 20:00 111 10/31/18 20:00 98.2 92 19 136/79 (98) 100 10/31/18 19:51 89 18 99 Nasal Cannula 2.0 28 10/31/18 19:41 89 18 98 Nasal Cannula 2.0 28 10/31/18 19:31 87 18 98 Nasal Cannula 2.0 28 10/31/18 19:31 87 18 98 Nasal Cannula 2.0 28 10/31/18 19:31 98 Nasal Cannula 2.0 28 10/31/18 16:00 80 10/31/18 15:59 98.3 84 18 136/69 (91) 100 10/31/18 15:24 88 18 100 Nasal Cannula 2.0 10/31/18 15:17 89 20 100 Nasal Cannula 2.0 28 10/31/18 12:00 98.5 81 18 123/62 (82) 96 10/31/18 12:00 78 Intake and Output 10/31/18 11/01/18 19:00 07:00 Intake Total 860 ml Balance 860 ml Intake Oral 860 ml # Voids 3 4 # Bowel Movements 1 General Appearance: WD/WN, no acute distress, other - ob female HEENT: normocephalic, atraumatic, anicteric, mucous membranes moist Respiratory/Chest: chest wall non-tender, lungs clear, normal breath sounds, no respiratory distress, no accessory muscle use Cardiovascular: normal peripheral pulses, normal rate, regular rhythm Abdomen: normal bowel sounds, soft, non tender, no organomegaly, non distended , no mass Extremities: no cyanosis, no clubbing, no edema Current Medications Medications (Trade) Dose Ordered Sig/Jessica Route PRN Reason Start Time Stop Time Status Last Admin Dose Admin Acetaminophen/ Hydrocodone Bitart ([place] 5/325) 1 tab Q6H PRN ORAL For Pain 10/27/18 17:00 11/03/18 16:59 10/31/18 22:46 Albuterol/ Ipratropium (Albuterol/ Ipratropium) 3 ml Q4H PRN HHN Shortness of Breath 10/28/18 23:15 11/02/18 23:14 Albuterol/ Ipratropium (Albuterol/ Ipratropium) 3 ml Q4HRT HHN 10/29/18 03:00 11/03/18 02:59 11/01/18 10:55 Benazepril HCl (Lotensin) 20 mg DAILY ORAL 10/27/18 09:00 11/22/18 08:59 11/01/18 09:18 Docusate Sodium (Colace) 100 mg TWICE A DAY ORAL 10/31/18 18:00 11/30/18 17:59 11/01/18 09:17 Folic Acid (Folate) 1 mg DAILY ORAL 10/27/18 09:00 11/22/18 08:59 11/01/18 09:17 Gabapentin (Neurontin) 300 mg QHS ORAL 10/31/18 21:00 11/29/18 20:59 10/31/18 21:13 Guaifenesin/ Dextromethorphan (Robitussin DM Syrup) 10 ml Q6H PRN ORAL For Cough 10/26/18 20:30 11/22/18 20:29 10/31/18 22:46 Heparin Sodium (Porcine) (Heparin 5000 units/ml) 5,000 units EVERY 12 HOURS SUBQ 10/26/18 21:00 11/22/18 08:59 11/01/18 09:22 Methylprednisolone Sodium Succinate (Solu-MEDROL) 40 mg EVERY 12 HOURS IVP 10/31/18 21:00 11/28/18 10:44 11/01/18 09:17 Nifedipine (Procardia XL) 90 mg DAILY ORAL 10/27/18 09:00 11/22/18 08:59 11/01/18 09:18 Oxybutynin Chloride (Ditropan) 10 mg BID ORAL 10/27/18 09:00 11/22/18 08:59 11/01/18 09:18 Phenytoin (Dilantin) 200 mg Q12HR ORAL 10/26/18 21:00 11/24/18 20:59 11/01/18 09:18 Polyethylene Glycol (Miralax) 17 gm DAILYPRN PRN ORAL Constipation 10/31/18 15:15 11/30/18 15:14 10/31/18 15:13 Salmeterol Xinafoate/ Fluticasone (Advair 250/50 Diskus) 1 puffs BID INH 10/29/18 18:00 11/28/18 17:59 11/01/18 09:10 Tiotropium [place] (Spiriva Inhaler) 1 puff DAILY INH 10/31/18 09:00 11/30/18 08:59 11/01/18 09:10 Abraham Wooten MD Nov 01, 2018 11:44
[2018-11-01 12:00] VITALS: BP 144/81
--- NOTE | 2018-11-01 13:38 | NUR ---
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 PLEASE PROVIDE THE REVIEW/CLINICAL P- [phone] F- [phone]...REVIEW/CLINICAL
[2018-11-01 16:00] VITALS: BP 125/61
[2018-11-01] MEDS ORDERED: traMADol 50mg tab ORAL PRN ×2 (18:15→18:30)
--- NOTE | 2018-11-01 18:19 | Internal Med Progress Note ---
Subjective Physician Name Mohinder Morgan Attending Physician Mohinder Morgan M.D. Current Medications Medications (Trade) Dose Ordered Sig/Jessica Route PRN Reason Start Time Stop Time Status Last Admin Dose Admin Acetaminophen/ Hydrocodone Bitart ([place] 5/325) 1 tab Q6H PRN ORAL For Pain 10/27/18 17:00 11/03/18 16:59 10/31/18 22:46 Albuterol/ Ipratropium (Albuterol/ Ipratropium) 3 ml Q4H PRN HHN Shortness of Breath 10/28/18 23:15 11/02/18 23:14 Albuterol/ Ipratropium (Albuterol/ Ipratropium) 3 ml Q4HRT HHN 10/29/18 03:00 11/03/18 02:59 11/01/18 14:46 Benazepril HCl (Lotensin) 20 mg DAILY ORAL 10/27/18 09:00 11/22/18 08:59 11/01/18 09:18 Docusate Sodium (Colace) 100 mg TWICE A DAY ORAL 10/31/18 18:00 11/30/18 17:59 11/01/18 18:03 Folic Acid (Folate) 1 mg DAILY ORAL 10/27/18 09:00 11/22/18 08:59 11/01/18 09:17 Gabapentin (Neurontin) 300 mg QHS ORAL 10/31/18 21:00 11/01/18 21:00 10/31/18 21:13 Gabapentin (Neurontin) 300 mg TID ORAL 11/02/18 09:00 11/29/18 20:59 Guaifenesin/ Dextromethorphan (Robitussin DM Syrup) 10 ml Q6H PRN ORAL For Cough 10/26/18 20:30 11/22/18 20:29 10/31/18 22:46 Heparin Sodium (Porcine) (Heparin 5000 units/ml) 5,000 units EVERY 12 HOURS SUBQ 10/26/18 21:00 11/22/18 08:59 11/01/18 09:22 Nifedipine (Procardia XL) 90 mg DAILY ORAL 10/27/18 09:00 11/22/18 08:59 11/01/18 09:18 Oxybutynin Chloride (Ditropan) 10 mg BID ORAL 10/27/18 09:00 11/22/18 08:59 11/01/18 18:03 Phenytoin (Dilantin) 200 mg Q12HR ORAL 10/26/18 21:00 11/24/18 20:59 11/01/18 09:18 Polyethylene Glycol (Miralax) 17 gm DAILYPRN PRN ORAL Constipation 10/31/18 15:15 11/30/18 15:14 10/31/18 15:13 Prednisone (predniSONE) 40 mg DAILY ORAL 11/02/18 09:00 12/02/18 08:59 Salmeterol Xinafoate/ Fluticasone (Advair 250/50 Diskus) 1 puffs BID INH 10/29/18 18:00 11/28/18 17:59 11/01/18 09:10 T[address] [place] (Spiriva Inhaler) 1 puff DAILY INH 10/31/18 09:00 11/30/18 08:59 11/01/18 09:10 Tramadol HCl (Ultram) 50 mg Q6H PRN ORAL For Pain 11/01/18 18:15 11/08/18 18:14 Allergies: Coded Allergies: No Known Allergies (Unverified , 09/16/18) Subjective Breathing continues to improved less dyspnea less cough continue prednisone 40mg daily notes some right leg numbness- improving on gabapentin s/p abdominal MRI -> adrenal nodule indeterminte Objective Last Vital Signs Date Time Temp Pulse Resp B/P (MAP) Pulse Ox O2 Delivery O2 Flow Rate FiO2 11/01/18 16:00 82 11/01/18 16:00 97.7 21 125/61 (82) 93 11/01/18 14:51 Nasal Cannula 2.0 28 Intake and Output 10/31/18 11/01/18 19:00 07:00 Intake Total 860 ml Balance 860 ml Intake Oral 860 ml # Voids 3 4 # Bowel Movements 1 Assessment/Plan Problem List: (1) Elevated lactic acid level (2) Status asthmaticus (3) COPD exacerbation (4) Respiratory distress Assessment/Plan [place] I: #COPD exacerbation - duonebs - pulm consulted - refused advair - continue spiriva -s/p Azithro x5 days - pred 40 daily - CT chest noted - LE duplex neg # Adrenal nodule - abd MRI shows indeterminate adrenal nodule - further work up/follow up as outpatient #thyroid nodule - thyroid US-> Multiple heterogeneous nodules, nonspecific in nature within both thyroid lobes - outpatient endocrine referral #HTN - resume home meds- nifedipine #RA - on weekly methotrexate #seizure d/o - resume home dilantin BID #hypokalemia, - repleted DC PLANNING HOME with tomorrow Mohinder Morgan M.D. Nov 01, 2018 18:19
[2018-11-01] MEDS ORDERED: HYDROcodone/Acetamin 5/325 tab ORAL PRN (18:30)
--- NOTE | 2018-11-01 18:30 | NUR ---
NURSE NOTES: Dr. Morgan made aware patient's HA1c elevated and patient on Solu-Medrol. Per Dr. Morgan no need of insulin at this time.
--- NOTE | 2018-11-01 18:31 | NUR ---
NURSE NOTES: Dr. Tellez made aware patient still c/o leg pain, per Dr. Adorno, change gabapentin 300mg to TID, and tramadol 50mg q6h prn for pain. Order noted, entered, carried out.
--- NOTE | 2018-11-01 19:29 | NUR ---
HAND-OFF: Report given to MELANIE Villasenor.
--- NOTE | 2018-11-01 19:35 | NUR ---
NURSE NOTES: Received patient from Vidya RN. Patient awake/ alert and oriented x4. Ambulatory. Patient on room air, no s/s of respiratory distress. Bed in low position, locked, call light within reach.
[2018-11-01 20:00] VITALS: BP 107/80
[2018-11-01] MEDS: Guaifenesin/DM 10ml syrup ORAL PRN (20:45)
[2018-11-02] VITALS: BP 129/64
[2018-11-02] MEDS: Albuterol/Ipratropium 3ml neb HHN SCH ×3 (03:15→10:49)
[2018-11-02 04:00] VITALS: BP 127/64
--- NOTE | 2018-11-02 07:30 | NUR ---
NURSE NOTES: Received report from MELANIE Villasenor. Pt is alert and oriented X 4. She states she will be discharged today. No discharge order as of yet. Bed is in lowest position, side rails up X2, and call light is within reach. Will continue to monitor.
[2018-11-02 08:00] VITALS: BP 134/68
[2018-11-02] MEDS: Phenytoin 100mg cap ORAL SCH (08:27)
[2018-11-02] MEDS: Docusate 100mg cap ORAL SCH (08:27)
[2018-11-02] MEDS: Oxybutynin 5mg tab ORAL SCH (08:29)
[2018-11-02 08:30] VITALS: BP 134/68
[2018-11-02] MEDS: Benazepril 10mg tab ORAL SCH (08:30)
[2018-11-02] MEDS: Heparin 5000 units/ml inj SUBQ SCH (08:30)
[2018-11-02] MEDS: Wixela 250/50 Inhaler - 60 dose INH SCH (09:03)
--- NOTE | 2018-11-02 09:10 | NUR ---
NURSE NOTES: Called Dr. Morgan regarding pts discharge. Per MD, he will be here at 1130 to give patient a prescription. Will have everything ready for discharge
--- NOTE | 2018-11-02 13:23 | NUR ---
NURSE NOTES: pt ready to be discharged, IV and ID band removed, daughter here to pick her up, aftercare plan and med recon given, gave pt Rx to be picked up at pt own pharmacy, pt dressed and signed off on belongings, pt stated she has all her stuff, pt Ox4 and able to ambulate to lobby with steady gait, denies any s/s of distress or sob.
--- NOTE | 2018-11-02 14:56 | Pulmonology Progress Note ---
Assessment/Plan Problems: (1) COPD exacerbation (2) Seizure disorder (3) Former smoker Assessment/Plan Problem List: 1. Respiratory insufficiency 2. Acute COPD exacerbation 3. Leukocytosis 4. Lactic acidosis 5. Seizure disorder 6. Obesity 7. HTN 8. Thyroid nodules incidentally found on chest CT 9. Adrenal nodule incidentally found on chest CT, indeterminate on MRI Plan: -Optimize pulmonary hygiene/mobilize as toleratd -PRN O2 -Pred 40 and taper (D 11) -HHN's -CPT -Continue Spiriva & Advair -S/P 5 days of PO Azithro -Defer further w/u of adrenal nodule to PMD -monitor volumes and renal function -DVT Px: Hep SQ -Continue to abstain from smoking -Pulm F/U as an outpatient Subjective Allergies: Coded Allergies: No Known Allergies (Unverified , 09/16/18) Subjective Seen earlier AFVSS on RA Denies SOB no cough no wheezing no FC Objective Last 24 Hour Vital Signs Date Time Temp Pulse Resp B/P (MAP) Pulse Ox O2 Delivery O2 Flow Rate FiO2 11/02/18 10:50 84 18 100 Nasal Cannula 2.0 11/02/18 10:45 87 14 97 Nasal Cannula 2.0 11/02/18 09:13 92 18 97 Room Air 11/02/18 09:13 94 18 98 Room Air 11/02/18 09:12 81 16 98 Nasal Cannula 2.0 11/02/18 09:12 79 16 99 Nasal Cannula 2.0 11/02/18 08:30 134/68 11/02/18 08:28 16 134/68 11/02/18 08:00 97.3 86 16 134/68 (90) 99 11/02/18 07:38 Nasal Cannula 2.0 11/02/18 07:38 Nasal Cannula 2.0 11/02/18 07:38 97 Nasal Cannula 2.0 11/02/18 04:00 97.8 77 20 127/64 (85) 100 11/02/18 03:28 86 11/02/18 03:15 Nasal Cannula 2.0 11/02/18 03:15 Nasal Cannula 2.0 11/02/18 00:00 98.2 86 16 129/64 (85) 100 11/01/18 23:29 88 11/01/18 22:10 84 18 100 Nasal Cannula 2.0 11/01/18 22:05 81 18 98 Nasal Cannula 2.0 11/01/18 22:05 98 Room Air 11/01/18 22:02 81 18 98 Nasal Cannula 2.0 11/01/18 22:02 81 18 98 Nasal Cannula 2.0 11/01/18 21:00 Room Air 11/01/18 20:00 98.4 90 16 107/80 (89) 98 11/01/18 19:46 87 11/01/18 19:00 Nasal Cannula 2.0 11/01/18 19:00 Nasal Cannula 2.0 11/01/18 16:00 82 11/01/18 16:00 97.7 84 21 125/61 (82) 93 Intake and Output 11/01/18 11/02/18 19:00 07:00 Intake Total 120 ml 240 ml Balance 120 ml 240 ml Intake Oral 120 ml 240 ml # Voids 8 General Appearance: WD/WN, no acute distress HEENT: normocephalic, atraumatic, anicteric, mucous membranes moist Respiratory/Chest: chest wall non-tender, lungs clear, normal breath sounds, no respiratory distress, no accessory muscle use Cardiovascular: normal peripheral pulses, normal rate, regular rhythm Abdomen: normal bowel sounds, soft, non tender, no organomegaly, non distended , no mass Extremities: no cyanosis, no clubbing, no edema Abraham Wooten MD Nov 02, 2018 14:56
--- NOTE | 2018-11-02 15:08 | NUR ---
*-* INSURANCE *-* UPDATED CLINICALS HAVE BEEN FAXED TO: [facility] NO REAL ESTATE LEGAL ASSISTANT ASSIGNED AT THIS TIME. PLEASE PROVIDE THE REVIEW/CLINICAL P- [phone] F- [phone]...REVIEW/CLINICAL
--- NOTE | 2018-11-07 08:38 | Discharge Summary ---
Discharge Summary Discharge Summary _ DATE OF ADMISSION: 10/22/2018 DATE OF DISCHARGE: 11/02/2018 DISCHARGED BY: Dr Morgan REASON FOR ADMISSION: 68 years old female with past medical history for COPD/asthma, former smoker, hypertension, rheumatoid arthritis( on methotrexate), presented with 2-3 days of worsening dyspnea and wheezing. Patient had been using nebulizer and inhalers at home. Patient denied chest pain, but complained of chest pressure when she was trying to walk around. She denied fever and chills. She reported beige-colored phlegm, no blood . Patient stated, that her symptoms got worse over the last 3 to 4 days , when she tried to use steroid inhaler . Patient subsequently came to emergency room for evaluation. Upon evaluation chest x-ray revealed evidence of COPD, but no infiltrates. Laboratory work-up revealed leukocytosis EKG revealed normal sinus rhythm, no acute ischemic changes. Lactic acid was elevated. Second lactic acid was still elevated . Patient started on antibiotic. Breathing treatment with bronchodilator provided. Patient received fluid bolus for elevated lactic acid. Patient initially responded , but then symptoms worsened again. Patient received racemic epinephrine and albuterol. Magnesium IV given. Patient somehow improved with treatment, but still continued to be in bronchospasm. Patient admitted to telemetry floor for further management CONSULTANTS: pulmonary [facility] COURSE: Patient admitted to telemetry floor. Venous duplex bilateral lower extremity revealed no evidence of acute DVT. Rn Hedis followed. Patient started on steroids with gradual tapering. Supplemental oxygen provided as needed to keep pulse oximetry above 92%. Handheld nebulizing therapy with bronchodilator provided. Advair and Spiriva continued. Patient was on oral azithromycin. Volumes and renal parameters were closely monitored. DVT prophylaxis provided. D-dimer was negative. CT of the chest demonstrated no acute abnormality. Essentially clear lungs. Multiple thyroid nodules, 6 mm left adrenal nodule. Echocardiogram revealed preserved ejection fraction 65% with mild left ventricular hypertrophy. No evidence of wall motion abnormality. Right ventricular systolic pressure 49 consistent with a moderate pulmonary hypertension. Ultrasound of the thyroid revealed multiple heterogeneous nodules, nonspecific in nature, within both thyroid lobes. Patient undergone abdominal MRI , which revealed left adrenal mass , indeterminate. No biliary ductal dilatation. Unremarkable gallbladder. No imaging evidence for acute pancreatitis. Further work-up for adrenal nodule was recommended as outpatient. Patient was counseled on abstinence from smoking. Patient was advised to follow-up with the pulmonary as outpatient. Seizure precaution maintained. Dilantin continued. No evidence of seizure activity while in the hospital. Blood pressure was closely monitored and was controlled with nifedipine. Weekly methotrexate continued. Hypokalemia was repleted. Patient was counseled to continue abstinence from smoking. Outpatient follow-up with the expert witness was recommended. Patient will need outpatient work-up for adrenal nodules and referral to valuation manager for multiply thyroid nodules. Patient clinically stabilized and was ready for discharge home FINAL DIAGNOSES: Status asthmaticus COPD exacerbation Lactic acidosis. Seizure disorder Former smoker Respiratory insufficiency Hypertension Rheumatoid arthritis Hypokalemia Obesity Multiply thyroid nodules Adrenal nodule DISCHARGE MEDICATIONS: See Medication Reconciliation list. DISCHARGE INSTRUCTIONS: Patient was discharged home . Follow up with primary care provider in one week. I have been assigned to dictate discharge summary for this account. I was not involved in the patient's management. Lauren Lee NP Nov 07, 2018 08:38
== END 2018-11-02 13:25 | disposition home health service (06) | DRG 140 ==
LOC: EMR 18:25 → 2E 18:42 → EDBEDREQ 19:07 → EDBEDREQSVC 21:15 → EDBEDREQ 21:16 → 2W 21:17 → EDBEDREQ 21:17 → 2W 10-23 → 2E 10-26 20:21
DX: J44.1 Chronic obstructive pulmonary disease with (acute) exacerbation (principal); E87.2 Acidosis; E87.6 Hypokalemia; E66.9 Obesity, unspecified; Z68.37 Body mass index [BMI] 37.0-37.9, adult; J45.902 Unspecified asthma with status asthmaticus; I10 Essential (primary) hypertension; M06.9 Rheumatoid arthritis, unspecified; R79.89 Other specified abnormal findings of blood chemistry; G40.909 Epilepsy, unspecified, not intractable, without status epilepticus; Z87.891 Personal history of nicotine dependence; D72.829 Elevated white blood cell count, unspecified; E04.1 Nontoxic single thyroid nodule
CPT/HCPCS: 36415; 36600; 71045; 71250; 74183; 76536; 80048; 80053; 80185; 82550; 82803; 83036; 83605; 83735; 83880; 84484; 85007; 85025; 85379; 85610; 85730; 93005; 93306; 93970; 94640; 94664; 96361; 96374; 99291; A9585; J7620; J8499